=== PATIENT | female | born 1950 | race Hispanic/Latino ===

== ENCOUNTER 2018-11-06 15:00 | Emergency (ER) | payer OTHER ==
--- OUTSIDE RECORDS SUMMARY | 2018-11-06 15:03 | XMS REPORT | Clinical Summary ---
:1950 Author Organization [employer] Address [address] [place] [address] Care Team Providers Name Role Phone Rudy Ramsey MD Primary Care Provider Allergies No Known Allergies Medications Medication Sig Dispensed Refills Start Date End Date Status levothyroxine TK 1 T PO QD 3 12/16/2017 Active (SYNTHROID, LEVOXYL) 88 mcg tablet losartan (COZAAR) 50 TK 1 T PO QAM 3 11/10/2017 Active MG tablet gabapentin Take 300 mg 0 Active (NEURONTIN) 100 mg by mouth 3 capsule (three) times a day. amlodipine-atorvasta Take 1 tablet 0 Active tin (CADUET) 2.5-10 by mouth mg per tablet daily. MULTIVIT,IRON,MINERA Take by 0 Active LS/LUTEIN (CENTRUM mouth. SILVER ULTRA WOMEN'S ORAL) metFORMIN Take 500 mg 0 Active (GLUCOPHAGE) 500 mg by mouth. tablet aspirin (ECOTRIN) 81 Take 81 mg by 0 Active MG enteric coated mouth daily. tablet rosuvastatin Take 5 mg by 0 04/25/2018 Discontinued (CRESTOR) 5 MG mouth daily. tablet qcjchcms-qat-CQ-lyco Take by 0 01/17/2018 Discontinued pen-lutein (CENTRUM mouth. SILVER) 0.4-300-250 mg-mcg-mcg tablet Active Problems Problem Noted Date BLACKWELL (nonalcoholic steatohepatitis) 01/23/2018 Cirrhosis of liver without ascites 01/23/2018 Abnormal LFTs 01/23/2018 Encounters Date Type Specialty Care Team Description 08/07/2018 Office Visit Hepatology Salbador Shaffer MD BLACKWELL (nonalcoholic steatohepatitis) (Primary Dx); Bette Cerda Other cirrhosis of liver; More, VARSHA Abnormal LFTs; Screening for cancer; Cirrhosis of liver without ascites, unspecified hepatic cirrhosis type 04/25/2018 Lab Lab Cheryle Nolasco, BLACKWELL (nonalcoholic steatohepatitis); [employer] RE[employer] Cirrhosis of liver without ascites, unspecified hepatic cirrhosis type; Abnormal LFTs 04/25/2018 Office Visit Hepatology NolascoCheryle garza, BLACKWELL (nonalcoholic steatohepatitis) (Primary Dx); [employer] REPA[employer] Cirrhosis of liver without ascites, unspecified hepatic cirrhosis type; Abnormal LFTs 01/17/2018 Office Visit Gastroenterology Salbador Shaffer MD BLACKWELL ( nonalcoholic steatohepatitis) (Primary Dx); Cirrhosis of liver without ascites, unspecified hepatic cirrhosis type; Abnormal LFTs after 11/05/2017 Social History Tobacco Use Types Packs/Day Years Used Date Never Smoker Smokeless Tobacco: Never Used Alcohol Use Drinks/Week oz/Week Comments No Sex Assigned at Date Recorded Not on file Job Start Date Occupation Industry Not on file Not on file Not on file Travel History Travel Start Travel End No recent travel history available. Last Filed Vital Signs Vital Sign Reading Time Taken Blood Pressure 124/69 08/07/2018 1:23 PM CDT Pulse 77 08/07/2018 1:23 PM CDT Temperature 36.1 C (97 F) 08/07/2018 1:23 PM CDT Respiratory Rate 18 08/07/2018 1:23 PM CDT Oxygen Saturation 97% 08/07/2018 1:23 PM CDT Inhaled Oxygen Concentration - - Weight 70.8 kg (156 lb) 08/07/2018 1:23 PM CDT Height 157.5 cm (5' 2") 08/07/2018 1:23 PM CDT Body Mass Index 28.53 08/07/2018 1:23 PM CDT Plan of Treatment Date Type Specialty Care Team Description 11/07/2018 Office Visit Hepatology Salbador Shaffer MD [address] [facility] [address] [place] [phone] Health Maintenance Due Date Last Done Comments BREAST CANCER SCREENING 2001 COLON CANCER SCREENING 2001 SHINGLES VACCINES (1 of 2) 2001 PNEUMOCOCCAL POLYSACCHARIDE VACCINE AGE 65 AND OVER 2016 PNEUMOCOCCAL-13 2016 INFLUENZA VACCINE 06/12/2018 Procedures Procedure Name Priority Date/Time Associated Comments Diagnosis PROTHROMBIN TIME WITH Routine 08/07/2018 1:52 BLACKWELL (nonalcoholic Results for this INR PM CDT steatohepatitis) procedure are in Other cirrhosis of the results liver section. Abnormal LFTs Screening for cancer COMPREHENSIVE METABOLIC Routine 08/07/2018 1:52 BLACKWELL (nonalcoholic Results for this PANEL PM CDT steatohepatitis) procedure are in Other cirrhosis of the results liver section. Abnormal LFTs Screening for cancer CBC WITH PLATELET AND Routine 08/07/2018 1:52 BLACKWELL (nonalcoholic Results for this DIFFERENTIAL PM CDT steatohepatitis) procedure are in Other cirrhosis of the results liver section. Abnormal LFTs Screening for cancer ALPHA FETOPROTEIN Routine 08/07/2018 1:52 BLACKWELL (nonalcoholic Results for this PM CDT steatohepatitis) procedure are in Other cirrhosis of the results liver section. Abnormal LFTs Screening for cancer PROTHROMBIN TIME WITH Routine 04/25/2018 1:46 BLACKWELL (nonalcoholic Results for this INR PM CDT steatohepatitis) procedure are in Cirrhosis of liver the results without ascites, section. unspecified hepatic cirrhosis type Abnormal LFTs GGT Routine 04/25/2018 1:46 BLACKWELL (nonalcoholic Results for this PM CDT steatohepatitis) procedure are in Cirrhosis of liver the results without ascites, section. unspecified hepatic cirrhosis type Abnormal LFTs COMPREHENSIVE METABOLIC Routine 04/25/2018 1:46 BLACKWELL (nonalcoholic Results for this PANEL PM CDT steatohepatitis) procedure are in Cirrhosis of liver the results without ascites, section. unspecified hepatic cirrhosis type Abnormal LFTs CBC WITH PLATELET AND Routine 04/25/2018 1:46 BLACKWELL (nonalcoholic Results for this DIFFERENTIAL PM CDT steatohepatitis) procedure are in Cirrhosis of liver the results without ascites, section. unspecified hepatic cirrhosis type Abnormal LFTs ANTINUCLEAR ANTIBODIES Routine 01/17/2018 11:31 Results for this TITER AND PATTERN AM B[facility]BALL PITCHER procedure are in the results section. MITOCHONDRIAL AB TITER Routine 01/17/2018 11:31 Results for this AM [facility]ER procedure are in the results section. MITOCHONDRIAL AB SCREEN Routine 01/17/2018 11:31 Results for this AM [facility] procedure are in the results section. HEPATITIS C ANTIBODY Routine 01/17/2018 11:31 Results for this AM [facility]ER procedure are in the results section. HEPATITIS B CORE Routine 01/17/2018 11:31 Results for this ANTIBODY IGM AM [facility]ER procedure are in the results section. HEPATITIS B SURFACE Routine 01/17/2018 11:31 Results for this ANTIGEN AM [facility] procedure are in the results section. HEPATITIS A ANTIBODY Routine 01/17/2018 11:31 Results for this IGM AM [facility] procedure are in the results section. F-ACTIN (SMOOTH MUSCLE) Routine 01/17/2018 11:31 BLACKWELL (nonalcoholic Results for this ANTIBODY, IGG AM BASEBALL PITCHER steatohepatitis) procedure are in Cirrhosis of liver the results without ascites, section. unspecified hepatic cirrhosis type Abnormal LFTs KAILEE SCREEN W IFA W Routine 01/17/2018 11:31 BLACKWELL (nonalcoholic Results for this REFLEX TO TITER AM BASEBALL PITCHER steatohepatitis) procedure are in Cirrhosis of liver the results without ascites, section. unspecified hepatic cirrhosis type Abnormal LFTs PROTHROMBIN TIME WITH Routine 01/17/2018 11:31 BLACKWELL (nonalcoholic Results for this INR AM BASEBALL PITCHER steatohepatitis) procedure are in Cirrhosis of liver the results without ascites, section. unspecified hepatic cirrhosis type Abnormal LFTs IMMUNOGLOBULIN G, A, M Routine 01/17/2018 11:31 BLACKWELL (nonalcoholic Results for this AM B[facility]ITCHER steatohepatitis) procedure are in Cirrhosis of liver the results without ascites, section. unspecified hepatic cirrhosis type Abnormal LFTs HEPATITIS B CORE Routine 01/17/2018 11:31 BLACKWELL (nonalcoholic Results for this ANTIBODY TOTAL AM BASEBALL [facility]ITCHER steatohepatitis) procedure are in Cirrhosis of liver the results without ascites, section. unspecified hepatic cirrhosis type Abnormal LFTs HEPATITIS A ANTIBODY Routine 01/17/2018 11:31 BLACKWELL (nonalcoholic Results for this TOTAL AM BASEBALL PITCHER steatohepatitis) procedure are in Cirrhosis of liver the results without ascites, section. unspecified hepatic cirrhosis type Abnormal LFTs GGT Routine 01/17/2018 11:31 BLACKEWLL (nonalcoholic Results for this AM BASEBALL PITCHER steatohepatitis) procedure are in Cirrhosis of liver the results without ascites, section. unspecified hepatic cirrhosis type Abnormal LFTs FERRITIN LEVEL Routine 01/17/2018 11:31 BLACKWELL (nonalcoholic Results for this AM BASEBALL [facility]ITCHER steatohepatitis) procedure are in Cirrhosis of liver the results without ascites, section. unspecified hepatic cirrhosis type Abnormal LFTs COMPREHENSIVE METABOLIC Routine 01/17/2018 11:31 BLACKWELL (nonalcoholic Results for this PANEL AM BASEBALL PITCHER steatohepatitis) procedure are in Cirrhosis of liver the results without ascites, section. unspecified hepatic cirrhosis type Abnormal LFTs ALPHA FETOPROTEIN Routine 01/17/2018 11:31 BLACKWELL (nonalcoholic Results for this AM BASEBALL PITCHER steatohepatitis) procedure are in Cirrhosis of liver the results without ascites, section. unspecified hepatic cirrhosis type Abnormal LFTs after 11/05/2017 Results Alpha fetoprotein (08/07/2018 1:52 PM CDT)Only the most recent of2 resultswithin the time period is included. Alpha fetoprotein 17.5 (H) ng/mL [employer] Comment: II Reference Range: <6.1 The use of AFP as a tumor marker in females is not recommended. This test was performed using the [place] chemiluminescent method. Values obtained from different assay methods cannot be used interchangeably. AFP levels, regardless of value, should not be interpreted as absolute evidence of the presence or absence of disease. Specimen Blood Resulting Agency Comment Performing Organization Information: Site ID: [id number] Name: [facility] Address: [address] [place] [phone] Director: Dr. Andrea Greene Performing Organization Address City/[facility] Centercode Phone Number [employer] [address] Prothrombin time with INR (08/07/2018 1:52 PM CDT)Only the most recent of3 resultswithin the time period is included. INR 1.3 (H) [facility] [place] Comment: Reference Range 0.9-1.1 Moderate-intensity Warfarin Therapy 2.0-3.0 Higher-intensity Warfarin Therapy 3.0-4.0 Prothrombin time 13.2 (H) 9.0 - 11.5 sec [facility] [place] Comment: For more information on this test, go to: http://education.ThePresent.Co/faq/REH691 Specimen Blood Resulting Agency Comment Performing Organization Information: Site ID: [id number] Name: [facility] Address: [address] [place] [phone] Director: Elina Sanderson Performing Organization Address [facility]/Zipcode Phone Number [employer] [address] [address] CBC with platelet and differential (08/07/2018 1:52 PM CDT)Only the most recent of2 resultswithin the time period is included. WBC 5.6 3.8 - 10.8 Thousand/uL [facility] [employer] [place] RBC 4.27 3.80 - 5.10 Million/uL [facility] HGB 13.1 11.7 - 15.5 g/dL [facility] HCT 38.8 35.0 - 45.0 % [facility] [place] MCV 90.9 80.0 - 100.0 fL [facility] [place] MCH 30.7 27.0 - 33.0 pg [facility] [place] MCHC 33.8 32.0 - 36.0 g/dL [facility] [place] RDW 14.2 11.0 - 15.0 % [facility] [place] Platelet count 166 140 - 400 Thousand/uL [facility] [employer] [place] MPV 10.2 7.5 - 12.[address] [facility] Neutrophils, absolute 2,750 1,500 - 7,800 cells/uL [facility] [place] Lymphocytes, absolute 2,268 850 - 3,900 cells/uL [facility] [place] Monocytes, absolute 426 200 - 950 cells/uL [facility] [place] Eosinophils, absolute 78 15 - 500 cells/uL [facility] [place] Basophils, absolute 78 0 - 200 cells/uL [facility] [place] Neutrophils 49.1 % [facility] Lymphocytes 40.5 % [facility] [place] Monocytes 7.6 % [facility] [place] Eosinophils 1.4 % [facility] [place] Basophils + RC 1.4 % [facility] [place] Specimen Blood Resulting Agency Comment Performing Organization Information: Site ID: [id number] Name: [employer] [facility] Lab Address: [address] [place] [phone] Director: Elina Sanderson Performing Organization Address City/State/Zipcode Phone Number [facility] [employer] [place] [phone] Comprehensive metabolic panel (08/07/2018 1:52 PM CDT)Only the most recent of3 resultswithin the time period is included. Glucose 143 (H) 65 - 99 mg/dL [facility] Comment: [place] Fasting reference interval For someone without known diabetes, a glucose value >125 mg/dL indicates that they may have diabetes and this should be confirmed with a follow-up test. BUN, whole blood 7 7 - 25 mg/dL [facility] [place] Creatinine 0.52 0.50 - 0.99 [facility] Comment: mg/dL [place] For patients >49 years of age, the reference limit for Creatinine is approximately 13% higher for people identified as -Lebanese. EGFR Non-Afr. Lebanese 100 > OR=60 [facility] mL/min/1.73m2 [place] EGFR 115 > OR=60 [facility] mL/min/1.73m2 [place] BUN/creatinine ratio NOT APPLICABLE 6 - 22 (calc) [facility] [place] Sodium 138 135 - 146 mmol/L [facility] [place] Potassium 4.2 3.5 - 5.3 mmol/L [facility] [place] Chloride 102 98 - 110 mmol/L [facility] [place] CO2 26 20 - 32 mmol/L [facility] [place] Calcium 9.5 8.6 - 10.4 mg/dL [facility] [place] Protein 8.0 6.1 - 8.1 g/dL [facility] [place] Albumin, S 3.9 3.6 - 5.1 g/dL [facility] [place] Globulin, total 4.1 (H) 1.9 - 3.7 g/dL [facility] (calc) [place] Albumin/globulin ratio 1.0 1.0 - 2.5 (calc) [facility] [place] Total bilirubin 0.8 0.2 - 1.2 mg/dL [facility] [place] Alkaline phosphatase 92 33 - 130 U/L [facility] [place] AST 52 (H) 10 - 35 U/L [facility] [place] ALT 34 (H) 6 - 29 U/L [facility] [place] Specimen Blood Resulting Agency Comment Performing Organization Information: Site ID: A Name: [facility] Address: [address] [place] [phone] Director: Elina Sanderson Performing Organization Address City/[facility] Centercode Phone Number [employer] [place] [phone] GGT (04/25/2018 1:46 PM CDT)Only the most recent of2 resultswithin the time period is included. GGT 151 (H) 3 - 65 U/L [facility] [employer] [place] Specimen Blood Resulting Agency Comment Performing Organization Information: Site ID: A Name: [facility] Address: [address] [place] [phone] Director: Elina Sanderson Performing Organization Address City/State/[facility] Centercode Phone Number [employer] [place] [phone] Mitochondrial Ab Titer (01/17/2018 11:31 AM BASEBALL PITCHER) Mitochondrial Ab titer TNP titer [facility]OHN Comment: SJC Test Not Performed. Screening test Negative or Not Detected. Titer not performed. Narrative Performed At FASTING:NO [facility] FASTING: NO Resulting Agency Comment Performing Organization Information: Site ID: [id number] Name: [facility], Address: [address] [place] [phone] Director: Sherrill Simmons MD,PhD,JUANA Performing Organization Address [facility] Phone Number [facility] [address] [place] [address] [facility] Mitochondrial Ab Screen (01/17/2018 11:31 AM B[facility]BALL PITCHER) Mitochondrial Ab NEGATIVE NEGATIVE [facility] Comment: [facility] This test was developed and its analytical performance characteristics have been determined by [facility]. It has not been cleared or approved by FDA. This assay has been validated pursuant to the CLIA regulations and is used for clinical purposes. Narrative Performed At FASTING:NO [facility] FASTING: NO Resulting Agency Comment Performing Organization Information: Site ID: [id number] Name: [facility], Address: [address] [place] [phone] Director: Sherrill Simmons MD,PhD,JUANA Performing Organization Address [facility] Phone Number [facility] [employer] [address] [place] [address] [facility] KAILEE SCREEN W IFA W REFLEX TO TITER (01/17/2018 11:31 AM BASEBALL PITCHER) KAILEE screen POSITIVE (A) NEGATIVE [facility] II Comment: KAILEE IFA is a first line screen for detecting the presence of up to approximately 150 autoantibodies in various autoimmune diseases. A positive KAILEE IFA result is suggestive of autoimmune disease and reflexes to titer and pattern. Further laboratory testing may be considered if clinically indicated. Visit Physician FAQs for interpretation of all antibodies in the [place], prevalence, and association with diseases at http://education.BeHome247/ faq/FMH170 Specimen Blood Narrative Performed At FASTING:NO [facility] FASTING: NO Resulting Agency Comment Performing Organization Information: Site ID: [id number] Name: [facility] Address: [address] [place] [phone] Director: Dr. Andrea Greene Performing Organization Address [facility] Phone Number [employer] [address] ANTINUCLEAR ANTIBODIES TITER AND PATTERN (01/17/2018 11:31 AM BASEBALL PITCHER) KAILEE pattern SPECKLED (A) [facility] Comment: Speckled pattern is associated with mixed connective tissue disease (MCTD), systemic lupus erythematosus (SLE), Sjogren's syndrome, dermatomyositis, and systemic sclerosis/polymyositis overlap. KAILEE titer 1:80 (H) titer [facility] Comment: A low level KAILEE titer may be present in pre-clinical autoimmune diseases and normal individuals. Reference Range <1:40Negative 1:40-1:80Low Antibody Level >1:80Elevated Antibody Level Narrative Performed At FASTING:NO [facility] FASTING: NO Resulting Agency Comment Performing Organization Information: Site ID: [id number] Name: [facility] Address: [address] [place] [phone] Director: Dr. Andrea Greene Performing Organization Address [facility] Phone Number [employer] [address] Hepatitis C antibody (01/17/2018 11:31 AM BASEBALL PITCHER) Hepatitis C Ab NON-REACTIVE NON-REACTIVE [facility] [place] Signal/cutoff 0.14 <1.00 [facility] [place] Narrative Performed At FASTING:NO [facility] FASTING: NO Resulting Agency Comment Performing Organization Information: Site ID: RGA Name: [facility] Address: [address] [place] [phone] Director: Elina Sanderson MD Performing Organization Address [facility] Centerconh Phone Number [employer] [address] [address] F-actin (smooth muscle) antibody, IgG (01/17/2018 11:31 AM BASEBALL PITCHER) F-actin (smooth muscle) <20 U [facility], IgG Comment: DIAGNOSTICS/[facility] Reference Range: < 20 NEGATIVE > OR=20 POSITIVE Antibodies recognizing actin are the main component of smooth muscle antibodies associated with autoimmune liver disease. Actin antibodies are found in approximately 75% of patients with autoimmune hepatitis (AIH) type 1, approximately 65% of patients with autoimmune cholangitis, approximately 30% of patients with primary biliary cirrhosis, and approximately 2% of healthy people. High values are closely correlated with AIH type 1. Specimen Blood Narrative Performed At FASTING:NO [facility] FASTING: NO Resulting Agency Comment Performing Organization Information: Site ID: [id number] Name: [facility] [facility], Address: [address] [place] [phone] Director: Sherrill Simmons MD,PhD,JUANA Performing Organization Address City/State/[facility] Centercode Phone Number [employer] [address] [place] [phone] [facility] Hepatitis A antibody IgM (01/17/2018 11:31 AM B[facility]BALL PITCHER) Hepatitis A IgM NON-REACTIVE NON-REACTIVE [facility] [place] Narrative Performed At FASTING:NO [facility] FASTING: NO Resulting Agency Comment Performing Organization Information: Site ID: RGA Name: [facility] Address: [address] [place] [phone] Director: Elina Sanderson MD Performing Organization Address [facility] Centercode [place] [address] Hepatitis A antibody total (01/17/2018 11:31 AM B[facility]BALL PITCHER) Hepatitis A total Ab REACTIVE (A) NON-REACTIVE [facility] [place] Specimen Blood Narrative Performed At FASTING:NO [facility] FASTING: NO Resulting Agency Comment Performing Organization Information: Site ID: RGA Name: [facility] Address: [address] [place] [phone] Director: Elina Sanderson MD Performing Organization Address [facility] Centercode [place] [address] Hepatitis B core antibody IgM (01/17/2018 11:31 AM BASEBALL PITCHER) Hepatitis B core IgM NON-REACTIVE NON-REACTIVE [facility] [place] Narrative Performed At FASTING:NO [facility] FASTING: NO Resulting Agency Comment Performing Organization Information: Site ID: RGA Name: [facility] Address: [address] [place] [phone] Director: Elina Sanderson MD Performing Organization Address [facility] Centercode [place] [address] Hepatitis B core antibody total (01/17/2018 11:31 AM BASEBALL PITCHER) Hepatitis B core total Ab NON-REACTIVE NON-REACTIVE [facility] [place] Specimen Blood Narrative Performed At FASTING:NO [facility] FASTING: NO Resulting Agency Comment Performing Organization Information: Site ID: RGA Name: [facility] Address: [address] [place] [phone] Director: Elina Sanderson MD Performing Organization Address [facility] Centercode [place] [address] Hepatitis B surface antigen (01/17/2018 11:31 AM BASEBALL PITCHER) Hepatitis B surface Ag NON-REACTIVE NON-REACTIVE [facility] [place] Narrative Performed At FASTING:NO [facility] FASTING: NO Resulting Agency Comment Performing Organization Information: Site ID: RGA Name: [facility] Address: [address] [place] [phone] Director: Elina Sanderson MD Performing Organization Address [facility] Centerconh [place] [address] Immunoglobulin G, A, M (01/17/2018 11:31 AM BASEBALL PITCHER) IgA 796 (H) 81 - 463 mg/dL [facility] [place] IgG 2,557 (H) 694 - 1,618 mg/dL [facility] [place] IgM 136 48 - 271 mg/dL [facility] [place] Specimen Blood Narrative Performed At FASTING:NO [facility] FASTING: NO Resulting Agency Comment Performing Organization Information: Site ID: RGA Name: [facility] Address: [address] [place] [phone] Director: Elina Sanderson MD Performing Organization Address [facility] Centercode Phone Number [employer] [address] [address] Ferritin level (01/17/2018 11:31 AM BASEBALL PITCHER) Ferritin level 74 20 - 288 ng/mL [facility] [employer] [place] Specimen Blood Narrative Performed At FASTING:NO [facility] FASTING: NO Resulting Agency Comment Performing Organization Information: Site ID: [id number] Name: [facility] Address: [address] [place] [address] Director: Elina Sanderson MD Performing Organization Address City/State/Zipcode Phone Number [facility] [place] [address] [place], [place] [id number] after 11/05/2017 Insurance Payer Benefit Plan / Group Subscriber ID Type Phone Address [employer] MEDICARE AETNA MEDICARE HMO/PPO [facility] xxxxxxxx HMO (Home) [place], [place] [phone] [id number] (Work) Advance Directives Patient has advance care planning documents on file. For more information, please contact:Harshal Guadalupe[address] [address]
[2018-11-06] MEDS ORDERED: IBUPROFEN 200 MG TAB PO ONE (15:45)
[2018-11-06] MEDS ORDERED: IBUPROFEN 400 MG TAB ONE (15:45)
--- NOTE | 2018-11-06 16:04 | RAD REPORT ---
EXAM DESCRIPTION: RAD - Chest Pa And Lat (2 Views) - 11/06/2018 3:58 pm CLINICAL HISTORY: RIB PAIN - RIGHT Chest pain. COMPARISON: Chest Pa And Lat (2 Views) dated 12/19/2017; CHEST SINGLE VIEW dated 12/09/2013; CHEST SING LE VIEW dated 01/13/2011; CHEST SINGLE VIEW dated 05/10/2010 FINDINGS: The lungs appear mildly hyperexpanded but grossly clear. The heart is normal in size. No d isplaced fractures. IMPRESSION: No acute finding is demonstrated.
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
[2018-11-06 16:28] VITALS: O2SAT 98
[2018-11-06 16:29] VITALS: BP 135/78; TEMP 98.8
== END 2018-11-06 16:23 | disposition home or self-care (01) ==
LOC: ER 15:00
DX: S29.012A Strain of muscle and tendon of back wall of thorax, initial encounter (principal); V43.62XA Car passenger injured in collision with other type car in traffic accident, initial encounter
CPT/HCPCS: 71046; 99284

== ENCOUNTER 2023-08-15 17:42 | Emergency (ER) | payer OTHER ==
--- OUTSIDE RECORDS SUMMARY | 2023-08-15 17:48 | XMS REPORT | Continuity of Care Document ---
:1950 Author Organization [facility] t Address [address] [facility] [place] [place] [address] Care Team Providers Name Role Phone Rudy Ramsey MD Primary Care Physician Sherman Jama Attending Clinician Unavailable Per Luis MD Attending Clinician Alfredo Colón Attending Clinician Unavailable Rudy Ramsey Admitting Clinician Unavailable Alfredo Colón Admitting Clinician Unavailable Payers Payer Name Policy Type Policy Number Effective Date Expiration Date S ource Problems Condition Condition Condition Status Onset Resolution Last Treating Co mments Source Name Details Category Date Date Treatment Clinician Date BLACKWELL BLACKWELL Disease Active Methodi (nonalcoho (nonalcoho 01-23 lic lic 00:00: Hospita ste[place]hepa steatohepa 00 l titis) titis) Cirrhosis Cirrhosis Disease Active Met [facility]odi of liver of liver 01-23 without without 00:00: Hospita ascites ascites 00 l Abnormal Abnormal Disease Active Metho di LFTs LFTs 01-23 00:00: Hospita 00 l Allergies, Adverse Reactions, Alerts Allergy Allergy Status Severity Reaction(s) Onset Inactive Treating Comm ents Source Name Type Date Date Clinician No Known DA Active [facility] 04-25 Clear s 00:00: [facility] No Known DA Active [facility] Allergie 6-14 Clear s 00:00: Abrams 00 [facility] No Known DA Active U [facility] Allergie 5-03 Clear s 00:00: Abrams 00 [facility] No Known DA Active U [facility] Allergie 5-03 Clear s 00:00: Abrams 00 [facility] Social History Social Habit Start Date Stop Date Quantity Comments Source Sexual orientation Method [facility] Hospital History of Social 2019-07-03 2019-07-[address] function 00:00:00 00:00:00 Hospital Alcohol intake 2018-08-07 2018-08-07 Current [facility] 00:00:00 00:00:00 non-drinker of Hospital alcohol (finding) Tobacco use and 2018-04-25 2018-04-25 Smokeless [facility] exposure 00:00:00 00:00:00 tobacco non-user Hospital Sex Assigned At [birth year] [facility] 00:00:00 00:00:00 Hospital Smoking Status Start Date Stop Date Source Never smoked tobacco [facility] Medications Ordered Filled Start Stop Current Ordering Indication Dosage Frequency Signature Comments Components Source Medication Medication Date Date Medication? Clinician (SIG) Name Name metFORMIN Yes 500mg Take 500 Met hodi (GLUCOPHAGE - mg by st ) 500 mg 18:32: mouth. Hospita tablet 07 l aspirin Yes 81mg QD Take 81 mg Meth eduardo (ECOTRIN) 08-[address] 81 MG 18:32: daily. Hospita enteric 07 l coated tablet gabapentin Yes 300mg Q.[id number] Take 300 Methodi (NEURONTIN) 08-07 [id number] mg by s t 100 mg 18:31: 3D mouth 3 Hospita capsule 09 (three) l times a day. amlodipine- Yes 1{tbl} QD Take 1 Me thodi atorvastati 08-[address] n (CADUET) 18:31: mouth Hospit a 2.5-10 mg 09 daily. l per tablet MULTIVIT,IR Yes Take by Met hodi ON,MINERALS 9-[address] /LUTEIN 18:31: Hospita (CENTRUM 09 l SILVER ULTRA WOMEN'S ORAL) metFORMIN Yes 500mg Take 500 Met hodi (GLUCOPHAGE 9-[address] ) 500 mg 13:32: mouth. Hospita tablet 07 l aspirin 2018-0 Yes 81mg QD Take 81 mg Meth eduardo (ECOTRIN) 9-[address] 81 MG 13:32: daily. Hospita enteric 07 l coated tablet metFORMIN 2017-0 Yes 500mg Take 500 Met hodi (GLUCOPHAGE 9-[address] ) 500 mg 13:32: mouth. Hospita tablet 07 l aspirin 2018-0 Yes 81mg QD Take 81 mg Meth eduardo (ECOTRIN) 9-[address] 81 MG 13:32: daily. Hospita enteric 07 l coated tablet metFORMIN 2017-0 Yes 500mg Take 500 Met hodi (GLUCOPHAGE 9-[address] ) 500 mg 13:32: mouth. Hospita tablet 07 l aspirin 2018-0 Yes 81mg QD Take 81 mg Meth eduardo (ECOTRIN) 9-[address] 81 MG 13:32: daily. Hospita enteric 07 l coated tablet metFORMIN 2017-0 Yes 500mg Take 500 Met hodi (GLUCOPHAGE 9-[address] ) 500 mg 13:32: mouth. Hospita tablet 07 l aspirin 2017-0 Yes 81mg QD Take 81 mg Meth eduardo (ECOTRIN) 9- by mouth st 81 MG 13:32: daily. Hospita enteric 07 l coated tablet metFORMIN 2017-0 Yes 500mg Take 500 Met hodi (GLUCOPHAGE 9-[address] ) 500 mg 13:32: mouth. Hospita tablet 07 l aspirin 2018-0 Yes 81mg QD Take 81 mg Meth eduardo (ECOTRIN) 9-[address] 81 MG 13:32: daily. Hospita enteric 07 l coated tablet metFORMIN 2017-0 Yes 500mg Take 500 Met hodi (GLUCOPHAGE 9-[address] ) 500 mg 13:32: mouth. Hospita tablet 07 l aspirin 2018-0 Yes 81mg QD Take 81 mg Meth eduardo (ECOTRIN) 9-[address] 81 MG 13:32: daily. Hospita enteric 07 l coated tablet gabapentin 2017-0 Yes 300mg Q.[id number] Take 300 Methodi (NEURONTIN) 9-26 [id number] mg by s t 100 mg 13:31: 3D mouth 3 Hospita capsule 09 (three) l times a day. amlodipine- 2017-0 Yes 1{tbl} QD Take 1 Me thodi atorvastati 9-[address] n (CADUET) 13:31: mouth Hospit a 2.5-10 mg 09 daily. l per tablet MULTIVIT,IR 2017-0 Yes Take by Met alexandru ON,MINERALS - mouth. st /LUTEIN 13:31: Hospita (CENTRUM 09 l SILVER ULTRA WOMEN'S ORAL) gabapentin 2018-0 Yes 300mg Q.[id number] Take 300 Methodi (NEURONTIN) 9-26 [id number] mg by s t 100 mg 13:31: 3D mouth 3 Hospita capsule 09 (three) l times a day. amlodipine- 2017-0 Yes 1{tbl} QD Take 1 Me thodi atorvastati 9-[address] n (CADUET) 13:31: mouth Hospit a 2.5-10 mg 09 daily. l per tablet MULTIVIT,IR 2017-0 Yes Take by Met alexandru ON,MINERALS 08-[address] /LUTEIN 13:31: Hospita (CENTRUM 09 l SILVER ULTRA WOMEN'S ORAL) gabapentin 2017-0 Yes 300mg Q.[id number] Take 300 Methodi (NEURONTIN) 9-26 [id number] mg by s t 100 mg 13:31: 3D mouth 3 Hospita capsule 09 (three) l times a day. amlodipine- 2017-0 Yes 1{tbl} QD Take 1 Me thodi atorvastati 9-[address] n (CADUET) 13:31: mouth Hospit a 2.5-10 mg 09 daily. l per tablet MULTIVIT,IR 2017-0 Yes Take by Met alexandru ON,MINERALS 08-[address] /LUTEIN 13:31: Hospita (CENTRUM 09 l SILVER ULTRA WOMEN'S ORAL) gabapentin 2018-0 Yes 300mg Q.[id number] Take 300 Methodi (NEURONTIN) 9-26 [id number] mg by s t 100 mg 13:31: 3D mouth 3 Hospita capsule 09 (three) l times a day. amlodipine- 2017-0 Yes 1{tbl} QD Take 1 Me thodi atorvastati 9-[address] n (CADUET) 13:31: mouth Hospit a 2.5-10 mg 09 daily. l per tablet MULTIVIT,IR 2017-0 Yes Take by Met hodi ON,MINERALS [address] /LUTEIN 13:31: Hospita (CENTRUM 09 l SILVER ULTRA WOMEN'S ORAL) gabapentin 2018-0 Yes 300mg Q.[id number] Take 300 Methodi (NEURONTIN) 9- [id number] mg by s t 100 mg 13:31: 3D mouth 3 Hospita capsule 09 (three) l times a day. amlodipine- 2017-0 Yes 1{tbl} QD Take 1 Me thodi atorvastati 9- tablet by st n (CADUET) 13:31: mouth Hospit a 2.5-10 mg 09 daily. l per tablet MULTIVIT,IR 2017-0 Yes Take by Met marleeni ON,MINERALS 9- mouth. st /LUTEIN 13:31: Hospita (CENTRUM 09 l SILVER ULTRA WOMEN'S ORAL) gabapentin 2017-0 Yes 300mg Q.[id number] Take 300 Methodi (NEURONTIN) 9- [id number] mg by s t 100 mg 13:31: 3D mouth 3 Hospita capsule 09 (three) l times a day. amlodipine- 2017-0 Yes 1{tbl} QD Take 1 Me thodi atorvastati 9- tablet by st n (CADUET) 13:31: mouth Hospit a 2.5-10 mg 09 daily. l per tablet MULTIVIT,IR 2017-0 Yes Take by Met alexandru ON,MINERALS [address] /LUTEIN 13:31: Hospita (CENTRUM 09 l SILVER ULTRA WOMEN'S ORAL) levothyroxi 2017-0 Yes TK 1 T PO M ethodi ne 2-[address] (SYNTHROID, 00:00: Hospit a LEVOXYL) 88 00 l mcg tablet levothyroxi 2017-0 Yes TK 1 T PO M ethodi ne 2-[address] (SYNTHROID, 00:00: Hospit a LEVOXYL) 88 00 l mcg tablet levothyroxi 2017-0 Yes TK 1 T PO M ethodi ne 2-[address] (SYNTHROID, 00:00: Hospit a LEVOXYL) 88 00 l mcg tablet levothyroxi 2017-0 Yes TK 1 T PO M ethodi ne 2-[address] (SYNTHROID, 00:00: Hospit a LEVOXYL) 88 00 l mcg tablet levothyroxi 2018-0 Yes TK 1 T PO M ethodi ne 2-[address] (SYNTHROID, 00:00: Hospit a LEVOXYL) 88 00 l mcg tablet levothyroxi Yes TK 1 T PO M ethodi ne 2-[address] (SYNTHROID, 00:00: Hospit a LEVOXYL) 88 00 l mcg tablet levothyroxi Yes TK 1 T PO M ethodi ne 2-[address] (SYNTHROID, 00:00: Hospit a LEVOXYL) 88 00 l mcg tablet losartan 2016-11 Yes TK 1 T PO Meth eduardo (COZAAR) 50 2-[address] MG tablet 00:00: Hospita 00 l losartan 2016-11 Yes TK 1 T PO Meth eduardo (COZAAR) 50 2-[address] MG tablet 00:00: Hospita 00 l losartan 2016-11 Yes TK 1 T PO Meth eduardo (COZAAR) 50 2-[address] MG tablet 00:00: Hospita 00 l losartan 2016-11 Yes TK 1 T PO Meth eduardo (COZAAR) 50 2-[address] MG tablet 00:00: Hospita 00 l losartan 2016-11 Yes TK 1 T PO Meth eduardo (COZAAR) 50 2-[address] MG tablet 00:00: Hospita 00 l losartan 2016-11 Yes TK 1 T PO Meth eduardo (COZAAR) 50 2-[address] MG tablet 00:00: Hospita 00 l losartan 2016-11 Yes TK 1 T PO Meth eduardo (COZAAR) 50 2-[address] MG tablet 00:00: Hospita 00 l Procedures Procedure Date / Time Performed Performing Clinician Gerda tone [id number] 2021-04-26 00:00:00 CHAAB.01 [facility] [id number] 2021-04-26 00:00:00 CHAAB.01 [facility] Plan of Care Planned Activity Planned Date Details Comments Source Future Scheduled 2023-07-17 Screening for [facility] Test 17:10:43 malignant neoplasm of colon (procedure) [code = 019499796] Future Scheduled 2023-07-17 [facility]ening for [facility] Test 17:10:43 malignant neoplasm of colon (procedure) [code = 326040282] Future Scheduled 2023-07-17 Screening for [facility] Test 17:10:43 malignant neoplasm of colon (procedure) [code = 506514797] Future Scheduled 2023-07-17 COVID-19 VACCINE (#1) [facility] Test 17:10:43 [code = COVID-19 VACCINE (#1)] Future Scheduled 2023-07-17 BREAST CANCER [facility] Test 17:10:43 SCREENING [code = BREAST CANCER SCREENING] Future Scheduled 2023-07-17 [facility]ening for [facility] Test 17:10:43 malignant neoplasm of colon (procedure) [code = 303580147] Future Scheduled 2023-07-17 Screening for [facility] Test 17:10:43 malignant neoplasm of colon (procedure) [code = 620428537] Future Scheduled 2023-07-17 SHINGLES VACCINES (1 Met [facility] Test 17:10:43 of 2) [code = SHINGLES VACCINES (1 of 2)] Future Scheduled 2023-07-17 65+ [facility]OCOCCAL [facility] Test 17:10:43 VACCINE (1 - PCV) [code = 65+ PNEUMOCOCCAL VACCINE (1 - PCV)] Future Scheduled 2023-07-17 INFLUENZA VACCINE (#1) [facility] Test 17:10:43 [code = INFLUENZA VACCINE (#1)] Future Scheduled 2022-11-27 COVID-19 VACCINE (#1) [facility] Test 16:53:18 [code = COVID-19 VACCINE (#1)] Future Scheduled 2022-11-27 BREAST CANCER [facility] Test 16:53:18 SCREENING [code = BREAST CANCER SCREENING] Future Scheduled 2022-11-27 COLONOSCOPY SCREENING [facility] Test 16:53:18 [code = COLONOSCOPY SCREENING] Future Scheduled 2022-11-27 SHINGLES VACCINES (1 Met [facility] Test 16:53:18 of 2) [code = SHINGLES VACCINES (1 of 2)] Future Scheduled 2022-11-27 65+ PNEUMOCOCCAL [facility] Test 16:53:18 VACCINE (1 - PCV) [code = 65+ PNEUMOCOCCAL VACCINE (1 - PCV)] Future Scheduled 2022-11-27 INFLUENZA VACCINE [facility] Test 16:53:18 [code = INFLUENZA VACCINE] Future Scheduled 2022-11-25 COVID-19 VACCINE (#1) [facility] Test 14:49:01 [code = COVID-19 VACCINE (#1)] Future Scheduled 2022-11-25 BREAST CANCER [facility] Test 14:49:01 SCREENING [code = BREAST CANCER SCREENING] Future Scheduled 2022-11-25 COLONOSCOPY SCREENING [facility] Test 14:49:01 [code = COLONOSCOPY SCREENING] Future Scheduled 2022-11-25 SHINGLES VACCINES (1 [facility] Test 14:49:01 of 2) [code = SHINGLES VACCINES (1 of 2)] Future Scheduled 2022-11-25 65+ [facility] Test 14:49:01 VACCINE (1 - PCV) [code = 65+ PNEUMOCOCCAL VACCINE (1 - PCV)] Future Scheduled 2022-11-25 INFLUENZA VACCINE [facility] Test 14:49:01 [code = INFLUENZA VACCINE] Future Scheduled 2022-11-03 COVID-19 VACCINE (#1) [facility] Test 10:29:34 [code = COVID-19 VACCINE (#1)] Future Scheduled 2022-11-03 65+ [facility]CCAL [facility] Test 10:29:34 VACCINE (1 - PCV) [code = 65+ PNEUMOCOCCAL VACCINE (1 - PCV)] Future Scheduled 2022-11-03 BREAST CANCER [facility] Test 10:29:34 SCREENING [code = BREAST CANCER SCREENING] Future Scheduled 2022-11-03 COLONOSCOPY SCREENING [facility] Test 10:29:34 [code = COLONOSCOPY SCREENING] Future Scheduled 2022-11-03 SHINGLES VACCINES (1 [facility] Test 10:29:34 of 2) [code = SHINGLES VACCINES (1 of 2)] Future Scheduled 2022-11-03 HEPATITIS B VACCINES [facility] Test 10:29:34 (1 of 3 - Risk 3-dose series) [code = HEPATITIS B VACCINES (1 of 3 - Risk 3-dose series)] Future Scheduled 2022-11-03 INFLUENZA VACCINE [facility] Test 10:29:34 [code = INFLUENZA VACCINE] Future Scheduled 2022-11-03 COVID-19 VACCINE (#1) [facility] Test 10:29:34 [code = COVID-19 VACCINE (#1)] Future Scheduled 2022-11-03 65+ [facility]CCAL [facility] Test 10:29:34 VACCINE (1 - PCV) [code = 65+ PNEUMOCOCCAL VACCINE (1 - PCV)] Future Scheduled 2022-11-03 BREAST CANCER [facility] Test 10:29:34 SCREENING [code = BREAST CANCER SCREENING] Future Scheduled 2022-11-03 COLONOSCOPY SCREENING [facility] Test 10:29:34 [code = COLONOSCOPY SCREENING] Future Scheduled 2022-11-03 SHINGLES VACCINES (1 [facility] Test 10:29:34 of 2) [code = SHINGLES VACCINES (1 of 2)] Future Scheduled 2022-11-03 HEPATITIS B VACCINES [facility] Test 10:29:34 (1 of 3 - Risk 3-dose series) [code = HEPATITIS B VACCINES (1 of 3 - Risk 3-dose series)] Future Scheduled 2022-11-03 INFLUENZA VACCINE [facility] Test 10:29:34 [code = INFLUENZA VACCINE] Future Scheduled 2022-11-03 COVID-19 VACCINE (#1) [facility] Test 10:29:34 [code = COVID-19 VACCINE (#1)] Future Scheduled 2022-11-03 65+ [facility]OCCAL [facility] Test 10:29:34 VACCINE (1 - PCV) [code = 65+ PNEUMOCOCCAL VACCINE (1 - PCV)] Future Scheduled 2022-11-03 BREAST CANCER [facility] Test 10:29:34 SCREENING [code = BREAST CANCER SCREENING] Future Scheduled 2022-11-03 COLONOSCOPY SCREENING [facility] Test 10:29:34 [code = COLONOSCOPY SCREENING] Future Scheduled 2022-11-03 SHINGLES VACCINES (1 [facility] Test 10:29:34 of 2) [code = SHINGLES VACCINES (1 of 2)] Future Scheduled 2022-11-03 HEPATITIS B VACCINES [facility] Test 10:29:34 (1 of 3 - Risk 3-dose series) [code = HEPATITIS B VACCINES (1 of 3 - Risk 3-dose series)] Future Scheduled 2022-11-03 INFLUENZA VACCINE [facility] Test 10:29:34 [code = INFLUENZA VACCINE] Future Scheduled 65+ PNEUMOCOCCAL [facility] Test VACCINE (1 of 2 - PPSV23) [code = 65+ PNEUMOCOCCAL VACCINE (1 of 2 - PPSV23)] Future Scheduled COVID-19 VACCINE (1) [facility] Test [code = COVID-19 VACCINE (1)] Future Scheduled BREAST CANCER [facility] Test SCREENING [code = BREAST CANCER SCREENING] Future Scheduled [facility] [code = COLONOSCOPY SCREENING] Future Scheduled SHINGLES VACCINES (#1) [facility] [code = SHINGLES VACCINES (#1)] Future Scheduled INFLUENZA VACCINE [facility] Test [code = INFLUENZA VACCINE] Encounters Start End Encounter Admission Attending Care Care Encounter Source Date/Time Date/Time Type Type Clinicians Facility Department ID 2021-03-11 Inpatient LUCIANO Jama [facility] [id number] [facility] 09:45:44 Sherman 75 [facility] 2022-10-20 2022-10-20 Travel 1.2.840.1 [id number] [facility] 00:00:00 00:00:[address] 3.430.2.7 0.2.7.3.698 Ho spita .3.979728 084.8 l .8 2022-10-20 2022-10-20 Travel 1.2.840.1 1.2.051.506 [id number] [facility] 00:00:00 00:00:[address] 3.430.2.7 0.2.7.3.698 Ho spita .3.073824 084.8 l .8 2022-09-28 2022-09-28 Transcribe Galati, 1.2.840.1 [id number] [facility] 00:00:00 00:00:00 Orders Per Powell [address]647.1.[address] 3.430.2.7 Hospit a .3.589047 l .8 2022-09-28 2022-09-28 Transcribe Galati, 1.2.840.1 [id number] [facility] 00:00:00 00:00:00 Orders Per Powell 41462.1.[address] 3.430.2.7 Hospit a .3.189251 l .8 2021-08-12 2021-08-12 Inpatient EL JANELLE JamaELDER RI [id number] [facility] 10:00:00 09:09:00 Sherman 93 [facility] 2021-05-26 2021-05-26 Inpatient LUCIANO Oliva OUTD [id number] [facility] 13:00:00 13:00:00 Sherman 69 [facility] 2021-04-26 2021-04-27 Inpatient LUCIANO Hartmann INTE.02 [id number] [facility] 08:52:00 14:05:00 Hailey 82 [facility] 2021-04-12 2021-04-12 Outpatient LUCIANO Hartmann [facility] [id number] [facility] 07:46:00 07:46:00 Hailey 27 [facility] Results Test Description Test Time Test Comments Results Result Comments Source CREATININE W ESTIMATED GFR 2021-08-12 13:20:00 Test Item Value Reference Range Interpretation Comme nts BEDSIDE CREATININE (test code = CREATBED) 0.7 MG/DL 0.6-1.3 N GLOMERULAR FILTRATION RATE POC (test code = GFRBED) 88 ML/MIN ENTER BEDSIDE CREATININE RESULT: 0.65Serial Number: [id number] Name of User Performing Test: R.LEE- MRI ABDOMEN W W/O [id number] 00:00:00 [facility] : 1950 Sex: F FAX: Rudy Best MD [phone] Sherman: St: REG FAX: Sherman Lilly MD [phone] Name: PARKER MORRIS [facility] Elodia Abrams : 1950 Age/S: 70/F [address] [place] [address] Unit #: [id number] Loc: [place] [address] Phys: Sherman Jama MD Acct: [id number] Dis Date: Status: REG CLI PHONE #: [phone] Exam Da te: 08/12/2021 1147 FAX #: [phone] Reason: LIVER MASS EXAMS: CPT CODE: [id number] MRI ABDOMEN W W/O CONT [id number] PROCEDURE INFORMATION: Exam: MR Abdomen Without and With Contrast; Liver Exam date andtime: 08/12/2021 10:40 AM Age: 70 years old Clinical indication: Other specified diseases of liver; Additional info: Liver mass; Abnormal imaging. Incidental findings of cirrhosis with liver lesion on CT angiogram. TECHNIQUE: Imaging protocol: MR Abdomen with and without intravenous contrast. Exam focused on the liver. Contrast material: DOTAREM; Contrast volume: 13 ml; Contrast route: INTRAVENOUS (IV); COMPARISON: CTA ABD PEL W CONT 04/12/2021 9:18 AM FINDINGS: Limitations: Respiratory motion. Liver: M orphologic changes of cirrhosis. Reticular T2 hyperintensity without suspicious mass. Simple cyst segment 8, series 11, image 10, 10 mm. 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 There is a circumscribed mass posterior of segment 6 right lobe of liver hepatorenal space inseparable from the posterior liver measuring 3.5 x 2.5 x 1.9 cm corresponding to findings at CT. The lesion demonstrates marked diffuse decreased T2 signal intensity. The lesion is near isointense with hepatic parenchyma, hyperintense relative to skeletal muscle on pre contrast T1 weighted images without demonstrable enhancement. Although inseparable from the upper pole of the right kidney, there is a "claw sign" from the right lobe of liver compatible with exophytic hepatic cyst. There is no restricted diffusion. There are no suspicious hypervascular or hypovascular liver masses. The portal venous system is patent. Portosystemic collateral formation is evident. Gallbladder and bile ducts: Normal gallbladder. No biliary ductal dilatation. Pancreas: Pancreas is normal. Spleen: The spleen is normal, 11.3 cm in length. Adrenals: The adrenal glands are normal. Kidneys and ureters: There is a 1.7 cm simple cyst lateral cortex mid left kidney. Kidneys are otherwise normal. Intraperitoneal space: Small volume ascites.Arteries: The aorta and IVC are unremarkable. Lymph nodes: There are enlarged periportal nodes measuring up to 1.6 cm short axis. PAGE 1 Signed Report (CONTINUED) FAX: Rudy Best MD [phone] Sherman: St: REG FAX: Sherman Lilly MD [phone] Name: PARKER MORRIS [facility] : 1950 Age/S: 70/F [address] [place] [address] Unit #: [id number] Loc: [place] [address] Phys: Sherman Jama MD Acct: [id number] Dis Date: Status: REG CLI PHONE #: [phone] Exam Date: 08/12/2021 1147 FAX #: [phone] Reason: LIVER MASS EXAMS: CPT CODE: [id number] MRI ABDOMEN W W/O CONT [id number] (Continued) Other findings: The images are reviewed with a colleague and we are in agreement. IMPRESSION: 1. Cirrhosis with portal venous hypertension. Small volume ascites. 2. Exophytic proteinaceous cyst posterior right lobe of liver accounting for CT findings. Additional simple cyst segment 8. There are no suspiciousliver masses. 3. Periportal lymphadenopathy. 4. Incidental simple left renal cortical cyst. COMMENTS: Consistent with the [employer]'s Incidental Findings Committee white paper (J AmColl Radiol 2018): Any incidental renal lesion less than 1 cm or classified as too small to characterize, or any incidental cystic renal lesion characterized as simple-appearing, is likely benign. No follow-up imaging is recommended for these lesions per consensus recommendations based on imaging criteria. at 1649 Reported and signed by: Preet Granados M.D. 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 [facility] COMPREHENSIVE METABOLIC [id number] 04:21:00 Test Item Value Reference Range Interpretation Comments SODIUM (test code = NA) 140 mEq/L 134-147 N POTASSIUM (test code = 3.9 mEq/L 3.4-5.0 N K) CHLORIDE (test code = 107 mEq/L 100-108 N CL) CARBON DIOXIDE (test 26 mEq/l 21-33 N code = CO2) ANION GAP (test code = 11 0-20 N GAP) GLUCOSE (test code = 113 mg/dL 70-110 H GLU) BLOOD UREA NITROGEN 13 mg/dL 7-18 (test code = BUN) GLOMERULAR FILTRATION 122.3 80-90 H Units of measure = RATE (test code = GFR) ml/mi n/1.73 m2 CREATININE (test code = 0.5 mg/dL 0.6-1.3 L CREAT) TOTAL PROTEIN (test 6.7 g/dL 6.4-8.2 N code = PROT) ALBUMIN (test code = 2.90 g/dL 3.4-5.0 L ALB) CALCIUM (test code = 8.5 mg/dL 8.0-10.5 N CA) BILIRUBIN TOTAL (test 1.30 mg/dL 0.0-1.0 H code = BILT) SGOT/AST (test code = 68 IUnit/L 15-37 H AST) SGPT/ALT (test code = 35 IUnit/L 30-65 N ALT) ALKALINE PHOSPHATASE 84 IUnit/L 20-125 N TOTAL (test code = ALKP) CBC W/AUTO [id number] 04:07:00 Test Item Value Reference Range Interpretation Comments WHITE BLOOD CELL (test code = 6.5 x10 3/uL 4.5-11.0 WBC) RED BLOOD CELL (test code = 3.54 x10 6/uL 3.54-5.02 N RBC) HEMOGLOBIN (test code = HGB) 10.4 g/dL 11.0-15.0 L HEMATOCRIT (test code = HCT) 32.7 % 33.0-45.0 L MEAN CELL VOLUME (test code = 92.4 fL 81.0-99.0 N MCV) MEAN CELL HGB (test code = MCH) 29.4 pg 27.0-33.0 N MEAN CELL HGB CONCETRATION 31.8 g/dL 33.0-37.0 L (test code = MCHC) RED CELL DISTRIBUTION WIDTH CV 17.1 % 11.5-14.5 H (test code = RDW) RED CELL DISTRIBUTION WIDTH SD 58.0 fL 37.0-54.0 H (test code = RDW-SD) PLATELET COUNT (test code = 103 x10 3/uL 150-400 L PLT) MEAN PLATELET VOLUME (test code 9.7 fL 7.0-9.0 H = MPV) NEUTROPHIL % (test code = NT%) 58.3 % 56.0-77.0 N IMMATURE GRANULOCYTE % (test 0.3 % 0.0-2.0 N code = IG%) LYMPHOCYTE % (test code = LY%) 27.5 % 14.0-32.0 N MONOCYTE % (test code = MO%) 12.2 % 4.8-9.0 H EOSINOPHIL % (test code = EO%) 0.9 % 0.3-3.7 N BASOPHIL % (test code = BA%) 0.8 % 0.0-2.0 N NUCLEATED RBC % (test code = 0.0 % 0-0 N NRBC%) NEUTROPHIL # (test code = NT#) 3.78 x10 3/uL 2.0-7.6 N IMMATURE GRANULOCYTE # (test 0.02 x10 3/uL 0.00-0.03 N code = IG#) LYMPHOCYTE # (test code = LY#) 1.78 x10 3/uL 1.0-3.8 N MONOCYTE # (test code = MO#) 0.79 x10 3/uL 0.1-0.8 N EOSINOPHIL # (test code = EO#) 0.06 x10 3/uL 0.0-0.2 N BASOPHIL # (test code = BA#) 0.05 x10 3/uL 0.0-0.2 N NUCLEATED RBC # (test code = 0.00 x10 3/uL 0.0-0.1 N NRBC#) MANUAL DIFF REQUIRED (test code NO = MDIFF) [id number] 20:44:00 Test Item Value Reference Range Interpretation Comments GLUBED (test code = 224 MG/DL 70-110 H Performe d by certified GLUBED) 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 [facility] [id number] 17:58:00 Test Item Value Reference Range Interpretation Comments GLUBED (test code = 208 MG/DL 70-110 H Performe d by certified GLUBED) 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 [facility] [id number] 09:49:00 Test Item Value Reference Range Interpretation Comments GLUBED (test code = 108 MG/DL 70-110 N Performe d by certified GLUBED) 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 [facility] [id number] 09:01:00 Test Item Value Reference Range Interpretation Comments ACT-ISTAT (test code 318 SEC 74-137 H Perform ed by certified = ACTI) 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 [facility] BASIC METABOLIC [id number] 08:47:00 Test Item Value Reference Range Interpretation Comments SODIUM (test code = NA/ABG) MEQ/L 134-147 POTASSIUM (test code = K/ABG) MEQ/L 3.4-5.0 CHLORIDE (test code = CL/ABG) MEQ/L 100-108 CREATININE ABG (test code = CREAABG) mg/dL 0.6-1.0 POC IONIZED CALCIUM (test code = MMOL/L 1.12-1.32 POCCA) POC GLUCOSE (test code = POCGLU) MG/DL [id number] 08:47:00 Test Item Value Reference Range Interpretation Comments HEMOGLOBIN (test code = HGB/ABG) G/DL 11.0-15.0 [id number] 08:47:00 Test Item Value Reference Range Interpretation Comments HEMATOCRIT (test code = HCT/ABG) % 33.0-45.0 POC LACTIC [id number] 08:47:00 Test Item Value Reference Range Interpretation Comments POC LACTIC ACID (test code = POCLAC) mmol/l 0.9-1.7 POC VENOUS BLOOD [id number] 08:47:00 Test Item Value Reference Range Interpretation Comments POC VENOUS BLOOD GAS PH (test 7.355 7.33-7.45 N code = POCPHV) POC VENOUS BLOOD GAS PCO2 (test 45.7 mmHg 43-47 N code = LBRONJ3U) POC VENOUS BLOOD GAS PO2 (test 60.4 mmHG 10-50 H code = MTMCS6A) POC TCO2 VENOUS (test code = 26.9 VBPQPP5N) POC HCO3 VENOUS (test code = 25.5 MMOL/L 22-27 N GQVXBV4B) POC BASE EXCESS VENOUS (test code -0.3 MMOL/L -4.0-4.0 N = POCBEV) POC O2 SATURATION VENOUS (test 89.4 % 60-80 H code = KZIY4FH) BASIC METABOLIC [id number] 08:47:00 Test Item Value Reference Range Interpretation Comments SODIUM (test code = NA/ABG) MEQ/L 134-147 POTASSIUM (test code = K/ABG) MEQ/L 3.4-5.0 CHLORIDE (test code = CL/ABG) MEQ/L 100-108 CREATININE ABG (test code = CREAABG) mg/dL 0.6-1.0 POC IONIZED CALCIUM (test code = MMOL/L 1.12-1.32 POCCA) POC GLUCOSE (test code = POCGLU) MG/DL [id number] 08:47:00 Test Item Value Reference Range Interpretation Comments HEMOGLOBIN (test code = HGB/ABG) G/DL 11.0-15.0 [id number] 08:47:00 Test Item Value Reference Range Interpretation Comments HEMATOCRIT (test code = HCT/ABG) % 33.0-45.0 POC LACTIC [id number] 08:47:00 Test Item Value Reference Range Interpretation Comments POC LACTIC ACID (test code = 1.2 mmol/l 0.9-1.7 N POCLAC) POC VENOUS BLOOD [id number] 08:47:00 Test Item Value Reference Range Interpretation Comments POC VENOUS BLOOD GAS PH (test 7.355 7.33-7.45 N code = POCPHV) POC VENOUS BLOOD GAS PCO2 (test 45.7 mmHg 43-47 N code = HKEQDK7O) POC VENOUS BLOOD GAS PO2 (test 60.4 mmHG 10-50 H code = BHHKE7E) POC TCO2 VENOUS (test code = 26.9 KQSPEU0X) POC HCO3 VENOUS (test code = 25.5 MMOL/L 22-27 N KSISQW1F) POC BASE EXCESS VENOUS (test code -0.3 MMOL/L -4.0-4.0 N = POCBEV) POC O2 SATURATION VENOUS (test 89.4 % 60-80 H code = OGEN9JD) BASIC METABOLIC [id number] 08:47:00 Test Item Value Reference Range Interpretation Comments SODIUM (test code = NA/ABG) 142 MEQ/L 134-147 N POTASSIUM (test code = K/ABG) 4.0 MEQ/L 3.4-5.0 N CHLORIDE (test code = CL/ABG) 106 MEQ/L 100-108 N CREATININE ABG (test code = 0.4 mg/dL 0.6-1.0 L CREAABG) POC IONIZED CALCIUM (test code = 1.13 MMOL/L 1.12-1.32 N POCCA) POC GLUCOSE (test code = POCGLU) 149 MG/DL [id number] 08:47:00 Test Item Value Reference Range Interpretation Comments HEMOGLOBIN (test code = HGB/ABG) G/DL 11.0-15.0 [id number] 08:47:00 Test Item Value Reference Range Interpretation Comments HEMATOCRIT (test code = HCT/ABG) % 33.0-45.0 POC LACTIC [id number] 08:47:00 Test Item Value Reference Range Interpretation Comments POC LACTIC ACID (test code = 1.2 mmol/l 0.9-1.7 N POCLAC) POC VENOUS BLOOD [id number] 08:47:00 Test Item Value Reference Range Interpretation Comments POC VENOUS BLOOD GAS PH (test 7.355 7.33-7.45 N code = POCPHV) POC VENOUS BLOOD GAS PCO2 (test 45.7 mmHg 43-47 N code = EFPQYR8W) POC VENOUS BLOOD GAS PO2 (test 60.4 mmHG 10-50 H code = TKYRR7D) POC TCO2 VENOUS (test code = 26.9 INYMCU5E) POC HCO3 VENOUS (test code = 25.5 MMOL/L 22-27 N JYYDML8M) POC BASE EXCESS VENOUS (test code -0.3 MMOL/L -4.0-4.0 N = POCBEV) POC O2 SATURATION VENOUS (test 89.4 % 60-80 H code = NMBW1UJ) BASIC METABOLIC [id number] 08:47:00 Test Item Value Reference Range Interpretation Comments SODIUM (test code = NA/ABG) 142 MEQ/L 134-147 N POTASSIUM (test code = K/ABG) 4.0 MEQ/L 3.4-5.0 N CHLORIDE (test code = CL/ABG) 106 MEQ/L 100-108 N CREATININE ABG (test code = 0.4 mg/dL 0.6-1.0 L CREAABG) POC IONIZED CALCIUM (test code = 1.13 MMOL/L 1.12-1.32 N POCCA) POC GLUCOSE (test code = POCGLU) 149 MG/DL [id number] 08:47:00 Test Item Value Reference Range Interpretation Comments HEMOGLOBIN (test code = HGB/ABG) 10.7 G/DL 11.0-15.0 L [id number] 08:47:00 Test Item Value Reference Range Interpretation Comments HEMATOCRIT (test code = HCT/ABG) % 33.0-45.0 POC LACTIC [id number] 08:47:00 Test Item Value Reference Range Interpretation Comments POC LACTIC ACID (test code = 1.2 mmol/l 0.9-1.7 N POCLAC) POC VENOUS BLOOD [id number] 08:47:00 Test Item Value Reference Range Interpretation Comments POC VENOUS BLOOD GAS PH (test 7.355 7.33-7.45 N code = POCPHV) POC VENOUS BLOOD GAS PCO2 (test 45.7 mmHg 43-47 N code = PUZBFP0O) POC VENOUS BLOOD GAS PO2 (test 60.4 mmHG 10-50 H code = YKKZV8C) POC TCO2 VENOUS (test code = 26.9 KXIDEX1P) POC HCO3 VENOUS (test code = 25.5 MMOL/L 22-27 N QKREBJ1O) POC BASE EXCESS VENOUS (test code -0.3 MMOL/L -4.0-4.0 N = POCBEV) POC O2 SATURATION VENOUS (test 89.4 % 60-80 H code = UAOU1MU) BASIC METABOLIC [id number] 08:47:00 Test Item Value Reference Range Interpretation Comments SODIUM (test code = NA/ABG) 142 MEQ/L 134-147 N POTASSIUM (test code = K/ABG) 4.0 MEQ/L 3.4-5.0 N CHLORIDE (test code = CL/ABG) 106 MEQ/L 100-108 N CREATININE ABG (test code = 0.4 mg/dL 0.6-1.0 L CREAABG) POC IONIZED CALCIUM (test code = 1.13 MMOL/L 1.12-1.32 N POCCA) POC GLUCOSE (test code = POCGLU) 149 MG/DL [id number] 08:47:00 Test Item Value Reference Range Interpretation Comments HEMOGLOBIN (test code = HGB/ABG) 10.7 G/DL 11.0-15.0 L [id number] 08:47:00 Test Item Value Reference Range Interpretation Comments HEMATOCRIT (test code = HCT/ABG) 32 % 33.0-45.0 L POC LACTIC [id number] 08:47:00 Test Item Value Reference Range Interpretation Comments POC LACTIC ACID (test code = 1.2 mmol/l 0.9-1.7 N POCLAC) POC VENOUS BLOOD [id number] 08:47:00 Test Item Value Reference Range Interpretation Comments POC VENOUS BLOOD GAS PH (test 7.355 7.33-7.45 N code = POCPHV) POC VENOUS BLOOD GAS PCO2 (test 45.7 mmHg 43-47 N code = RSQJWU1C) POC VENOUS BLOOD GAS PO2 (test 60.4 mmHG 10-50 H code = EYGLH1I) POC TCO2 VENOUS (test code = 26.9 AIUEGO7Y) POC HCO3 VENOUS (test code = 25.5 MMOL/L 22-27 N YFXFVU7P) POC BASE EXCESS VENOUS (test code -0.3 MMOL/L -4.0-4.0 N = POCBEV) POC O2 SATURATION VENOUS (test 89.4 % 60-80 H code = RYEJ4VD) [id number] 06:32:00 Test Item Value Reference Range Interpretation Comments GLUBED (test code = 104 MG/DL 70-110 N Performe 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 : 1950 Age/S: 70/F [address] [place] [address] Unit #: [id number] Loc: [place] [address] Phys: Christa Chiu MD Acct: [id number] Dis Date: Status: PRE SDC PHONE #: [phone] Exam Date: 04/25/2021 1116 FAX #: [phone] Reason: PREOP EXAMS: CPT CODE: [id number] XR CHEST 2 V 59606 Clinical Indication: Aortic stenosis. Preoperative chest radiograph. Comparison: 03/14/2021. Impression: Chest, 2 views. No consolidation, pleural effusion, or pneumothorax. Cardiac silhouette is prominent without evidence of failure. No acute osseous abnormality. SL: [id number] at 1256 Reported and signed by: Ignacia Ling M.D. CC: Rudy Ramsey MD; Christa Chiu MD Technologist: RT Lorenzo(R) TrnscrdDate/Time/By: 04/25/2021 (1256) : By: [email or web address] Orig Print D/T: S: 04/25/2021 (1300) PAGE 1 SignedReportB-TYPE NATRIURETIC [id number] 11:41:00 Test Item Value Reference Range Interpretation Comments B-TYPE NATRIURETIC PEPTIDE (test 20.0 PG/ML 0-100 N code = BNP) COVID 19 Asymptomatic IH [id number] 11:38:00 Test Item Value Reference Range Interpretation Comments COVID 19 Asymptomatic Negative Negative A nega tive result is IH AG (test code = presumpti ve and should COVNONPUIAG) be confirmedwit h an FDA authorized mole cular assay, if neces sherrie forpatient garry gement.A positive result does not rule out co-inf ections withother patho gens.This test detects emerita th viable (live) and non-viable,SARS -CoV, and SARS-CoV-2. Darrel t performance dep ends on theamount of vi dorothy (antigen) in th e sample.This darrel t has not been FDA cleare d or approved; the t est hasbeen authori zed by FDA under an Em ergency Use Authorizati on(EUA) for use by labo ratories certified under the CLIA thatmeet the requirements to perform moderate, high or waivedcomplexit y tests. COMMENTS: PRE-PROCEDUREBASIC METABOLIC [id number] 11:34:00 Test Item Value Reference Range Interpretation Comments SODIUM (test code = NA) 140 mEq/L 134-147 N POTASSIUM (test code = 4.0 mEq/L 3.4-5.0 N K) CHLORIDE (test code = 106 mEq/L 100-108 N CL) CARBON DIOXIDE (test 28 mEq/l 21-33 N code = CO2) ANION GAP (test code = 10 0-20 N GAP) GLUCOSE (test code = 138 mg/dL 70-110 H GLU) BLOOD UREA NITROGEN 10 mg/dL 7-18 N (test code = BUN) GLOMERULAR FILTRATION 122.3 80-90 H Units of measure = RATE (test code = GFR) ml/mi n/1.73 m2 CREATININE (test code = 0.5 mg/dL 0.6-1.3 L CREAT) CALCIUM (test code = 9.1 mg/dL 8.0-10.5 N CA) [id number] 11:34:00 Test Item Value Reference Range Interpretation Comments ALBUMIN (test code = ALB) g/dL 3.4-5.0 BASIC METABOLIC [id number] 11:34:00 Test Item Value Reference Range Interpretation Comments SODIUM (test code = NA) 140 mEq/L 134-147 N POTASSIUM (test code = 4.0 mEq/L 3.4-5.0 N K) CHLORIDE (test code = 106 mEq/L 100-108 N CL) CARBON DIOXIDE (test 28 mEq/l 21-33 N code = CO2) ANION GAP (test code = 10 0-20 N GAP) GLUCOSE (test code = 138 mg/dL 70-110 H GLU) BLOOD UREA NITROGEN 10 mg/dL 7-18 N (test code = BUN) GLOMERULAR FILTRATION 122.3 80-90 H Units of measure = RATE (test code = GFR) ml/mi n/1.73 m2 CREATININE (test code = 0.5 mg/dL 0.6-1.3 L CREAT) CALCIUM (test code = 9.1 mg/dL 8.0-10.5 N CA) [id number] 11:34:00 Test Item Value Reference Range Interpretation Comments ALBUMIN (test code = ALB) 3.60 g/dL 3.4-5.0 N PROTHROMBIN [id number] 11:32:00 Test Item Value Reference Range Interpretation Comments PROTHROMBIN TIME 17.1 SECONDS 9.3-12.9 H PATIENT (test code = PTP) INTERNATIONAL NORMAL 1.6 0.8-1.2 H TARGET INR BY RATIO (test code = INDICATIO N Indication INR) INR1. Prophylax is of venous thrombos is 2.0 - 3.0 (orthoped ic surgery), Proph ylaxis of venous throm bosis (other than hig h-risk surgery), Treat ment of Deep Vein Thrombosis/Pulm onary Embolism, Preve ntion of systemic emb olism - Tissue heart va lves, Acute Myocardia l Infarction (to prevent systemic emboli sm), Valvular heart disease, Atrial Fibrillation, Bileaflet mecha nical valve in aortic position.2. Mec hanical prosthetic valv es (high risk), 2. 5 - 3.5 Presence of Lup us Anticoagulant o r Antiphospholipi d Antibodies, Pre vention of systemic emb olism - Acute Myocardia l Infarction (to prevent recurrent infar ct). THROMBOPLASTIN TIME [id number] 11:32:00 Test Item Value Reference Range Interpretation Comments THROMBOPLASTIN TIME 35.8 Seconds 25.0-39.5 N Therape utic Range: PARTIAL (test code = 50.4 - 88.3 Seconds PTT) Effective 02/25/2019 CBC W/AUTO [id number] 11:21:00 Test Item Value Reference Range Interpretation Comments WHITE BLOOD CELL (test code = WBC) x10 3/uL 4.5-11.0 RED BLOOD CELL (test code = RBC) x10 6/uL 3.54-5.02 HEMOGLOBIN (test code = HGB) 12.4 g/dL 11.0-15.0 N HEMATOCRIT (test code = HCT) 38.1 % 33.0-45.0 N MEAN CELL VOLUME (test code = MCV) fL 81.0-99.0 MEAN CELL HGB (test code = MCH) pg 27.0-33.0 MEAN CELL HGB CONCETRATION (test g/dL 33.0-37.0 code = MCHC) RED CELL DISTRIBUTION WIDTH CV % 11.5-14.5 (test code = RDW) PLATELET COUNT (test code = PLT) x10 3/uL 150-400 NEUTROPHIL % (test code = NT%) % 56.0-77.0 LYMPHOCYTE % (test code = LY%) % 14.0-32.0 NEUTROPHIL # (test code = NT#) x10 3/uL 2.0-7.6 LYMPHOCYTE # (test code = LY#) x10 3/uL 1.0-3.8 MANUAL DIFF REQUIRED (test code = MDIFF) CBC W/AUTO [id number] 11:21:00 Test Item Value Reference Range Interpretation Comments WHITE BLOOD CELL (test code = 3.7 x10 3/uL 4.5-11.0 L WBC) RED BLOOD CELL (test code = 4.19 x10 6/uL 3.54-5.02 N RBC) HEMOGLOBIN (test code = HGB) 12.4 g/dL 11.0-15.0 N HEMATOCRIT (test code = HCT) 38.1 % 33.0-45.0 N MEAN CELL VOLUME (test code = 90.9 fL 81.0-99.0 N MCV) MEAN CELL HGB (test code = MCH) 29.6 pg 27.0-33.0 N MEAN CELL HGB CONCETRATION 32.5 g/dL 33.0-37.0 L (test code = MCHC) RED CELL DISTRIBUTION WIDTH CV 16.8 % 11.5-14.5 H (test code = RDW) RED CELL DISTRIBUTION WIDTH SD 55.8 fL 37.0-54.0 H (test code = RDW-SD) PLATELET COUNT (test code = 124 x10 3/uL 150-400 L PLT) MEAN PLATELET VOLUME (test code 9.5 fL 7.0-9.0 H = MPV) NEUTROPHIL % (test code = NT%) 54.0 % 56.0-77.0 L IMMATURE GRANULOCYTE % (test 0.3 % 0.0-2.0 N code = IG%) LYMPHOCYTE % (test code = LY%) 31.0 % 14.0-32.0 N MONOCYTE % (test code = MO%) 12.0 % 4.8-9.0 H EOSINOPHIL % (test code = EO%) 1.6 % 0.3-3.7 N BASOPHIL % (test code = BA%) 1.1 % 0.0-2.0 N NUCLEATED RBC % (test code = 0.0 % 0-0 N NRBC%) NEUTROPHIL # (test code = NT#) 1.99 x10 3/uL 2.0-7.6 L IMMATURE GRANULOCYTE # (test 0.01 x10 3/uL 0.00-0.03 N code = IG#) LYMPHOCYTE # (test code = LY#) 1.14 x10 3/uL 1.0-3.8 N MONOCYTE # (test code = MO#) 0.44 x10 3/uL 0.1-0.8 N EOSINOPHIL # (test code = EO#) 0.06 x10 3/uL 0.0-0.2 N BASOPHIL # (test code = BA#) 0.04 x10 3/uL 0.0-0.2 N NUCLEATED RBC # (test code = 0.00 x10 3/uL 0.0-0.1 N NRBC#) MANUAL DIFF REQUIRED (test code NO = MDIFF) - CTA HEART W CN [id number] 10:26:00 [facility] : 1950 Sex: F Name: PARKER MORRIS [facility] : 1950 Age/S: 70 / F [address] [place] [address] Blvd Unit #: [id number] Loc: [place] [address] Phys: Alfredo Colón MD Acct: [id number] Dis Date: Status: REG CLI PHONE #: [phone] Exam Date: 04/12/2021926 FAX #: [phone] Reason: EXAMS: CPT CODE: [id number] CTA HEART W CN ART/GRAFTS 26212 CHEST, ABDOMEN AND PELVIS CT ANGIOGRAM WITH AND WITHOUT IV CONTRAST WITH MULTIPLANAR REFORMATS AND 3D RECONSTRUCTIONS (TAVR PROTOCOL). DATE: 04/12/2021 8:25 AM :1950; Age: 70 years y/o Female INDICATION: Aortic stenosis ADMINISTERED CONTRAST: 100 mL of Isovue 300 intravenously. DLP: 1475 mGy-cm CT imaging performed at this location utilizes radiation doseoptimization techniques which include one or more of the following: -Automated exposure control -Adjustment of the mA and/or kV according to patient size -Use of iterative reconstruction technique FINDINGS: Contiguous 0.5 mm axial images of the chest, abdomen and pelvis were obtained with IV contrastusing the CT angiogram protocol. The acquired data was used to create 5 mm axial reconstructions coronal reformatted images and 3-D reconstructions with the use of the Workstation. CHEST: Estimated aortic diameters are as follows: Aortic annulus: 2.8 cm Aortic root: 3.2 cm Sinotubular junction: 3 cm Right cusp height (to RCA takeoff): 1.6 cm Left cusp height (to Left main takeoff): 1.1 cm Mid ascending aorta: 3 cm Mid transverse arch: 2.2 cm Descending thoracic aorta at the level of the pulmonary arteries: 2.2 cm Heart is borderline in size. No pericardial effusion. Moderate aortic root calcification. Mild atherosclerotic calcification at the aortic arch. No pleural effusion. Likely reactive axillary nodes. Minimal to mild emphysema. 5 mm noncalcified nodule in the right lower lobe on image 92 of series 4. No consolidation. ABDOMEN: Estimated aortoiliac/iliofemoral arterial diameters are as follows: Abdominal aorta just below the renal arteries: 1.6 cm PAGE 1 Signed Report (CONTINUED) Name: Mo AMEZCUABOOGIEPARKER [facility] : 1950 Age/S: 70 / F [address] [place] [address] Blvd Unit #: [id number] Loc: [place] [address] Phys: Alfredo Colón MD Acct: [id number] Dis Date: Status: REG CLI PHONE #: [phone] Exam Date: 04/12/2021926 FAX #: [phone] Reason: EXAMS: CPT CODE: [id number] CTA HEART W CN ART/GRAFTS 23923 (Continued) Distal abdominal aorta at iliac bifurcation: 1.4 cm Right common iliac artery: 1 cm Left common iliac artery: 1 cm Right common femoral artery: 0.7 cm Left common femoral artery: 0.7 cm Celiac artery is patent. Mild atherosclerotic changes at the origin of the superior mesenteric artery without occlusion. Single left and 2 right renal arteries are seen,which are patent. Mild atherosclerotic changes involving the inferior right renal artery origin. Atherosclerotic changes are seen involving the aorta. No flow-limiting stenosis involving the major pelvic arteries. Liver is heterogeneous with irregular margin. Small benign simple cyst in the liver adjacent to the gallbladder fossa. Prior cholecystectomy. 2.5 cm exophytic low- attenuation lesion is noted involving the posterior right hepatic lobe. This lesion is contiguous with the right mid kidney. Adrenal glands, spleen and pancreas appears grossly unremarkable. Left mid kidney small benign simple cyst. No hydronephrosis. No bowel obstruction. Normal appendix. Moderate sigmoid colon diverticulosis.Bladder is not well distended limiting its evaluation. 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 Multiple collateral veins are seen in the anterior abdomen. Spine degenerative changes. IMPRESSION: 1. Moderate aortic root calcification. 2. Borderline cardiomegaly. 3. Hepatic cirrhosis is seen without ascites orsplenomegaly. 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 Indeterminate 2.5 cm exophytic low-attenuation lesion is noted involving the posterior right hepatic lobe. Hepatocellular carcinoma is in differential. Further evaluation with MRI abdomen with and without contrast is recommended. 4. Moderate sigmoid colon diverticulosis. 5. 5 mm noncalcified nodule in the right lower lobe. In the absence of risk factors for malignancy, no routine follow-up required. If the patient has a history of smoking or other risk factor to increase their risk of malignancy, then a follow-up chest CT at 12 months is recommended. Reference: Guidelines for Management of Incidental Pulmonary Nodules Detected on CT Images: From the Fleischner Society 2017. FOR INTERNAL CODING PURPOSES ONLY RESULT CODE: NOD PAGE 2 Signed Report (CONTINUED) Name: PARKER MORRIS [facility] : 1950 Age/S: 70 / F [address] [place] [address] Unit #: [id number] Loc: [place] [address] Phys: Alfredo Colón MD Acct: [id number] Dis Date: Status: REG CLI PHONE #: [phone] Exam Date: 04/12/2021926 FAX #: [phone] Reason: EXAMS: CPT CODE: [id number] CTA HEART W CN ART/GRAFTS 27612 (Continued) at 1026 Reported and signed by: Leeanne Schroeder D.O. CC: Rudy Ramsey MD; Alfredo Colón MD Technologist:RT Adolfo(R) CTDI: DLP: Trnscb Date/Time: 04/12/2021 (102) [email or web address] Orig Print D/T: S: 04/12/2021 (1029) PAGE 3 Signed Report- CTA ABD PEL W [id number] 10:26:00 [facility] : 1950 Sex: F Name: PARKER MORRIS [facility] : 1950 Age/S: 70 / F [address] [place] [address] Blvd Unit #: [id number] Loc: [place] [address] Phys: Alfredo Colón MD Acct: [id number] Dis Date: Status: REG CLI PHONE #: [phone] Exam Date: 04/12/2021925 FAX #: [phone] Reason: AORTIC STENOSIS EXAMS: CPT CODE: [id number] CTA ABD PEL W CONT 04176 CHEST, ABDOMEN AND PELVIS CT ANGIOGRAM WITH AND WITHOUT IV CONTRAST WITH MULTIPLANAR REFORMATS AND 3D RECONSTRUCTIONS (TAVR PROTOCOL). DATE: 04/12/2021 8:25AM : 1950; Age: 70 years y/o Female INDICATION: Aortic stenosis ADMINISTERED CONTRAST: 100 mLof Isovue 300 intravenously. DLP: 1475 mGy-cm CT imaging performed at this location utilizes radiation dose optimization techniques which include one or more of the following: -Automated exposure control -Adjustment of the mA and/or kV according to patient size -Use of iterative reconstruction technique FINDINGS: Contiguous 0.5 mm axial images of the chest, abdomen and pelvis were obtained with IV con trast using the CT angiogram protocol. The acquired data was used to create 5 mm axial reconstructions coronal reformatted images and 3-D reconstructions with the use of the Workstation. CHEST: Estimated aortic diameters are as follows: Aortic annulus: 2.8 cm Aortic root: 3.2 cm Sinotubular junction: 3 cm Right cusp height (to RCA takeoff): 1.6 cm Left cusp height (to Left main takeoff): 1.1 cm Mid ascending aorta: 3 cm Mid transverse arch: 2.2 cm Descending thoracic aorta at the level of the pulmonary arteries: 2.2 cm Heart is borderline in size. No pericardial effusion. Moderate aortic root calcification. Mild atherosclerotic calcification at the aortic arch. No pleural effusion. Likely reactiveaxillary nodes. Minimal to mild emphysema. 5 mm noncalcified nodule in the right lower lobe on image 92 of series 4. No consolidation. ABDOMEN: Estimated aortoiliac/iliofemoral arterial diameters are as follows: Abdominal aorta just below the renal arteries: 1.6 cm PAGE 1 Signed Report (CONTINUED) Name: PARKER MORRIS [facility] : 1950 Age/S: 70 / F [address] [place] [address] Blvd Unit #: [id number] Loc: Max [place]UBEN [id number] Phys: Alfredo Colón MD Acct: [id number] Dis Date: Status: REGCLI PHONE #: [phone] Exam Date: 04/12/2021925 FAX #: [phone] Reason: AORTIC STENOSIS EXAMS: CPT CODE: [id number] CTA ABD PEL W CONT 20330 (Continued) Distal abdominal aorta at iliac bifurcation: 1.4 cm Right common iliac artery: 1 cm Left common iliac artery: 1 cm Right common femoral artery: 0.7 cm Left common femoral artery: 0.7 cm Celiac artery is patent. Mild atherosclerotic changes at the origin of the superior mesenteric artery without occlusion. Single left and 2 right renal arteries are seen, which are patent. Mild atherosclerotic changes involving the inferior right renal artery origin. Atherosclerotic changes are seen involving the aorta. No flow-limiting stenosis involving the major pelvic arteries. Liver is heterogeneous with irregular margin. Small benign simple cyst in the liver adjacent to the gallbladder fossa. Prior cholecystectomy. 2.5 cm exophytic low- attenuation lesion is noted involving the posterior right hepatic lobe. This lesion is contiguous with the right mid kidney. Adrenal glands, spleen and pancreas appears grossly unremarkable. Left mid kidney small benign simple cyst. No hydronephrosis. No bowel obstruction. Normal appendix. Moderate sigmoid colon diverticulosis. Bladder is not well distended limiting its evaluation. 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 Spine degenerative changes. IMPRESSION: 1. Moderate aortic root calcification. 2. Borderline cardiomegaly. 3. Hepatic cirrhosis is seen without ascites or splenomegaly. 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 Indeterminate 2.5 cm exophytic low-attenuation lesion is noted involving the posterior right hepatic lobe. Hepatocellular carcinoma is in differential. Further evaluation with MRI abdomen with and without contrast is recommended. 4. Moderate sigmoid colon diverticulosis. 5. 5 mm noncalcified nodule in the right lower lobe. In the absence of risk factors for malignancy, no routine follow-up required. If the patient has a history of smoking orother risk factor to increase their risk of malignancy, then a follow-up chest CT at 12 months is recommended. Reference: Guidelines for Management of Incidental Pulmonary Nodules Detected on CT Images: From the Fleischner Society 2017. FOR INTERNAL CODING PURPOSES ONLY RESULT CODE: NOD PAGE 2 Signed Report (CONTINUED) Name: PARKER MORRIS [facility] : 1950 Age/S: 70 / F [address] [place] [address] Unit #: [id number] Loc: [place] [address] Phys: Alfredo Elder MD Acct: [id number] Dis Date: Status: REG CLI PHONE #: [phone] Exam Date: 04/12/2021925 FAX #: [phone] Reason: AORTIC STENOSIS EXAMS: CPT CODE: [id number] CTA ABD PEL W CONT 82001 (Continued) at 1026 Reported and signed by: Leeanne Schroeder D.O. CC: Rudy Ramsey MD; Alfredo Colón MD Technologist:RT Adolfo(R) CTDI: DLP: Trnscb Date/Time: 04/12/2021 (1026) [email or web address] Orig Print D/T: S: 04/12/2021 (1028) PAGE 3 Signed Report- CT ANGIO [id number] 10:26:00 [facility] 1950 Sex: F Name: PARKER MORRIS [facility] : 1950 Age/S: 70 / F [address] [place] [address] Blvd Unit #: [id number] Loc: [place] [address] Phys: Alfredo Colón MD Acct: [id number] Dis Date: Status: REG CLI PHONE #: [phone] Exam Date: 04/12/2021925 FAX #: [phone] Reason: AORTIC STENOSIS EXAMS: CPT CODE: [id number] CT ANGIO CHEST 39167 CHEST, ABDOMEN AND PELVIS CT ANGIOGRAM WITH AND WITHOUT IV CONTRAST WITH MULTIPLANAR REFORMATS AND 3D RECONSTRUCTIONS (TAVR PROTOCOL). DATE: 04/12/2021 8:25 AM : 1950; Age: 70 years y/o Female INDICATION: Aortic stenosis ADMINISTERED CONTRAST: 100 mL of Isovue 300 intravenously. DLP: 1475 mGy-cm CT imaging performed at this location utilizes radiation dose optimization techniques which include one or more of the following: -Automated exposure control -Adjustment of the mA and/or kV according to patient size -Use of iterative reconstruction technique FINDINGS: Contiguous 0.5 mm axial images of the chest, abdomen and pelvis were obtained with IV contrast using the CT angiogram protocol. The acquired data was used to create 5 mm axial reconstructions coronal reformatted images and 3-D reconstructions with the use of the Workstation. CHEST: Estimated aortic diameters are as follows: Aortic annulus: 2.8 cm Aortic root: 3.2 cm Sinotubular junction: 3 cm Right cusp height (to RCA takeoff): 1.6 cm Left cusp height (to Left main takeoff): 1.1 cm Mid ascending aorta: 3 cm Mid transverse arch: 2.2 cm Descending thoracic aorta at the level of the pulmonaryarteries: 2.2 cm Heart is borderline in size. No pericardial effusion. Moderate aortic root calcification. Mild atherosclerotic calcification at the aortic arch. No pleural effusion. Likely reactive axillary nodes. Minimal to mild emphysema. 5 mm noncalcified nodule in the right lower lobe on image 92of series 4. No consolidation. ABDOMEN: Estimated aortoiliac/iliofemoral arterial diameters are as follows: Abdominal aorta just below the renal arteries: 1.6 cm PAGE 1 Signed Report (CONTINUED) Name: Mo AMEZCUAPARKER [facility] : 1950 Age/S: 70 / F [address] [place] [address] Blvd Unit #: [id number] Loc: [place] [address] Phys: Alfredo Colón MD Acct: [id number] Dis Date: Status: REG CLIPHONE #: [phone] Exam Date: 04/12/2021925 FAX #: [phone] Reason: AORTIC STENOSIS EXAMS:CPT CODE: [id number] CT ANGIO CHEST 26072 (Continued) Distal abdominal aorta at iliac bifurcation: 1.4 cm Right common iliac artery: 1 cm Left common iliac artery: 1 cm Right common femoral artery: 0.7cm Left common femoral artery: 0.7 cm Celiac artery is patent. Mild atherosclerotic changes at the origin of the superior mesenteric artery without occlusion. Single left and 2 right renal arteries are seen, which are patent. Mild atherosclerotic changes involving the inferior right renal artery origin. Atherosclerotic changes are seen involving the aorta. No flow-limiting stenosis involving the major pelvic arteries. Liver is heterogeneous with irregular margin. Small benign simple cyst in the liver adjacent to the gallbladder fossa. Prior cholecystectomy. 2.5 cm exophytic low- attenuation lesion is noted involving the posterior right hepatic lobe. This lesion is contiguous with the right mid kidney. Adrenal glands, spleen and pancreas appears grossly unremarkable. Left mid kidney small benign simple cyst. No hydronephrosis. No bowel obstruction. Normal appendix. Moderate sigmoid colon diverticulosis. Bladder is not well distended limiting its evaluation. 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 Multiple collateral veins are seen in the anterior abdomen. Spine degenerative changes. IMPRESSION: 1. Moderate aortic root calcification. 2. Borderline cardiomegaly. 3. Hepatic cirrhosis is seen without ascites or splenomegaly. 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 Indeterminate 2.5 cm exophytic low-attenuation lesion is noted involving the posterior right hepatic lobe. Hepatocellular carcinoma is in differential. Further evaluation with MRI abdomen with and without contrast is recommended. 4. Moderate sigmoid colon diverticulosis. 5. 5 mm noncalcified nodule in the right lower lobe. In the absence of risk factors for malignancy, no routine follow-up required. If the patient has a history of smoking or other risk factor to increase their risk of malignancy, then a follow-up chest CT at 12 months is recommended. Reference: Guidelines for Management of Incidental Pulmonary Nodules Detected on CT Images: From the Fleischner Society 2017. FOR INTERNAL CODING PURPOSES ONLY RESULT CODE: NOD PAGE 2 Signed Report (CONTINUED) Name: PARKER MORRIS [facility] : 1950 Age/S: 70 / F [address] [place] [address] Unit #: [id number] Loc: [place] [address] Phys: Alfredo Colón MD Acct: [id number] Dis Date: Status: REG CLI PHONE #: [phone] Exam Date: 04/12/2021925 FAX #: [phone] Reason: AORTIC STENOSIS EXAMS: CPT CODE: [id number] CT ANGIO CHEST 08435(Continued) at 1026 Reported and signed by: Leeanne Schroeder D.O. CC: Rudy Ramsey MD; Alfredo Colón MD Technologist:Gurpreet Arguelles, RT(R) CTDI: DLP: Trnscb Date/Time: 04/12/2021 (102) [email or web address] Orig Print D/T: S: 04/12/2021 (1029) PAGE 3 Signed Report- DUP EXTRACRANIAL [id number] 09:39:00 [facility] : 1950 Sex: F Name: PARKER MORRIS [facility] : 1950 Age/S: 70 / F [address] [place] [address] Unit #: [id number] Loc: [place] [address] Phys: Alfredo Colón MD Acct: [id number] Dis Date: Status: REG CLI PHONE #: [phone] Exam Date: 04/12/2021925 FAX #: [phone] Reason: AORTIC STENOSIS EXAMS: CPT CODE: [id number] [facility]UP EXTRACRANIAL CARY 12350 STUDY: - DUP EXTRACRANIAL CARY 04/12/2021 8:25 AM Ordering Physician: Alfredo Colón MD Patient Name: PARKER MORRIS MR: [id number] : 1950; Age: 70 years y/o Female Clinical Indication: AORTIC STENOSIS Comparison: None TECHNIQUE: Gonzales-scale, color Doppler and spectral Doppler of the carotid arteries was performed. Any reported ICA stenoses in directly reference the distal internal carotid diameter as the denominator for the stenosis measurement, utilizing consensus panel criteria. FINDINGS: RIGHT CAROTID Grayscale images:No significant plaque ICA PSV: 56 cm/sec CCA PSV: 64 cm/sec ICA/CCA PSV RATIO:0.9 Vertebral flow: Antegrade. External carotid: Patent. LEFT CAROTID SYSTEM Grayscale images: No significant plaque ICA PSV: 45 cm/sec CCA PSV: 62 cm/sec ICA/CCA PSV RATIO:0.7 Vertebral flow: Antegrade. External carotid: Patent. IMPRESSION: RIGHT: ICA stenosis <50% by velocity criteria. LEFT: ICA stenosis <50% by velocity criteria. ___ PAGE 1 Signed Report (CONTINUED) Name: [facility] 1950 Age/S: 70 / F [address] [place] [address] Blvd Unit #: [id number] Loc: [place] [address] Phys: Alfredo Colón MD Acct: [id number] Dis Date: Status: REG CLI PHONE #: [phone] Exam Date: 04/12/2021 09 FAX #: [phone] Reason: AORTIC STENOSIS EXAMS: CPT CODE: [id number] DUP EXTRACRANIAL CARY 36842 (Continued) Consensus panel Doppler US criteria for diagnosisof ICA stenosis: Stenosis (%) ICA PSV (cm/sec) ICA/CCA ratio ------ <50 <125 <2.0 50-69 125-230 2.0- 4.0 >70 but less than >230 >4.0 near occlusion Near occlusion High, low, or Variable undetectable SL: [id number] at 0939 Reported and signed by: Leeanne Schroeder D.O. CC: Rudy Ramsey MD; Alfredo Colón MD Technologist: Kateryna Brewer Date/Time: 04/12/2021 (0939) [email or web address] Orig Print D/T: S: 04/12/2021 (0942) Probe: PAGE 2 Signed ReportCOVID 19 Asymptomatic IH [id number] 08:36:00 Test Item Value Reference Range Interpretation Comments COVID 19 Asymptomatic Negative Negative A nega tive result is IH AG (test code = presumpti ve and should COVNONPUIAG) be confirmedwit h an FDA authorized mole cular assay, if neces sherrie forpatient garry gement.A positive result does not rule out co-inf ections withother patho gens.This test detects emerita th viable (live) and non-viable,SARS -CoV, and SARS-CoV-2. Darrel t performance dep ends on theamount of vi dorothy (antigen) in th e sample.This darrel t has not been FDA cleare d or approved; the t est hasbeen authori zed by FDA under an Em ergency Use Authorizati on(EUA) for use by labo ratories certified under the CLIA thatmeet the requirements to perform moderate, high or waivedcomplexit y tests. POC ARTERIAL BLOOD [id number] 14:01:00 Test Item Value Reference Range Interpretation Comments POC ARTERIAL BLOOD GAS PH (test 7.368 7.35-7.45 N code = POCPHA) POC ARTERIAL BLOOD GAS PCO2 44.3 mmHg 35.0-45 N (test code = JALQUZ1W) POC TCO2 ARTERIAL (test code = 26.9 POCTCO2) POC ARTERIAL BLOOD GAS PO2 (test 44.7 mmHg 80-100.0 LL code = YYJWM0Q) POC HCO3 ARTERIAL (test code = 25.5 MMOL/L 22.0-26.0 N DGEATL2X) POC BASE EXCESS (test code = 0.2 MMOL/L -4.0-4.0 N POCBEA) POC O2 SATURATION (test code = 78.7 % 90-100 L POCO2S) FIO2 (test code = FIO2A) 28 % PaO2/FiO2 (test code = [id number]) 159.64 mm/Hg ABG DELIVERY (test code = WILEY) Cannula ABG SITE (test code = SITEA) Art Line Novel Coronavirus 2018 [id number] 05:11:00 Test Item Value Reference Range Interpretation Comments Novel Coronavirus Negative Negative Positive r esults are 2019 Inhouse (test indicativ e of the presence code = COVNONPUI) ofSARS-CoV -2 RNA, clinical correlation wit h patient historyand othe r diagnostic info rmation is necessary to determinepatien t infection status. Positiv e results do not rule out bacterial infection or co -infection with other viru ses. Negative result s do not preclude SARS-C oV-2 infection andsh ould not be used as the jennifer e basis for patient managementdecis ions. Negative result s must be combined with otherclinical observations, p atient history, and epidemiological information . Detection of SARS-CoV-2 RNA may be affe cted bysample collec tion methods, storag e conditions, and /or stageof infection. Kinza l RNA mutations, vacc inations, antiviraltherap eutics, antibiotics, chemotherapeuti c orimmunosuppres faisal drugs have not been e valuated for effectson d etection. Results are for the identification of SARS-CoV-2 RNA usingthe Lilly M2000 Sy stem under the FDA Emergen cy UseAuthorizatio n. The testing is perf ormed by personneltraine d in the procedures for the Photo[employer] M2000 molecular diagnostic SARS-CoV-2 assa y in vitro. PROTHROMBIN [id number] 15:55:00 Test Item Value Reference Range Interpretation Comments PROTHROMBIN TIME 16.4 SECONDS 9.3-12.9 H PATIENT (test code = PTP) INTERNATIONAL NORMAL 1.5 0.8-1.2 H TARGET INR BY RATIO (test code = INDICATIO N Indication INR) INR1. Prophylax is of venous thrombos is 2.0 - 3.0 (orthoped ic surgery), Proph ylaxis of venous throm bosis (other than hig h-risk surgery), Treat ment of Deep Vein Thrombosis/Pulm onary Embolism, Preve ntion of systemic emb olism - Tissue heart va lves, Acute Myocardia l Infarction (to prevent systemic emboli sm), Valvular heart disease, Atrial Fibrillation, Bileaflet mecha nical valve in aortic position.2. Mec hanical prosthetic valv es (high risk), 2. 5 - 3.5 Presence of Lup us Anticoagulant o r Antiphospholipi d Antibodies, Pre vention of systemic emb olism - Acute Myocardia l Infarction (to prevent recurrent infar ct). BASIC METABOLIC [id number] 15:50:00 Test Item Value Reference Range Interpretation Comments SODIUM (test code = NA) 140 mEq/L 134-147 N POTASSIUM (test code = 4.1 mEq/L 3.4-5.0 N K) CHLORIDE (test code = 106 mEq/L 100-108 N CL) CARBON DIOXIDE (test 26 mEq/l 21-33 N code = CO2) ANION GAP (test code = 12 0-20 N GAP) GLUCOSE (test code = 115 mg/dL 70-110 H GLU) BLOOD UREA NITROGEN 13 mg/dL 7-18 N (test code = BUN) GLOMERULAR FILTRATION 122.3 80-90 H Units of measure = RATE (test code = GFR) ml/mi n/1.73 m2 CREATININE (test code = 0.5 mg/dL 0.6-1.3 L CREAT) CALCIUM (test code = 9.3 mg/dL 8.0-10.5 N CA) CBC W/AUTO [id number] 15:42:00 Test Item Value Reference Range Interpretation Comments WHITE BLOOD CELL (test code = 4.9 x10 3/uL 4.5-11.0 N WBC) RED BLOOD CELL (test code = 3.94 x10 6/uL 3.54-5.02 N RBC) HEMOGLOBIN (test code = HGB) 11.4 g/dL 11.0-15.0 N HEMATOCRIT (test code = HCT) 36.9 % 33.0-45.0 N MEAN CELL VOLUME (test code = 93.7 fL 81.0-99.0 N MCV) MEAN CELL HGB (test code = MCH) 28.9 pg 27.0-33.0 N MEAN CELL HGB CONCETRATION 30.9 g/dL 33.0-37.0 L (test code = MCHC) RED CELL DISTRIBUTION WIDTH CV 15.8 % 11.5-14.5 H (test code = RDW) RED CELL DISTRIBUTION WIDTH SD 54.4 fL 37.0-54.0 H (test code = RDW-SD) PLATELET COUNT (test code = 150 x10 3/uL 150-400 N PLT) MEAN PLATELET VOLUME (test code 10.0 fL 7.0-9.0 H = MPV) NEUTROPHIL % (test code = NT%) 51.2 % 56.0-77.0 L IMMATURE GRANULOCYTE % (test 0.2 % 0.0-2.0 N code = IG%) LYMPHOCYTE % (test code = LY%) 33.8 % 14.0-32.0 H MONOCYTE % (test code = MO%) 12.2 % 4.8-9.0 H EOSINOPHIL % (test code = EO%) 1.4 % 0.3-3.7 N BASOPHIL % (test code = BA%) 1.2 % 0.0-2.0 N NUCLEATED RBC % (test code = 0.0 % 0-0 N NRBC%) NEUTROPHIL # (test code = NT#) 2.48 x10 3/uL 2.0-7.6 N IMMATURE GRANULOCYTE # (test 0.01 x10 3/uL 0.00-0.03 N code = IG#) LYMPHOCYTE # (test code = LY#) 1.64 x10 3/uL 1.0-3.8 N MONOCYTE # (test code = MO#) 0.59 x10 3/uL 0.1-0.8 N EOSINOPHIL # (test code = EO#) 0.07 x10 3/uL 0.0-0.2 N BASOPHIL # (test code = BA#) 0.06 x10 3/uL 0.0-0.2 N NUCLEATED RBC # (test code = 0.00 x10 3/uL 0.0-0.1 N NRBC#) MANUAL DIFF REQUIRED (test code NO = MDIFF) - XR CHEST 2 [id number] 15:15:00 [facility] : 1950 Sex: F FAX: Rudy Best MD [phone] Sherman: St: PRE FAX: Sherman Lilly MD [phone] Name: PARKER MORRIS [facility] : 1950 Age/S: 70/F [address] [place] [address] Unit #: [id number] Loc: [place] [address] Phys: Sherman Jama MD Acct: [id number] Dis Date: Status: [place] [facility] [place] #: [phone] Exam Date: 03/14/2021 1504 FAX #: [phone] Reason: PREOP- POS STRESS TEST EXAMS: CPT CODE: [id number] XRCHEST 2 V 18770 EXAM: PA and lateral chest. EXAM DATE: March 14, 2021 CLINICAL HISTORY: PREOP- POS STRESS TEST COMPARISON: None Cardiomediastinal silhouette is within normal limits. The lungs appear free of acute disease. Degenerative changes are identified in the shoulder girdle and thoracic spine. IMPRESSION: No evidence of acute cardiopulmonary disease. at 7555 Reported and signed by: Leni Yan M.D. CC: Rudy Jesus; Sherman Jama MD Technologist: RT Bora(R) Trnscrd Date/Time/By: 03/14/2021 (7090) : B y: Brooke Orig Print D/T: S: 03/14/2021 (6766) PAGE 1 Signed Report
--- NOTE | 2023-08-15 19:18 | RAD REPORT ---
EXAM DESCRIPTION: US - Extremity Nonvascular Limited - 08/15/2023 6:58 pm CLINICAL HISTORY: Arm pain COMPARISON: None FINDINGS: Sonographic evaluation of the left elbow was obtained. The left brachial artery is triphasic and patent. A fluid collection/mass is not seen IMPRESSION: Unremarkable ultrasound left elbow
--- NOTE | 2023-08-15 19:18 | RAD REPORT ---
EXAM DESCRIPTION: US - UPPER EXTREMITY VENOUS UNILATE - 08/15/2023 6:58 pm CLINICAL HISTORY: left arm pain and swelling. COMPARISON: None. FINDINGS: Left internal jugular vein, left subclavian vein, left axillary vein, left brachial vein, left cephalic, left basilic, left ulnar and left radial veins demonstrate phasic signal. The veins are compressible. Doppler demonstrates good flow. Grayscale, color and spectral analysis performed on all vessels IMPRESSION: No sonographic evidence of thrombus involving the left upper extremity veins.
--- NOTE | 2023-08-15 19:28 | ER ---
Nurse's Notes [facility] [place] Name: Niharika Burris Age: 72 yrs Sex: Female : 1950 Arrival Date: 08/15/2023 Time: 17:42 Bed 9 Private MD: Diagnosis: Localized swelling, mass and lump, left upper limb Presentation: 08/15 17:49 Chief complaint: Patient states: "I had a CT scan today to check my kidneys and liver, aa5 they gave me the contrast and now my left arm is swollen and hot". Coronavirus screen: At this time, the client does not indicate any symptoms associated with coronavirus-19. Ebola Screen: Patient denies travel to an Ebola-affected area in the 21 days before illness onset. Initial Sepsis Screen: Does the patient meet any 2 criteria? No. Patient's initial sepsis screen is negative. Does the patient have a suspected source of infection? No. Patient's initial sepsis screen is negative. Risk Assessment: Do you want to hurt yourself or someone else? Patient reports no desire to harm self or others. Onset of symptoms was August 2023. 17:49 Method Of Arrival: Ambulatory aa5 17:49 Acuity: LORI 4 aa5 Historical: - Allergies: 17:49 No Known Allergies; aa5 - PMHx: 17:49 Diabetes - NIDDM; fatty liver; Hypertension; Hypothyroidism; aa5 - Immunization history:: Adult Immunizations up to date. - Social history:: Smoking status: Patient denies any tobacco usage or history of. Screenin:02 [facility] ED Fall Risk Assessment (Adult) History of falling in the last 3 months, mb9 including since admission No falls in past 3 months (0 pts) Confusion or Disorientation No (0 pts) Intoxicated or Sedated No (0 pts) Impaired Gait No (0 pts) Mobility Assist Device Used No (0 pt) Altered Elimination No (0 pt) Score/Fall Risk Level 0 - 2 = Low Risk Oriented to surroundings, Maintained a safe environment, Educated pt \\T\\ family on fall prevention, incl call for assistance when getting out of bed. Abuse screen: Denies threats or abuse. Nutritional screening: No deficits noted. Tuberculosis screening: No symptoms or risk factors identified. Assessment: 18:07 General: Appears in no apparent distress. Behavior is calm, cooperative. Pain: mb9 Complains of pain in left arm Quality of pain is described as burning, throbbing, Pain began suddenly, Is continuous, Aggravated by increased activity. Neuro: Swann Agitation-Sedation Scale (RASS): 0 - Alert and Calm Level of Consciousness is awake, alert, obeys commands, Oriented to person, place, time, situation, Appropriate for age. Cardiovascular: Patient's skin is warm and dry. Respiratory: Airway is patent Respiratory effort is even, unlabored, Respiratory pattern is regular, symmetrical, Breath sounds are clear bilaterally. GI: Abdomen is round non-distended, Bowel sounds present X 4 quads. Abd is soft and non tender X 4 quads. : No signs and/or symptoms were reported regarding the genitourinary system. EENT: No signs and/or symptoms were reported regarding the EENT system. Derm: Skin is pink, warm \\T\\ dry. Musculoskeletal: Swelling present in left upper arm. 19:29 Reassessment: No changes from previously documented assessment. Patient and/or family mb9 updated on plan of care and expected duration. Pain level reassessed. Patient is alert, oriented x 3, equal unlabored respirations, skin warm/dry/pink. Vital Signs: 17:49 BP 143 / 74; Pulse 92; Resp 18 S; Temp 97.9(TE); Pulse Ox 97% on R/A; aa5 19:29 BP 138 / 82; Pulse 88; Resp 18; Pulse Ox 100% on R/A; mb9 ED Course: 17:45 Patient arrived in ED. aa5 17:48 Arm band placed on. aa5 17:50 Triage completed. aa5 17:53 Genny Luther FNP-C is [facility]. kb 17:53 Jaylen Nazario MD is Attending Physician. kb 18:02 Yeimy Aguilera RN is Primary Nurse. mb9 18:02 Placed in gown. Bed in low position. Call light in reach. Side rails up X 1. Client mb9 placed on continuous cardiac and pulse oximetry monitoring. NIBP monitoring applied. 18:07 No provider procedures requiring assistance completed. mb9 18:59 UPPER EXTREMITY VENOUS UNILATE In Process Unspecified. EDMS 19:00 US Extrmty Nonvasular Limited In Process Unspecified. EDMS 19:30 Patient did not have IV access during this emergency room visit. mb9 Administered Medications: No medications were administered Medication: 18:02 VIS not applicable for this client. mb9 Outcome: 19:27 Discharge ordered by MD. hung 19:30 Discharged to home ambulatory, mb9 19:30 Condition: stable 19:30 Discharge instructions given to patient, family, Instructed on discharge instructions, follow up and referral plans. Demonstrated understanding of instructions, follow-up care, 19:30 Patient left the ED. mb9 Signatures: Dispatcher [employer] EDMS Genny Luther, YOSELYN DESHPANDE-Dominique Kelley, RN RN aa5 Yeimy Aguilera RN RN mb9
--- NOTE | 2023-08-15 19:28 | EDPHYS ---
Physician Documentation [facility] [place] Name: Niharika Burris Age: 72 yrs Sex: Female : 1950 Arrival Date: 08/15/2023 Time: 17:42 Bed 9 Private MD: ED Physician Jaylen Nazario HPI: 08/15 20:02 This 72 yrs old Female presents to ER via Ambulatory with complaints of upper kb extremity swelling. 20:02 Pt reports she had a CT around 1430 today and has swelling to left upper extremity that kb started at 1630, just above IV site.. Historical: - Allergies: 17:49 No Known Allergies; aa5 - PMHx: 17:49 Diabetes - NIDDM; fatty liver; Hypertension; Hypothyroidism; aa5 - Immunization history:: Adult Immunizations up to date. - Social history:: Smoking status: Patient denies any tobacco usage or history of. ROS: 20:00 Constitutional: Negative for fever, chills, and weight loss, kb 20:00 MS/extremity: Positive for swelling, of the left upper arm, 20:00 All other systems are negative, Exam: 20:00 Constitutional: This is a well developed, well nourished patient who is awake, alert, kb and in no acute distress. Head/Face: Normocephalic, atraumatic. ENT: Moist Mucous membranes Cardiovascular: Regular rate Respiratory: Respirations even and unlabored. No increased work of breathing. Talking in full sentences Skin: Warm, dry with normal turgor. Normal color. Neuro: Awake and alert, GCS 15, oriented to person, place, time, and situation. Moves all extremities. Normal gait. 20:00 Musculoskeletal/extremity: Extremities: grossly normal except: noted in the left upper arm: swelling, ROM: intact in all extremities, Circulation is intact in all extremities. Sensation intact. Vital Signs: 17:49 BP 143 / 74; Pulse 92; Resp 18 S; Temp 97.9(TE); Pulse Ox 97% on R/A; aa5 19:29 BP 138 / 82; Pulse 88; Resp 18; Pulse Ox 100% on R/A; mb9 MDM: 17:53 Patient medically screened. kb 20:01 Differential diagnosis: cellulitis, extravasation of IV contrast, DVT, abscess. Data kb reviewed: vital signs, nurses notes. Counseling: I had a detailed discussion with the patient and/or guardian regarding the historical points, exam findings, and any diagnostic results supporting the discharge/admit diagnosis, radiology results, the need for outpatient follow up, a family practitioner, to return to the emergency department if symptoms worsen or persist or if there are any questions or concerns that arise at home. 08/15 17:58 Order name: US Extrmty Nonvasular Limited; Complete Time: 19:22 kb 08/15 18:59 Order name: UPPER EXTREMITY VENOUS UNILATE; Complete Time: 19:22 EDMS Administered Medications: No medications were administered Disposition Summary: 08/15/23 19:27 Discharge Ordered Notes: Location: Home kb Condition: Stable kb Diagnosis - Localized swelling, mass and lump, left upper limb kb Followup: kb - With: Emergency Department - When: As needed - Reason: Worsening of condition Followup: kb - With: Private Physician - When: 2 - 3 days - Reason: Recheck today's complaints, Continuance of care, Re-evaluation by your physician Forms: - Medication Reconciliation Form kb - Thank You Letter kb - Antibiotic Education kb - Prescription Opioid Use kb - Patient Portal Instructions kb - Leadership Thank You Letter kb Signatures: Dispatcher [employer] EDMS Genny Luther, INDUCTION COORDINATION POWER ENGINEER-C INDUCTION COORDINATION POWER ENGINEER-Edmundob Dominique Azar, RN RN aa5 Yeimy Aguilera, RN RN mb9 Corrections: (The following items were deleted from the chart) 18: 17:59 Extremity Venous Uni Ltd+US.RAD.BRZ ordered. EDAR EDMS
[2023-08-15 19:50] VITALS: TEMP 97.9
[2023-08-15 19:51] VITALS: BP 138/82; O2SAT 100
== END 2023-08-15 19:30 | disposition home or self-care (01) ==
LOC: ER 17:42
DX: R22.32 Localized swelling, mass and lump, left upper limb (principal)
CPT/HCPCS: 76882; 93971; 99283

== ENCOUNTER 2024-01-02 14:52 | Inpatient (IN) | payer OTHER ==
--- OUTSIDE RECORDS SUMMARY | 2024-01-02 14:55 | XMS REPORT | Clinical Summary ---
Author Name Unknown Organization [facility] [place] Address [address] [place] [address] Care Team Providers Care Pier Runner Name Role Phone Arian Pitt MD Primary Care Provider [phone] Encounters Date Type Department Care Team Description 09/14/2023 8:10 PM CDT Ancillary Procedure Image Library [address] [place] [address] [place] [address] Arian Pitt MD Cancer 09/14/2023 8:05 PM CDT Ancillary Procedure Image Library [address] [place] [id number] Arian Pitt MD Cancer 09/14/2023 8:00 PM CDT Ancillary Procedure Image Library [address] [place] [address] Arian Pitt MD Cancer 08/23/2023 Travel after 01/02/2023 Social History Tobacco Use Types Packs/Day Years Used Date Smoking Tobacco: Never Assessed Sex and Gender Information Value Date Recorded Sex Assigned at Not on file Gender Identity Not on file Sexual Orientation Not on file Job Start Date Occupation Industry Not on file Not on file Not on file Plan of Treatment Not on file Procedures Procedure Name Priority Date/Time Associated Diagnosis Comments OSI US VASCULAR Routine 08/15/2023 9:13 PM CDT Cancer OSI CT ABDOMEN Routine 08/15/2023 8:43 PM CDT Cancer OSI CHEST Routine 04/18/2023 8:41 PM CDT Cancer after 01/02/2023 Results * OSI US Vascular (08/15/2023 9:13 PM CDT) Narrative Systemgenerated, Documentation - 09/14/2023 9:13 PM CDT Study acquired at another institution. For comparison only. No MD Nazario originated interpretation requested or available. Arian Pitt MD IMG OUTSIDE IMAGE OR DERABLES * OSI CT Abdomen (08/15/2023 8:43 PM CDT) Narrative Systemgenerated, Documentation - 09/14/2023 8:43 PM CDT Study acquired at another institution. For comparison only. No MD Nazario originated interpretation requested or available. Arian Pitt MD IMG OUTSIDE IMAGE OR DERABLES * OSI Chest (04/18/2023 8:41 PM CDT) Narrative Systemgenerated, Documentation - 09/14/2023 8:41 PM CDT Study acquired at another institution. For comparison only. No MD Nazario originated interpretation requested or available. Arian Pitt MD IMG OUTSIDE IMAGE OR DERABLES after 01/02/2023 Care Teams Pier Runner Relationship Specialty Start Date End Date Arian Pitt MD [address] [place] [address] PCP - General Surgical Oncology 08/27/23
[2024-01-02] MEDS ORDERED: ACETAMINOPHEN 325 MG TABLET ONE (15:14)
[2024-01-02 15:46] LABS: SARS-CoV-2 Antigen Rapid Res Negative (Negative)
--- NOTE | 2024-01-02 15:47 | RAD REPORT ---
EXAM DESCRIPTION: RAD - Chest Single View - 01/02/2024 3:29 pm CLINICAL HISTORY: COUGH COMPARISON: Chest Pa And Lat (2 Views) dated 04/18/2023; Chest Pa And Lat (2 Views) dated 01/02/2019; C hest Pa And Lat (2 Views) dated 11/06/2018; Chest Pa And Lat (2 Views) dated 12/19/2017Chest Pa And Lat (2 Views) dated 04/18/2023; Chest Pa And Lat (2 Views) dated 01/02/2019; Chest Pa And Lat (2 Views) aron ed 11/06/2018; Chest Pa And Lat (2 Views) dated 12/19/2017Chest Pa And Lat (2 Views) dated 04/18/2023; Ch est Pa And Lat (2 Views) dated 01/02/2019; Chest Pa And Lat (2 Views) dated 11/06/2018; Chest Pa And L at (2 Views) dated 12/19/2017 FINDINGS: Lines: None. Lungs: Increased prominence of the pulmonary interstitium. Pleural: No significant pleural effusions or pneumothorax. Cardiac: Mild enlarged cardiopericardial silhouette. Mediastinum: Within normal limits. Bones: No acute fractures. Other: None IMPRESSION: Increased prominence of the pulmonary interstitium could reflect either mild edema or an atypical infectious/ inflammatory process. No consolidation.
[2024-01-02] MEDS ORDERED: NA CHLORIDE 0.9% 500 ML ONE (15:53)
[2024-01-02 15:58] LABS: Absolute Lymphocytes (CBC) 0.5 K/uL (0.7-4.9); Hematocrit 34.7 % (36.0-45.0); Lymphocytes % 5.7 % (15.3-44.8); MCV 82.3 fL (80-100); MPV 8.3 fL (7.6-11.3); Platelets 82 thou/uL (152-406); RBC Red Blood Cell Count 4.22 M/uL (3.86-4.86)
[2024-01-02 16:00] LABS: Blood Morphology Comment NOT SEEN (NOT SEEN); Platelet Estimate DECR; White Blood Cell Scan OK (OK)
[2024-01-02 16:02] LABS: Protime INR 2.11
[2024-01-02 16:15] LABS: Albumin 2.9 g/dL (3.4-5.0); Bilirubin Total 1.7 mg/dL (0.2-1.0); Potassium 3.8 mEq/L (3.5-5.1); Protein, Total 8.2 g/dL (6.4-8.2)
[2024-01-02] MEDS ORDERED: CEFTRIAXONE 1000 MG/VIAL ONE (16:30)
[2024-01-02] MEDS ORDERED: NA CHLORIDE 0.9% 250 ML ONE ×2 (16:31→16:32)
[2024-01-02] MEDS ORDERED: NA CHLORIDE 0.9% 50 ML ONE (16:31)
[2024-01-02] MEDS ORDERED: AZITHROMYCIN 500 MG INJ IVPB ONE (16:31)
[2024-01-02] MEDS ORDERED: NA CHLORIDE 0.9% 1,000 ML ONE (16:32)
--- NOTE | 2024-01-02 17:08 | RAD REPORT ---
EXAM DESCRIPTION: CTAbdomen Pelvis W Contrast - 01/02/2024 4:54 pm CLINICAL HISTORY: Abd pain;Nausea / vomiting COMPARISON: CT ABD PELVIS W CONTRAST dated 12/01/2013; Abdomen W Contrast dated 08/15/2023 TECHNIQUE: CT of the abdomen and pelvis was performed. All CT scans are performed using dose optimization technique as appropriate and may include automated exposure control or mA/KV adjustment according to patient size. FINDINGS: Lower chest: Aortic valve prosthesis . Liver: Cirrhotic liver morphology. Low-density lesion right hepatic lobe is unchanged measuring appro ximately 11 millimeters . Exophytic 2.4 cm lesion along the posterior aspect of the right hepatic lob e measuring 2.9 cm has modestly increased in size since 08/15/2023. Biliary: No biliary ductal dilatation. Stomach: No significant focal abnormality. Duodenum: No significant focal abnormality. Pancreas: No significant abnormality. Spleen: Splenomegaly. Adrenal: No suspicious lesions. Kidney/ureter: No hydronephrosis. No renal calculi. Retroperitoneum: No retroperitoneal adenopathy. Vascular: No aneurysm. Bowel: Diverticulosis. No evidence of acute diverticulitis.. Peritoneum: No ascites or free air. Enlarged portacaval lymph nodes likely reactive to underlying yemi er disease. Bladder: Grossly unremarkable. Reproductive: Pessary noted. Bones: No acute fracture. Scattered degenerative changes in the spine and at the hips. Other: n/a IMPRESSION: No definite acute intra-abdominal or pelvic finding. Cirrhosis with indeterminate liver lesions can be further evaluated with MRI. Diffuse colonic wall th ickening present which could indicate portal colopathy in the setting of portal hypertension, however a colitis could appear similar.
--- NOTE | 2024-01-02 17:09 | RAD REPORT ---
EXAM DESCRIPTION: CT - Head Brain Wo Cont - 01/02/2024 4:54 pm CLINICAL HISTORY: AMS COMPARISON: No comparisons TECHNIQUE: All CT scans are performed using dose optimization technique as appropriate and may inclu de automated exposure control or mA/KV adjustment according to patient size. FINDINGS: No intracranial hemorrhage, hydrocephalus or extra-axial fluid collection.No areas of brai n edema or evidence of midline shift. The paranasal sinuses and mastoids are clear. The calvarium is intact. IMPRESSION: No acute intracranial abnormality.
--- NOTE | 2024-01-02 17:31 | EDPHYS ---
Physician Documentation [facility] [place] Name: Niharika Burris Age: 73 yrs Sex: Female : 1950 Arrival Date: 01/02/2024 Time: 14:52 Bed 2 Private MD: ED Physician Seth Lindquist HPI: 01/02 15:03 This 73 yrs old Female presents to ER via Unassigned with complaints of fever. rn 15:03 The patient reports fever, that was measured at 103 degrees Fahrenheit. Onset: The rn symptoms/episode began/occurred 2 day(s) ago. Modifying factors: there are no obvious modifying factors. Associated signs and symptoms: Pertinent positives: chills, cough, nausea. 15:04 Severity of symptoms: At their worst the symptoms were moderate in the emergency rn department the symptoms are unchanged. The patient has not experienced similar symptoms in the past. Patient reports fever for 2 days. Associated with congestion, cough, abdominal pain, nausea and diarrhea. Generalized weakness that was worse today. Family called 911 because patient unable to stand due to weakness. No known sick contacts. Patient denies shortness of breath. No focal weakness, is generalized. EMS reports temperature 103. Historical: - Allergies: 15:27 No Known Allergies; ko1 - Home Meds: 15:27 Unable to obtain [Active]; ko1 - PMHx: 15:27 Diabetes - NIDDM; fatty liver; Hypertension; Hypothyroidism; ko1 - PSHx: 15:27 Unable to Obtain; ko1 - Immunization history:: Adult Immunizations up to date. - Social history:: Smoking status: Patient denies any tobacco usage or history of. - Family history:: not pertinent. - Hospitalizations: : No recent hospitalization is reported. ROS: 15:19 Constitutional: Positive for fever and chills Cardiovascular: Negative for chest pain, rn palpitations, and edema, Respiratory: Positive for cough, negative for shortness of breath Abdomen/GI: Positive for abdominal cramping/nausea/diarrhea MS/Extremity: Negative for injury and deformity, Skin: Negative for injury, rash, and discoloration, Neuro: Positive for generalized weakness and malaise Exam: 15:19 Constitutional: This is a well developed, well nourished patient who is somnolent, rn awakens to voice and falls back asleep Head/Face: Normocephalic, atraumatic. ENT: Dry mucous membranes, no stridor Cardiovascular: Tachycardic, regular. No pulse deficits. Respiratory: Mild tachypnea, no retractions Abdomen/GI: Soft, non-tender MS/ Extremity: Pulses equal, no cyanosis. Neuro: Awake and alert, GCS 15 Vital Signs: 15:20 BP 122 / 95; Pulse 108; Resp 16; Temp 102.1; Pulse Ox 98% ; ko1 16:06 BP 128 / 66; Pulse 103; Resp 16; Pulse Ox 100% ; ko1 16:24 Temp 99.5(O); Weight 61.23 kg (R); nj1 16:56 BP 122 / 69; Pulse 103; Resp 16; Pulse Ox 100% ; ko1 MDM: 14:59 Patient medically screened. rn 17:21 Differential diagnosis: viral Infection, bacterial infection, URI, bronchitis, rn pneumonia UTI, gastroenteritis, influenza, covid. 17:22 Data reviewed: vital signs, nurses notes, lab test result(s), radiologic studies, and rn as a result, I will admit patient. Consideration of Admission/Observation Patient was admitted/placed on observation. Escalation of care including admission/observation considered. Counseling: I had a detailed discussion with the patient and/or guardian regarding the historical points, exam findings, and any diagnostic results supporting the discharge/admit diagnosis, lab results, radiology results, the need for further work-up and treatment in the hospital. Response to treatment: the patient's symptoms have mildly improved after treatment, and as a result, I will admit patient. ED course: Sepsis reevaluation complete. Much improved mental status. NO episodes of hypotension. . 17:22 ED course: I personally spent 35 minutes engaged in work directly related to the rn individual patient's care. This does not include any time spent performing procedures. The patient has been deemed critically ill because of altered mental status, infection leading to severe sepsis with septic shock given lactate greater than 4, require resuscitation and multiple conversations with family members and organization of admission.. 01/02 15:00 Order name: Blood Culture Adult (2) rn 01/02 15:00 Order name: CBC with Diff; Complete Time: 16:14 rn 01/02 15:00 Order name: CMP; Complete Time: 16:22 rn 01/02 15:00 Order name: Lactate w/ 2H reflex if indic.; Complete Time: 16:15 rn 01/02 15:00 Order name: Protime (+inr); Complete Time: 16:14 rn 01/02 15:00 Order name: Ptt, Activated; Complete Time: 16:14 rn 01/02 15:00 Order name: Urinalysis w/ reflexes rn 01/02 15:00 Order name: Flu; Complete Time: 16:14 rn 01/02 15:00 Order name: SARS RAPID; Complete Time: 16:14 rn 01/02 16:01 Order name: CBC Smear Scan; Complete Time: 16:14 EDMN 01/02 18:49 Order name: Lactate Sepsis 2 HR Follow-up EDMN 01/02 21:00 Order name: Troponin High Sensitivity EDMN 01/02 15:00 Order name: Chest Single View XRAY; Complete Time: 16:14 01/02 15:04 Order name: CT Abd/Pelvis - IV Contrast Only; Complete Time: 17:15 rn 01/02 15:52 Order name: CT Head Brain wo Cont; Complete Time: 17:15 rn 01/02 15:00 Order name: EKG; Complete Time: 15:01 rn 01/02 15:00 Order name: Accucheck; Complete Time: 15:23 rn 01/02 15:00 Order name: Cardiac monitoring; Complete Time: 15:14 rn 01/02 15:00 Order name: EKG - Nurse/Tech; Complete Time: 15:56 rn 01/02 15:00 Order name: IV Saline Lock - Large Bore; Complete Time: 15:24 rn 01/02 15:00 Order name: Labs collected and sent; Complete Time: 15:56 rn 01/02 15:00 Order name: O2 Per Protocol; Complete Time: 15:14 rn 01/02 15:00 Order name: O2 Sat Monitoring; Complete Time: 15:14 rn 01/02 15:00 Order name: Vital Signs; Complete Time: 15:14 rn Administered Medications: 15:19 Drug: Acetaminophen PO 650 mg PO once Route: PO; ko1 16:44 Follow up: Response: No adverse reaction; Temperature is decreased nj1 15:56 Drug: NS 0.9% IV 500 ml IV at bolus once Route: IV; Rate: bolus; Site: right nj1 antecubital; 16:25 Follow up: Response: No adverse reaction; IV Status: Completed infusion; IV Intake: nj1 500ml 16:35 Drug: NS 0.9% IV (30 ml/kg) 30 ml/kg IV at bolus once; Sepsis Protocol; subtract first nj1 500cc bolus already given Route: IV; Rate: bolus; Site: right antecubital; 18:08 Follow up: Response: No adverse reaction; IV Status: Completed infusion; IV Intake: nj1 1336.9ml 16:40 Drug: Rocephin IV 1 grams IV at calculated rate once; Given slow IV push per pharmacy nj1 instructions Route: IV; Rate: calculated rate; Site: right antecubital; 17:00 Follow up: Response: No adverse reaction; IV Status: Completed infusion; IV Intake: [id number] 17:08 Drug: Zithromax IVPB 500 mg IVPB once over 1 hrs; mix in 250 mL NS Route: IVPB; Rate: nj1 250 ml/hr; Infused Over: 1 hrs; Site: right antecubital; Delivery: Primary tubing; 18:08 Follow up: IV Status: Completed infusion; IV Intake: 250ml nj1 Disposition Summary: 01/02/24 17:30 Hospitalization Ordered Notes: Hospitalization Status: Inpatient Admission rn Condition: Stable rn Problem: new rn Symptoms: have improved rn Bed/Room Type: Standard rn Provider: Angeles Ramsey(01/02/24 17:59) rn Location: Intensive Care Unit(01/03/24 00:04) rv1 Room Assignment: 2-(01/03/24 00:04) 1 Diagnosis - Severe sepsis with septic shock rn - Pneumonia, unspecified organism rn - Infectious gastroenteritis and colitis, unspecified rn Forms: - Medication Reconciliation Form rn - SBAR form rn - 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 Total time: 35 minutes rn Signatures: Dispatcher [employer] Edith Jacome Roman, MD MD rn Oliver, Kathy RN RN doug1 Clarissa Parson rv1 Zohreh Crane RN RN nj1 Corrections: (The following items were deleted from the chart) 17:59 17:30 Earle Najera rn rn 18:26 17:30 Telemetry/MedSurg (Inpatient) rn bd 18: 17:30 rn bd 01/03 00:04 01/02 18:26 [facility] ER [facility] bd rv1 01/03 00:01/02 18: [facility]- bd rv1
--- NOTE | 2024-01-02 17:31 | ER ---
Nurse's Notes [facility] [place] Name: Niharika Burris Age: 73 yrs Sex: Female : 1950 Arrival Date: 01/02/2024 Time: 14:52 Bed 2 Private MD: Diagnosis: Severe sepsis with septic shock;Pneumonia, unspecified organism;Infectious gastroenteritis and colitis, unspecified Presentation: 01/02 15:20 Chief complaint: EMS states: called due to patient having 103 temp off and on for 2-3 ko1 days, patient has become very weak and unable to stand. Fever, chills, cough and nausea. Coronavirus screen: chills, cough unrelated to allergies, fatigue, fever, nausea, shaking with chills, Client presents with at least one sign or symptom that may indicate coronavirus-19. Standard/surgical mask placed on the client. Ebola Screen: No symptoms or risks identified at this time. Initial Sepsis Screen: Does the patient meet any 2 criteria? No. Patient's initial sepsis screen is negative. Does the patient have a suspected source of infection? No. Patient's initial sepsis screen is negative. Risk Assessment: Do you want to hurt yourself or someone else? Patient reports no desire to harm self or others. Onset of symptoms is unknown. 15:20 Method Of Arrival: EMS: [facility] ko1 15:20 Acuity: LORI 3 ko1 Triage Assessment: 15:27 General: Appears ill, Behavior is appropriate for age. Pain: Denies pain. ko1 Historical: - Allergies: 15:27 No Known Allergies; ko1 - Home Meds: 15:27 Unable to obtain [Active]; ko1 - PMHx: 15:27 Diabetes - NIDDM; fatty liver; Hypertension; Hypothyroidism; ko1 - PSHx: 15:27 Unable to Obtain; ko1 - Immunization history:: Adult Immunizations up to date. - Social history:: Smoking status: Patient denies any tobacco usage or history of. - Family history:: not pertinent. - Hospitalizations: : No recent hospitalization is reported. Screenin:42 [facility] ED Fall Risk Assessment (Adult) Score/Fall Risk Level 3 or more points = High nj1 Risk Oriented to surroundings, Maintained a safe environment, Hourly rounding (assess needs \T\ fall precautionary measures) done, Used ambulatory aids as needed (educated on \T\ assisted with), Offered frequent toileting (1:1 observation), Remained with patient while ambulating. Abuse screen: Denies threats or abuse. Denies injuries from another. Nutritional screening: No deficits noted. Tuberculosis screening: No symptoms or risk factors identified. Assessment: 15:39 General: Appears in no apparent distress. comfortable, Behavior is calm, cooperative, nj1 appropriate for age, Reports feeling ill for. Pain: Denies pain. Neuro: Level of Consciousness is awake, alert, obeys commands, Oriented to person, place, situation. Neuro: Reports weakness malaise. Cardiovascular: Patient's skin is warm and dry. Respiratory: Airway is patent Respiratory effort is even, unlabored. 16:26 Reassessment: Patient appears in no apparent distress at this time. Patient and/or nj1 family updated on plan of care and expected duration. Pain level reassessed. Patient is alert, oriented x 3, equal unlabored respirations, skin warm/dry/pink. Patient states feeling better. Vital Signs: 15:20 BP 122 / 95; Pulse 108; Resp 16; Temp 102.1; Pulse Ox 98% ; ko1 16:06 BP 128 / 66; Pulse 103; Resp 16; Pulse Ox 100% ; ko1 16:24 Temp 99.5(O); Weight 61.23 kg (R); nj1 16:56 BP 122 / 69; Pulse 103; Resp 16; Pulse Ox 100% ; ko1 ED Course: 14:59 Patient arrived in ED. rn 14:59 Seth Lindquist MD is Attending Physician. rn 15:20 SARS RAPID Sent. ko1 15:20 Flu Sent. ko1 15:27 Triage completed. ko1 15:27 Arm band placed on right wrist. Patient placed in an exam room, on a stretcher, on ko1 pvc monitor, on pulse oximetry, Patient notified of wait time. 15:30 Chest Single View XRAY In Process Unspecified. EDMS 15:39 Zohreh Crane, JAQUELIN is Primary Nurse. nj1 15:43 Patient has correct armband on for positive identification. Bed in low position. Call nj1 light in reach. Side rails up X 1. Provided Education on: call light, fall precautions. 16:06 No provider procedures requiring assistance completed. ko1 16:55 CT Abd/Pelvis - IV Contrast Only In Process Unspecified. EDMS 16:56 CT Head Brain wo Cont In Process Unspecified. EDMS 17:27 Earle Najera MD is Hospitalizing Provider. rn 17:59 Angeles Ramsey MD is Hospitalizing Provider. rn 19:10 Report given to Luisa HAMMER. nj1 Administered Medications: 15:19 Drug: Acetaminophen PO 650 mg PO once Route: PO; ko1 16:44 Follow up: Response: No adverse reaction; Temperature is decreased nj1 15:56 Drug: NS 0.9% IV 500 ml IV at bolus once Route: IV; Rate: bolus; Site: right nj1 antecubital; 16:25 Follow up: Response: No adverse reaction; IV Status: Completed infusion; IV Intake: nj1 500ml 16:35 Drug: NS 0.9% IV (30 ml/kg) 30 ml/kg IV at bolus once; Sepsis Protocol; subtract first nj1 500cc bolus already given Route: IV; Rate: bolus; Site: right antecubital; 18:08 Follow up: Response: No adverse reaction; IV Status: Completed infusion; IV Intake: nj1 1336.9ml 16:40 Drug: Rocephin IV 1 grams IV at calculated rate once; Given slow IV push per pharmacy nj1 instructions Route: IV; Rate: calculated rate; Site: right antecubital; 17:00 Follow up: Response: No adverse reaction; IV Status: Completed infusion; IV Intake: [id number] 17:08 Drug: Zithromax IVPB 500 mg IVPB once over 1 hrs; mix in 250 mL NS Route: IVPB; Rate: nj1 250 ml/hr; Infused Over: 1 hrs; Site: right antecubital; Delivery: Primary tubing; 18:08 Follow up: IV Status: Completed infusion; IV Intake: 250ml nj1 Medication: 16:06 VIS not applicable for this client. ko1 Intake: 16:25 IV: 500ml; Total: 500ml. nj1 17:00 IV: 10ml; Total: 510ml. nj1 18:08 IV: 250ml; Total: 760ml. nj1 18:08 IV: 1337ml; Total: 2097ml. nj1 Outcome: 17:30 Decision to Hospitalize by Provider. rn 01/03 01:11 Patient left the ED. lg3 Signatures: Dispatcher [employer] EDMS Lindquist, Seth, MD MD rn Able, Claudette, RN RN lg3 Suzie Murphy RN RN ko1 Zohreh Crane RN RN nj1 Corrections: (The following items were deleted from the chart) 01/02 15:42 15:39 Neuro: Reports malaise. nj1 nj1
[2024-01-02] MEDS ORDERED: ONDANSETRON 4 MG/2 ML VIAL IV PRN (19:22)
[2024-01-02] MEDS ORDERED: IPRATROPIUM BROM 0.5MG/2.5ML NEB PRN (19:22)
[2024-01-02] MEDS ORDERED: ALBUTEROL 2.5 MG/3 ML NEB SOL NEB PRN (19:22)
[2024-01-02] MEDS ORDERED: ACETAMINOPHEN 500 MG TAB PO PRN (19:22)
[2024-01-02] MEDS: ASPIRIN EC 81 MG TAB PO ONE (22:01)
[2024-01-02] MEDS ORDERED: GLUCAGON 1 MG/VIAL IM PRN (22:05)
[2024-01-02] MEDS ORDERED: D50W 25 GM/50 ML SYRINGE IV PRN (22:05)
[2024-01-02] MEDS ORDERED: D10W 125 ML IV PRN (22:13)
[2024-01-02] MEDS ORDERED: ASPIRIN EC 81 MG TAB PO ONE ×2 (22:36→22:40)
[2024-01-02 23:08] VITALS: BMI 28.0
[2024-01-03 05:13] LABS: Absolute Lymphocytes (CBC) 1.1 K/uL (0.7-4.9); Hematocrit 29.4 % (36.0-45.0); Lymphocytes % 14.4 % (15.3-44.8); MCV 81.8 fL (80-100); MPV 8.4 fL (7.6-11.3); Platelets 67 thou/uL (152-406); RBC Red Blood Cell Count 3.59 M/uL (3.86-4.86)
[2024-01-03 05:26] LABS: Potassium 3.6 mEq/L (3.5-5.1)
[2024-01-03 05:32] LABS: Troponin High Sensitivity 162.9 pg/mL (<58.9)
[2024-01-03] MEDS: CEFTRIAXONE 1,000 MG in NA CHLORIDE 0.9% 50 ML IVPB SCH (05:56)
[2024-01-03] MEDS: INSULIN REGULAR (HUMAN) 100 UNIT/ML SQ SCH (07:30)
[2024-01-03] MEDS ORDERED: CLOPIDOGREL 75 MG TABLET ONE (08:27)
[2024-01-03] MEDS ORDERED: ASPIRIN EC 81 MG TAB PO ONE (08:27)
[2024-01-03] MEDS: POTASSIUM CL SA 10 MEQ TAB PO ONE (08:31)
[2024-01-03] MEDS: ASPIRIN EC 81 MG TAB PO SCH (08:31)
[2024-01-03] MEDS: CLOPIDOGREL 75 MG TABLET PO SCH (08:31)
[2024-01-03] MEDS: LEVOTHYROXINE SOD 0.088 MG TAB PO SCH (08:32)
[2024-01-03] MEDS: NA CHLORIDE 0.9% 1,000 ML IV SCH (08:32)
--- NOTE | 2024-01-03 12:25 | RAD REPORT ---
EXAM DESCRIPTION: MRI - Mri Abdomen W/Wo Cont - 01/03/2024 12:13 pm CLINICAL HISTORY: liver mass Abdominal pain, liver lesions. COMPARISON: Head Brain Wo Cont dated 01/03/2024; Head Brain Wo Cont dated 07/16/2023Neck Angio dated bdomen Pelvis W Contrast dated 01/02/2024 FINDINGS: There is a diffuse nodular appearance to the liver parenchyma noted compatible with cirrho sis. There is a nonenhancing T2 hyperintense lesion in the right lobe anteriorly measuring 8 mm favor ed to represent a small cyst. There is a T2 hypointense, noncontrast T1 hyperintense lesion along the periphery of the posterior right lobe which shows enhancement on arterial phase with evidence of was hout on more delayed sequences. This is a somewhat exophytic lesion projecting very close to the supe rior margin the right kidney. Overall lesion size is 28 x 21 mm. The spleen is mildly enlarged in size. The pancreas, adrenal glands are within normal limits. No merlene l mass is seen. Benign cyst is present cortex left kidney laterally measuring 18 mm. No bulky lymphadenopathy or free fluid. IMPRESSION: Moderate liver cirrhosis pattern is seen. Exophytic posteriorly located right lobe lesion measuring 28 x 21 mm. Imaging features of this lesion are concerning for hepatocellular carcinoma. Recommend correlation with alpha fetoprotein level.
--- NOTE | 2024-01-03 12:26 | RAD REPORT ---
EXAM DESCRIPTION: MRI - Pelvis W/Wo Cont - 01/03/2024 12:13 pm CLINICAL HISTORY: liver mass Pelvic pain, abdominal pain COMPARISON: No comparisons FINDINGS: There is prominent sigmoid diverticulosis coli present. The urinary bladder is incompletel y distended and demonstrates wall thickening. Trace free fluid is seen in the pelvis. No pelvic mass seen. No bulky lymphadenopathy. No marrow replacing process. IMPRESSION: Sigmoid diverticulosis coli is present.
--- NOTE | 2024-01-03 16:07 | EKG ---
Test Date: 2024-01-02 Test Time: 15:47:57 Ballet Dancer: YANA MEASUREMENT RESULTS: Intervals: Rate: 108 FL: 174 QRSD: 78 QT: 308 QTc: 412 [place]: P: 54 FL: 174 QRS: 10 T: 48 INTERPRETIVE STATEMENTS: Sinus tachycardia Possible Left atrial enlargement Borderline ECG Compared to ECG 12/19/2017 15:23:39 Sinus rhythm no longer present ST (T wave) deviation no longer present Electronically Signed On 01-03-24 16:04:46 MEDICAL DELIVERY DRIVER by Sherman Jama
[2024-01-03] MEDS ORDERED: ALBUTEROL 2.5 MG/3 ML NEB SOL NEB PRN (16:19)
[2024-01-03] MEDS ORDERED: IPRATROPIUM BROM 0.5MG/2.5ML NEB PRN (16:20)
[2024-01-03] MEDS ORDERED: AZITHROMYCIN IV 250 MG in NA CHLORIDE 0.9% 250 ML IVPB SCH (17:00)
[2024-01-03] MEDS: AZITHROMYCIN IV 250 MG in NA CHLORIDE 0.9% 250 ML IVPB SCH (17:18)
--- NOTE | 2024-01-03 19:35 | CON ---
Date of Consultation: 01/03/2024 Reason For Consultation: Elevated troponin. History Of Present Illness: This is a 73-year-old female, past medical history of diabetes, hyperten merle, coronary artery disease, fatty liver, and dyslipidemia, presented to the emergency room with fe suzan, generalized weakness and cough as well as generalized fatigue and nausea. No vomiting. Denies having any chest pain and no exertional symptoms specifically. Past Medical History: As outlined above in the HPI. Medications: Refer to reconciliation sheet for detailed list. Allergies: NO KNOWN DRUG ALLERGIES. Family History: No premature coronary artery disease or cancer. Social History: She does not smoke or drink. Does not use any drugs. Review of Systems: All systems were reviewed, they were negative except what was mentioned in HPI. Physical Examination: Vital Signs: Reviewed. Head and Neck: Pupils are equal, reactive to light. Intact eye movements. No JVD. No cervical lym phadenopathy. Neck is supple. Thyroid is not enlarged. Lungs: Clear to auscultation bilaterally. No rhonchi, wheezing, or crackles. No accessory muscle u se. Heart: Regular rate and rhythm. No extra sounds. Abdomen: Soft, nontender. Bowel sounds positive. No organomegaly. No masses or hernia. No rigidi ty or rebound. Extremities: No edema, clubbing, cyanosis. Intact pulses. Skin: No rash or nodule. Neuro: Alert, awake, oriented x3. No acute focal deficits appreciated. Investigations: BUN 25, creatinine 0.55. Troponin 162 down from 285, and hemoglobin 9.7. Assessment And Recommendations: 1.Elevated troponin, appears to be demand. She has no chest pain. My recommendation will be to laure n for outpatient stress test and an echocardiogram. 2.Aortic systolic murmur or probably has aortic valve disorder. We will plan for doing an echo as a n outpatient basis once her pneumonia is completely treated. 3.Dyslipidemia. continue Crestor 5 mg q.h.s. 4.Pneumonia, on wide-spectrum antibiotics. Thank you for the consult. /CRISTINA Voice ID: [id number] Report ID: [id number]
[2024-01-03] MEDS: ROSUVASTATIN 5 MG TAB PO SCH (20:51)
--- NOTE | 2024-01-03 23:05 | PN ---
Date of Progress Note: 01/03/2024 Subjective: The patient was seen this morning for followup. She was in ICU as an overflow patient, and her was with her at bedside. Overall, she looks a lot better actually compared to yester day and not as tired as yesterday. Not in any distress. Denies any new complaints overnight. Objective: Vital Signs: Reviewed. HEENT: Unremarkable. Lungs: Clear to auscultation. Not in any respiratory distress. No wheezing. No rales. Heart: Sounds normal. Abdomen: Soft. Bowel sounds normal. No guarding, rigidity, tenderness, distention. Extremities: No leg edema. Laboratory Data: White count this morning 7.5, hemoglobin 9.7, platelets 67. Sodium 138, potassium 3.6, chloride 110, bicarb 24, BUN 25, creatinine 0.55, glucose 192. Hemoglobin A1c 7.3. Troponin th is morning was 162.9 and yesterday, it was 285.9. Cholesterol; triglycerides 93, total cholesterol 8 6, LDL 52, and HDL 15. Impression: 1.Pneumonia. 2.Cirrhosis of liver. 3.Liver mass. 4.Diabetes mellitus, type 2. 5.Hypertension. 6.Hypothyroidism. 7.Abnormal cardiac enzymes. Plan: We will go ahead and continue IV fluids per order. Continue IV antibiotics. For DVT prophyla xis, we will use SCD because of thrombocytopenia. I do not feel comfortable using any anticoagulant medication. The patient is on aspirin and Plavix at home, and we will continue those. Monitor blood work closely. Physical Therapy to start working with the patient to help ambulate her, and MRI of t he abdomen and pelvis with contrast was ordered today. We will follow up with breast surgeon and echo with Doppler was ordered to be done today. I will see her tomorrow for sal tovar. NNIG/MODL Voice ID: [id number] Report ID: [id number]
[2024-01-04 06:45] LABS: Absolute Lymphocytes (CBC) 0.8 K/uL (0.7-4.9); Hematocrit 30.4 % (36.0-45.0); Lymphocytes % 14.1 % (15.3-44.8); MCV 81.2 fL (80-100); Platelets 81 thou/uL (152-406); RBC Red Blood Cell Count 3.74 M/uL (3.86-4.86)
[2024-01-04 07:02] LABS: Magnesium 1.3 mg/dL (1.6-2.4); Potassium 3.5 mEq/L (3.5-5.1)
--- NOTE | 2024-01-04 07:22 | ECHO ---
HEIGHT: 5 ft 2 in WEIGHT: 153 lb 0 oz DATE OF STUDY: 01/03/[address]: Rudy Ramsey MD 2-DIMENSIONAL: YES M.MODE: YES DOPPLER: YES COLOR FLOW: YES TDS: PORTABLE: YES DEFINITY: BUBBLE STUDY: DIAGNOSIS: ABNORMAL TROPONIN CARDIAC HISTORY: CATHERIZATION: SURGERY: PROSTHETIC VALVE: AORTIC VALVE PACEMAKER: MEASUREMENTS (cm) DIASTOLIC (NORMALS) SYSTOLIC (NORMALS) IVSd 1.1 (0.6-1.2) LA Diam 3.6 (1.9-4.0) LVEF 63% LVIDd 3.7 (3.5-5.7) LVIDs 2.4 (2.0-3.5) %FS 33% LVPWd 1.1 (0.6-1.2) Ao Diam 2.6 (2.0-3.7) 2 DIMENSIONAL ASSESSMENT: RIGHT ATRIUM: NORMAL LEFT ATRIUM: NORMAL RIGHT VENTRICLE: NORMAL LEFT VENTRICLE: NORMAL TRICUSPID VALVE: MODERATE TRICUSPID REGURGITATION MITRAL VALVE: MILD MITRAL REGURGITATION PULMONIC VALVE: NORMAL AORTIC VALVE: BIOPROSTHESIS IS PRESENT PERICARDIAL EFFUSION: NONE AORTIC ROOT: NORMAL LEFT VENTRICULAR WALL MOTION: NORMAL DOPPLER/COLOR FLOW: SEE BELOW COMMENTS: 1. NORMAL LEFT VENTRICULAR EJECTION FRACTION 60-65% 2. NORMAL WALL MOTION 3. MODERATE DIASTOLIC DYSFUNCTION 4. MODERATE TRICUSPID REGURGITATION 5. MILD MITRAL REGURGITATION 6. AORTIC VALVE BIOPROSTHESIS IS PRESENT AND FUNCTIONING WELL TECHNOLOGIST: GLENYS MEADOWS
[2024-01-04 08:13] LABS: Basophilic Stippling 1+; Blood Morphology Comment NOTED (NOT SEEN); Dohle Bodies PRESENT; Platelet Estimate DECR; Toxic Granulation 2+
[2024-01-04] MEDS: Magnesium Sulfate 2gm IVPB 2 G/50 ML BAG IV ONE (08:22)
[2024-01-04] MEDS: POTASSIUM CL SA 10 MEQ TAB PO ONE (08:23)
--- NOTE | 2024-01-04 10:26 | RAD REPORT ---
EXAM DESCRIPTION: RAD - Chest Pa And Lat (2 Views) - 01/04/2024 10:11 am CLINICAL HISTORY: pneumonia Chest pain. COMPARISON: Chest Single View dated 01/02/2024; Chest Pa And Lat (2 Views) dated 04/18/2023; Chest Pa A nd Lat (2 Views) dated 01/02/2019; Chest Pa And Lat (2 Views) dated 11/06/2018 FINDINGS: Mild pulmonary edema suspected. Small bilateral pleural effusions. The heart is moderately enlarged in size. No displaced fractures. IMPRESSION: Mild CHF.
[2024-01-04] MEDS: levoFLOXacin 500 MG TAB PO SCH (10:42)
--- NOTE | 2024-01-04 11:12 | PN ---
Date of Progress Note: 01/04/2024 Subjective: The patient was seen this morning for followup. No new complaints or problems reported by the patient. She was sitting at bedside. Her was in the room with her. Overall, she is doing much better, feeling much better. Her generalized weakness has improved significantly. She is ambulating well with physical therapy. Denies any nausea, vomiting, diarrhea. No shortness of khushi th. Vital signs reviewed. She has remained afebrile except maximum temperature in the last 24 hours is 99.5 degrees Fahrenheit. Objective: Vital Signs: Reviewed. HEENT: Unremarkable. Lungs: Clear to auscultation. No wheezing. No rales. Not using any accessory muscles of respirati on. Heart: Sounds normal. Abdomen: Soft. Bowel sounds normal. No guarding, rigidity, tenderness, distention. Extremities: No leg edema. Laboratory Data: White count 5.7, hemoglobin 10.1, platelets 81. Sodium 137, potassium 3.5, chlorid e 107, bicarb 24, BUN 13, creatinine 0.45, glucose 158, magnesium 1.3. Echocardiogram shows normal e jection fraction 63%, aortic valve bioprosthesis is present and functioning well, mild mitral regurgi tation, moderate tricuspid regurgitation, moderate diastolic dysfunction, normal wall motion. Her MR I of abdomen and pelvis done yesterday shows moderate liver cirrhosis pattern present and there is ab out 28 x 21 mm growth in the right lobe of the liver suspicious for hepatocellular carcinoma. MRI of the pelvis had shown sigmoid diverticulosis. Blood culture is growing some bacteria. Definite iden tification will be ready tomorrow, but it is likely streptococcus. Impression: 1.Sepsis. 2.Cirrhosis of liver. 3.Rule out hepatocellular carcinoma. 4.Diverticulosis. 5.Type 2 diabetes mellitus. 6.Hypertension. 7.Thrombocytopenia. Plan: We will go ahead and continue SCD for DVT prophylaxis. The patient is ambulating very well. Her overall weakness has improved significantly. She has a good appetite. She was encouraged to con tinue to eat her meals regularly and ambulate. We will discontinue azithromycin and instead of that start her on Levaquin 500 mg p.o. daily starting today. Continue her IV ceftriaxone. Final blood cu lture results will be ready probably tomorrow and then we will possibly discharge her to go home jarrell rrow. We will get a chest x-ray done today, and I have discussed results of echocardiogram. CAT sca n of abdomen and pelvis as well as MRI abdomen and pelvis results were reviewed with the patient and the patient's who was in room, and I have expressed my concern about spot in the liver is lik alvaro hepatocellular carcinoma, and the patient and her they both informed me today that their niece who works at [facility] has scheduled appointment for the patient to go see Dr. Luis for January 23, 2024. We will provide a copy of MRI and CAT scan on a CD along with the report to the patient to take it to Dr. Luis. I will see her tomorrow for followup. NING/MODL Voice ID: [id number] Report ID: [id number]
[2024-01-04] MEDS: MAGNESIUM SULFATE 1 gm IVPB 1 GM/100 ML BAG IV ONE (16:34)
[2024-01-05 07:36] LABS: Magnesium 1.7 mg/dL (1.6-2.4); Potassium 3.4 mEq/L (3.5-5.1)
[2024-01-05 09:09] VITALS: BP 141/63; TEMP 98.6; O2SAT 96
[2024-01-05 09:19] LABS: Urine Bacteria <20 /HPF (<20); Urine Bilirubin NEGATIVE (Negative); Urine Blood 1+ (Negative); Urine Clarity Extremely Turbid (Clear); Urine Color Yellow (Yellow); Urine Glucose NEGATIVE (Negative); Urine Mucus 2+ /HPF (None Seen); Urine Protein TRACE (Negative); Urine RBC 21-50 /HPF (None Seen); Urine Urobilinogen Normal (Normal); Urine pH 6.5 (5.0-7.0)
--- NOTE | 2024-01-05 10:39 | DS ---
Date of Discharge: 01/05/2024 Disposition: Discharged to go home. Physical Examination: HEENT: Unremarkable. Lungs: Clear to auscultation. Heart: Sounds normal. Abdomen: Soft. Bowel sounds normal. No guarding, rigidity, tenderness, distention. Extremities: No leg edema. Laboratory Data: Blood culture, 4 bottles out of 4 bottles growing Streptococcus mitis. Initial CBC on 01/02/2024, white count 9.1, hemoglobin 11.6, platelets 82. Last CBC yesterday, white count 5.7, hemoglobin 10.1, platelets 81. Hemoglobin A1c done during this hospitalization was 7.3. Her last c hemistry today, sodium 135, potassium 3.4, chloride 105, bicarb 24, BUN 9, creatinine 0.44, glucose 1 34, magnesium 1.7 today. Upon admission, sodium 132, potassium 3.8, chloride 103, bicarb 21, BUN 38, creatinine 1.04, glucose 266. Initial lactic acid level was 4.1. Initial troponin was 285.9 and se cond troponin 162.9. Final Diagnoses: 1.Severe sepsis, organism Streptococcus mitis. 2.Volume depletion. 3.Anemia, unspecified. 4.Thrombocytopenia. 5.Hypokalemia. 6.Abnormal cardiac enzymes. 7.Hypertension. 8.Hyperlipidemia. 9.Type 2 diabetes mellitus. 10.Hypothyroidism. 11.Osteoarthritis, multiple sites. 12.Diverticulosis. 13.Liver mass. 14.Cirrhosis of liver. Discharge Medications And Instructions: 1.Continue all prior home medications. 2.Take Levaquin 500 mg daily for 10 days. 3.Follow up at my office next week on 01/09 or 01/10/2024. 4.The patient will keep her appointment with Dr. Luis for January 23, 2024, which her family has anton eduled for her. 5.Follow up with Dr. Jama as per his suggestion. Hospital Course: This is a 73-year-old pleasant female patient, who was admitted to the hospital wit h severe sepsis. Please see dictated H and P for more information. After the patient was evaluated in the ER, she was admitted to the hospital. Initially, she was started on empiric antibiotic which was ceftriaxone and azithromycin. Urinalysis and urine culture were ordered, but it was never collec sabine. Blood culture was collected prior to initiation of antibiotics and finally we got the blood cul ture results back today, which is growing Streptococcus. As of yesterday, once we saw that her blood culture was growing likely Streptococcus type of organism, we discontinued azithromycin and started her on oral Levaquin. The patient has received ceftriaxone since she came into the hospital. Her ge neralized weakness improved significantly after her admission to the hospital. Initially, she was gi madhav IV fluid and subsequently we discontinued that and Physical Therapy was consulted. She ambulates very well. She is back to her normal self now. CAT scan finding was discussed with the patient and her family. Her family has scheduled her appointment for her to go back to see Dr. Luis for this liver mass. We did obtain alpha-fetoprotein level, result is pending, and we did get MRI of abdomen and pelvis and MRI of pelvis has shown diverticulosis. MRI abdomen has shown about 28 mm liver mass suspicious for hepatocellular carcinoma and these details were discussed with the patient and her hus band. For abnormal cardiac enzyme, it is likely due to demand ischemia and Cardiology consultation w as obtained from Dr. Jama, who has asked the patient to go back and see him in about couple of week s and he is planning to do outpatient stress test for her. Echocardiogram done during this hospitali zation shows normal ejection fraction, normal bioprosthetic aortic wall, and normal left ventricular wall motion. The patient will be discharged to go home in stable condition today with above-mentioned medications and instruct ions. NING/MODL Voice ID: [id number] Report ID: [id number]
--- NOTE | 2024-01-05 10:39 | HP ---
Date of Admission: 01/02/2024 Chief Complaint: Fever, poor appetite, and feeling weak. History Of Present Illness: This is a 73-year-old very pleasant female patient who lives at home with her , started to have vague complaints of not feeling good as of yesterday with a poor appetite. Today, she started to have fever and with that, she was brought into emergency room and after she was evaluated in the ER, she was diagnosed as having severe sepsis and was admitted to the hospital. In the emergency room, she received IV fluid, IV antibiotics, and I was contacted requesting admission to the hospital. Hemodynamically, she was stable. I saw her in the emergency room. Her and [id number] were present with her at bedside. She denies any abdominal pain, nausea, vomiting. Denies any cough, congestion, or any expectoration. No urinary complaints. Allergies: NO KNOWN ALLERGIES. Medications: Amlodipine 2.5 mg daily, aspirin 81 mg daily, clopidogrel 75 mg daily, levothyroxine 88 mcg daily, lisinopril 10 mg daily, Claritin 10 mg daily, metformin 500 mg takes 2 tablets 2 times a day, rosuvastatin 5 mg daily in the evening, Januvia 100 mg daily with breakfast, vitamin B12 500 mcg daily. Review of Systems: Constitutional: As mentioned above. All other systems reviewed and negative. Past Medical History: Significant for type 2 diabetes mellitus, liver mass, cirrhosis of liver, hypertension, hyperlipidemia, aortic stenosis, hypothyroidism, diverticulosis, pancytopenia, and osteoarthritis at multiple sites. Past Surgical History: Aortic valve replacement done percutaneously, April 26, 2021; cholecystectomy; hysterectomy. Family History: Father , had pneumonia. Mother , had emphysema. Brother has diabetes. Sister , had a breast cancer. Social History: Negative for smoking, alcohol use. Physical Examination: Vital Signs: Height 5 feet 2 inches, weight 153 pounds temperature 97.5, pulse 87, respiratory rate 19, blood pressure 103/63, oxygen saturation 97%. General: Patient is appearing very weak, not in any distress. Awake, alert, oriented, answering questions appropriately. HEENT: Head atraumatic, normocephalic. Conjunctivae nonerythematous. Sclerae white. Mouth, no thrush or edema noted. Ears/Nose, no mass, lesion, discharge noted. Neck: Supple. No JVD, lymph nodes, bruit, thyromegaly noted. Lungs: Bilateral good equal air entry. Clear to auscultation. No rhonchi. No rales. Heart: Normal heart sounds, no murmur or gallop. Abdomen: Soft, bowel sounds normal. No guarding, rigidity, tenderness, mass, hepatosplenomegaly, distention, or bruit noted. Extremities: No leg edema. No calf tenderness. Skin: No rash, ulcer, cellulitis. Lymphatics: No lymph node enlargement in neck, supraclavicular, infraclavicular region. Neuro: No focal neurological deficit. Chest: Unremarkable. External Genitalia: Deferred. Rectal: Deferred. Laboratory Data: Sodium 132, potassium 3.8, chloride 103, bicarb 21, BUN 38, creatinine 1.04, glucose 266. Lactic acid 4.1, total bilirubin 1.7, AST 84, ALT 56, alkaline phosphatase 117. Troponin 285.9. White count 9.1, hemoglobin 11.6, platelets 82. Chest x-ray, increased interstitial lung markings. CAT scan of the head was negative for any acute changes. CAT scan of abdomen and pelvis shows evidence of liver mass and changes of cirrhosis of liver. Impression: 1. Severe sepsis. 2. Volume depletion. 3. Cirrhosis of liver. 4. Thrombocytopenia. 5. Hypertension. 6. Hyperlipidemia. 7. Type 2 diabetes mellitus. 8. Osteoarthritis, multiple sites. 9. Hypothyroidism. 10. Diverticulosis. Plan: Admit the patient to hospital for further evaluation and management of this problem. The patient is appropriate for inpatient and is expected to spend 2 midnights in hospital. We will go ahead and continue IV fluid and empiric IV antibiotics. Urinalysis and urine culture were ordered. We will follow up on results. Blood culture was done in the emergency room before starting antibiotics. The patient takes aspirin and clopidogrel, which will be continued and in view of her cirrhosis of liver and thrombocytopenia, I will go ahead and order SCD for DVT prophylaxis and continue her anti-platelet therapy as she takes at home. Ambulation will be encouraged. We will consult Physical therapy to help ambulate. Diabetes will be managed with sliding scale insulin per order. We will not start any antihypertensive medication at this point. Other home medications will be continued as per order. I did discuss with the patient and her family regarding her CAT scan finding and last thing the patient and patient's told me she had appointment to see Dr. Luis on Sunday and today patient's has informed me that she has not seen him yet and does not have any appointment, so I am not sure what is going on with that, and the patient's vyryqc-qw-bin who was in the room with her today reassured me that tomorrow she will make sure that she will assist them with appointment and the patient has a niece who works in [facility] who will also assist her as she has offered in the past. She has seen Dr. Luis in the past. I will see her tomorrow for followup. NING/CRISTINA Voice ID: [id number]
== END 2024-01-05 11:38 | disposition home or self-care (01) | DRG 871 ==
LOC: ER 14:52 → ERHOLD 18:01 → 3RD-ICU 01-03 03:45 → 4TH 01-03 13:48
PROVIDERS: ADMIT Internal Medicine; ATTEND Internal Medicine
DX: A40.8 Other streptococcal sepsis (principal); J18.9 Pneumonia, unspecified organism; R65.21 Severe sepsis with septic shock; A09 Infectious gastroenteritis and colitis, unspecified; C22.0 Liver cell carcinoma; I24.89 Other forms of acute ischemic heart disease; K76.0 Fatty (change of) liver, not elsewhere classified; E03.9 Hypothyroidism, unspecified; I10 Essential (primary) hypertension; E11.9 Type 2 diabetes mellitus without complications; I08.1 Rheumatic disorders of both mitral and tricuspid valves; E87.6 Hypokalemia; E86.9 Volume depletion, unspecified; D64.9 Anemia, unspecified; D69.6 Thrombocytopenia, unspecified; E78.5 Hyperlipidemia, unspecified; M19.09 Primary osteoarthritis, other specified site; K74.60 Unspecified cirrhosis of liver; K57.30 Diverticulosis of large intestine without perforation or abscess without bleeding; I25.10 Atherosclerotic heart disease of native coronary artery without angina pectoris; R16.0 Hepatomegaly, not elsewhere classified; Z11.52 Encounter for screening for COVID-19
CPT/HCPCS: 36415; 70450; 71045; 71046; 72197; 74177; 74183; 80048; 80053; 80061; 81001; 82947; 83036; 83605; 83735; 83880; 84132; 84484; 85025; 85610; 85730; 87040; 87077; 87186; 87205; 87804; 87811; 93005; 93306; 94760; 96365; 96367; 97116; 97161; 99284; A9577; J0696; J1815; J3475; J7030; J7040; J7050; Q9967

== ENCOUNTER 2024-01-25 23:19 | Inpatient (IN) | payer OTHER ==
--- OUTSIDE RECORDS SUMMARY | 2024-01-25 23:21 | XMS REPORT | Clinical Summary ---
Author Name Unknown Organization [facility] Address [address] [place] [address] Care Team Providers Care X Ray Tech Name Role Phone Arian Pitt MD Primary Care Provider [phone] Encounters Date Type Department Care Team Description 09/14/2023 8:10 PM CDT Ancillary Procedure Image Library [address] [place] [address] [place] [address] Arian Pitt MD Cancer 09/14/2023 8:05 PM CDT Ancillary Procedure Image Library [address] [place] [id number] Arian Pitt MD Cancer 09/14/2023 8:00 PM CDT Ancillary Procedure Image Library [address] [place] [id number] Arian Pitt MD Cancer 08/23/2023 Travel after 01/25/2023 Social History Tobacco Use Types Packs/Day Years [...] Routine 04/18/2023 8:41 PM CDT Cancer after 01/25/2023 Results * [facility] US Vascular (08/15/2023 9:13 [...] MD IMG OUTSIDE IMAGE OR DERABLES after 01/25/2023 Care Teams X Ray Tech Relationship Specialty Start Date End Date Arian Pitt MD [address] [place] [address] PCP - General Surgical Oncology 08/27/23
[2024-01-26] MEDS ORDERED: ALBUTEROL 2.5 MG/3 ML NEB SOL ONE (00:09)
[2024-01-26] MEDS ORDERED: VANCOMYCIN 1 GM/VIAL ONE (00:09)
[2024-01-26] MEDS ORDERED: ONDANSETRON 4 MG/2 ML VIAL ONE (00:09)
[2024-01-26] MEDS ORDERED: IPRATROPIUM BROM 0.5MG/2.5ML ONE (00:09)
[2024-01-26] MEDS ORDERED: NA CHLORIDE 0.9% 0 ML ONE (00:10)
[2024-01-26] MEDS ORDERED: IBUPROFEN 400 MG TAB ONE (00:10)
[2024-01-26] MEDS ORDERED: PIPERACIL/TAZO 3.375 GM VIAL IV ONE ×2 (00:10→09:25)
[2024-01-26] MEDS ORDERED: NA CHLORIDE 0.9% 100 ML ONE ×2 (00:10→09:25)
[2024-01-26] MEDS ORDERED: NA CHLORIDE 0.9% 2,000 ML ONE (00:11)
[2024-01-26 01:05] LABS: Sqamous Epithelial <5 /HPF (None Seen); Urine Bacteria None Seen /HPF (<20); Urine Bilirubin NEGATIVE (Negative); Urine Blood 2+ (Negative); Urine Clarity Turbid (Clear); Urine Color Yellow (Yellow); Urine Culture Reflex Order NOT NEEDED; Urine Glucose NEGATIVE (Negative); Urine Ketones NEGATIVE (Negative); Urine Micro Reflex YN NO BILL MICROSCOPIC; Urine Mucus Slight /HPF (None Seen); Urine Nitrite NEGATIVE (Negative); Urine Protein 1+ (Negative); Urine RBC <5 /HPF (None Seen); Urine Urobilinogen Normal (Normal); Urine WBC <5 /HPF (<5); Urine WBC Clump Rare /HPF (None Seen); Urine pH 5.5 (5.0-7.0)
[2024-01-26 02:15] LABS: Absolute Lymphocytes (CBC) 0.4 K/uL (0.7-4.9); Absolute Monocytes 0.2 K/uL (0.1-1.3); Absolute Neutrophil 5.9 K/uL (1.8-8.0); Lymphocytes % 6.3 % (15.3-44.8); MCH 27.4 pg (27.0-35.0); MCHC 33.3 g/dL (32.0-36.0); MCV 82.4 fL (80-100); MPV 7.5 fL (7.6-11.3); Monocytes % 3.2 % (3.3-12.3); Neutrophils % 90.5 % (41.7-73.7); Nucleated Red Blood Cells % 0.1 % (0-0); Platelets 106 thou/uL (152-406); RBC Red Blood Cell Count 3.64 M/uL (3.86-4.86); Red Cell Distribution Width 19.6 % (12.1-15.2)
[2024-01-26 02:17] LABS: PTT, Activated Partial Thromb 34.9 SECONDS (24.3-36.9)
[2024-01-26 02:18] LABS: PT Prothrombin Time 21.7 SECONDS (9.5-12.5); Protime INR 2.01
[2024-01-26 02:36] LABS: Albumin 2.4 g/dL (3.4-5.0); Albumin/Globulin Ratio 0.5 (1.1-1.8); Bilirubin Direct 0.7 mg/dL (0-0.2); Bilirubin Indirect, Calculated 0.6 mg/dL (0.2-0.8); Bilirubin Total 1.3 mg/dL (0.2-1.0); Magnesium 1.1 mg/dL (1.6-2.4); Protein, Total 7.4 g/dL (6.4-8.2); Troponin High Sensitivity 20.3 pg/mL (<58.9)
[2024-01-26 02:39] LABS: SARS-CoV-2 Antigen CONTROL BLUE LINE VIS/BG OK; SARS-CoV-2 Antigen Rapid Res Negative (Negative)
[2024-01-26] MEDS ORDERED: ALBUMIN HUMAN 25% 100 ML IV ONE (04:26)
[2024-01-26] MEDS ORDERED: ACETAMINOPHEN 500 MG TAB ONE (04:28)
--- NOTE | 2024-01-26 05:39 | EDPHYS ---
Physician Documentation [facility] [place] Name: Niharika Burris Age: 73 yrs Sex: Female : 1950 Arrival Date: 01/25/2024 Time: 23:19 Bed 4 Private MD: ED Physician Omar Spring HPI: 01/24 23:33 This 73 yrs old Female presents to ER via Unassigned with complaints of fever, sp4 cough , confusion . 01/25 05:31 73-year-old female presents with EMS for acute onset of fever cough and confusion. . sp4 Historical: - Allergies: 01/24 23:40 No Known Allergies; jw7 - Home Meds: 23:40 amlodipine oral [Active]; clopidogrel oral [Active]; Januvia oral [Active]; jw7 levothyroxine oral [Active]; Lisinopril Oral [Active]; Metformin Oral [Active]; rosuvastatin oral [Active]; - PMHx: 23:40 Diabetes - NIDDM; fatty liver; Hypertension; Hypothyroidism; jw7 - PSHx: 23:40 Cardiac Stent; jw7 - Immunization history:: Adult Immunizations up to date, Client reports having NOT received the Covid vaccine. Last tetanus immunization: up to date Pneumococcal vaccine is up to date, Flu vaccine is up to date. - Social history:: Smoking status: Patient denies any tobacco usage or history of. Patient/guardian denies using alcohol, street drugs, IV drugs. - Family history:: not pertinent. ROS: 01/25 05:31 Constitutional: Positive fever, positive generalized weakness, positive chills, sp4 positive cough All other systems are negative, Exam: 05:31 Constitutional: This is a well developed, well nourished patient who is awake, alert, sp4 ill-appearing female nontoxic Head/Face: Normocephalic, atraumatic. Eyes: Pupils equal round and reactive to light, extra-ocular motions intact. Lids and lashes normal. Conjunctiva and sclera are not injected. Cornea within normal limits. Periorbital areas with no swelling, redness, or edema. ENT: Nares patent. No nasal discharge, no septal abnormalities noted. Tympanic membranes are normal and external auditory canals are clear. Oropharynx with no redness, swelling, or masses, exudates, or evidence of obstruction, uvula midline. Mucous membranes moist. Neck: Trachea midline, no thyromegaly or masses palpated, and no cervical lymphadenopathy. Supple, full range of motion without nuchal rigidity, or vertebral point tenderness. Chest/axilla: Normal chest wall appearance and motion. Nontender with no deformity. No lesions are appreciated. Cardiovascular: Regular rate and rhythm with a normal S1 and S2. No gallops, murmurs, or rubs. Normal PMI, no JVD. No pulse deficits. Respiratory: Lungs have equal breath sounds bilaterally, clear to auscultation and percussion. No rales, rhonchi or wheezes noted. No increased work of breathing, no retractions or nasal flaring. Abdomen/GI: Soft, with normal bowel sounds. No distension or tympany. No guarding or rebound. No evidence of tenderness throughout. Back: No spinal tenderness. No costovertebral tenderness. Skin: Warm, dry with normal turgor. Normal color with no rashes, no lesions, and no evidence of cellulitis. MS/ Extremity: Pulses equal, no cyanosis. Neurovascular intact. Full, normal range of motion. Neuro: Awake and alert, GCS 15, oriented to person, place, time, and situation. Cranial nerves II-XII grossly intact. Motor strength 5/5 in all extremities. Sensory grossly intact. Psych: Awake, alert, with orientation to person, place. Behavior, mood, and affect are within normal limits 05:35 ECG was reviewed by the Attending Physician. EKG at 0 322. Sinus tachycardia with sp4 first-degree AV block. Vital Signs: 01/24 23:40 BP 142 / 88; Pulse 132; Resp 37 S; Temp 103.1(O); Pulse Ox 95% on R/A; Weight 76.2 kg; jw7 Height 5 ft. 1 in. ; Pain 0/10; 01/25 00:00 BP 151 / 80; Pulse 129; Resp 34 S; Pulse Ox 96% on R/A; jw7 01:30 BP 125 / 69; Pulse 116; Resp 33 S; Pulse Ox 97% on R/A; jw7 02:30 BP 102 / 54; Pulse 114; Resp 24 S; Pulse Ox 100% on R/A; jw7 03:30 BP 87 / 49; Pulse 106; Resp 24; Pulse Ox 96% on R/A; jw7 04:30 BP 90 / 56; Pulse 99; Resp 22 S; Temp 98.2(O); Pulse Ox 97% on R/A; jw7 05:30 BP 76 / 49; Pulse 94; Resp 21 S; Pulse Ox 97% on R/A; jw7 06:30 BP 80 / 52; Pulse 93; Resp 16 S; Pulse Ox 98% on R/A; jw7 07:00 BP 79 / 57; Pulse 93; Resp 16 S; Temp 97.8(O); Pulse Ox 98% on R/A; aa5 07:15 BP 80 / 52; Pulse 92; Resp 16 S; Pulse Ox 98% on R/A; aa5 07:30 BP 82 / 58; Pulse 94; Resp 15 S; Pulse Ox 97% on R/A; aa5 07:45 BP 97 / 65; Pulse 96; Resp 18 S; Pulse Ox 100% on 2 lpm NC; aa5 07:54 BP 106 / 63; Pulse 97; Resp 17 S; Pulse Ox 100% on 2 lpm NC; aa5 01/24 23:40 Body Mass Index 31.74 (76.20 kg, 154.94 cm) jw7 01/24 23:40 Pain Scale: Adult jw7 03:30 Provider notified of low BP jw7 07:45 Placed O2 via NC per Dr. Saw MOYA. aa5 Procedures: 08:17 Central Line: the site was prepped with in sterile fashion, Chlorhexidine, a triple sp4 lumen catheter was inserted, in the right internal jugular vein, in 1 attempts. placement was verified, by CXR, by blood return, Ultrasound-guided central line, the site was dressed with 4X4s, Tegaderm, using sterile technique, the patient tolerated the procedure, well, 7 [place] CVL placed with ultrasound guidance. MDM: 01/24 23:33 Patient medically screened. sp4 01/25 05:23 ED course: IMPRESSION: Several of the images are compromised by motion artifact sp4 limiting diagnostic value. No evidence of significant pulmonary nodules and/or masses. Minimally distended proximal small bowel loops with a maximum diameter of 3 cm. No definitive transition point is identified. Findings may represent ileus and/or less likely partial bowel obstruction. Cirrhotic liver morphology. Right Bosniak II benign renal cyst measuring 2 cm. No follow-up imaging is recommended. Classification of Cystic Renal Masses, Version 2019. Status post cholecystectomy. Status post hysterectomy. Electronically signed by: Willy Portillo MD 01/26/2024 01:56 AM C. ED course: CLINICAL HISTORY: CHEST PAIN COMPARISON: 01/04/2024. TECHNIQUE: XR CHEST 1 VIEW 01/25/2024 11:31 PM CDT FINDINGS: The heart is enlarged. Aortic valve replacement was performed. Lungs are clear without consolidation, atelectasis, mass or edema. There is no pleural effusion. There is no pneumothorax. There are no acute osseous findings. IMPRESSION: Clear lungs. . 05:34 Differential Diagnosis altered mental status, sepsis, flu. Data reviewed: vital signs, sp4 nurses notes, EMS record, old medical records, lab test result(s), EKG, radiologic studies, CT scan, plain films. 05:35 Consideration of Admission/Observation Patient was admitted/placed on observation. sp4 Escalation of care including admission/observation considered. Management of patient was discussed with the following: Hospitalist: Braulio Grant MD . ED course: Patient warrants admission for persistent fever and possible sepsis. 01/24 23:31 Order name: BMP; Complete Time: 04:03 sp4 03 23:31 Order name: Blood Culture Adult (2) sp4 03 23:31 Order name: CBC with Diff; Complete Time: 04:03 sp4 01/24 23:31 Order name: CPK; Complete Time: 04:03 sp4 01/24 23:31 Order name: Hepatic Function; Complete Time: 04:03 sp4 01/24 23:31 Order name: Lipase; Complete Time: 04:03 sp4 01/24 23:31 Order name: Magnesium; Complete Time: 04:03 sp4 01/24 23:31 Order name: NT PRO-BNP; Complete Time: 04:03 sp4 01/24 23:31 Order name: PT-INR; Complete Time: 04:03 sp4 01/24 23:31 Order name: Ptt, Activated; Complete Time: 04:03 sp4 01/24 23:31 Order name: Troponin HS; Complete Time: 04:03 sp4 01/24 23:31 Order name: Lactate w/ 2H reflex if indic.; Complete Time: 04:03 sp4 01/24 23:31 Order name: Procalcitonin; Complete Time: 04:03 sp4 01/24 23:32 Order name: Urinalysis W/Microscopic; Complete Time: 04:03 sp4 01/24 23:32 Order name: Influenza Screen (a \T\ B); Complete Time: 04:03 sp4 01/24 23:32 Order name: SARS RAPID; Complete Time: 04:03 sp4 01/25 07:37 Order name: Glucose, Ancillary Testing; Complete Time: 08:12 EDMS 01/25 08:06 Order name: Lactate Sepsis 2 HR Follow-up; Complete Time: 08:12 EDMS 01/25 12:07 Order name: Glucose, Ancillary Testing EDMS 01/24 23:31 Order name: XRAY CXR (1 view) sp4 01/24 23:32 Order name: CT Chest Abdomen Pelvis W/O Contrast sp4 01/25 08:01 Order name: CXR XRAY eb 01/25 08:53 Order name: RAD EDMS 01/24 23:31 Order name: EKG; Complete Time: 23:31 sp4 01/24 23:31 Order name: Cardiac monitoring; Complete Time: 02:11 sp4 01/24 23:31 Order name: EKG - Nurse/Tech; Complete Time: 04:39 sp4 01/24 23:31 Order name: Cisse; Complete Time: 02:11 sp4 01/24 23:31 Order name: IV Saline Lock; Complete Time: 02:11 sp4 01/24 23:31 Order name: Labs collected and sent; Complete Time: 02:11 sp4 01/24 23:31 Order name: O2 Per Protocol; Complete Time: 02:11 sp4 01/24 23:31 Order name: O2 Sat Monitoring; Complete Time: 02:11 sp4 EC:35 Rate is 101 beats/min. Rhythm is regular, Sinus tachycardia. QRS [place] is Normal. ID sp4 interval is prolonged. QRS interval is normal. QT interval is normal. No Q waves. T waves are Normal. No ST changes noted. Clinical impression: No evidence of ischemia. Interpreted by me. Reviewed by me. Administered Medications: 00:55 Drug: Ibuprofen PO 800 mg PO once Route: PO; jw7 04:42 Follow up: Response: No adverse reaction; Marked relief of symptoms; Temperature is jw7 decreased 02:11 Drug: Albuterol Inhalation 1.25 mg Inhalation once Route: Inhalation; jw7 04:43 Follow up: Response: No adverse reaction; Marked relief of symptoms jw7 02:12 Drug: Ondansetron IVP 4 mg IVP once; over 2 minutes Route: IVP; Site: left forearm; jw7 04:42 Follow up: Response: No adverse reaction; Marked relief of symptoms; Nausea is decreasedjw7 02:24 Drug: Piperacillin-Tazobactam IVPB 3.375 grams IVPB once over 60 mins; (mix in NS 100 jw7 mL) Route: IVPB; Infused Over: 60 mins; Site: right forearm; 04:43 Follow up: Response: No adverse reaction; IV Status: Completed infusion; IV Intake: jw7 100ml 02:24 Drug: Ipratropium Inhalation Aerosol 0.5 mg Inhalation once Route: Inhalation; jw7 04:42 Follow up: Response: No adverse reaction; Marked relief of symptoms jw7 02:24 Not Given (Other Intervention Used): ns 0.9% 1000 ml IV at 1 bolus Per protocol; 1000 jw7 mL bolus 02:24 Drug: NS 0.9% IV 1000 ml IV at 125 ml/hr continuous Route: IV; Rate: 125 ml/hr; Site: [facility] left forearm; 08:00 Follow up: IV Status: Infusion continued upon admission aa5 04:39 Drug: vancoMYCIN IVPB 1 grams IVPB once over 2 hrs Route: IVPB; Infused Over: 2 hrs; jw7 Site: left forearm; 07:00 Follow up: IV Status: Completed infusion aa5 04:39 Drug: Acetaminophen PO 1000 mg PO once Route: PO; jw7 05:40 Follow up: Response: No adverse reaction jw7 05:40 Drug: NS 0.9% IV 1000 ml IV at 1 bolus Per protocol; 1000 mL bolus Route: IV; Rate: 1 jw7 bolus; Site: left forearm; 07:00 Follow up: IV Status: Completed infusion; IV Intake: 1000ml aa5 09:59 CANCELLED (see [employer] orderss): norepinephrine0.1 mcg/kg/min IV at calculated rate aa5 See Administration Instructions; (Standard concentration 4 mg / 250 mL D5W); Recommended max rate 3 mcg/kg/min; Titrate 0.05 mcg/kg/min as often as every 5 minutes to achieve goal (see titration policy); Goal parameter MAP greater than 65 mmHg. Disposition Summary: 01/26/24 05:38 Hospitalization Ordered Notes: Hospitalization Status: Inpatient Admission sp4 Provider: Rudy Ramsey sp4 Problem: new sp4 Symptoms: have improved sp4 Bed/Room Type: Standard sp4 Location: Intensive Care Unit(01/26/24 08:14) sp4 Condition: Serious(01/26/24 08:14) sp4 Room Assignment: 4-(01/26/24 11:50) eb Diagnosis - Fever, unspecified sp4 - Small bowel ileus, acute febrile illness, lactic acidosis, dehydration sp4 Forms: - Medication Reconciliation Form sp4 - SBAR form sp4 - Leadership Thank You Letter sp4 Critical care time excluding procedures: 08:16 Critical care time: Bedside Care: 36 minutes, Consultation: 12 minutes, Family sp4 Intervention: 12 minutes. Total time: 60 minutes Signatures: Dispatcher [employer] EDDominique Salvador RN RN aa5 Vianney Lopez RN RN Kyara Prasad Jodi, RN RN jw7 Omar Spring MD MD sp4 Corrections: (The following items were deleted from the chart) 05:56 05:38 Telemetry/MedSurg (Inpatient) sp4 cg 05:56 05:38 sp4 cg 08:14 05:38 Fair sp4 sp4 08:14 05:56 [facility] ER HOLD cg sp4 08:14 05:56 ERHOLD- cg sp4 09:59 08:12 Norepinephrine IV 0.1 mcg/kg/min IV at calculated rate See Administration aa5 Instructions; (Standard concentration 4 mg / 250 mL D5W); Recommended max rate 3 mcg/kg/min; Titrate 0.05 mcg/kg/min as often as every 5 minutes to achieve goal (see titration policy); Goal parameter MAP greater than 65 mmHg. ordered. sp4 09:59 09:59 Norepinephrine IV 0.1 mcg/kg/min IV at calculated rate See Administration aa5 Instructions; (Standard concentration 4 mg / 250 mL D5W); Recommended max rate 3 mcg/kg/min; Titrate 0.05 mcg/kg/min as often as every 5 minutes to achieve goal (see titration policy); Goal parameter MAP greater than 65 mmHg. ordered. aa5 11:50 08:14 sp4 eb
--- NOTE | 2024-01-26 05:39 | ER ---
Nurse's Notes [facility] [place] Name: Niharika Burris Age: 73 yrs Sex: Female : 1950 Arrival Date: 01/25/2024 Time: 23:19 Bed 4 Private MD: Diagnosis: Fever, unspecified;Small bowel ileus, acute febrile illness, lactic acidosis, dehydration Presentation: 01/24 23:40 Chief complaint: EMS states: Cough for the last two days that has gotten progressively jw7 worse with altered mental status, A\T\O X 1. Coronavirus screen: At this time, the client does not indicate any symptoms associated with coronavirus-19. Ebola Screen: No symptoms or risks identified at this time. Initial Sepsis Screen: Does the patient meet any 2 criteria? RR > 20 per min. Temp <36.0*C (96.8*F)) or > 38.3*C (100.9*F). Altered Mental Status. HR > 90 bpm. Yes Does the patient have a suspected source of infection? No. Patient's initial sepsis screen is negative. Risk Assessment: Do you want to hurt yourself or someone else? Patient reports no desire to harm self or others. Onset of symptoms was January 24, 2024. Care prior to arrival: Medication(s) given: Lactated [employer] 1000 mL IV initiated. 20 GA, in the left forearm, Glucose check: 231. 23:40 Method Of Arrival: EMS: [facility] jw7 23:40 Acuity: LORI 2 jw7 Triage Assessment: 23:40 General: Appears in no apparent distress. uncomfortable, Behavior is calm, cooperative. jw7 Pain: Denies pain. EENT: No deficits noted. No signs and/or symptoms were reported regarding the EENT system. Neuro: Level of Consciousness is awake, alert, obeys commands, Oriented to person, place. Cardiovascular: Heart tones S1 S2 present Capillary refill < 3 seconds Clubbing of nail beds is absent JVD is absent Patient's skin is warm and dry. Respiratory: Reports cough that is productive, Airway is patent Trachea midline Respiratory effort is even, unlabored, Respiratory pattern is regular, symmetrical, tachypnea. GI: Abdomen is round non-distended, Bowel sounds present X 4 quads. Abd is soft and non tender X 4 quads. Reports nausea. : No deficits noted. No signs and/or symptoms were reported regarding the genitourinary system. Derm: Skin is intact, is healthy with good turgor, Skin is dry, Skin is normal, Skin temperature is warm. Musculoskeletal: Circulation, motion, and sensation intact. Range of motion: intact in all extremities. Historical: - Allergies: 23:40 No Known Allergies; jw7 - Home Meds: 23:40 amlodipine oral [Active]; clopidogrel oral [Active]; Januvia oral [Active]; jw7 levothyroxine oral [Active]; Lisinopril Oral [Active]; Metformin Oral [Active]; rosuvastatin oral [Active]; - PMHx: 23:40 Diabetes - NIDDM; fatty liver; Hypertension; Hypothyroidism; jw7 - PSHx: 23:40 Cardiac Stent; jw7 - Immunization history:: Adult Immunizations up to date, Client reports having NOT received the Covid vaccine. Last tetanus immunization: up to date Pneumococcal vaccine is up to date, Flu vaccine is up to date. - Social history:: Smoking status: Patient denies any tobacco usage or history of. Patient/guardian denies using alcohol, street drugs, IV drugs. - Family history:: not pertinent. Screenin:40 Abuse screen: Denies threats or abuse. Denies injuries from another. jw7 23:40 [facility] ED Fall Risk Assessment (Adult) History of falling in the last 3 months, jw7 including since admission No falls in past 3 months (0 pts) Confusion or Disorientation Yes (5 pts) Intoxicated or Sedated No (0 pts) Impaired Gait No (0 pts) Mobility Assist Device Used No (0 pt) Altered Elimination No (0 pt) Score/Fall Risk Level 3 or more points = High Risk Oriented to surroundings, Maintained a safe environment, Educated pt \T\ family on fall prevention, incl call for assistance when getting out of bed, Assessed \T\ reinforced patient's understanding of fall precautions. Nutritional screening: No deficits noted. Tuberculosis screening: No symptoms or risk factors identified. Assessment: 23:40 General: See Triage Assessment. jw7 01/25 01:00 Reassessment: Patient appears in no apparent distress at this time. No changes from jw7 previously documented assessment. Patient and/or family updated on plan of care and expected duration. Pain level reassessed. 02:00 Reassessment: Patient appears in no apparent distress at this time. No changes from jw7 previously documented assessment. Patient and/or family updated on plan of care and expected duration. Pain level reassessed. 03:00 Reassessment: Patient appears in no apparent distress at this time. Patient and/or jw7 family updated on plan of care and expected duration. Pain level reassessed. Pt more responsive and oriented A\T\O X 3. 04:00 Reassessment: Patient appears in no apparent distress at this time. No changes from jw7 previously documented assessment. Patient and/or family updated on plan of care and expected duration. Pain level reassessed. 04:40 Reassessment: Patient appears in no apparent distress at this time. Patient and/or jw7 family updated on plan of care and expected duration. Pain level reassessed. Pt A\T\O X 4, Respirations are equal and unlabored. 06:00 Reassessment: Patient appears in no apparent distress at this time. No changes from jw7 previously documented assessment. Patient and/or family updated on plan of care and expected duration. Pain level reassessed. Patient is alert, oriented x 3, equal unlabored respirations, skin warm/dry/pink. 07:00 Reassessment: Pt resting in bed with eyes closed, easy to awaken to verbal stimuli. Pt aa5 is A\T\O x 4. . 08:15 Reassessment: BP improved, Levophed on hold per Dr. Spring, will continue to monitor aa5 BP, [facility] for further charting. . Vital Signs: 01/24 23:40 BP 142 / 88; Pulse 132; Resp 37 S; Temp 103.1(O); Pulse Ox 95% on R/A; Weight 76.2 kg; jw7 Height 5 ft. 1 in. ; Pain 0/10; 01/25 00:00 BP 151 / 80; Pulse 129; Resp 34 S; Pulse Ox 96% on R/A; jw7 01:30 BP 125 / 69; Pulse 116; Resp 33 S; Pulse Ox 97% on R/A; 7 02:30 BP 102 / 54; Pulse 114; Resp 24 S; Pulse Ox 100% on R/A; jw7 03:30 BP 87 / 49; Pulse 106; Resp 24; Pulse Ox 96% on R/A; jw7 04:30 BP 90 / 56; Pulse 99; Resp 22 S; Temp 98.2(O); Pulse Ox 97% on R/A; jw7 05:30 BP 76 / 49; Pulse 94; Resp 21 S; Pulse Ox 97% on R/A; jw7 06:30 BP 80 / 52; Pulse 93; Resp 16 S; Pulse Ox 98% on R/A; jw7 07:00 BP 79 / 57; Pulse 93; Resp 16 S; Temp 97.8(O); Pulse Ox 98% on R/A; aa5 07:15 BP 80 / 52; Pulse 92; Resp 16 S; Pulse Ox 98% on R/A; aa5 07:30 BP 82 / 58; Pulse 94; Resp 15 S; Pulse Ox 97% on R/A; aa5 07:45 BP 97 / 65; Pulse 96; Resp 18 S; Pulse Ox 100% on 2 lpm NC; aa5 07:54 BP 106 / 63; Pulse 97; Resp 17 S; Pulse Ox 100% on 2 lpm NC; aa5 01/24 23:40 Body Mass Index 31.74 (76.20 kg, 154.94 cm) jw7 01/24 23:40 Pain Scale: Adult jw7 03:30 Provider notified of low BP jw7 07:45 Placed O2 via NC per Dr. Spring VO. aa5 ED Course: 01/24 23:24 Patient arrived in ED. rv1 23:25 Omar Spring MD is Attending Physician. sp4 23:40 Arm band placed on. jw7 23:40 Patient has correct armband on for positive identification. Bed in low position. Call jw7 light in reach. Side rails up X2. Provided Education on: Use of Call Light. 01/25 00:00 Client placed on continuous cardiac and pulse oximetry monitoring. NIBP monitoring jw7 applied. clinical research monitor on. 00:08 XRAY CXR (1 view) In Process Unspecified. EDMS 00:59 Triage completed. jw7 01:25 CT Chest Abdomen Pelvis W/O Contrast In Process Unspecified. EDMS 02:38 Notified ED physician of a critical lab result(s). Lactic Acid 3.6. cm10 05:30 Notified ED physician of vital signs. jw7 05:37 Rudy Ramsey MD is Hospitalizing Provider. sp4 07:12 Report given to JAQUELIN Fox. jw7 07:15 Procedure consent explained by staff, explained by physician, signed by patient, aa5 Consent for central line placement obtained. 08:00 Assisted provider with central line placement. Set up central line tray. Triple lumen aa5 line placed in right internal jugular. Line placed by Omar Spring MD Placement verified by CXR, blood return, Dressed with Tegaderm, Patient tolerated well. Before procedure, did Practitioner(s) obtain informed consent? Yes. Patient \T\ family education about procedure, CLABSI prevention and S/S of infection? Yes. Time-out/Briefing performed prior to start of procedure? Yes. Was handwashing/sanitizing done immediately prior to procedure? Yes. Was patient positioned to in a way to prevent air embolism? Yes. Was procedure site sterilized? Yes, with chlorhexidine. Was the site allowed to dry? Yes. Was local anesthetic and/or sedation utilized? Yes. During the procedure, did the Practitioner(s) maintain a sterile field? Yes. Were unused ports clamped during insertion? Yes. Was a 2nd qualified MD obtained after 3 unsuccessful insertion attempts? Yes. Was blood aspirated from each lumen? Yes. After the procedure, did the Practitioner(s) clean the site and apply a sterile dressing? Yes. 08:00 Patient admitted, IV remains in place. aa5 08:23 Dominique Azar RN is Primary Nurse. aa5 10:02 Report received from JAQUELIN Fox. mb9 Administered Medications: 00:55 Drug: Ibuprofen PO 800 mg PO once Route: PO; jw7 04:42 Follow up: Response: No adverse reaction; Marked relief of symptoms; Temperature is jw7 decreased 02:11 Drug: Albuterol Inhalation 1.25 mg Inhalation once Route: Inhalation; jw7 04:43 Follow up: Response: No adverse reaction; Marked relief of symptoms jw7 02:12 Drug: Ondansetron IVP 4 mg IVP once; over 2 minutes Route: IVP; Site: left forearm; jw7 04:42 Follow up: Response: No adverse reaction; Marked relief of symptoms; Nausea is decreasedjw7 02:24 Drug: Piperacillin-Tazobactam IVPB 3.375 grams IVPB once over 60 mins; (mix in NS 100 jw7 mL) Route: IVPB; Infused Over: 60 mins; Site: right forearm; 04:43 Follow up: Response: No adverse reaction; IV Status: Completed infusion; IV Intake: jw7 100ml 02:24 Drug: Ipratropium Inhalation Aerosol 0.5 mg Inhalation once Route: Inhalation; jw7 04:42 Follow up: Response: No adverse reaction; Marked relief of symptoms jw7 02:24 Not Given (Other Intervention Used): ns 0.9% 1000 ml IV at 1 bolus Per protocol; 1000 jw7 mL bolus 02:24 Drug: NS 0.9% IV 1000 ml IV at 125 ml/hr continuous Route: IV; Rate: 125 ml/hr; Site: jw left forearm; 08:00 Follow up: IV Status: Infusion continued upon admission aa5 04:39 Drug: vancoMYCIN IVPB 1 grams IVPB once over 2 hrs Route: IVPB; Infused Over: 2 hrs; jw7 Site: left forearm; 07:00 Follow up: IV Status: Completed infusion aa5 04:39 Drug: Acetaminophen PO 1000 mg PO once Route: PO; jw7 05:40 Follow up: Response: No adverse reaction jw7 05:40 Drug: NS 0.9% IV 1000 ml IV at 1 bolus Per protocol; 1000 mL bolus Route: IV; Rate: 1 jw7 bolus; Site: left forearm; 07:00 Follow up: IV Status: Completed infusion; IV Intake: 1000ml aa5 09:59 CANCELLED (see [employer] orderss): norepinephrine0.1 mcg/kg/min IV at calculated rate aa5 See Administration Instructions; (Standard concentration 4 mg / 250 mL D5W); Recommended max rate 3 mcg/kg/min; Titrate 0.05 mcg/kg/min as often as every 5 minutes to achieve goal (see titration policy); Goal parameter MAP greater than 65 mmHg. Medication: 06:54 VIS not applicable for this client. jw7 Intake: 04:43 IV: 100ml; Total: 100ml. jw7 07:00 IV: 1000ml; Total: 1100ml. aa5 Outcome: 05:38 Decision to Hospitalize by Provider. sp4 08:00 Admitted to ER Hold. Please see [employer] [facility] for further documentation. aa5 08:00 Condition: stable 08:00 Instructed on the need for admit, 13:08 Patient left the ED. mb9 Signatures: Dispatcher [employer] EDMS Dominique Azar, RN RN aa5 Janel Song RN RN jw7 Willy, [place], RN RN mb9 Clarissa Parson1 Omar Spring MD MD sp4 Zulema Jones RN RN cm10 Corrections: (The following items were deleted from the chart) 05:39 01/24 23:40 Care prior to arrival: IV initiated. 20 GA, in the left forearm, Glucose jw7 check: 231 jw7 01/25 05:54 05:00 Notified ED physician of vital signs. jw7 jw7
[2024-01-26] MEDS ORDERED: ONDANSETRON 4 MG/2 ML VIAL IV PRN (07:27)
[2024-01-26] MEDS ORDERED: ALBUTEROL 2.5 MG/3 ML NEB SOL NEB PRN (07:27)
[2024-01-26] MEDS: INSULIN REGULAR (HUMAN) 100 UNIT/ML SQ SCH (07:30)
[2024-01-26] MEDS ORDERED: NOREPINEPHRINE BITARTRATE/D5W 4 MG/250 ML BAG IV ONE (08:02)
[2024-01-26] MEDS ORDERED: NA CHLORIDE 0.9% 250 ML ONE ×2 (08:02→08:47)
[2024-01-26] MEDS: NA CHLORIDE 0.9% 250 ML IV ONE (08:53)
--- NOTE | 2024-01-26 08:53 | RAD REPORT ---
EXAM DESCRIPTION: RAD - Chest Single View - 01/26/2024 8:40 am CLINICAL HISTORY: line placement Chest pain. COMPARISON: Chest Single View dated 01/26/2024; Chest Pa And Lat (2 Views) dated 01/04/2024; Chest Sin gle View dated 01/02/2024; Chest Pa And Lat (2 Views) dated 04/18/2023 FINDINGS: Portable technique limits examination quality. Right-sided central venous catheter is in place. The tip is likely in the SVC near the junction with the right atrium. No postprocedure pneumothorax seen.
[2024-01-26] MEDS: Magnesium Sulfate 2gm IVPB 2 G/50 ML BAG IV ONE (09:08)
[2024-01-26] MEDS: D5.45NS W/KCL 20MEQ 1,000 ML IV SCH (09:15)
[2024-01-26] MEDS ORDERED: D5.45NS W/KCL 20MEQ 1,000 ML IV ONE (09:15)
[2024-01-26] MEDS ORDERED: Magnesium Sulfate 2gm IVPB 2 G/50 ML BAG IV ONE (09:15)
[2024-01-26] MEDS: PIPER TAZO 3.375 GM in NA CHLORIDE 0.9% 100 ML IV SCH (09:30)
[2024-01-26] MEDS ORDERED: NOREPINEPHRINE 4 MG in D5W 250 ML IV SCH (10:00)
[2024-01-26] MEDS: VANCOMYCIN 1.25 GM in NA CHLORIDE 0.9% 250 ML IVPB SCH (10:12)
[2024-01-26] MEDS ORDERED: INSULIN REGULAR (HUMAN) 100 UNIT/ML ONE (11:58)
--- NOTE | 2024-01-26 13:12 | HP ---
Date of Admission: 01/26/2024 Chief Complaint: Fever and feeling weak. History Of Present Illness: This is a 73-year-old very pleasant female patient, who was doing fine in her normal usual state of health until all of a sudden last night she got acutely ill with fever and generalized weakness and was brought into emergency room. The patient did see her liver specialist this week and reports that he was not concerned about anything in her liver, especially the abnormality that we saw raising concerns about liver mass with possibility of hepatocellular carcinoma on basis of the studies that we had at our hospital during last hospital admission, which was last month with MRI and CAT scan result, and the patient did take all the films and report with them, and tells me that next month she will go for EGD with Dr. Luis, but at this time he tells me that he is not concerned about anything else at this point and Dr. Luis will send me some communication. In any case, she was doing fine in her normal usual state of health until last night when she started having this fever and felt weak. She was brought into emergency room. No cough, cold, congestion. No abdominal pain, nausea, vomiting. No urinary complaints. No unusual rash on any body area. The patient was evaluated in the ER. She was admitted to the hospital and she received IV fluids in the emergency room. She also received 1 dose of Zosyn and vancomycin. This morning, her blood pressure was low with systolic blood pressure in range of 80 to 90 with MAP around 62. She has received altogether between 2 to 2.5 L of IV fluid in the emergency room, and we will go ahead and change her admission status to ICU. Vasopressor medication will be started considering she remains hypotensive. The patient denies any shortness of breath. Allergies: NO KNOWN ALLERGIES. Medications: Amlodipine 2.5 mg daily, aspirin 81 mg daily, clopidogrel 75 mg daily, levothyroxine 88 mcg daily, lisinopril 10 mg daily, Claritin 10 mg daily,metformin 500 mg takes 2 tablets 2 times a day, rosuvastatin 5 mg daily in the evening, Januvia 100 mg daily with breakfast, vitamin B12 500 mcg daily. Review of Systems: Constitutional: As mentioned above. All other systems reviewed and negative. Past Medical History: Significant for type 2 diabetes mellitus, liver mass, cirrhosis of liver, hypertension, hyperlipidemia, aortic stenosis, hypothyroidism, diverticulosis, pancytopenia, and osteoarthritis at multiple sites. Past Surgical History: Aortic valve replacement done percutaneously, April 26, 2021; cholecystectomy; hysterectomy. Family History: Father , had pneumonia. Mother , had emphysema. Brother has diabetes. Sister , had a breast cancer. Social History: Negative for smoking, alcohol use Physical Examination: Vital Signs: Height 5 feet 1 inches, weight 167 pounds, temperature 98.2, pulse 93, respiratory rate 14, blood pressure 99/63, oxygen saturation 100%. General: The patient appears weaker than normal, but awake, alert, oriented, answering questions appropriately. HEENT: Head atraumatic, normocephalic. Conjunctivae nonerythematous. Sclerae white. Mouth, no thrush or edema noted. Ears/Nose, no mass, lesion, discharge noted. Neck: Supple. No JVD, lymph nodes, bruit, thyromegaly noted. Lungs: Bilateral good equal air entry. Clear to auscultation. No rhonchi. No rales. Heart: Normal heart sounds, no murmur or gallop. Abdomen: Soft, bowel sounds normal. No guarding, rigidity, tenderness, mass, hepatosplenomegaly, distention, or bruit noted. Extremities: No leg edema. No calf tenderness. Skin: No rash, ulcer, cellulitis. Lymphatics: No lymph node enlargement in neck, supraclavicular, infraclavicular region. Neuro: No focal neurological deficit. Chest: Unremarkable. External Genitalia: Deferred. Rectal: Deferred. Laboratory Data: Urinalysis was normal. COVID-19 test negative. INR 2.01. CAT scan of the abdomen and pelvis shows minimally distended proximal small bowel loops with maximum diameter of 3 cm. This is a nonspecific finding. The radiologist has reported it could be ileus or less likely to be partial bowel obstruction and clinically there is no evidence of any such problem. Liver appears to be cirrhotic in appearance. There is presence of renal cyst. White count 6.5, hemoglobin 10, platelets 106. Sodium 135, potassium 3, chloride 106, bicarb 20, BUN 12, creatinine 0.68, glucose 147. Initial lactic acid 3.6. Repeat lactic acid 3.1, magnesium 1.1, AST 51, ALT 29, alkaline phosphatase 107, CPK 77, troponin 20.3, procalcitonin 1.21, lipase 80. Chest x-ray: No acute cardiopulmonary changes. Impression: 1. Sepsis. 2. Rule out endocarditis. 3. Hypokalemia. 4. Hypomagnesemia. 5. Anemia. 6. Cirrhosis of liver. 7. Thrombocytopenia. 8. Hypertension. 9. Hyperlipidemia. 10. Type 2 diabetes mellitus. 11. Osteoarthritis, multiple sites. 12. Hypothyroidism. 13. Diverticulosis. 14. Renal cyst. 15. Liver mass. Plan: Admit the patient to hospital for further evaluation and management of this problem. The patient is appropriate for inpatient and is expected to spend 2 midnights in hospital. For her severe sepsis, she has received IV fluid and empiric IV antibiotics, Zosyn and vancomycin were started and we will continue that. The patient had 2 sets of blood culture done in the emergency room and I have ordered two more sets of blood culture after I saw her this morning and we will continue her Zosyn and vancomycin. She has a bioprosthetic aortic valve and we need to rule out endocarditis. During her last hospital stay, which is about 3 weeks ago, the patient had echocardiogram done and echocardiogram was unremarkable, but now with definitely need to consider transesophageal echocardiogram, and I have requested consultation from Dr. Jama, adjunct professor and I have called and discussed details with him as well regarding my concerns. We will continue maintenance IV fluid and antibiotic. We will also continue vasopressor with the target of keeping MAP 65 or above. DVT prophylaxis will be given using Lovenox per order. Diabetes will not require any further intervention except monitoring of fingerstick blood sugar with mild sliding scale. No need for any antihypertensive medication obviously at this time, but at appropriate time we may need to restart her blood pressure medications. Thrombocytopenia will not require any further intervention except monitoring. Cirrhosis of liver will not require any intervention except monitoring. GI prophylaxis will be given using famotidine per order. Details and plan of treatment discussed with the patient and her , who was at bedside. NING/MODL Voice ID: [id number] SARAH
[2024-01-26] MEDS: NA CHLORIDE 0.9% 1,000 ML IV SCH (14:36)
[2024-01-26] MEDS: ENOXAPARIN 40 MG/0.4 ML SQ SCH (16:31)
--- NOTE | 2024-01-26 18:17 | RAD REPORT ---
EXAM DESCRIPTION: Chest Abd Pelvis Wo Con 01/26/2024 1:50 AM CDT CLINICAL HISTORY: 73 years, Female, eval for pneumonia, cough COMPARISON: 01/02/2024 TECHNIQUE: Axial images through the chest, abdomen and pelvis were generated utilizing 2 mm slice th ickness at 2 mm interval reconstruction without the administration of IV contrast. In addition multiplanar reformats in the coronal and sagittal plane were obtained and reviewed. An individualized dose optimization technique, Automated Exposure Control, was utilized for the perfo rmed procedure. FINDINGS: Several of the images are compromised by motion artifact limiting diagnostic value. CHEST: Lower neck/chest wall: Visualized thyroid gland and soft tissues are normal. No adenopathy. Lungs and airways: The lung parenchyma demonstrate to be clear. Minimal dependent atelectatic changes . No evidence of airspace or interstitial process. No significant pulmonary nodules and/or masses deandre ntified. No focal areas of consolidation. Airways: The trachea mainstem bronchus demonstrate to be unremarkable. Pleural: There are no pleural effusion. No evidence for pneumothorax. Hemidiaphragms are normally pos itioned. Mediastinum and lymph nodes: No significant mediastinal and/or hilar lymphadenopathy. The axillary re gions demonstrate to be clear. Heart: Normal heart size. No pericardial effusion. There is status post stress aortic valvular repair Thoracic aorta: There is minimal intimal aortic arch calcification with no evidence for aneurysm. Pulmonary arteries: The pulmonary arteries were not evaluated due to lack of IV contrast. Osseous structures and chest wall: The thoracic spine demonstrate to be within normal limits. No evid ence for compression deformities and/or significant skeletal lesions. ABDOMEN AND PELVIS: Liver: The liver demonstrate nodular surface especially along the left hepatic lo be corresponding to changes of cirrhosis. Gallbladder: Surgical clips within the gallbladder fossa corresponding to previous cholecystectomy. N o significant biliary duct dilatation. Adrenal glands: The adrenal glands demonstrate to be normal. Pancreas: The pancreas demonstrate to be normal. Spleen: The spleen is in the upper normal size. Kidneys: The kidneys demonstrate normal uptake of contrast media. No evidence for nephrolithiasis a nd/or hydronephrosis. There is hyperdense upper pole right renal cyst measuring 2 cm on image 48. GI: Grossly the unopacified stomach demonstrate to be within normal limits. There are minimally distended proximal small bowel loops with a maximum diameter of 3 cm. No definiti ve transition point is identified. The large bowel demonstrate to be unremarkable. Diverticula cyst w ithin the left side colon. : The urinary bladder demonstrate the presence of a Cisse catheter. Genitalia: The uterus is absent. There are no adnexal masses round radio density structure within the vaginal canal correspond to support for bladder suspension. Abdominal aorta: The aorta demonstrate demonstrate to be within normal limits. Retroperitoneum: There is no retroperitoneal lymphadenopathy. There is no evidence for ascites and/or abnormal fluid collections. Bones: Minimal degenerative changes lower lumbar spine. Soft tissues: The rest of the soft tissue and bony structures are within normal limits. IMPRESSION: Several of the images are compromised by motion artifact limiting diagnostic value. No evidence of significant pulmonary nodules and/or masses. Minimally distended proximal small bowel loops with a maximum diameter of 3 cm. No definitive transit ion point is identified. Findings may represent ileus and/or less likely partial bowel obstruction. Cirrhotic liver morphology. Right Bosniak II benign renal cyst measuring 2 cm. No follow-up imaging is recommended. JACR 2018 Dec; 264-273, Management of the Incidental Renal Mass on CT, [employer] 2020; 814-848, B osniak Classification of Cystic Renal Masses, Version 2019. Status post cholecystectomy. Status post hysterectomy. Electronically signed by: Willy Portillo MD 01/26/2024 01:56 AM CDT Due to temporary technical issues with the PACS/Fluency reporting system, reports are being signed by the in house radiologists without review as a courtesy to insure prompt reporting. The interpreting radiologist is fully responsible for the content of the report.
--- NOTE | 2024-01-26 18:19 | RAD REPORT ---
EXAM DESCRIPTION: XR CHEST 1 VIEW CLINICAL HISTORY: CHEST PAIN COMPARISON: 01/04/2024. TECHNIQUE: XR CHEST 1 VIEW 01/25/2024 11:31 PM CDT FINDINGS: The heart is enlarged. Aortic valve replacement was performed. Lungs are clear without con solidation, atelectasis, mass or edema. There is no pleural effusion. There is no pneumothorax. There are no acute osseous findings. IMPRESSION: Clear lungs. Electronically signed by: Howard Jo MD 01/26/2024 03:53 AM CDT Due to temporary technical issues with the PACS/Fluency reporting system, reports are being signed by the in house radiologists without review as a courtesy to insure prompt reporting. The interpreting radiologist is fully responsible for the content of the report.
[2024-01-26] MEDS: FAMOTIDINE 20 MG/2 ML VIAL IV SCH (20:51)
[2024-01-27] MEDS: VANCOMYCIN 1.25 GM in NA CHLORIDE 0.9% 250 ML IVPB SCH (00:15)
[2024-01-27 06:37] LABS: Absolute Eosinophils 0.2 K/uL (0-0.5); Absolute Lymphocytes (CBC) 1.3 K/uL (0.7-4.9); Absolute Monocytes 0.8 K/uL (0.1-1.3); Absolute Neutrophil 8.1 K/uL (1.8-8.0); Basophils % 0.4 % (0-1.3); Eosinophils % 1.5 % (0-4.4); Hematocrit 27.1 % (36.0-45.0); Lymphocytes % 12.4 % (15.3-44.8); MCH 27.7 pg (27.0-35.0); MCHC 33.1 g/dL (32.0-36.0); MCV 83.5 fL (80-100); MPV 7.8 fL (7.6-11.3); Monocytes % 7.6 % (3.3-12.3); Neutrophils % 78.1 % (41.7-73.7); Platelets 88 thou/uL (152-406); RBC Red Blood Cell Count 3.24 M/uL (3.86-4.86); Red Cell Distribution Width 20.2 % (12.1-15.2)
[2024-01-27 06:47] LABS: Anion Gap 9.5 mEq/L (5.0-15.0); Magnesium 1.9 mg/dL (1.6-2.4); Phosphorus 1.6 mg/dL (2.5-4.9); Potassium 3.5 mEq/L (3.5-5.1)
[2024-01-27 08:06] LABS: Anisocytosis 2+; Atypical Lymphocytes 2 %; Band Neutrophils 9 % (0-1); Blood Morphology Comment NOTED (NOT SEEN); Differential Total Cells Count 100; Eosinophils 2 % (0-3); Lymphocytes 6 % (15-42); Monocytes 3 % (0-10); Platelet Estimate DECR; Polychromasia 1+; Segmented Neutrophils 78 % (40-80); Smudge Cells PRESENT
[2024-01-27 08:07] LABS: Teardrop Cell FEW
[2024-01-27] MEDS: POTASSIUM PHOS IN 0.9 % NACL 15 MMOL/250 ML BAG IV ONE (08:36)
[2024-01-27] MEDS: ASPIRIN 81 MG CHEWABLE TABLET PO SCH (10:54)
[2024-01-27] MEDS: FUROSEMIDE 20 MG/ 2ML VIAL IV ONE (10:55)
--- NOTE | 2024-01-27 11:32 | RAD REPORT ---
EXAM DESCRIPTION: RADChest Single View01/27/2024 10:17 am CLINICAL HISTORY: sepsis COMPARISON: Chest Single View dated 01/26/2024; Chest Single View dated 01/26/2024; Chest Pa And Lat ( 2 Views) dated 01/04/2024; Chest Single View dated 01/02/2024 TECHNIQUE: Portable AP view of the chest. FINDINGS: Right IJ CVC in place with catheter tip projecting at the upper right atrium. Prostatic ao rtic valve in place. Decreased inspiratory effort limiting evaluation. The lungs are apart from blunt ing of the left costophrenic angle which may relate to pleural thickening or trace effusion. No pneum othorax. The cardiomediastinal contours are unremarkable. IMPRESSION: Blunting of the left costophrenic angle which may relate to pleural thickening or trace effusion. Right IJ CVC in satisfactory position.
--- NOTE | 2024-01-27 11:34 | PN ---
Date of Progress Note: 01/27/2024 Subjective: The patient was seen this morning for followup. She was in ICU. She did require vasopr essor medication for short time yesterday. After that, she has not required it anymore and blood pre ssure is stable. She denies any new complaints this morning. She still has generalized weakness, bu t much better today than yesterday. She is having some upper anterior abdominal wall muscle pain wit h some dry cough that she has. No nausea, no vomiting. Physical Examination: Vital Signs: Reviewed. Last temperature this morning 98.6, pulse 75, respiratory rate 23, blood pre ssure 126/70, oxygen saturation 97% on room air. HEENT: Unremarkable. Lungs: Bilateral good equal air entry. Presence of rales noted in both lung bases. Not using any a ccessory muscles of respiration. Heart: Sounds normal. Abdomen: Soft. Bowel sounds normal. No guarding, rigidity, tenderness, distention. Extremities: No leg edema. Laboratory Data: White count 10.4, hemoglobin 9, platelets 88. Sodium 141, potassium 3.5, chloride 112, bicarb 23, BUN 11, creatinine 0.51, glucose 87, magnesium 1.6. Phosphorus 1.9. Blood cultures positive. Definite identification and sensitivities pending. Impression: 1.Sepsis. 2.Rule out endocarditis. 3.Anemia. 4.Hypokalemia. 5.Thrombocytopenia. 6.Hypomagnesemia. 7.Type 2 diabetes mellitus. 8.Hypothyroidism. 9.Hyperlipidemia. 10.Bioprosthetic aortic valve. Plan: We will go ahead and continue current antibiotic, which is Zosyn and vancomycin. We will disc ontinue IV fluid. The patient has bilateral basal rales indicating some clinical evidence of fluid c ollection in the bottom part of her lung and she also has dry cough. I will go ahead and give her 1 dose of Lasix 10 mg IV. She has a Cisse catheter, which will keep it in place today and probably rem ove it tomorrow. She does not need any ICU level of care, but we do not have any beds available on t he floor, so likely that she will remain in ICU today as overflow patient. We will start her levothy roxine and rosuvastatin for hypothyroidism and hyperlipidemia problem. Diabetes will be managed with sliding scale insulin per order. Continue current diet order. Dr. Jama from Cardiology is estelita lainez to do transesophageal echocardiogram tomorrow and all these details were discussed with the patien t and the patient's who was at bedside today. Replace electrolyte per protocol and we will r epeat blood work tomorrow. I will see her tomorrow for followup. NING/MODL Voice ID: [id number] Report ID: [id number]
[2024-01-27] MEDS ORDERED: VANCOMYCIN 1.25 GM in NA CHLORIDE 0.9% 250 ML IVPB SCH (12:00)
[2024-01-27] MEDS: GUAIFENESIN/DM 5 ML UCUP PO PRN (13:13)
--- NOTE | 2024-01-27 16:05 | CON ---
Date of Consultation: 01/27/2024 Reason For Consultation: Rule out endocarditis. History Of Present Illness: A 73-year-old female, history of aortic valve stenosis status post TAVR, diabetes, hypertension, hypothyroidism, dyslipidemia, who presented with fever and feeling weak. I discussed the case with Dr. Ramsey. There was no good source of infection, endocarditis is a concern. Saw her by bedside. Denies having any chest pain or shortness of breath. Generally just feeling we ak. Past Medical History: As outlined above in HPI. Medications: Refer to reconciliation sheet for detailed list. Allergies: NO KNOWN DRUG ALLERGIES. Family History: No premature coronary artery disease. Social History: Does not smoke or drink. Does not use any drugs. Review of Systems: All systems reviewed were negative except above mentioned in HPI. Physical Examination: Vital Signs: Reviewed. Head and Neck: Pupils are equal, reactive to light. Intact eye movements. No JVD. No cervical lym phadenopathy. Neck: Supple. Thyroid is not enlarged. Lungs: Clear to auscultation bilaterally. No rhonchi, wheezing, or crackles. No accessory muscle u se. Heart: Regular rate and rhythm. No extra sounds. Abdomen: Soft, nontender. Bowel sounds positive. No organomegaly. No masses or hernia. No rigidi ty or rebound. Extremities: No edema, clubbing, cyanosis. Intact pulses. Skin: No rash. Neurologic: Alert, awake, oriented x3. No acute focal deficits appreciated. Investigations: BUN 11, creatinine 0.51, and hemoglobin is 9. White blood cell count is 10.4. Assessment/recommendation: 1.Fever of unknown origin. Blood cultures are pending. Endocarditis is a possibility. I will plan for a transesophageal echocardiogram tomorrow and keep patient n.p.o. past midnight for that purpose and in the interim, continue broad-spectrum antibiotics, Zosyn and vancomycin. 2.Aortic stenosis, status post TAVR. We will do a DAMIEN tomorrow as outlined above. 3.Dyslipidemia, on Crestor, to be continued. SR/MODL Voice ID: [id number] Report ID: [id number]
[2024-01-27] MEDS: ROSUVASTATIN 5 MG TAB PO SCH (20:01)
[2024-01-27] MEDS ORDERED: NA CHLORIDE 0.9% 100 ML ONE (23:28)
[2024-01-27] MEDS ORDERED: PIPERACIL/TAZO 3.375 GM VIAL IV ONE (23:29)
[2024-01-28 04:50] LABS: Absolute Eosinophils 0.2 K/uL (0-0.5); Absolute Lymphocytes (CBC) 1.5 K/uL (0.7-4.9); Absolute Monocytes 0.7 K/uL (0.1-1.3); Absolute Neutrophil 6.7 K/uL (1.8-8.0); Basophils % 0.4 % (0-1.3); Eosinophils % 1.9 % (0-4.4); Hematocrit 29.9 % (36.0-45.0); Lymphocytes % 16.4 % (15.3-44.8); MCH 27.6 pg (27.0-35.0); MCHC 33.3 g/dL (32.0-36.0); MCV 82.9 fL (80-100); MPV 7.8 fL (7.6-11.3); Monocytes % 7.7 % (3.3-12.3); Neutrophils % 73.6 % (41.7-73.7); Nucleated Red Blood Cells % 0.1 % (0-0); Platelets 119 thou/uL (152-406); RBC Red Blood Cell Count 3.61 M/uL (3.86-4.86)
[2024-01-28 04:53] LABS: Red Cell Distribution Width 20.2 % (12.1-15.2)
[2024-01-28 04:59] LABS: Anion Gap 9.4 mEq/L (5.0-15.0); Magnesium 1.7 mg/dL (1.6-2.4); Phosphorus 1.8 mg/dL (2.5-4.9); Potassium 3.4 mEq/L (3.5-5.1)
[2024-01-28 05:22] VITALS: BMI 32.0
[2024-01-28] MEDS: NA CHLORIDE 0.9% 100 ML ONE (05:54)
[2024-01-28] MEDS: MAGNESIUM SULFATE 1 gm IVPB 1 GM/100 ML BAG IV ONE (05:54)
[2024-01-28] MEDS: POTASSIUM PHOS IN 0.9 % NACL 15 MMOL/250 ML BAG IV ONE (05:55)
[2024-01-28] MEDS: LEVOTHYROXINE SOD 0.088 MG TAB PO SCH (05:55)
[2024-01-28] MEDS: VANCOMYCIN 1.25 GM in NA CHLORIDE 0.9% 250 ML IVPB SCH (08:53)
--- NOTE | 2024-01-28 09:24 | P.CNS ---
Date of Consult: 01/28/24 Reason for Consult: sepsis,bacteremia Requesting Physician: Rudy Ramsey Chief Complaint: fever, generalized weakness History of Present Illness: Patient is a 73 year old female with a past medical history of liver cirrhosis, liver mass, hypothyroidism, hyperlipidemia, prosthetic aortic valve, diabetes mellitus type II, diverticulosis, osteoarthritis who presented to the ED with complaints of fever and generalized weakness. Patient admitted for sepsis secondary to strep mitis bacteremia. Infectious disease was consulted. Allergies No Known Allergies Allergy (Verified 12/09/13 19:32) Home medications list reviewed: Yes Home Medications: Amlodipine [Norvasc*] 2.5 mg PO DAILY 12/19/17 Aspirin 81 mg PO DAILY 12/19/17 Levothyroxine [Synthroid] 88 mcg PO DAILY 12/19/17 Metformin HCl [Glucophage] 1 tab PO BID 12/19/17 Multivit-Min/FA/Lycopen/Lutein [Centrum Silver Tablet] 1 each PO DAILY 12/19/17 Rosuvastatin Calcium 5 mg PO BEDTIME 12/19/17 Clopidogrel Bisulfate [Plavix*] 1 tab PO DAILY 01/04/24 Cyanocobalamin (Vitamin B-12) [Vitamin B-12] 500 mcg PO DAILY 01/04/24 Sitagliptin Phosphate [Januvia] 100 mg PO DAILY 01/04/24 lisinopriL [Lisinopril] 1 tab PO DAILY 01/04/24 - Past Medical/Surgical History Diabetic: No -: HTN -: HYPERTHYROIDISM -: HYSTERECTOMY -: BLADDER SUSPENSION - Social History Smoking Status: Never smoker Alcohol use: No CD- Drugs: No Caffeine use: Yes Place of Residence: Home Physical Examination Temp Pulse Resp BP Pulse Ox 97.8 F 74 20 149/79 H 98 01/28/24 04:00 01/28/24 04:00 01/28/24 04:00 01/28/24 04:00 01/28/24 04:00 Patient off unit for DAMIEN. Chart reviewed. Physical exam to follow. Laboratory data - reviewed Microbiology data - reviewed Imagings Data: - reviewed Conclusions/Impression: Problem List Sepsis secondary to strep mitis bacteremia liver cirrhosis hypothyroidism hyperlipidemia prosthetic aortic valve diabetes mellitus type II diverticulosis osteoarthritis Sepsis Strep Mitis Bacteremia - Blood cultures 01/25: Strep mitis in 4 of 4 bottles - Currently on Zosyn and Vancomycin (started 01/25) - Repeat blood cultures: strep mitis in 1/4 bottles - DAMIEN 01/27: Pending - 48 hour Tmax 103.1 F - fever curve downtrending - Negative influenza A&B - Negative Covid - CT abdomen pelvis 01/25: "Several of the images are compromised by motion artifact limiting diagnostic value. No evidence of significant pulmonary nodules and/or masses. Minimally distended proximal small bowel loops with a maximum diameter of 3 cm. No definitive transition point is identified. Findings may represent ileus and/or less likely partial bowel obstruction. Cirrhotic liver morphology. Right Bosniak II benign renal cyst measuring 2 cm. No follow-up imaging is recommended" - XR Chest 01/25: "The heart is enlarged. Aortic valve replacement was performed. Lungs are clear without consolidation, atelectasis, mass or edema. There is no pleural effusion. There is no pneumothorax. There are no acute osseous findings" Recommendations - Strep mitis bacteremia, resistant to penicillins. Recommend switch to Ceftriaxone 2g IV Q24H. - Concern for prosthetic valve endocarditis; DAMIEN scheduled this morning to eval for vegetation. - Monitor CBC, BMP, fever trends. - Strict blood glucose control - Continue supportive care Case discussed with Kristi Morelos
[2024-01-28] MEDS: NA CHLORIDE 0.9% 500 ML ONE (10:23)
[2024-01-28] MEDS ORDERED: ATROPINE SULF 1 MG/10 ML SYR IV ONE (10:29)
[2024-01-28] MEDS ORDERED: HYDRALAZINE HCL 20 MG/ML VIAL ONE (10:30)
[2024-01-28] MEDS ORDERED: METOPROLOL TARTRATE 5 MG/5 ML INJ IV ONE (10:30)
[2024-01-28] MEDS ORDERED: propofoL 200 MG/20 ML VIAL IV ONE (11:03)
[2024-01-28] MEDS ORDERED: LIDOCAINE 1% MPF 5 ML VIAL ONE (11:03)
[2024-01-28] MEDS: CEFTRIAXONE 1,000 MG in NA CHLORIDE 0.9% 50 ML IVPB ONE (11:35)
--- NOTE | 2024-01-28 12:15 | P.PN ---
Subjective Date of Service: 01/28/24 Chief Complaint: fever, generalized weakness Subjective: No new changes Review of Systems 10-point ROS is otherwise unremarkable Physical Examination - Vital Signs Temperature: 97.8 F Blood Pressure: 149/68 Pulse: 68 Respirations: 17 Pulse Ox (%): 95 - Physical Exam General: Alert, Oriented x3 HEENT: Atraumatic Neck: Supple Respiratory: Clear to auscultation bilaterally Cardiovascular: No edema, Normal S1 S2 Gastrointestinal: Normal bowel sounds - Studies Microbiology Data (last 24 hrs): 01/26/24 01:45 Blood - Blood Aerobic Blood Culture - Final Streptococcus Mitis Ii 01/26/24 01:45 Blood - Blood Blood Culture Gram Stain - Final 01/26/24 01:45 Blood - Blood Anaerobic Blood Culture - Final Streptococcus Mitis Ii 01/26/24 01:45 Blood - Blood Gram Stain - Final 01/26/24 02:00 Blood - Blood Aerobic Blood Culture - Final Streptococcus Mitis Ii 01/26/24 02:00 Blood - Blood Blood Culture Gram Stain - Final 01/26/24 02:00 Blood - Blood Anaerobic Blood Culture - Final Streptococcus Mitis Ii 01/26/24 02:00 Blood - Blood Gram Stain - Final Assessment And Plan - Current Problems (Diagnosis) (1) Fever, unknown origin Current Visit: Yes Status: Acute Plan: there was a concern for endocarditis as patient got a bioprosthetic valve. DAMIEN done today and did not show any signs of endocarditis. keep work up and antibiotics. (2) History of transcatheter aortic valve implantation (MAUDE) Current Visit: Yes Status: Acute Plan: Normal functioning valve on DAMIEN today. (3) Hypertension Current Visit: Yes Status: Acute Plan: resume patient outpatient medications slowly.
[2024-01-28] MEDS ORDERED: NA CHLORIDE 0.9% 100 ML ONE (12:53)
[2024-01-28] MEDS ORDERED: CEFTRIAXONE 2000 MG/VIAL ONE (12:53)
[2024-01-28] MEDS: CEFTRIAXONE 2,000 MG in NA CHLORIDE 0.9% 100 ML IV SCH (12:55)
--- NOTE | 2024-01-28 13:08 | TEE ---
TRANSESOPHAGEAL ECHOCARDIOGRAM REPORT CARDIOLOGY DEPARTMENT DATE OF STUDY: 01/28/2024 HEIGHT: 5'1" WEIGHT: 167 lbs DIAGNOSIS: ENDOCARDITIS BASE MANAGER COMMENTS: DAMIEN CARDIAC HISTORY: CATHERIZATION: SURGERY: PROSTHETIC VALVE: PACEMAKER: 2 DIMENSIONAL ASSESSMENT: RIGHT ATRIUM: NORMAL LEFT ATRIUM: MILD ENLARGED RIGHT VENTRICLE: NORMAL LEFT VENTRICLE: NORMAL TRICUSPID VALVE: NORMAL MITRAL VALVE: NORMAL PULMONIC VALVE: NORMAL AORTIC VALVE: BIOPROSTHESIS PERICARDIAL EFFUSION: NONE AORTIC ROOT: NORMAL EJECTION FRACTION: LEFT VENTRICULAR WALL MOTION: NORMAL DOPPLER/COLOR FLOW: NOT ACCESSED COMMENTS: 1. NORMAL FUNCTIONING BIOPROSTHETIC AORTIC VALVE 2. NO VEGETATION SEEN TECHNOLOGIST: SANGITA NATARAJAN
[2024-01-28] MEDS: FAMOTIDINE 20 MG TAB PO SCH (20:07)
[2024-01-28] MEDS ORDERED: CEFTRIAXONE 1,000 MG in NA CHLORIDE 0.9% 50 ML IVPB SCH (21:00)
[2024-01-28] MEDS: AMLODIPINE 5 MG TAB PO ONE (21:30)
--- NOTE | 2024-01-28 23:23 | PN ---
Date of Progress Note: 01/28/2024 Subjective: The patient was seen this morning for followup. No new complaints or problems reported by her. She was lying in bed in ICU as overflow patient. Denies any chest pain, shortness of breath , nausea, vomiting. Objective: Vital Signs: Reviewed. HEENT: Unremarkable. Lungs: Clear to auscultation. No wheezing. No rales. Heart: Sounds normal. Abdomen: Soft. Bowel sounds normal. No guarding, rigidity, tenderness, distention. Extremities: No leg edema. Laboratory Data: White count 9.1, hemoglobin 10, platelets 119. Sodium 139, potassium 3.4, chloride 108, bicarb 25, BUN 13, creatinine 0.45, glucose 115, magnesium 1.8. Blood culture came back Strept ococcus mitis and it is resistant to penicillin. Impression: 1.Sepsis. 2.Rule out endocarditis. 3.Thrombocytopenia. 4.Anemia. 5.Cirrhosis of liver. 6.Type 2 diabetes mellitus. 7.Hypokalemia. 8.Hypomagnesemia. Plan: We will replace electrolyte per protocol. Continue vancomycin and we will stop Zosyn and star t ceftriaxone per order. Follow up with Infectious Disease specialist and knot cutter. Dr. Jama from Cardiology was planning to do transesophageal echo today. We will continue DVT prophylaxis amy Zaragoza. Physical Therapy to work with the patient and I will see her tomorrow for followup. Remove Cisse catheter. NING/MODL Voice ID: [id number] Report ID: [id number]
[2024-01-29] MEDS: Mupirocin NASAL 2 APPL/1 GM TUBE NAS SCH (09:00)
--- NOTE | 2024-01-29 09:20 | P.PN ---
Date of Service: 01/29/24 Chief Complaint: fever, generalized weakness Subjective: Patient sitting in chair. No acute events overnight. Denies any new or worsening complaints at this time. Plan of care discussed with patient and at bedside with Dr. Mckinney during rounds. Physical Examination Temp Pulse Resp BP Pulse Ox 97.2 F 77 16 154/68 H 94 01/29/24 08:00 01/29/24 08:00 01/29/24 08:00 01/29/24 08:00 01/29/24 08:00 General: In no apparent distress. Alert and oriented. HEENT: normocephalic, atraumatic Respiratory: Clear to auscultation bilaterally. Unlabored respirations on room air. Cardio: regular rate and rhythm. no edema. Abdomen: soft, nontender, nondistended. normoactive bowel sounds. Skin: no rashes. warm and dry. Laboratory data - reviewed Microbiology data - reviewed Imagings Data: - reviewed Medications List: Reviewed Assessment and Plan Problem List Sepsis secondary to strep mitis bacteremia liver cirrhosis hypothyroidism hyperlipidemia prosthetic aortic valve diabetes mellitus type II diverticulosis osteoarthritis Sepsis Strep Mitis Bacteremia - Blood cultures 01/25: Strep mitis in 4 of 4 bottles - Currently on Zosyn and Vancomycin (started 01/25) - Repeat blood cultures 01/28: pending - DAMIEN 01/27: No vegetation seen - Afebrile 48 hours. - Negative influenza A&B - Negative Covid - CT abdomen pelvis 01/25: "Several of the images are compromised by motion artifact limiting diagnostic value. No evidence of significant pulmonary nodules and/or masses. Minimally distended proximal small bowel loops with a maximum diameter of 3 cm. No definitive transition point is identified. Findings may represent ileus and/or less likely partial bowel obstruction. Cirrhotic liver morphology. Right Bosniak II benign renal cyst measuring 2 cm. No follow-up imaging is recommended" - XR Chest 01/25: "The heart is enlarged. Aortic valve replacement was performed. Lungs are clear without consolidation, atelectasis, mass or edema. There is no pleural effusion. There is no pneumothorax. There are no acute osseous findings" Recommendations - Strep mitis bacteremia, resistant to penicillins. On Ceftriaxone 2g IV q12H. - DAMIEN without evidence of vegetation; however patient has had bacteremia with strep mitis earlier this year and there is concern for vegetation although not visible on DAMIEN. Recommend continuing IV antibiotic therapy for 6 weeks duration. pending PICC line placement following negative culture. - Follow up with repeat blood cultures. - Monitor CBC, BMP, fever trends. - Strict blood glucose control - Continue supportive care Case discussed with Kristi Morelos
[2024-01-29] MEDS: METFORMIN HCL 500 MG TAB PO SCH (10:00)
[2024-01-29] MEDS: lisinopriL 5 MG TAB PO SCH (10:00)
[2024-01-29] MEDS: AMLODIPINE 2.5 MG TAB PO SCH (10:00)
--- NOTE | 2024-01-29 13:29 | RAD REPORT ---
EXAM DESCRIPTION: RAD - Chest Single View - 01/29/2024 12:54 pm CLINICAL HISTORY: post PICC placement COMPARISON: Chest Single View dated 01/27/2024; Chest Single View dated 01/26/2024; Chest Single View dated 01/26/2024; Chest Pa And Lat (2 Views) dated 01/04/2024 FINDINGS: Portable chest was obtained following placement of a right upper extremity PICC line. The catheter tip projects over the SVC.
--- NOTE | 2024-01-29 14:15 | EKG ---
Test Date: 2024-01-26 Test Time: 03:22:45 Shipmaster: TROY MEASUREMENT RESULTS: Intervals: Rate: 101 [place]: 230 QRSD: 82 QT: 350 QTc: 453 [place]: P: 46 [place]: 230 QRS: -4 T: 21 INTERPRETIVE STATEMENTS: Sinus tachycardia with 1st degree AV block Otherwise normal ECG Compared to ECG 01/02/2024 15:47:57 First degree AV block now present Electronically Signed On 01-29-24 14:07:52 CDT by Sherman Jama
--- NOTE | 2024-01-29 16:36 | P.PN ---
Subjective Date of Service: 01/29/24 Chief Complaint: fever, generalized weakness Subjective: No new changes Review of Systems 10-point ROS is otherwise unremarkable Physical Examination - Vital Signs Temperature: 97.2 F Blood Pressure: 154/68 Pulse: 77 Respirations: 16 Pulse Ox (%): 94 - Physical Exam General: Alert, Oriented x3 HEENT: Atraumatic Neck: Supple Respiratory: Clear to auscultation bilaterally Cardiovascular: No edema, Normal S1 S2 Gastrointestinal: Normal bowel sounds Assessment And Plan - Current Problems (Diagnosis) (1) Fever, unknown origin Current Visit: Yes Status: Acute Plan: there was a concern for endocarditis as patient got a bioprosthetic valve. DAMIEN done today and did not show any signs of endocarditis. keep work up and antibiotics per ID team recommendations agree with 6 weeks antibiotics since this is her second bactermia admission, micro vegetations that can not be seen on DAMIEN is still a possibility. (2) History of transcatheter aortic valve implantation (MAUDE) Current Visit: Yes Status: Acute Plan: Normal functioning valve on DAMINE today. (3) Hypertension Current Visit: Yes Status: Acute Plan: resume patient outpatient medications slowly.
--- NOTE | 2024-01-29 21:07 | PN ---
Date of Progress Note: 01/29/2024 Subjective: The patient was seen this morning for followup. She was lying in bed, not in distress. Denies any complaints. She remains afebrile. Objective: Vital Signs: Reviewed. HEENT: Unremarkable. Lungs: Clear to auscultation. Heart: Sounds normal. Abdomen: Soft. Bowel sounds normal. No guarding, rigidity, tenderness, distention. Extremities: No leg edema. Impression: 1.Sepsis. 2.Probable endocarditis. 3.Hypertension. 4.Type 2 diabetes mellitus. 5.Cirrhosis of liver. 6.Thrombocytopenia. 7.Anemia. Plan: We will go ahead and continue ceftriaxone. Infectious Disease consultation from Dr. Mckinney is appreciated and I have communicated with brand designer, Dr. Caban as well as Infectious Disease spec ialist, Dr. Mckinney this morning. The patient's transesophageal echocardiogram did not show any evide nce of endocarditis, but that does not rule out with 100% certainty either. Her clinical picture is highly suspicious and indicative of endocarditis problem considering her presentation of sepsis witho ut any other obvious clinical findings for the root cause of sepsis. She is growing Streptococcus at this time, which is the same bacteria that she grew during her last hospital admission about a month ago or so. All these details were discussed with both brand designer and infectious disease specialist and they al so have a strong suspicion for endocarditis and all of them are in agreement with treating her with c eftriaxone for 4 to 6 weeks. PICC line was ordered and we will monitor blood work on outpatient basi s on a weekly basis as per my discussion with Dr. Mckinney, which will be CBC and CMP. Plan is to poss ibly discharge her to go home tomorrow with home IV antibiotic therapy. NING/MODL Voice ID: [id number] Report ID: [id number]
[2024-01-30] MEDS: ACETAMINOPHEN 325 MG TABLET PO PRN (03:32)
[2024-01-30 03:56] LABS: Hematocrit 27.2 % (36.0-45.0); Hemoglobin 9.1 g/dL (12.0-15.0); MCH 27.4 pg (27.0-35.0); MCHC 33.3 g/dL (32.0-36.0); MCV 82.2 fL (80-100); Platelets 116 thou/uL (152-406); RBC Red Blood Cell Count 3.31 M/uL (3.86-4.86)
[2024-01-30 03:57] LABS: Absolute Eosinophils 0.1 K/uL (0-0.5); Absolute Monocytes 0.5 K/uL (0.1-1.3); Absolute Neutrophil 2.4 K/uL (1.8-8.0); Lymphocytes % 25.3 % (15.3-44.8); MPV 7.4 fL (7.6-11.3); Monocytes % 11.1 % (3.3-12.3); Neutrophils % 59.6 % (41.7-73.7); Nucleated Red Blood Cells % 0.2 % (0-0); Red Cell Distribution Width 19.5 % (12.1-15.2)
[2024-01-30 04:40] LABS: Anion Gap 7.3 mEq/L (5.0-15.0); Magnesium 1.3 mg/dL (1.6-2.4); Potassium 3.3 mEq/L (3.5-5.1)
[2024-01-30] MEDS: Magnesium Sulfate 2gm IVPB 2 G/50 ML BAG IV ONE (06:21)
[2024-01-30] MEDS: POTASSIUM CL SA 10 MEQ TAB PO ONE (06:21)
--- NOTE | 2024-01-30 08:44 | P.PN ---
Date of Service: 01/30/24 Chief Complaint: fever, generalized weakness Subjective: Improving. In no apparent distress. No acute events overnight. Denies any new or worsening complaints at this time. Pending discharge home with home health to continue IV antibiotics. Physical Examination Temp Pulse Resp BP Pulse Ox 97.9 F 73 15 144/65 H 94 01/30/24 04:00 01/30/24 04:00 01/30/24 04:00 01/30/24 04:00 01/30/24 04:00 General: In no apparent distress. Alert and oriented. HEENT: normocephalic, atraumatic. Respiratory: Clear to auscultation bilaterally. Unlabored respirations on room air. Cardio: Regular rate and rhythm. No edema. Abdomen: soft, nontender, nondistended. normoactive bowel sounds. Skin: no rashes. warm and dry. PICC line. Laboratory data - reviewed Microbiology data - reviewed Imagings Data: - reviewed Medications List: - Reviewed Assessment and Plan Problem List Sepsis secondary to strep mitis bacteremia liver cirrhosis hypothyroidism hyperlipidemia prosthetic aortic valve diabetes mellitus type II diverticulosis osteoarthritis Sepsis Strep Mitis Bacteremia - Blood cultures 01/25: Strep mitis in 4 of 4 bottles - Currently on Zosyn and Vancomycin (started 01/25) - Repeat blood cultures 01/28: pending - DAMIEN 01/27: No vegetation seen - Afebrile since 01/25 - Negative influenza A&B - Negative Covid - CT abdomen pelvis 01/25: "Several of the images are compromised by motion artifact limiting diagnostic value. No evidence of significant pulmonary nodules and/or masses. Minimally distended proximal small bowel loops with a maximum diameter of 3 cm. No definitive transition point is identified. Findings may represent ileus and/or less likely partial bowel obstruction. Cirrhotic liver morphology. Right Bosniak II benign renal cyst measuring 2 cm. No follow-up imaging is recommended" - XR Chest 01/25: "The heart is enlarged. Aortic valve replacement was performed. Lungs are clear without consolidation, atelectasis, mass or edema. There is no pleural effusion. There is no pneumothorax. There are no acute osseous findings" Recommendations - Strep mitis bacteremia, resistant to penicillins. Recommend continuing with Ceftriaxone 2g IV q12H for 6 weeks duration. - DAMIEN without evidence of vegetation; however patient has had bacteremia with strep mitis earlier this year and there is still concern for vegetation although not visible on DAMIEN. - PICC line placed 01/28 - Monitor CBC, BMP, fever trends. - Strict blood glucose control - Continue supportive care Case discussed with Kristi Morelos
[2024-01-30] MEDS: Mupirocin NASAL 2 APPL/1 GM TUBE NAS SCH (09:00)
[2024-01-30 09:13] VITALS: BP 162/75; TEMP 97.6
[2024-01-30 11:47] VITALS: O2SAT 98
--- NOTE | 2024-01-30 20:13 | DS ---
Date of Discharge: 01/30/2024 Disposition: Discharged to go home. Physical Examination: HEENT: Unremarkable. Lungs: Clear to auscultation. Heart: Sounds normal. Abdomen: Soft. Bowel sounds normal. No guarding, rigidity, tenderness, distention. Extremities: No leg edema. Laboratory Data: Upon admission on 01/26/2024, white count 6.5, hemoglobin 10, platelets 106. Last blood work today, white count 4.1, hemoglobin 9.1 platelets 116. Last chemistry today, sodium 138, p otassium 3.3, chloride 106, bicarb 28, BUN 6, creatinine 0.37, glucose 88, magnesium 1.3. Upon admis merle, sodium 135, potassium 3, chloride 106, bicarb 20, BUN 12, creatinine 0.68, glucose 147. Lactic acid level 3.6. Magnesium was 1.1. Procalcitonin 1.21. Discharge Medications And Instructions: Continue all prior home medications. Take new medications as below: 1.Potassium chloride 10 mEq, take 1 tablet by mouth daily for 1 week. 2.Magnesium oxide 400 mg, take 1 tablet by mouth daily for 1 week. 3.Take ceftriaxone 2000 mg IV every 12 hours for 6 weeks. 4.Home health nurse to assist the patient with IV antibiotics, flush PICC line per protocol, change PICC line dressing per protocol, remove PICC line after 6 weeks of IV antibiotic therapy completed. 5.The patient to come to my office every Sunday starting 02/04/2024 for 6 weeks for known fasting bl ood test which will be CBC and CMP. 6.The patient to see Dr. Ramsey once a week on Sunday starting 02/05/2024 for followup visit. Hospital Course: This is a 73-year-old very pleasant female patient, who came into emergency room wi complaints of fever and generalized weakness. Please see dictated H and P for more information. The patient came into emergency room. She was evaluated and admitted to the hospital with sepsis. H er urinalysis was negative. Chest x-ray did not indicate any pneumonia. She had 2 sets of blood cul tures, so total 4 bottles of blood culture was done in the emergency room and she was started on IV Z osyn and vancomycin. After I saw her, I ordered 2 more sets of blood culture on her, which was done after she received 1 dose of Zosyn and vancomycin. Her blood culture that was done prior to receivin g antibiotics, all the 4 bottles grew Streptococcus mitis and 1 bottle of blood culture that she got after receiving antibiotic grew the same bacteria. She had similar problem with sepsis and same bact eria growing about a month ago when she was in the hospital. At that time, she received Levaquin and she felt better and now she is having recurrence of symptoms. At this time, our biggest concern was endocarditis considering the patient has a prosthetic aortic valve which was placed about 2 years ag o. Cardiology consultation was requested and the patient had transesophageal echocardiogram which wa s done during this hospitalization and that did not show any evidence of endocarditis, but that still does not rule out endocarditis with 100% certainty. We also obtained infectious disease consultatio n from Dr. Mckinney. So all of us involved in her care including myself, project management manager, and Infectious Disease specialists, we all were concerned about possibility of endocarditis with her clinical presen tation and it was recommended to the patient to get 6 weeks of IV antibiotic therapy. According to ashley giang and sensitivity result, we started her on ceftriaxone 2 g IV every 12 hours and her Zosyn and vancomycin were discontinued. PICC line was placed and Social Service was consulted and today the barbie munguia was discharged to go home in stable condition with above-mentioned medication and instruction. Her potassium and magnesium were low this morning and replacement dose was given according to electr olyte replacement protocol and I will continue to follow up on that as outpatient as well. Final Diagnoses: 1.Sepsis. 2.Probable endocarditis. 3.Hypokalemia. 4.Hypomagnesemia. 5.Thrombocytopenia. 6.Anemia. 7.Cirrhosis of liver. 8.Hypertension. 9.Hyperlipidemia. 10.Type 2 diabetes mellitus. 11.Hypothyroidism. 12.Osteoarthritis, multiple sites. 13.Diverticulosis. 14.Renal cyst. 15.Liver mass. NING/MODL Voice ID: [id number] Report ID: [id number]
== END 2024-01-30 12:00 | disposition home health service (06) | DRG 872 ==
LOC: ER 23:19 → ERHOLD 01-26 05:39 → 3RD-ICU 01-26 12:57 → 4TH 01-28 15:25
PROVIDERS: ADMIT Internal Medicine; ATTEND Internal Medicine
PROC: 02HV33Z Insertion of Infusion Device into Superior Vena Cava, Percutaneous Approach (ICD-10-PCS; principal; 2024-01-26)
PROC: 0T9B70Z Drainage of Bladder with Drainage Device, Via Natural or Artificial Opening (ICD-10-PCS; 2024-01-28)
PROC: 3E043XZ Introduction of Vasopressor into Central Vein, Percutaneous Approach (ICD-10-PCS; 2024-01-28)
DX: A40.8 Other streptococcal sepsis (principal); E87.20 Acidosis, unspecified; Z16.11 Resistance to penicillins; I38 Endocarditis, valve unspecified; R65.20 Severe sepsis without septic shock; I10 Essential (primary) hypertension; E86.0 Dehydration; E03.9 Hypothyroidism, unspecified; E78.5 Hyperlipidemia, unspecified; E11.9 Type 2 diabetes mellitus without complications; M19.09 Primary osteoarthritis, other specified site; N28.1 Cyst of kidney, acquired; E87.6 Hypokalemia; E83.42 Hypomagnesemia; D64.9 Anemia, unspecified; I35.0 Nonrheumatic aortic (valve) stenosis; D69.6 Thrombocytopenia, unspecified; K74.60 Unspecified cirrhosis of liver; K57.90 Diverticulosis of intestine, part unspecified, without perforation or abscess without bleeding; R16.0 Hepatomegaly, not elsewhere classified; Z95.5 Presence of coronary angioplasty implant and graft; Z95.2 Presence of prosthetic heart valve; Z11.52 Encounter for screening for COVID-19; Z79.02 Long term (current) use of antithrombotics/antiplatelets; Z90.49 Acquired absence of other specified parts of digestive tract; Z79.84 Long term (current) use of oral hypoglycemic drugs; Z28.310 Unvaccinated for COVID-19; Z79.890 Hormone replacement therapy; Z79.899 Other long term (current) drug therapy; Z90.710 Acquired absence of both cervix and uterus
CPT/HCPCS: 36415; 36569; 71045; 71250; 74176; 80048; 80076; 80202; 81001; 82550; 82947; 83605; 83690; 83735; 83880; 84100; 84145; 84484; 85025; 85610; 85730; 87040; 87077; 87186; 87205; 87804; 87811; 93005; 93312; 97116; 97161; 99285; J0360; J0461; J0696; J1650; J1815; J1940; J2001; J2405; J2543; J2704; J3475; J7030; J7040; J7050; J7060; J7613; J7644; P9047

== ENCOUNTER 2024-04-22 23:13 | Emergency (ER) | payer OTHER ==
--- OUTSIDE RECORDS SUMMARY | 2024-04-22 23:16 | XMS REPORT | Clinical Summary ---
Author Name Unknown Organization [facility] Address [address] [place] [address] Care Team Providers Care Benefits Administrator Name Role Phone Arian Pitt MD Primary Care Provider [phone] Encounters Date Type Department Care Team Description 09/14/2023 8:10 PM CDT Ancillary Procedure Image Library [address] [place] [address] [id number] Arian Pitt MD Cancer 09/14/2023 8:05 PM CDT Ancillary Procedure Image Library [address] [place] [address] [id number] Arian Pitt MD Cancer 09/14/2023 8:00 PM CDT Ancillary Procedure Image Library [address] [place] [address] [id number] Arian Pitt MD Cancer 08/23/2023 Travel after 04/23/2023 Social History Tobacco Use Types Packs/Day Years [...] ABDOMEN Routine 08/15/2023 8:43 PM CDT Cancer after 04/23/2023 Results * [facility] US Vascular (08/15/2023 9:13 [...] MD IMG OUTSIDE IMAGE OR DERABLES after 04/23/2023 Care Teams Benefits Administrator Relationship Specialty Start Date End Date Arian Pitt MD [facility] [place] [address] [email or web address] PCP - General Surgical Oncology 08/27/23
[2024-04-22] MEDS ORDERED: LIDOCAINE 2% W/EPI 1:200,000 MPF 20 ML VIAL IM ONE (23:18)
[2024-04-22] MEDS ORDERED: NA CHLORIDE 0.9% 1,000 ML ONE (23:23)
[2024-04-23] MEDS ORDERED: ONDANSETRON 4 MG/2 ML VIAL ONE (01:28)
[2024-04-23] MEDS ORDERED: MORPHINE 4 MG/ML SYR ONE (01:29)
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
--- NOTE | 2024-04-23 02:12 | EDPHYS ---
Physician Documentation [facility] Name: Niharika Burris Age: 73 yrs Sex: Female : 1950 Arrival Date: 04/22/2024 Time: 23:13 Bed 3 Private MD: ED Physician Omar Spring HPI: 04/23 02:06 This 73 yrs old Female presents to ER via Wheelchair with complaints of Fall sp4 Injury, Head Injury-Adult - Open wound. 02:06 73-year-old female with history of diabetes hypertension hypothyroidism also history of sp4 stents on Plavix, presents with acute fall in the garage falling forward onto a bicycle frame causing left frontoparietal laceration with acute small arterial bleed.. Historical: - Allergies: 04/22 23:25 No Known Allergies; tm6 - PMHx: 23:25 Diabetes - NIDDM; fatty liver; Hypertension; Hypothyroidism; tm6 - PSHx: 23:25 cardiac stent; tm6 - Immunization history:: Client reports receiving the 2nd dose of the Covid vaccine. - Infectious Disease History:: Denies. - Immunization history: Last tetanus immunization: - up to date. - Social history:: Smoking status: Patient denies any tobacco usage or history of. Patient/guardian denies using alcohol. - Family history:: not pertinent. ROS: 04/23 02:06 Constitutional: Negative for fever, chills, and weight loss, positive for forehead to sp4 scalp laceration and acute head injury. All other systems are negative, Exam: 02:06 Constitutional: This is a well developed, well nourished patient who is awake, alert, sp4 and in no acute distress. Head/Face: Normocephalic, positive for left frontoparietal laceration with acute small arterial bleeding. Laceration about 3 cm long horizontal orientation Eyes: Pupils equal round and reactive to light, extra-ocular motions intact. Lids and lashes normal. Conjunctiva and sclera are not injected. Cornea within normal limits. Periorbital areas with no swelling, redness, or edema. ENT: Nares patent. No nasal discharge, no septal abnormalities noted. Tympanic membranes are normal and external auditory canals are clear. Oropharynx with no redness, swelling, or masses, exudates, or evidence of obstruction, uvula midline. Mucous membranes moist. Neck: Trachea midline, no thyromegaly or masses palpated, and no cervical lymphadenopathy. Supple, full range of motion without nuchal rigidity, or vertebral point tenderness. Chest/axilla: Normal chest wall appearance and motion. Nontender with no deformity. No lesions are appreciated. Cardiovascular: Regular rate and rhythm with a normal S1 and S2. No gallops, murmurs, or rubs. Normal PMI, no JVD. No pulse deficits. Respiratory: Lungs have equal breath sounds bilaterally, clear to auscultation and percussion. No rales, rhonchi or wheezes noted. No increased work of breathing, no retractions or nasal flaring. Abdomen/GI: Soft, with normal bowel sounds. No distension or tympany. No guarding or rebound. No evidence of tenderness throughout. Back: No spinal tenderness. No costovertebral tenderness. Skin: Warm, dry with normal turgor. Normal color with no rashes, no lesions, and no evidence of cellulitis. MS/ Extremity: Pulses equal, no cyanosis. Neurovascular intact. Full, normal range of motion. Neuro: Awake and alert, GCS 15, oriented to person, place, time, and situation. Cranial nerves II-XII grossly intact. Motor strength 5/5 in all extremities. Sensory grossly intact. Psych: Awake, alert, with orientation to person, place and time. Behavior, mood, and affect are within normal limits Vital Signs: 04/22 23:20 Temp 98.2; jw7 23:20 BP 172 / 85; Pulse 102; Resp 20 S; Pulse Ox 100% on R/A; jw7 04/23 00:00 BP 169 / 81; Pulse 96; Resp 19 S; Pulse Ox 100% on R/A; jw7 01:00 BP 141 / 75; Pulse 89; Resp 18 S; Pulse Ox 96% on R/A; jw7 02:00 BP 137 / 74; Pulse 89; Resp 16 S; Pulse Ox 96% on R/A; jw7 02:42 Weight 69.4 kg; Height 5 ft. 5 in. ; vk 03:20 BP 156 / 85; Pulse 94; Resp 17 S; Temp 98.5(TE); Pulse Ox 98% on R/A; jw7 02:42 Body Mass Index 25.46 (69.40 kg, 165.1 cm) vk Peyton Coma Score: 04/22 23:20 Eye Response: spontaneous(4). Motor Response: obeys commands(6). Verbal Response: jw7 oriented(5). Total: 15. 04/23 02:06 Eye Response: spontaneous(4). Motor Response: obeys commands(6). Verbal Response: sp4 oriented(5). Total: 15. Trauma Score (Adult): 04/22 23:20 Eye Response: spontaneous(1); Verbal Response: oriented(1); Motor Response: obeys jw7 commands(2); Systolic BP: > 89 mm Hg(4); Respiratory Rate: 10 to 29 per min(4); Killeen Score: 15; Trauma Score: 12 Laceration: 04/23 02:09 Wound Repair of 3cm ( 1.2in ) subcutaneous laceration to top of head. Irregularly sp4 shaped.. Profuse bleeding noted.. Gross contamination.. Distal neuro/vascular/tendon intact. Anesthesia: Wound infiltrated with 20 mls of 1% lidocaine w/ Epi. Wound prep: Moderate cleansing by me, Copious irrigation. Skin closed with 6 2-0 Silk using vertical mattress sutures and sterile technique. Dressed with 4x4's, non-adherent dressing. Patient tolerated well. MDM: 00:46 Patient medically screened. sp4 02:06 ED course: EXAM: CT Head Without Intravenous Contrast CLINICAL HISTORY: head injury sp4 TECHNIQUE: Axial computed tomography images of the head/brain without intravenous contrast. Sagittal and coronal reformatted images were created and reviewed. This CT exam was performed using one or more of the following dose reduction techniques: automated exposure control, adjustment of the mA and/or kV according to patient size, and/or use of iterative reconstruction technique. COMPARISON: CT Head dated 01/02/2024 FINDINGS: Brain: Right parafalcine subdural hemorrhage measuring 5 mm in thickness. Mild cerebral atrophy and minimal bilateral periventricular and subcortical white matter low attenuation most compatible with chronic microvascular angiopathy without significant interval change. Ventricles: Unremarkable. No ventriculomegaly. Bones/joints: Unremarkable. No acute fracture. Soft tissues: Moderate left frontoparietal soft tissue contusion with adjacent laceration. Vasculature: There is atherosclerotic disease of the internal carotid arteries bilaterally. Sinuses: Small right sphenoid sinus air-fluid level. Mastoid air cells: Unremarkable as visualized. No mastoid effusion. IMPRESSION: 1. Right parafalcine subdural hemorrhage measuring 5 mm in thickness. 2. Other findings as above. . 02:12 Differential diagnosis: abrasion, closed head injury, contusion, fracture, laceration, sp4 multiple trauma, sprain, strain. Data reviewed: vital signs, nurses notes, lab test result(s), radiologic studies, CT scan. Consideration of Admission/Observation Escalation of care including admission/observation considered. 02:15 ED course: IMPRESSION: 1. Right parafalcine subdural hemorrhage measuring 5 mm in sp4 thickness. 2. Other findings as above. . ED course: Based on CT findings patient warrants transfer for neurosurgery evaluation and neuro ICU management.. 04/23 00:58 Order name: Basic Metabolic Panel; Complete Time: 03:34 [facility] 04/23 00:58 Order name: CBC with Diff [facility] 04/23 00:58 Order name: ETOH Level; Complete Time: 03:34 [facility] 04/23 00:58 Order name: Hepatic Function; Complete Time: 03:34 [facility] 04/23 00:58 Order name: Lipase; Complete Time: 03:34 [facility] 04/23 00:58 Order name: Type And Screen [facility] 04/23 02:43 Order name: CBC Smear Scan [facility] 04/22 23:36 Order name: CT Head Brain wo Cont [facility] 04/22 23:36 Order name: Saline Lock; Complete Time: 23:45 [facility] 04/22 23:37 Order name: Dressing - Wound; Complete Time: 23:52 [facility] 04/22 23:37 Order name: Gloves, Sterile; Complete Time: 23:52 [facility] 04/22 23:37 Order name: Setup Suture Tray; Complete Time: 23:52 [facility] 04/22 23:37 Order name: Wound Care; Complete Time: 23:52 [facility] 04/23 00:58 Order name: IV Saline Lock; Complete Time: 01:00 [facility] 04/23 00:58 Order name: Labs collected and sent; Complete Time: 01:47 [facility] 04/23 00:58 Order name: NPO; Complete Time: 01:00 [facility] 04/23 00:58 Order name: O2 Per Protocol; Complete Time: 01:00 [facility] 04/23 00:58 Order name: O2 Sat Monitoring; Complete Time: 01:00 sp4 Administered Medications: 04/22 23:26 Drug: NS 0.9% IV 1000 ml IV at 1 bolus Per protocol; 1000 mL bolus Route: IV; Rate: 1 vc1 bolus; Site: right antecubital; 04/23 03:51 Follow up: Response: No adverse reaction; IV Status: Completed infusion; IV Intake: jw7 1000ml 04/22 23:57 Drug: Lidocaine-Epinephrine Infiltration -1%: (1:100,000) 30 ml 20 ml Infiltration jw7 once; to bedside Volume: 20 ml; Route: Infiltration; 04/23 03:51 Follow up: Response: No adverse reaction; Marked relief of symptoms jw7 01:56 Drug: morphine IVP or IV 4 mg IVP once over 4 mins Route: IVP; Infused Over: 4 mins; jw7 Site: right antecubital; 03:51 Follow up: Response: No adverse reaction; Marked relief of symptoms; Pain is decreased jw7 01:56 Drug: Ondansetron IVP 4 mg IVP once; over 2 minutes Route: IVP; Site: right antecubital;jw7 03:51 Follow up: Response: No adverse reaction; Marked relief of symptoms jw7 Disposition Summary: 04/23/24 02:12 Transfer Ordered Notes: Transfer Location: [facility] sp4 Reason: Higher level of care sp4 Condition: Stable sp4 Problem: new sp4 Symptoms: have improved sp4 Accepting Physician: [facility] Prasanth garcia MD(04/23/24 03:52) jw7 Diagnosis - Traumatic subdural hemorrhage sp4 - Acute head injury, acute scalp laceration, , acute subdural hematoma sp4 Forms: - Medication Reconciliation Form sp4 - SBAR form sp4 Signatures: Dispatcher [employer] EDMS Irish Reyes RN RN vc1 Janel Song RN RN jw7 Omar Spring MD MD sp4 Sherine Cifuentes RN RN tm6 Corrections: (The following items were deleted from the chart) 03:52 02:12 [facility] Prasanth garcia MD sp4 jw7
[2024-04-23 02:36] LABS: Absolute Lymphocytes (CBC) 0.6 K/uL (0.7-4.9); Absolute Monocytes 0.4 K/uL (0.1-1.3); Absolute Neutrophil 3.1 K/uL (1.8-8.0); Basophils % 0.6 % (0-1.3); Eosinophils % 0.3 % (0-4.4); Hematocrit 31.3 % (36.0-45.0); Hemoglobin 10.5 g/dL (12.0-15.0); Lymphocytes % 15.2 % (15.3-44.8); MCH 30.3 pg (27.0-35.0); MCHC 33.6 g/dL (32.0-36.0); MCV 90.3 fL (80-100); MPV 8.1 fL (7.6-11.3); Monocytes % 9.4 % (3.3-12.3); Neutrophils % 74.5 % (41.7-73.7); Platelets 85 thou/uL (152-406); RBC Red Blood Cell Count 3.46 M/uL (3.86-4.86); Red Cell Distribution Width 17.1 % (12.1-15.2)
[2024-04-23 02:45] LABS: Albumin 2.4 g/dL (3.4-5.0); Albumin/Globulin Ratio 0.6 (1.1-1.8); Anion Gap 5.9 mEq/L (5.0-15.0); Bilirubin Direct 0.5 mg/dL (0-0.2); Bilirubin Indirect, Calculated 0.4 mg/dL (0.2-0.8); Bilirubin Total 0.9 mg/dL (0.2-1.0); Globulin 4.2 g/dL (2.3-3.5); Potassium 3.9 mEq/L (3.5-5.1); Protein, Total 6.6 g/dL (6.4-8.2)
[2024-04-23 03:53] LABS: Blood Morphology Comment NOT SEEN (NOT SEEN); Platelet Estimate DECR; White Blood Cell Scan OK (OK)
[2024-04-23 04:24] VITALS: BP 156/85; TEMP 98.5; O2SAT 98
--- NOTE | 2024-04-23 12:42 | RAD REPORT ---
EXAM DESCRIPTION: CT Head Without Intravenous Contrast CLINICAL HISTORY: Head injury TECHNIQUE: Axial computed tomography images of the head/brain without intravenous contrast. Sagitt al and coronal reformatted images were created and reviewed. This CT exam was performed using one o r more of the following dose reduction techniques: automated exposure control, adjustment of the mA and/or kV according to patient size, and/or use of iterative reconstruction technique. COMPARISON: CT Head dated 01/02/2024 FINDINGS: Brain: Right parafalcine subdural hemorrhage measuring 5 mm in thickness. Mild cerebra l atrophy and minimal bilateral periventricular and subcortical white matter low attenuation most com patible with chronic microvascular angiopathy without significant interval change. Ventricles: Unremarkable. No ventriculomegaly. Bones/joints: Unremarkable. No acute fracture. Soft tissues: Moderate left frontoparietal soft tissue contusion with adjacent laceration. Vasculature: There is atherosclerotic disease of the internal carotid arteries bilaterally. Sinuses: Small right sphenoid sinus air-fluid level. Mastoid air cells: Unremarkable as visualized. No mastoid effusion. IMPRESSION: 1. Right parafalcine subdural hemorrhage measuring 5 mm in thickness. 2. Other findings as above. THIS REPORT CONTAINS FINDINGS THAT MAY BE CRITICAL TO PATIENT CARE: The findings were verbally discus sed via telephone conference with Dr. Omar Spring on 04/23/2024 12:16 AM CDT. The results were ac knowledged and understood. Electronically signed by: Adriane Wood MD 04/23/2024 12:17 AM CDT RP Due to temporary technical issues with the PACS/Fluency reporting system, reports are being signed by the in house radiologist without review as a courtesy to ensure prompt reporting. The interpreting r adiologist is fully responsible for the content of the report.
== END 2024-04-23 03:52 | disposition short-term general hospital (02) ==
LOC: ER 23:13
PROC: 0HQ0XZZ Repair Scalp Skin, External Approach (ICD-10-PCS; principal; 2024-04-23)
DX: S06.5X0A Traumatic subdural hemorrhage without loss of consciousness, initial encounter (principal); S01.01XA Laceration without foreign body of scalp, initial encounter; Z95.818 Presence of other cardiac implants and grafts; Z79.01 Long term (current) use of anticoagulants
CPT/HCPCS: 96361; 85025; 80048; 36415; 86900; 86850; 86901; 80076; 83690; 70450; 96375; 96374; 99285; 82077; 12002; J2405; J7030

== ENCOUNTER 2024-05-12 14:10 | Emergency (ER) | payer OTHER ==
--- OUTSIDE RECORDS SUMMARY | 2024-05-12 14:19 | XMS REPORT | Clinical Summary ---
Author Name Unknown Organization [facility] Address [address] [place] [address] Care Team Providers Care Counselor Camp Name Role Phone Arian Pitt MD Primary Care Provider [phone] Encounters Date Type Department Care Team Description 09/14/2023 8:10 PM CDT Ancillary Procedure [facility] [address] [place] [id number] Arian Pitt MD Cancer 09/14/2023 8:05 PM CDT Ancillary Procedure [facility] [address] [place] [id number] Arian Pitt MD Cancer 09/14/2023 8:00 PM CDT Ancillary Procedure [facility] [address] [place] [address] [id number] Arian Pitt MD Cancer 08/23/2023 Travel after 05/13/2023 Social History Tobacco Use Types Packs/Day Years [...] Routine 08/15/2023 8:43 PM CDT Cancer after 05/13/2023 Results * [facility] US Vascular (08/15/2023 9:13 [...] MD IMG OUTSIDE IMAGE OR DERABLES after 05/13/2023 Care Teams Counselor Camp Relationship Specialty Start Date End Date Arian Pitt MD [facility] [place] [address] [email or web address] PCP - General Surgical Oncology 08/27/23
[2024-05-12] MEDS ORDERED: NA CHLORIDE 0.9% 500 ML ONE (14:39)
[2024-05-12 15:09] LABS: Absolute Lymphocytes (CBC) 0.6 K/uL (0.7-4.9); Absolute Monocytes 0.2 K/uL (0.1-1.3); Absolute Neutrophil 3.9 K/uL (1.8-8.0); Basophils % 0.4 % (0-1.3); Hematocrit 37.1 % (36.0-45.0); Hemoglobin 12.3 g/dL (12.0-15.0); Lymphocytes % 12.3 % (15.3-44.8); MCH 30.7 pg (27.0-35.0); MCHC 33.3 g/dL (32.0-36.0); MCV 92.3 fL (80-100); MPV 7.4 fL (7.6-11.3); Monocytes % 3.5 % (3.3-12.3); Neutrophils % 83.8 % (41.7-73.7); Nucleated Red Blood Cells % 0.1 % (0-0); Platelets 128 thou/uL (152-406); RBC Red Blood Cell Count 4.02 M/uL (3.86-4.86); Red Cell Distribution Width 18.4 % (12.1-15.2)
[2024-05-12 15:14] LABS: PT Prothrombin Time 16.7 SECONDS (9.4-12.5); Protime INR 1.54
[2024-05-12] MEDS ORDERED: THIAMINE HCL 100 MG, FOLIC ACID 1 MG, MULTIVITAMINS INJ 10 ML in NA CHLORIDE 0.9% 1,000 ML IV ONE (15:30)
--- NOTE | 2024-05-12 15:41 | RAD REPORT ---
EXAM DESCRIPTION: RAD - Chest Single View - 05/12/2024 3:12 pm CLINICAL HISTORY: COUGH Chest pain. COMPARISON: <Comparisons> FINDINGS: Portable technique limits examination quality. Mild pulmonary edema pattern is seen. The heart is mildly enlarged in size. No displaced fractures. IMPRESSION: Mild CHF.
[2024-05-12 15:48] LABS: Specific Gravity 1.022 (1.005-1.030); Sqamous Epithelial <5 /HPF (None Seen); Urine Bacteria None Seen /HPF (<20); Urine Bilirubin NEGATIVE (Negative); Urine Blood 2+ (Negative); Urine Clarity Clear (Clear); Urine Color Yellow (Yellow); Urine Culture Reflex Order NOT NEEDED; Urine Glucose NEGATIVE (Negative); Urine Ketones NEGATIVE (Negative); Urine Microscopic Reflex YN ORDER UMIC; Urine Mucus Slight /HPF (None Seen); Urine Nitrite NEGATIVE (Negative); Urine Protein 2+ (Negative); Urine RBC >50 /HPF (None Seen); Urine Urobilinogen Normal (Normal); Urine WBC <5 /HPF (<5); Urine Yeast (Budding) Trace /HPF (None Seen); Urine pH 6.5 (5.0-7.0)
[2024-05-12] MEDS ORDERED: CEFTRIAXONE 1000 MG/VIAL ONE (16:07)
[2024-05-12] MEDS ORDERED: LEVETIRACETAM 500 MG/5 ML VIAL IV ONE (16:07)
[2024-05-12] MEDS ORDERED: NA CHLORIDE 0.9% 100 ML ONE (16:08)
--- NOTE | 2024-05-12 16:09 | RAD REPORT ---
EXAM DESCRIPTION: CT - Head C Spine Cap Wo Con - 05/12/2024 3:53 pm CLINICAL HISTORY: Trauma, head and neck injury. Chest, abdomen and pelvis pain. MENTAL STATUS CHANGE COMPARISON: <Comparisons> TECHNIQUE: CT head without contrast. CT cervical spine without contrast with coronal and sagittal reformatted images. CT chest, abdomen and pelvis without contrast with coronal and sagittal reformatted images of the spi ne. All CT scans are performed using dose optimization technique as appropriate and may include automated exposure control or mA/KV adjustment according to patient size. FINDINGS: CT HEAD WITHOUT CONTRAST: There is a very large right-sided acute subdural hematoma present. Subdural blood is seen extending a long the falx as well. Maximum thickness of the subdural hematoma measures between 20-22 mm. There is a large amount right to left midline shift present of approximately 1.5 cm. The paranasal sinuses and mastoids are clear. A calvarial fracture is not seen. CT CERVICAL SPINE WITHOUT CONTRAST: No fracture or subluxation. Mild degenerative spondylosis is present of the cervical spine. The preve rtebral soft tissues are normal in thickness. CT CHEST, ABDOMEN, PELVIS WITHOUT CONTRAST: NOTE: Lack of contrast is a significant limitation in the assessment of trauma related findings. Spec ifically, solid organ, vascular and bowel evaluation is significantly limited. The lungs are clear.No pneumothorax. Trace left pleural effusion. No evidence of intra-abdominal visceral injury, free fluid or free air is seen within the above detai led limitations. Liver cirrhosis. Sigmoid diverticulosis coli without diverticulitis. No concerning pelvic findings. No fractures. Moderate lumbar degenerative changes. IMPRESSION: Large acute right-sided subdural hematoma with significant right to left midline shift a s detailed. Findings were discussed with doctor Nazario in the emergency room for p.m. 05/12/2024 by telephone.
--- NOTE | 2024-05-12 16:20 | EDPHYS ---
Physician Documentation [facility] [place] Name: Niharika Burris Age: 73 yrs Sex: Female : 1950 Arrival Date: 05/12/2024 Time: 14:10 Bed 6 Private MD: ED Physician Jaylen Nazario HPI: 05/12 15:36 This 73 yrs old Female presents to ER via EMS with complaints of Altered lorenzo Mental Status. 15:36 The patient presents with confusion, decreased mental status, decreased responsiveness. lorenzo Onset: The symptoms/episode began/occurred 3 day(s) ago. Possible causes: head injury, low blood sugar. Associated signs and symptoms: Pertinent positives: confusion. Current symptoms: In the emergency department the patient's symptoms are unchanged from the initial presentation, despite home interventions. Patient's baseline: Neuro: alert and fully oriented. The patient has experienced similar episodes in the past, several times. Historical: - Allergies: 14:33 No Known Allergies; ph - Home Meds: 14:33 amlodipine oral [Active]; clopidogrel oral [Active]; Januvia oral [Active]; ph levothyroxine oral [Active]; lisinopril Oral [Active]; rosuvastatin oral [Active]; Metformin Oral [Active]; - PMHx: 14:33 Diabetes - NIDDM; fatty liver; Hypertension; Hypothyroidism; ph - PSHx: 14:33 cardiac stent; ph - Immunization history:: Adult Immunizations unknown. - Infectious Disease History:: Denies. - Social history:: Smoking status: unknown. ROS: 15:37 Constitutional: Negative for fever, chills, and weight loss, Eyes: Negative for injury, lorenzo pain, redness, and discharge, ENT: Negative for injury, pain, and discharge, Neck: Negative for injury, pain, and swelling, Cardiovascular: Negative for chest pain, palpitations, and edema, Respiratory: Negative for shortness of breath, cough, wheezing, and pleuritic chest pain, Abdomen/GI: Negative for abdominal pain, nausea, vomiting, diarrhea, and constipation, Back: Negative for injury and pain, : Negative for injury, bleeding, discharge, and swelling, MS/Extremity: Negative for injury and deformity, Skin: Negative for injury, rash, and discoloration, Psych: Negative for depression, anxiety, suicide ideation, homicidal ideation, and hallucinations, Allergy/Immunology: Negative for hives, rash, and allergies, Endocrine: Negative for neck swelling, polydipsia, polyuria, polyphagia, and marked weight changes, Hematologic/Lymphatic: Negative for swollen nodes, abnormal bleeding, and unusual bruising, 15:37 Neuro: Positive for altered mental status, weakness, Exam: 15:37 Constitutional: This is a well developed, well nourished patient who is awake, alert, lorenzo and in no acute distress. Head/Face: Normocephalic, atraumatic. Eyes: Pupils equal round and reactive to light, extra-ocular motions intact. Lids and lashes normal. Conjunctiva and sclera are non-icteric and not injected. Cornea within normal limits. Periorbital areas with no swelling, redness, or edema. ENT: Nares patent. No nasal discharge, no septal abnormalities noted. Tympanic membranes are normal and external auditory canals are clear. Oropharynx with no redness, swelling, or masses, exudates, or evidence of obstruction, uvula midline. Mucous membranes moist. Neck: Trachea midline, no thyromegaly or masses palpated, and no cervical lymphadenopathy. Supple, full range of motion without nuchal rigidity, or vertebral point tenderness. No Meningismus. Chest/axilla: Normal chest wall appearance and motion. Nontender with no deformity. No lesions are appreciated. Cardiovascular: Regular rate and rhythm with a normal S1 and S2. No gallops, murmurs, or rubs. Normal PMI, no JVD. No pulse deficits. Respiratory: Lungs have equal breath sounds bilaterally, clear to auscultation and percussion. No rales, rhonchi or wheezes noted. No increased work of breathing, no retractions or nasal flaring. Abdomen/GI: Soft, non-tender, with normal bowel sounds. No distension or tympany. No guarding or rebound. No evidence of tenderness throughout. Back: No spinal tenderness. No costovertebral tenderness. Full range of motion. Female : Normal external genitalia. Skin: Warm, dry with normal turgor. Normal color with no rashes, no lesions, and no evidence of cellulitis. MS/ Extremity: Pulses equal, no cyanosis. Neurovascular intact. Full, normal range of motion. Psych: Awake, alert, with orientation to person, place and time. Behavior, mood, and affect are within normal limits. 15:37 Neuro: Orientation: unable to test, Mentation: slow to respond, Cranial nerves: grossly normal, is grossly normal based on the patient's age, no acute changes, Cerebellar function: unable to test, Motor: moves all fours, Gait: not tested. seizure activity, is not displayed by the patient, 16:19 ECG was reviewed by the Attending Physician. lorenzo 16:26 Neuro: PT FOLLOWS ALL COMMANDS, GOOD GAG, STATES NAME, MOVES ALL EXTREMITIES ON lorenzo COMMAND, Vital Signs: 14:20 BP 163 / 76; Pulse 62; Resp 18; Pulse Ox 98% on R/A; tl4 14:24 BP 180 / 84; Pulse 69; Resp 18; Temp 98.4(O); Pulse Ox 99% on R/A; Weight 70.2 kg; ph 14:40 BP 151 / 79; Pulse 65; Resp 19; Pulse Ox 99% on R/A; tl4 15:00 BP 172 / 72; Pulse 65; Resp 18; Pulse Ox 99% on R/A; tl4 16:00 BP 175 / 77; Pulse 68; Resp 18; Pulse Ox 99% on R/A; tl4 16:20 BP 184 / 89; Pulse 70; Resp 19; Pulse Ox 99% on R/A; tl4 16:40 BP 178 / 77; Pulse 70; Resp 19; Pulse Ox 99% on R/A; tl4 17:15 BP 178 / 82; Pulse 72; Resp 17; Temp 98.2(O); Pulse Ox 98% on R/A; tl4 MDM: 14:23 Patient medically screened. lorenzo 15:38 Differential Diagnosis altered mental status, sepsis, flu. Differential Diagnosis: CVA, lorenzo electrolyte abnormality, hypoglycemia, intracranial bleed, meningitis, pneumonia, seizure, sepsis, TIA, UTI, volume depletion. Data reviewed: vital signs, nurses notes, lab test result(s), EKG, radiologic studies, CT scan, plain films. Consideration of Admission/Observation Escalation of care including admission/observation considered. I considered the following discharge prescriptions or medication management in the emergency department Medications were administered in the Emergency Department. See MAR. Independent interpretation of the following test(s) in the Emergency Department EKG: See my EKG interpretation above. Test considered but Not performed: MRI: no mri brain. Care significantly affected by the following chronic conditions: Diabetes, Hypertension, fatty liver, hypothyroid. 05/12 14:33 Order name: Basic Metabolic Panel [facility] 05/12 14:33 Order name: CBC with Diff; Complete Time: 15:17 [facility] 05/12 14:33 Order name: LFT's [facility] 05/12 14:33 Order name: Magnesium [facility] 05/12 14:33 Order name: NT PRO-BNP [facility] 05/12 14:33 Order name: PT-INR; Complete Time: 15:17 [facility] 05/12 14:33 Order name: Troponin HS [facility] 05/12 14:33 Order name: Lipase [facility] 05/12 14:33 Order name: Urinalysis w/ reflexes; Complete Time: 15:52 [facility] 05/12 14:37 Order name: Blood Culture Adult (2) [facility] 05/12 14:37 Order name: Lactate w/ 2H reflex if indic. [facility] 05/12 14:33 Order name: XRAY Chest (1 view); Complete Time: 15:52 [facility] 05/12 14:37 Order name: CT Traumagram (Head C Spine CAP wo con) [facility] 05/12 15:24 Order name: Knee Left 3 View XRAY [facility] 05/12 15:24 Order name: US Extremity Venous W Compression Zheng [facility] 05/12 14:33 Order name: EKG; Complete Time: 14:34 [facility] 05/12 14:33 Order name: Cardiac monitoring; Complete Time: 14:37 [facility] 05/12 14:33 Order name: EKG - Nurse/Tech; Complete Time: 15:33 [facility] 05/12 14:33 Order name: IV Saline Lock; Complete Time: 14:37 [facility] 05/12 14:33 Order name: Labs collected and sent; Complete Time: 15:33 [facility] 05/12 14:33 Order name: O2 Per Protocol; Complete Time: 14:36 [facility] 05/12 14:33 Order name: O2 Sat Monitoring; Complete Time: 14:36 [facility] EC:19 Rate is 77 beats/min. Rhythm is regular. QRS [place] is Normal. IN interval is normal. QRS lorenzo interval is normal. QT interval is normal. No Q waves. T waves are Normal. No ST changes noted. Clinical impression: Normal ECG and No evidence of ischemia. Interpreted by me. Reviewed by me. Administered Medications: 15:33 Drug: NS 0.9% IV 500 ml IV at bolus once Route: IV; Rate: bolus; Site: left forearm; kc6 16:03 Follow up: Response: No adverse reaction; IV Status: Completed infusion; IV Intake: kc6 500ml 15:33 Drug: foLIC Acid IVPB 1 mg IVPB once Route: IVPB; Site: left forearm; kc6 17:13 Follow up: Response: No adverse reaction; IV Status: Completed infusion kc6 15:33 Drug: Banana Bag - (Multivitamin IV 1 amp, NS 0.9% IV 1000 ml, Thiamine IV 100 mg, kc6 foLIC Acid IVPB 1 mg) IV at 125 ml/hr once Route: IV; Rate: 125 ml/hr; Site: left forearm; 17:16 Follow up: Response: No adverse reaction; IV Status: Completed infusion; IV Intake: tl4 1000ml 16:12 Drug: Rocephin IV 1 grams IV at per protocol once; Given slow IV push per pharmacy kc6 instructions Route: IV; Rate: per protocol; Site: right antecubital; 17:13 Follow up: Response: No adverse reaction; IV Status: Completed infusion; IV Intake: [id number] 16:12 Drug: Keppra IV 1000 mg IV at per protocol once Route: IV; Rate: per protocol; Site: kc6 right antecubital; 17:13 Follow up: Response: No adverse reaction; IV Status: Completed infusion; IV Intake: kc6 100ml Disposition: 16:19 Critical Care:. lorenzo Disposition Summary: 05/12/24 16:18 Transfer Ordered Notes: Transfer Location: [facility] olrenzo Reason: Higher level of care lorenzo Condition: Critical lorenzo Problem: new lorenzo Symptoms: have improved lorenzo Accepting Physician: to [facility] nicu, dr rivas(05/12/24 17:16) tl4 Diagnosis - Traumatic subdural hemorrhage - acute on chronic, 20 mm thick , right, 15 mm right lorenzo to left shift - Altered mental status, unspecified lorenzo - alf (current) use of anticoagulants - aspirin, PLAVIX lorenzo Discharge Instructions: - Discharge Summary Sheet aa5 Forms: - Medication Reconciliation Form lorenzo - SBAR form lorenzo - Family Work Release aa5 Critical care time excluding procedures: 16:19 Critical care time: Bedside Care: 30 minutes, Consultation: 10 minutes, Family lorenzo Intervention: 10 minutes. Total time: 50 minutes Signatures: Dispatcher [employer] Jaylen Galvan MD MD cha Attema, Lee, FNP-C TUFT MACHINE OPERATOR-Cla1 Lee Ann Rios, RN RN ph Samara Fairchild, RN RN kc6 Sidney Parry RN RN tl4 Corrections: (The following items were deleted from the chart) 14:37 14:37 BLOOD CULTURE*+BA.LAB.BRZ ordered. EDMS EDMS 14:37 14:37 LACTATE+C.LAB.BRZ ordered. EDMS EDMS 14:37 14:37 Head C Spine Cap Wo Con+CT.RAD.BRZ ordered. EDMS EDMS 14:54 14:34 Head Brain Wo Cont+CT.RAD.BRZ ordered. EDMS EDMS 15:24 15:24 Knee Left 3 View+RAD.RAD.BRZ ordered. EDMS EDMS 15:24 15:24 Extrem Venous W Compression Zheng+US.RAD.BRZ ordered. EDMS EDMS 16:26 16:18 to [facility] nicu, dr law lorenzo ventura 17:16 16:26 to [facility] nicu, dr law ventura tl4
--- NOTE | 2024-05-12 16:20 | ER ---
Nurse's Notes [facility] [place] Name: Niharika Burris Age: 73 yrs Sex: Female : 1950 Arrival Date: 05/12/2024 Time: 14:10 Bed 6 Private MD: Diagnosis: Traumatic subdural hemorrhage-acute on chronic, 20 mm thick , right, 15 mm right to left shift;Altered mental status, unspecified;USP (current) use of anticoagulants-aspirin, PLAVIX Presentation: 05/12 14:24 Chief complaint: EMS states: EMS reports patient has had lethargy since unknown time ph yesterday. Pt fell and struck her head approx 3 weeks ago, was evaluated at [facility] and discharged to home. Pt has been able to ambulate with assistance due to left knee pain since that time until yesterday where it became it increasingly difficult. is unable to give any additional details to this event. Coronavirus screen: At this time, the client does not indicate any symptoms associated with coronavirus-19. Ebola Screen: No symptoms or risks identified at this time. Initial Sepsis Screen: Does the patient meet any 2 criteria? No. Patient's initial sepsis screen is negative. Does the patient have a suspected source of infection? No. Patient's initial sepsis screen is negative. Risk Assessment: Do you want to hurt yourself or someone else?. Onset of symptoms was May 11, 2024. Care prior to arrival: IV initiated. 20 GA, in the left forearm, Glucose check: 204. 14:24 Method Of Arrival: EMS: [facility] 14:24 Acuity: LORI 3 Triage Assessment: 14:36 General: Appears in no apparent distress. Behavior is flat. Pain: Complains of pain in ph face and left leg. EENT: No signs and/or symptoms were reported regarding the EENT system. Neuro: Level of Consciousness is awake, obeys commands, Oriented to person, place, situation, Director Asset are equal bilaterally Moves all extremities. Speech is normal, Facial symmetry appears normal, Pupils are PERRLA. Cardiovascular: Denies chest pain, shortness of breath, Capillary refill < 3 seconds Patient's skin is warm and dry. Respiratory: Airway is patent Respiratory effort is even, unlabored, Respiratory pattern is regular, symmetrical. Respiratory: Breath sounds are clear bilaterally. GI: No signs and/or symptoms were reported involving the gastrointestinal system. : No signs and/or symptoms were reported regarding the genitourinary system. Derm: No signs and/or symptoms reported regarding the dermatologic system. Musculoskeletal: No signs and/or symptoms reported regarding the musculoskeletal system. Historical: - Allergies: 14:33 No Known Allergies; ph - Home Meds: 14:33 amlodipine oral [Active]; clopidogrel oral [Active]; Januvia oral [Active]; ph levothyroxine oral [Active]; lisinopril Oral [Active]; rosuvastatin oral [Active]; Metformin Oral [Active]; - PMHx: 14:33 Diabetes - NIDDM; fatty liver; Hypertension; Hypothyroidism; ph - PSHx: :33 cardiac stent; ph - Immunization history:: Adult Immunizations unknown. - Infectious Disease History:: Denies. - Social history:: Smoking status: unknown. Screenin:39 [facility] ED Fall Risk Assessment (Adult) History of falling in the last 3 months, ph including since admission Yes- single mechanical fall (1 pt) Confusion or Disorientation Yes (5 pts) Intoxicated or Sedated No (0 pts) Impaired Gait No (0 pts) Mobility Assist Device Used No (0 pt) Altered Elimination No (0 pt) Score/Fall Risk Level 3 or more points = High Risk Oriented to surroundings, Maintained a safe environment, Educated pt \T\ family on fall prevention, incl call for assistance when getting out of bed, Assessed \T\ reinforced patient's understanding of fall precautions, Hourly rounding (assess needs \T\ fall precautionary measures) done, Used ambulatory aids as needed (educated on \T\ assisted with), Used gait belt as appropriate. Abuse screen: Denies threats or abuse. Denies injuries from another. Nutritional screening: No deficits noted. Tuberculosis screening: No symptoms or risk factors identified. Assessment: 15:47 Reassessment: Patient and/or family updated on plan of care and expected duration. Pain tl4 level reassessed. Patient is alert, oriented x 3, equal unlabored respirations, skin warm/dry/pink. Pt denies any needs at this time. Family at bedside. Will continue to monitor. 16:26 Reassessment: Report to JAQUELIN Ca at [facility], questions answered. tl4 16:47 Reassessment: Patient appears in no apparent distress at this time. No changes from kc6 previously documented assessment. Patient and/or family updated on plan of care and expected duration. Pain level reassessed. 17:13 Reassessment: Patient appears in no apparent distress at this time. No changes from kc6 previously documented assessment. Patient and/or family updated on plan of care and expected duration. Pain level reassessed. 17:13 Reassessment: report to EMS for transfer. tl4 Vital Signs: 14:20 BP 163 / 76; Pulse 62; Resp 18; Pulse Ox 98% on R/A; tl4 14:24 BP 180 / 84; Pulse 69; Resp 18; Temp 98.4(O); Pulse Ox 99% on R/A; Weight 70.2 kg; ph 14:40 BP 151 / 79; Pulse 65; Resp 19; Pulse Ox 99% on R/A; tl4 15:00 BP 172 / 72; Pulse 65; Resp 18; Pulse Ox 99% on R/A; tl4 16:00 BP 175 / 77; Pulse 68; Resp 18; Pulse Ox 99% on R/A; tl4 16:20 BP 184 / 89; Pulse 70; Resp 19; Pulse Ox 99% on R/A; tl4 16:40 BP 178 / 77; Pulse 70; Resp 19; Pulse Ox 99% on R/A; tl4 17:15 BP 178 / 82; Pulse 72; Resp 17; Temp 98.2(O); Pulse Ox 98% on R/A; tl4 ED Course: 14:21 Patient arrived in ED. em1 14:23 Jaylen Nazario MD is Attending Physician. lorenzo 14:32 Triage completed. ph 14:38 Arm band placed on right wrist. ph 14:38 Patient has correct armband on for positive identification. Placed in gown. Bed in low ph position. Call light in reach. Side rails up X2. Provided Education on: ed process, call pickard. Client placed on continuous cardiac and pulse oximetry monitoring. NIBP monitoring applied. campus monitor on. Door closed. Noise minimized. Moved to private room. Warm blanket given. Pillow given. 14:39 No provider procedures requiring assistance completed. Maintain EMS IV. Dressing ph intact. Good blood return noted. Site clean \T\ dry. Gauge \T\ site: 20g left forearm. 14:48 Initial lab(s) drawn, by me, sent to lab. First set of blood cultures drawn by me. tl4 15:01 Second set of blood cultures drawn. tl4 15:14 XRAY Chest (1 view) In Process Unspecified. EDMS 15:42 Lactate w/ 2H reflex if indic. Sent. tl4 15:42 Blood Culture Adult (2) Sent. tl4 15:44 Urine collected: straight cath specimen, marie colored, EKG done, by ED staff, reviewed tl4 by Jaylen Nazario MD. 15:55 CT Traumagram (Head C Spine CAP wo con) In Process Unspecified. EDMS 16:15 Inserted saline lock: 20 gauge in right antecubital area, using aseptic technique. tl4 16:29 US Extremity Venous W Compression Zheng In Process Unspecified. EDMS 16:46 Knee Left 3 View XRAY In Process Unspecified. EDMS 16:57 Air transportation attempted for this pt; [facility] declines at 1625; [facility] em[facility] declines at 1645; [facility] declines at 1650. [facility] will transport by ground. 17:15 Patient transferred, IV remains in place. tl4 Administered Medications: 15:33 Drug: NS 0.9% IV 500 ml IV at bolus once Route: IV; Rate: bolus; Site: left forearm; kc6 16:03 Follow up: Response: No adverse reaction; IV Status: Completed infusion; IV Intake: kc6 500ml 15:33 Drug: foLIC Acid IVPB 1 mg IVPB once Route: IVPB; Site: left forearm; kc6 17:13 Follow up: Response: No adverse reaction; IV Status: Completed infusion kc6 15:33 Drug: Banana Bag - (Multivitamin IV 1 amp, NS 0.9% IV 1000 ml, Thiamine IV 100 mg, kc6 foLIC Acid IVPB 1 mg) IV at 125 ml/hr once Route: IV; Rate: 125 ml/hr; Site: left forearm; 17:16 Follow up: Response: No adverse reaction; IV Status: Completed infusion; IV Intake: tl4 1000ml 16:12 Drug: Rocephin IV 1 grams IV at per protocol once; Given slow IV push per pharmacy kc6 instructions Route: IV; Rate: per protocol; Site: right antecubital; 17:13 Follow up: Response: No adverse reaction; IV Status: Completed infusion; IV Intake: [id number] 16:12 Drug: Keppra IV 1000 mg IV at per protocol once Route: IV; Rate: per protocol; Site: kc6 right antecubital; 17:13 Follow up: Response: No adverse reaction; IV Status: Completed infusion; IV Intake: kc6 100ml Medication: 14:39 VIS not applicable for this client. ph Intake: 16:03 IV: 500ml; Total: 500ml. kc6 17:13 IV: 100ml; Total: 600ml. kc6 17:13 IV: 10ml; Total: 610ml. kc6 17:16 IV: 1000ml; Total: 1610ml. tl4 Outcome: 16:18 ER care complete, transfer ordered by MD. [place] 17:15 Transferred by ground EMS to [facility] 17:15 Condition: stable 17:15 Instructed on the need for transfer, 17:16 Patient left the ED. tl4 Signatures: Dispatcher [employer] EDJaylen Che MD MD cha Martinez, Eric em1 Lee Ann Rios RN RN ph Campbell, Kaitlyn, RN RN kc6 Sidney Parry RN RN tl4 Corrections: (The following items were deleted from the chart) 15:44 15:42 Initial lab(s) drawn, by me, sent to lab. First set of blood cultures drawn by tl4 me, tl4
[2024-05-12 16:29] LABS: Albumin 2.9 g/dL (3.4-5.0); Albumin/Globulin Ratio 0.6 (1.1-1.8); Anion Gap 11.8 mEq/L (5.0-15.0); Bilirubin Direct 0.5 mg/dL (0-0.2); Bilirubin Indirect, Calculated 0.7 mg/dL (0.2-0.8); Bilirubin Total 1.2 mg/dL (0.2-1.0); Globulin 5.2 g/dL (2.3-3.5); Potassium 3.8 mEq/L (3.5-5.1); Protein, Total 8.1 g/dL (6.4-8.2); Troponin High Sensitivity 8.6 pg/mL (<58.9)
--- NOTE | 2024-05-12 16:35 | RAD REPORT ---
EXAM DESCRIPTION: US - Extrem Venous W Compress Zheng - 05/12/2024 4:27 pm CLINICAL HISTORY: PAIN Bilateral leg edema and swelling. COMPARISON: <Comparisons> TECHNIQUE: Real-time sonographic interrogation of the left and right lower extremity deep venous sys tems was performed. FINDINGS: Normal compressibility, flow augmentation, phasic flow and spontaneous flow is identified in both the left and right lower extremity deep venous systems. IMPRESSION: No sonographic evidence of left or right lower extremity deep venous thrombosis.
--- NOTE | 2024-05-12 16:56 | RAD REPORT ---
EXAM DESCRIPTION: RAD - Knee Left 3 View - 05/12/2024 4:44 pm CLINICAL HISTORY: PAIN COMPARISON: <Comparisons> FINDINGS: Moderate tricompartmental osteoarthritis is present, greatest medially. No fracture, dislo cation or aggressive marrow pattern. Small suprapatellar joint effusion.
[2024-05-12 18:16] VITALS: BP 178/82
[2024-05-12 18:17] VITALS: TEMP 98.2; O2SAT 98
--- NOTE | 2024-05-13 14:34 | EKG ---
Test Date: 2024-05-12 Test Time: 15:39:21 Purchaser: TL MEASUREMENT RESULTS: Intervals: Rate: 77 OR: 184 QRSD: 78 QT: 398 QTc: 450 Weed: P: 56 OR: 184 QRS: 14 T: 30 INTERPRETIVE STATEMENTS: Normal sinus rhythm Normal ECG Compared to ECG 01/26/2024 03:22:45 Sinus tachycardia no longer present First degree AV block no longer present Electronically Signed On 05-13-24 14:32:28 CDT by Sherman Jama
== END 2024-05-12 17:16 | disposition short-term general hospital (02) ==
LOC: ER 14:10
DX: S06.5X0A Traumatic subdural hemorrhage without loss of consciousness, initial encounter (principal); I10 Essential (primary) hypertension; E11.9 Type 2 diabetes mellitus without complications; E03.9 Hypothyroidism, unspecified; Z95.818 Presence of other cardiac implants and grafts; Z79.01 Long term (current) use of anticoagulants; Z79.82 Long term (current) use of aspirin
CPT/HCPCS: 93005; 87040 ×2; 85025; 81001; 80048; 36415; 83735; 85610; 80076; 83605; 84484; 83690; 83880; 70450; 71250; 72125; 71045; 73562; 93970; 99285; J3411; J1953; J7040; J7030; J0696

== ENCOUNTER 2024-09-03 23:35 | Emergency (ER) | payer OTHER ==
--- OUTSIDE RECORDS SUMMARY | 2024-09-03 23:38 | XMS REPORT | Clinical Summary ---
Author Name Unknown Organization [facility] Address [address] [place] [address] Care Team Providers Care Information Systems Security Developer Name Role Phone Arian Pitt MD Primary Care Provider [phone] Encounters Date Type Department Care Team Description 09/14/2023 8:10 PM CDT Ancillary Procedure Image Library [address] [place] [id number] Arian Pitt MD Cancer 09/14/2023 8:05 PM CDT Ancillary Procedure Image Library [address] [place] [id number] Arian Pitt MD Cancer 09/14/2023 8:00 PM CDT Ancillary Procedure Image Library [address] [place] [id number] Arian Pitt MD Cancer after 09/04/2023 Social History Tobacco Use Types Packs/Day Years Used Date Smoking Tobacco: Never Assessed Sex and Gender Information Value Date Recorded Sex Assigned at Not on file Gender Identity Not on file Sexual Orientation Not on file Job Start Date Occupation Industry Not on file Not on file Not on file Plan of Treatment Not on file Care Teams Information Systems Security Developer Relationship Specialty Start Date End Date Arian Pitt MD [address] [place] [id number] [email or web address] PCP - General Surgical Oncology 08/27/23
[2024-09-04] MEDS ORDERED: VANCOMYCIN 1 GM/VIAL ONE (00:03)
[2024-09-04] MEDS ORDERED: ACETAMINOPHEN 500 MG TAB ONE (00:04)
[2024-09-04] MEDS ORDERED: IBUPROFEN 400 MG TAB ONE (00:04)
[2024-09-04] MEDS ORDERED: ONDANSETRON 4 MG/2 ML VIAL ONE (00:04)
[2024-09-04] MEDS ORDERED: CEFEPIME 2 GM VIAL ONE (00:04)
[2024-09-04] MEDS ORDERED: NA CHLORIDE 0.9% 2,000 ML ONE (00:05)
[2024-09-04] MEDS ORDERED: NA CHLORIDE 0.9% 250 ML ONE (00:05)
[2024-09-04] MEDS ORDERED: NA CHLORIDE 0.9% 100 ML ONE (00:05)
[2024-09-04 00:19] LABS: Absolute Lymphocytes (CBC) 0.8 K/uL (0.7-4.9); Absolute Monocytes 0.4 K/uL (0.1-1.3); Absolute Neutrophil 6.1 K/uL (1.8-8.0); Basophils % 0.1 % (0-1.3); Eosinophils % 0.1 % (0-4.4); Hematocrit 39.5 % (36.0-45.0); Hemoglobin 13.2 g/dL (12.0-15.0); Lymphocytes % 10.5 % (15.3-44.8); MCH 29.7 pg (27.0-35.0); MCHC 33.6 g/dL (32.0-36.0); MCV 88.4 fL (80-100); MPV 8.3 fL (7.6-11.3); Monocytes % 5.3 % (3.3-12.3); Nucleated Red Blood Cells % 0.1 % (0-0); Platelets 60 thou/uL (152-406); RBC Red Blood Cell Count 4.47 M/uL (3.86-4.86)
[2024-09-04 00:28] LABS: Albumin 2.8 g/dL (3.4-5.0); Albumin/Globulin Ratio 0.5 (1.1-1.8); Anion Gap 10.9 mEq/L (5.0-15.0); Bilirubin Direct 0.9 mg/dL (0-0.2); Bilirubin Total 1.9 mg/dL (0.2-1.0); Globulin 5.3 g/dL (2.3-3.5); Magnesium 1.6 mg/dL (1.6-2.4); Potassium 3.9 mEq/L (3.5-5.1); Protein, Total 8.1 g/dL (6.4-8.2)
[2024-09-04 00:29] LABS: Troponin High Sensitivity 379.6 pg/mL (<58.9)
[2024-09-04 00:39] LABS: SARS-CoV-2 Antigen CONTROL BLUE LINE VIS/BG OK; SARS-CoV-2 Antigen Rapid Res Negative (Negative)
[2024-09-04 00:57] LABS: PTT, Activated Partial Thromb 33.7 SECONDS (24.3-36.9); Protime INR 1.72
[2024-09-04 01:30] LABS: Specific Gravity > 1.030 (1.005-1.030); Sqamous Epithelial <5 /HPF (None Seen); Urine Bacteria <20 /HPF (<20); Urine Bilirubin 1+ (Negative); Urine Blood 3+ (OVER) (Negative); Urine Clarity Turbid (Clear); Urine Color Yellow (Yellow); Urine Culture Reflex Order NOT NEEDED; Urine Glucose NEGATIVE (Negative); Urine Ketones TRACE (Negative); Urine Microscopic Reflex YN ORDER UMIC; Urine Mucus 2+ /HPF (None Seen); Urine Nitrite NEGATIVE (Negative); Urine Protein 3+ (Negative); Urine RBC 21-50 /HPF (None Seen); Urine Urobilinogen 2+ (Normal); Urine WBC <5 /HPF (<5); Urine Yeast (Budding) Occasional /HPF (None Seen)
[2024-09-04 01:33] LABS: Blood Morphology Comment NOT SEEN (NOT SEEN); Platelet Estimate DECR; White Blood Cell Scan OK (OK)
[2024-09-04] MEDS ORDERED: NA CHLORIDE 0.9% 1,000 ML ONE (04:19)
--- NOTE | 2024-09-04 04:20 | ER ---
Nurse's Notes [facility] [place] Name: Niharika Burris Age: 73 yrs Sex: Female : 1950 Arrival Date: 09/03/2024 Time: 23:35 Bed 4 Private MD: Diagnosis: Severe sepsis without septic shock;Other specified sepsis;Elevated Troponin Presentation: 09/03 23:40 Chief complaint: EMS states: generalized weakness that started about a day and a half cp4 ago. 23:40 Coronavirus screen: Client denies travel out of the [place] in the last 14 days. At this cp4 time, the client does not indicate any symptoms associated with coronavirus-19. Ebola Screen: Patient negative for fever greater than or equal to 101.5 degrees Fahrenheit, and additional compatible Ebola Virus Disease symptoms Patient denies exposure to infectious person. Patient denies travel to an Ebola-affected area in the 21 days before illness onset. No symptoms or risks identified at this time. Initial Sepsis Screen: Does the patient meet any 2 criteria? RR > 20 per min. Temp <36.0*C (96.8*F)) or > 38.3*C (100.9*F). HR > 90 bpm. Yes Does the patient have a suspected source of infection? No. Patient's initial sepsis screen is negative. If YES to both, name of provider notified: Omar Spring MD Risk Assessment: Do you want to hurt yourself or someone else? Patient reports no desire to harm self or others. Onset of symptoms was September 02, 2024. 23:40 Method Of Arrival: EMS: [facility] cp4 23:40 Acuity: LORI 2 cp4 Triage Assessment: 23:40 General: Appears in no apparent distress. uncomfortable, Behavior is calm, cooperative, cp4 appropriate for age. Pain: Complains of pain in right leg and left leg Pain does not radiate. Pain currently is 5 out of 10 on a pain scale. EENT: No signs and/or symptoms were reported regarding the EENT system. Neuro: Level of Consciousness is awake, alert, obeys commands, Oriented to person, place, time, situation. Cardiovascular: Patient's skin is warm and dry. Respiratory: Airway is patent Respiratory effort is even, unlabored. GI: No signs and/or symptoms were reported involving the gastrointestinal system. : No signs and/or symptoms were reported regarding the genitourinary system. Derm: No signs and/or symptoms reported regarding the dermatologic system. Musculoskeletal: No signs and/or symptoms reported regarding the musculoskeletal system. Historical: - PMHx: 23:40 Diabetes - NIDDM; fatty liver; Hypertension; Hypothyroidism; cp4 - PSHx: 23:40 cardiac stent; cp4 - Immunization history:: Adult Immunizations up to date. - Infectious Disease History:: Denies. - Social history:: Smoking status: Patient denies any tobacco usage or history of. - Family history:: not pertinent. Screenin/24 00:[address] [facility] ED Fall Risk Assessment (Adult) History of falling in the last 3 months, cp4 including since admission No falls in past 3 months (0 pts) Confusion or Disorientation No (0 pts) Intoxicated or Sedated No (0 pts) Impaired Gait No (0 pts) Mobility Assist Device Used No (0 pt) Altered Elimination No (0 pt) Score/Fall Risk Level 0 - 2 = Low Risk Oriented to surroundings, Maintained a safe environment, Assessed \T\ reinforced patient's understanding of fall precautions, Hourly rounding (assess needs \T\ fall precautionary measures) done. Abuse screen: Denies threats or abuse. Nutritional screening: No deficits noted. Tuberculosis screening: No symptoms or risk factors identified. Assessment: 00:24 Reassessment: No changes from previously documented assessment. cp4 01:30 Reassessment: Patient appears in no apparent distress at this time. Patient and/or cp4 family updated on plan of care and expected duration. Pain level reassessed. Patient is alert, oriented x 3, equal unlabored respirations, skin warm/dry/pink. 02:30 Reassessment: Patient appears in no apparent distress at this time. Patient and/or cp4 family updated on plan of care and expected duration. Pain level reassessed. Patient is alert, oriented x 3, equal unlabored respirations, skin warm/dry/pink. 03:30 Reassessment: Patient appears in no apparent distress at this time. Patient and/or cp4 family updated on plan of care and expected duration. Pain level reassessed. Patient is alert, oriented x 3, equal unlabored respirations, skin warm/dry/pink. 04:31 Reassessment: Patient appears in no apparent distress at this time. Patient and/or cp4 family updated on plan of care and expected duration. Pain level reassessed. Patient is alert, oriented x 3, equal unlabored respirations, skin warm/dry/pink. 05:30 Reassessment: Patient appears in no apparent distress at this time. Patient and/or cp4 family updated on plan of care and expected duration. Pain level reassessed. Patient is alert, oriented x 3, equal unlabored respirations, skin warm/dry/pink. 06:14 Reassessment: called and notified of patient transfer to [facility]. cp4 Vital Signs: 09/03 23:49 BP 155 / 79; Pulse 101; Resp 23; Temp 101.6; Pulse Ox 99% ; Weight 69.4 kg; Height 5 cp4 ft. 3 in. ; Pain 0/10; 09/04 00:30 BP 145 / 74; Pulse 98; Resp 23; Pulse Ox 98% ; cp4 01:30 BP 121 / 66; Pulse 88; Resp 25; Pulse Ox 98% ; cp4 01:30 Temp 98; cp4 02:30 BP 103 / 59; Pulse 75; Resp 19; Pulse Ox 97% ; cp4 03:30 BP 104 / 60; Pulse 72; Resp 19; Pulse Ox 98% ; cp4 04:30 BP 118 / 69; Pulse 68; Resp 18; Pulse Ox 97% ; cp4 05:30 BP 117 / 66; Pulse 74; Resp 18; Pulse Ox 98% ; cp4 06:50 BP 116 / 68; Pulse 70; Resp 18; Temp 98.2; Pulse Ox 100% on R/A; kj2 09/03 23:49 Body Mass Index 27.10 (69.40 kg, 160.02 cm) cp4 09/03 23:49 Pain Scale: Adult cp4 [place] Coma Score: 04:20 Eye Response: spontaneous(4). Motor Response: obeys commands(6). Verbal Response: sp4 oriented(5). Total: 15. ED Course: 09/03 23:36 Patient arrived in ED. ty 23:36 Omar Spring MD is Attending Physician. sp4 23:40 Arm band placed on right wrist. Patient placed in an exam room, on a stretcher. cp4 23:52 Initial lab(s) drawn, by me, sent to lab. First set of blood cultures drawn EKG done, cp4 by ED staff, reviewed by Omar Spring MD COVID swab sent to lab. Flu and/or RSV swab sent to lab. 23:58 Influenza Screen (a \T\ B) Sent. cp4 23:58 SARS RAPID Sent. cp4 23:59 Inserted saline lock: 20 gauge in right antecubital area, using aseptic technique. cp4 Blood collected. Flushed with 10 mL NS. 09/04 00:11 Influenza Screen (a \T\ B) Sent. rv1 00:11 SARS RAPID Sent. rv1 00:15 Second set of blood cultures drawn. cp4 00:16 CT Head Brain wo Cont In Process Unspecified. EDMS 00:16 CT Chest Abdomen Pelvis W/O Contrast In Process Unspecified. EDMS 00:22 Triage completed. cp4 00:24 No provider procedures requiring assistance completed. cp4 00:24 Bed in low position. Call light in reach. Side rails up X2. cp4 00:26 XRAY Chest (1 view) In Process Unspecified. EDMS 00:36 Zelda Chacko is Primary Nurse. cp4 01:13 Cisse cath inserted, using sterile technique, 18 Fr., by me, balloon inflated, to rv1 gravity drainage, urine specimen collected. returned marie urine. Patient tolerated well. 01:13 Urine collected: straight cath specimen, marie colored, Amount Returned: 250mL. rv1 03:50 Primary Nurse role handed off by Zelda Chacko cp4 04:00 Zelda Chacko is Primary Nurse. cp4 04:00 Zelda Chacko is Primary Nurse. cp4 04:19 Prince Bañuelos MD is Hospitalizing Provider. sp4 04:46 TC CALLED TO INITIATE PATIENT TRANSFER, SPOKE WITH SALIMA FIELDS. ty 05:52 [facility] CALLED FOR PATIENT TRANSPORT, ETA 25. ty 06:05 Patient transferred, IV remains in place. cp4 06:05 Provided Education on: transfer. cp4 Administered Medications: 00:24 Drug: Ondansetron IVP 4 mg IVP once; over 2 minutes Route: IVP; Site: right antecubital;cp4 01:06 Follow up: Response: No adverse reaction cp4 00:25 Drug: Acetaminophen PO 1000 mg PO once Route: PO; cp4 01:06 Follow up: Response: No adverse reaction cp4 00:25 Drug: NS 0.9% IV (30 ml/kg) 30 ml/kg IV at bolus once; Sepsis Protocol; to be given as cp4 a bolus over 90 minutes Route: IV; Rate: bolus; Site: right antecubital; 02:06 Follow up: Response: No adverse reaction; IV Status: Completed infusion cp4 00:25 Drug: Cefepime IVPB 2 grams IVPB at 200 ml/hr once over 30 mins; (mix in NS 100 mL) cp4 Route: IVPB; Rate: 200 ml/hr; Infused Over: 30 mins; Site: right antecubital; 01:06 Follow up: IV Status: Completed infusion cp4 00:26 Drug: Ibuprofen PO 800 mg PO once Route: PO; cp4 01:07 Follow up: Response: No adverse reaction cp4 01:06 Drug: vancoMYCIN IVPB 1 grams IVPB once over 2 hrs Route: IVPB; Infused Over: 2 hrs; cp4 Site: right antecubital; 02:06 Follow up: Response: No adverse reaction; IV Status: Completed infusion cp4 04:22 Drug: NS 0.9% IV 1000 ml IV at 125 ml/hr continuous Route: IV; Rate: 125 ml/hr; Site: cp4 right antecubital; 06:07 Follow up: IV Status: Infusion continued upon transfer cp4 06:05 Drug: Enoxaparin Sub-Q 70 mg Sub-Q once Route: Sub-Q; Site: abdomen; kj2 06:07 Follow up: Response: No adverse reaction kj2 Medication: 00:24 VIS not applicable for this client. cp4 Outcome: 04:20 Decision to Hospitalize by Provider. sp4 04:30 ER care complete, transfer ordered by . sp4 06:04 Transferred by ground EMS to [facility], Transfer form completed. cp4 X-rays sent w/ patient. 06:04 Condition: stable 06:04 Instructed on the need for transfer, 06:57 Patient left the ED. kj2 Signatures: Dispatcher [employer] EDClarissa Abreu rv1 Omar Spring MD MD sp4 Zelda Chacko cp4 Slick Nur Krystal, RN RN kj2
--- NOTE | 2024-09-04 04:20 | EDPHYS ---
Physician Documentation [facility] [place] Name: Niharika Burris Age: 73 yrs Sex: Female : 1950 Arrival Date: 09/03/2024 Time: 23:35 Bed 4 Private MD: ED Physician Omar Spring HPI: 09/04 04:18 This 73 yrs old Female presents to ER via EMS with complaints of General sp4 Weakness. 04:18 73 year old presents with fever. . sp4 04:20 73-year-old female with past medical history of diabetes, fatty liver, cirrhosis, sp4 hypertension hypothyroidism and prior intracranial traumatic hemorrhage presents with acute mental status changes associated with generalized weakness and fever. Febrile on arrival. Denied headache.. Historical: - PMHx: 09/03 23:40 Diabetes - NIDDM; fatty liver; Hypertension; Hypothyroidism; cp4 - PSHx: 23:40 cardiac stent; cp4 - Immunization history:: Adult Immunizations up to date. - Infectious Disease History:: Denies. - Social history:: Smoking status: Patient denies any tobacco usage or history of. - Family history:: not pertinent. ROS: 09/04 04:20 Constitutional: Positive fever, positive Generalized weakness sp4 All other systems are negative, Exam: 04:20 Constitutional: This is a well developed, well nourished patient who is awake, alert, sp4 frail elderly female, febrile on arrival Head/Face: Normocephalic, atraumatic. Eyes: Pupils equal round and reactive to light, extra-ocular motions intact. Lids and lashes normal. Conjunctiva and sclera are not injected. Cornea within normal limits. Periorbital areas with no swelling, redness, or edema. ENT: Nares patent. No nasal discharge, no septal abnormalities noted. Tympanic membranes are normal and external auditory canals are clear. Oropharynx with no redness, swelling, or masses, exudates, or evidence of obstruction, uvula midline. Mucous membranes moist. Neck: Trachea midline, no thyromegaly or masses palpated, and no cervical lymphadenopathy. Supple, full range of motion without nuchal rigidity, or vertebral point tenderness. Chest/axilla: Normal chest wall appearance and motion. Nontender with no deformity. No lesions are appreciated. Cardiovascular: Regular rate and rhythm with a normal S1 and S2. No gallops, murmurs, or rubs. Normal PMI, no JVD. No pulse deficits. Respiratory: Lungs have equal breath sounds bilaterally, clear to auscultation and percussion. No rales, rhonchi or wheezes noted. No increased work of breathing, no retractions or nasal flaring. Abdomen/GI: Soft, with normal bowel sounds. No distension or tympany. No guarding or rebound. No evidence of tenderness throughout. Back: No spinal tenderness. No costovertebral tenderness. Skin: Warm, dry with normal turgor. Normal color with no rashes, no lesions, and no evidence of cellulitis. MS/ Extremity: Pulses equal, no cyanosis. Neurovascular intact. Full, normal range of motion. Neuro: Awake and alert, GCS 15, oriented to person, place, time, and situation. Cranial nerves II-XII grossly intact. Motor strength 5/5 in all extremities. Sensory grossly intact. Psych: Awake, alert, with orientation to person, place and time. Behavior, mood, and affect are within normal limits 04:28 ECG was reviewed by the Attending Physician. EKG at 2350 tachycardia rate 101 sp4 positive LVH. Vital Signs: 09/03 23:49 BP 155 / 79; Pulse 101; Resp 23; Temp 101.6; Pulse Ox 99% ; Weight 69.4 kg; Height 5 cp4 ft. 3 in. ; Pain 0/10; 09/04 00:30 BP 145 / 74; Pulse 98; Resp 23; Pulse Ox 98% ; cp4 01:30 BP 121 / 66; Pulse 88; Resp 25; Pulse Ox 98% ; cp4 01:30 Temp 98; cp4 02:30 BP 103 / 59; Pulse 75; Resp 19; Pulse Ox 97% ; cp4 03:30 BP 104 / 60; Pulse 72; Resp 19; Pulse Ox 98% ; cp4 04:30 BP 118 / 69; Pulse 68; Resp 18; Pulse Ox 97% ; cp4 05:30 BP 117 / 66; Pulse 74; Resp 18; Pulse Ox 98% ; cp4 06:50 BP 116 / 68; Pulse 70; Resp 18; Temp 98.2; Pulse Ox 100% on R/A; kj2 09/03 23:49 Body Mass Index 27.10 (69.40 kg, 160.02 cm) cp4 09/03 23:49 Pain Scale: Adult cp4 [place] Coma Score: 04:20 Eye Response: spontaneous(4). Motor Response: obeys commands(6). Verbal Response: sp4 oriented(5). Total: 15. MDM: 09/03 23:38 Medical Screening Exam initiated sp4 09/04 04:23 ED course: EXAM DESCRIPTION: XR CHEST 1 VIEW 09/04/2024 12:46 AM CDT CLINICAL HISTORY: sp4 73 years, Female, Chest pain. COMPARISON: CT Head C-spine chest abdomen pelvis 05/12/2024. FINDINGS: 1 view of the chest (AP portable projection) was obtained. No prior films are available at this time for comparison. There is normal lung volume. Mediastinum: The cardiomediastinal silhouette appears normal in size and shape. Lungs: Minimal diffuse increased interstitial pulmonary markings. Heart: The heart is in the upper normal size. Thoracic aorta: The thoracic aorta demonstrate to be mildly tortuous with minimal intimal calcification. Metallic stent within the aortic valve correspond to previous transaortic valvular repair. Pulmonary vasculature: The pulmonary vasculature is normal in distribution. Pleura: The costophrenic angles demonstrate to be sharp. Osseous structures: The bony structures demonstrate minimal degenerative changes bilateral glenohumeral joints and AC joints. Other: External EKG leads within the [id number] limits diagnosis. IMPRESSION: Minimal diffuse increased interstitial pulmonary markings perhaps suggesting early interstitial lung disease. Status post TAVR. Electronically signed by: Willy Portillo MD 09/04/2024 01:24 AM. 04:25 ED course: CT chest - IMPRESSION: No evidence for acute intrathoracic process. sp4 Classification of Cystic Renal Masses, Version 2019. Status post cholecystectomy and hysterectomy. Minimal diverticulosis without evidence of acute diverticulitis. Cirrhosis of the liver and mild splenomegaly most likely related to changes of portal hypertension. Electronically signed by: Willy Portillo MD 09/04/2024 01:34 AM C. ED course: CT HEAD WITHOUT IV CONTRAST INDICATION: Weakness. COMPARISON: CT head 05/12/2024 TECHNIQUE: CT images of the head were obtained without contrast. Multiplanar reformats were provided. Dose lowering techniques such as automated exposure control, iterative reconstruction, and mA and/or kV adjustment for patient size was utilized for this examination. FINDINGS: Status post previous right craniotomy. Small oval density along the right frontal sulcus is stable. Previous seen large right subdural collection has nearly resolved. Trace extra-axial hyperdensity along the right frontal convexity is favored to represent the residual subdural hemorrhagic collection; acute hemorrhage is difficult to exclude. Several small foci of encephalomalacia in the right cerebral hemisphere, likely sequela from previous insult. No acute arterial territory infarct. No acute intracranial hemorrhage. No mass effect, midline shift or extra-axial collection. Ventricles are normal in size for patient's age. No acute calvarial fracture. Paranasal sinuses, mastoid air cells and middle ear cavities are clear. Orbits are unremarkable. IMPRESSION: Trace extra-axial hyper density along the right frontal convexity is favored to represent residual subdural hemorrhagic collection; however acute extra-axial hemorrhage is difficult to exclude.. 04:27 Differential diagnosis: generalized weakness, GI bleed, head injury, hypovolemia, sp4 idiopathic dizziness, near-syncope, sepsis, syncope. Data reviewed: vital signs, nurses notes, lab test result(s), EKG, radiologic studies, CT scan, plain films. 05:39 Consideration of Admission/Observation Escalation of care including sp4 admission/observation considered. Management of patient was discussed with the following: Guard Rail Installer: Dr. Solano Hospitalist at the [facility] . ED course: CT - revealed - The thoracic aorta demonstrate minimal intimal aortic arch calcification. No evidence for aneurysm. There is a stent within the aortic valve area corresponding to previous transaortic valvular repair. . 09/03 23:47 Order name: CBC with Diff; Complete Time: 04:07 sp4 09/03 23:47 Order name: LFT's; Complete Time: 01:08 sp4 09/03 23:47 Order name: Magnesium; Complete Time: 01:08 sp4 09/03 23:47 Order name: NT PRO-BNP; Complete Time: 01:08 sp4 09/03 23:47 Order name: PT-INR; Complete Time: 01:08 sp4 09/03 23:47 Order name: Troponin HS; Complete Time: 01:08 sp4 09/03 23:47 Order name: Blood Culture Adult (2) sp4 09/03 23:47 Order name: CMP; Complete Time: 01:08 sp4 09/03 23:47 Order name: Lactate w/ 2H reflex if indic.; Complete Time: 01:08 sp4 09/03 23:47 Order name: Ptt, Activated; Complete Time: 01:08 sp4 09/03 23:47 Order name: Urinalysis w/ reflexes; Complete Time: 04:07 sp4 09/03 23:49 Order name: SARS RAPID; Complete Time: 01:08 sp4 09/03 23:49 Order name: Influenza Screen (a \T\ B); Complete Time: 01:08 sp4 09/04 00:24 Order name: CBC Smear Scan; Complete Time: 04:07 EDMS 09/04 00:31 Order name: Glucose, Ancillary Testing; Complete Time: 01:08 EDMS 09/04 02:27 Order name: Ghost Lactate-NO COLLECT Timer; Complete Time: 04:07 EDMS 09/04 03:13 Order name: Lactate Sepsis 2 HR Follow-up; Complete Time: 04:07 EDMS 09/04 04:07 Order name: Troponin High Sensitivity; Complete Time: 05:01 sp4 09/03 23:47 Order name: XRAY Chest (1 view) 4 09/03 23:48 Order name: CT Head Brain wo Cont sp4 09/03 23:48 Order name: CT Chest Abdomen Pelvis W/O Contrast sp4 09/03 23:47 Order name: EKG; Complete Time: 23:48 sp4 09/03 23:47 Order name: Cardiac monitoring; Complete Time: 23:58 sp4 09/03 23:47 Order name: EKG - Nurse/Tech; Complete Time: 23:58 sp4 09/03 23:47 Order name: IV Saline Lock; Complete Time: 23:58 sp4 09/03 23:47 Order name: Labs collected and sent; Complete Time: 23:58 sp4 09/03 23:47 Order name: O2 Per Protocol; Complete Time: 23:58 sp4 09/03 23:47 Order name: O2 Sat Monitoring; Complete Time: 23:58 sp4 09/03 23:47 Order name: Accucheck; Complete Time: 00:19 sp4 09/03 23:47 Order name: Cath; Complete Time: 01:06 sp4 09/03 23:47 Order name: IV Saline Lock - Large Bore; Complete Time: 00:19 sp4 09/03 23:47 Order name: Vital Signs; Complete Time: 00:19 sp4 EC:28 Rate is 101 beats/min. Rhythm is regular, Sinus tachycardia. QRS Gore is Normal. AL sp4 interval is normal. QRS interval is normal. QT interval is normal. No Q waves. T waves are Normal. No ST changes noted. Clinical impression: No evidence of ischemia. Interpreted by me. Administered Medications: 00:24 Drug: Ondansetron IVP 4 mg IVP once; over 2 minutes Route: IVP; Site: right antecubital;cp4 01:06 Follow up: Response: No adverse reaction cp4 00:25 Drug: Acetaminophen PO 1000 mg PO once Route: PO; cp4 01:06 Follow up: Response: No adverse reaction cp4 00:25 Drug: NS 0.9% IV (30 ml/kg) 30 ml/kg IV at bolus once; Sepsis Protocol; to be given as cp4 a bolus over 90 minutes Route: IV; Rate: bolus; Site: right antecubital; 02:06 Follow up: Response: No adverse reaction; IV Status: Completed infusion cp4 00:25 Drug: Cefepime IVPB 2 grams IVPB at 200 ml/hr once over 30 mins; (mix in NS 100 mL) cp4 Route: IVPB; Rate: 200 ml/hr; Infused Over: 30 mins; Site: right antecubital; 01:06 Follow up: IV Status: Completed infusion cp4 00:26 Drug: Ibuprofen PO 800 mg PO once Route: PO; cp4 01:07 Follow up: Response: No adverse reaction cp4 01:06 Drug: vancoMYCIN IVPB 1 grams IVPB once over 2 hrs Route: IVPB; Infused Over: 2 hrs; cp4 Site: right antecubital; 02:06 Follow up: Response: No adverse reaction; IV Status: Completed infusion cp4 04:22 Drug: NS 0.9% IV 1000 ml IV at 125 ml/hr continuous Route: IV; Rate: 125 ml/hr; Site: cp4 right antecubital; 06:07 Follow up: IV Status: Infusion continued upon transfer cp4 06:05 Drug: Enoxaparin Sub-Q 70 mg Sub-Q once Route: Sub-Q; Site: abdomen; kj2 06:07 Follow up: Response: No adverse reaction kj2 Disposition Summary: 09/04/24 04:30 Transfer Ordered Notes: Transfer Location: [facility] sp4 Reason: Higher level of care sp4 Condition: Stable(09/04/24 04:30) sp4 Problem: new(09/04/24 04:30) sp4 Symptoms: have improved(09/04/24 04:30) sp4 Accepting Physician: [facility] attending physician, (09/04/24 06:57) kj2 Diagnosis - Severe sepsis without septic shock(09/04/24 04:30) sp4 - Other specified sepsis sp4 - Elevated Troponin sp4 Forms: - Medication Reconciliation Form sp4 - SBAR form sp4 Critical care time excluding procedures: 04:29 Critical care time: Bedside Care: 36 minutes, Consultation: 12 minutes, Family sp4 Intervention: 12 minutes. Total time: 60 minutes Signatures: Dispatcher [employer] EDMS Omar Spring MD MD sp4 Zelda Chacko Krystal, RN RN kj2 Corrections: (The following items were deleted from the chart) 09/03 23:49 23:49 SARS-COV-2 Antigen Rapid+I.LAB.BRZ ordered. EDMS EDMS 23:49 23:49 Influenza Screen (A \T\ B)+BA.LAB.BRZ ordered. EDMS EDMS 23:50 23:48 BASIC METABOLIC PANEL+C.LAB.BRZ ordered. EDMS EDMS 09/04 04:29 04:20 Inpatient Admission sp4 sp4 04:29 04:20 Prince Sarmad sp4 sp4 04:29 04:20 Telemetry/MedSurg (Inpatient) sp4 sp4 04:29 04:20 Stable sp4 sp4 04:29 04:20 new sp4 sp4 04:29 04:20 have improved sp4 sp4 04:29 04:20 Standard sp4 sp4 04:29 04:20 sp4 sp4 04:29 04:20 Severe sepsis without septic shock sp4 sp4 05:41 04:30 [facility] attending physician, sp4 sp4 06:57 05:41 [facility] attending physician, sp4 kj2
--- NOTE | 2024-09-04 04:57 | RAD REPORT ---
EXAM DESCRIPTION: XR CHEST 1 VIEW 09/04/2024 12:46 AM CDT CLINICAL HISTORY: 73 years, Female, Chest pain. COMPARISON: CT Head C-spine chest abdomen pelvis 05/12/2024. FINDINGS: 1 view of the chest (AP portable projection) was obtained. No prior films are available at this zonia e for comparison. There is normal lung volume. Mediastinum: The cardiomediastinal silhouette appears normal in size and shape. Lungs: Minimal diffuse increased interstitial pulmonary markings. Heart: The heart is in the upper normal size. Thoracic aorta: The thoracic aorta demonstrate to be mildly tortuous with minimal intimal calcificati on. Metallic stent within the aortic valve correspond to previous transaortic valvular repair. Pulmonary vasculature: The pulmonary vasculature is normal in distribution. Pleura: The costophrenic angles demonstrate to be sharp. Osseous structures: The bony structures demonstrate minimal degenerative changes bilateral glenohumer al joints and AC joints. Other: External EKG leads within the pavmj-rn-hefy limits diagnosis. IMPRESSION: Minimal diffuse increased interstitial pulmonary markings perhaps suggesting early interstitial lung disease. Status post TAVR. Electronically signed by: Willy Portillo MD 09/04/2024 01:24 AM CDT RP Due to temporary technical issues with the PACS/Ryla reporting system, reports are being saad d by the in-house radiologist without review as a courtesy to ensure prompt reporting the interpreting radiologist is fully responsible for the content of the report. Transcribed Date/Time: 09/04/2024 4:57 AM
[2024-09-04] MEDS ORDERED: ENOXAPARIN 80 MG/0.8 ML SQ ONE (06:03)
--- NOTE | 2024-09-04 07:09 | RAD REPORT ---
CT HEAD WITHOUT IV CONTRAST INDICATION: Weakness. COMPARISON: CT head 05/12/2024 TECHNIQUE: CT images of the head were obtained without contrast. Multiplanar reformats were provided. Dose lowering techniques such as automated exposure control, iterative reconstruction, and mA and/or kV adjustment for patient size was utilized for this examination. FINDINGS: Status post previous right craniotomy. Small oval density along the right frontal sulcus is stable. P revious seen large right subdural collection has nearly resolved. Trace extra-axial hyperdensity along the right frontal convexity is favored to represent the residual subdural hemorrhagic collectio n; acute hemorrhage is difficult to exclude. Several small foci of encephalomalacia in the right cerebral hemisphere, likely sequela from previous insult. No acute arterial territory infarct. No acute intracranial hemorrhage. No mass effect, midline shift or extra-axial collection. Ventricles are normal in size for patient's age. No acute calvarial fracture. Paranasal sinuses, mastoid air cells and middle ear cavities are clear. Orbits are unremarkable. IMPRESSION: Trace extra-axial hyperdensity along the right frontal convexity is favored to represent residual sub dural hemorrhagic collection; however acute extra-axial hemorrhage is difficult to exclude. Electronically signed by: Starr Barroso MD 09/04/2024 12:48 AM CDT Due to temporary technical issues with the PACS/Colingo reporting system, reports are being saad d by the in-house radiologist without review as a courtesy to ensure prompt reporting the interpreting radiologist is fully responsible for the content of the report. Transcribed Date/Time: 09/04/2024 7:09 AM
--- NOTE | 2024-09-04 07:10 | RAD REPORT ---
EXAM DESCRIPTION: CT CHEST ABDOMEN PELVIS WITHOUT IV CONTRAST 09/04/2024 12:48 AM CDT CLINICAL HISTORY: 73 years, Female, Fever. COMPARISON: CT Head C-spine chest abdomen pelvis 05/12/2024. PROCEDURE: Axial images through the chest, abdomen and pelvis were generated utilizing 2 mm slice thickness at 2 mm interval reconstruction without the administration of IV contrast. In addition multiplanar reformats in the coronal and sagittal plane were obtained and reviewed. An individualized dose optimization technique, Automated Exposure Control, was utilized for the perfo rmed procedure. FINDINGS: CHEST: Lower neck: Visualized thyroid gland and soft tissues are normal. No adenopathy. Lungs: The lung parenchyma demonstrate to be clear. No evidence of airspace or interstitial process. No significant pulmonary nodules and/or masses identified. No focal areas of consolidation. Airways: The trachea mainstem bronchus demonstrate to be unremarkable. Pleural: There are no pleural effusion. No evidence for pneumothorax. Hemidiaphragms are normally pos itioned. Mediastinum and lymph nodes: No significant mediastinal and/or hilar lymphadenopathy. The axillary re gions demonstrate to be clear. Heart: Normal size. No pericardial thickening or effusion. Coronary: No significant coronary artery calcifications. Aorta: The thoracic aorta demonstrate minimal intimal aortic arch calcification. No evidence for aneu rysm. There is a stent within the aortic valve area corresponding to previous transaortic valvular repair. Pulmonary arteries: The pulmonary arteries were not evaluated due to lack of IV contrast. Osseous structures and chest wall: There is anterior spondylosis within the mid/lower thoracic spine. ABDOMEN AND PELVIS: Liver: Grossly the unopacified liver demonstrates nodular surface corresponding t o changes of cirrhosis. Gallbladder: Surgical clips within the gallbladder fossa corresponding to previous cholecystectomy. N o significant biliary duct dilatation. Adrenal glands: The adrenal glands demonstrate to be normal. Pancreas: Grossly the unopacified pancreas demonstrate to be unremarkable. Spleen: The spleen is prominent. Kidneys: The kidneys demonstrate normal uptake of contrast media. Grossly the unopacified kidneys d emonstrate to be within normal limits. There is no evidence for nephrolithiasis and/or hydronephrosis. Hyperdense cyst upper pole right kidney measuring 2.6 cm on image 53 GI: Grossly the unopacified stomach, small bowel and large bowel demonstrate to be within normal limi ts. No evidence for bowel dilatation and/or free air. The appendix is normal. The left-sided colon/sigmoid colon demonstrates presence of minimal diverticulosis. : The urinary bladder demonstrate to be unremarkable. Genitalia: The uterus is absent. There are no adnexal masses. Radiodense material within the vaginal cuff correspond to pessary. Abdominal aorta: The aorta demonstrated presence of minimal peripheral atheromatous plaque at the aor tic bifurcation. Retroperitoneum: There is no retroperitoneal lymphadenopathy. There is no evidence for ascites and/or abnormal fluid collections. Bones: The bones demonstrate to be demineralized. The lumbar spine demonstrate minimal degenerative c hanges and anterior spondylosis throughout the lumbar spine. Fzcz-rd-[id number] degenerative changes bilateral hip joints. Soft tissues: The soft tissues demonstrate to be unremarkable. IMPRESSION: No evidence for acute intrathoracic process. Cirrhosis of the liver and mild splenomegaly most likely related to changes of portal hypertension. Right Bosniak II benign renal cyst measuring 2.6 cm. No follow-up imaging is recommended. JACR 2018 Dec; 264-273, Management of the Incidental Renal Mass on CT, [employer] 2020; 814-848, B osniak Classification of Cystic Renal Masses, Version 2019. Status post cholecystectomy and hysterectomy. Minimal diverticulosis without evidence of acute diverticulitis. Electronically signed by: Willy Portillo MD 09/04/2024 01:34 AM CDT RP Due to temporary technical issues with the PACS/TYMR reporting system, reports are being saad d by the in-house radiologist without review as a courtesy to ensure prompt reporting the interpreting radiologist is fully responsible for the content of the report. Transcribed Date/Time: 09/04/2024 7:10 AM
--- NOTE | 2024-09-04 12:13 | EKG ---
Test Date: 2024-09-03 Test Time: 23:50:04 [employer]: RV MEASUREMENT RESULTS: Intervals: Rate: 101 OK: 180 QRSD: 76 QT: 324 QTc: 420 [place]: P: 53 OK: 180 QRS: -2 T: 45 INTERPRETIVE STATEMENTS: Sinus tachycardia Minimal voltage criteria for LVH, may be normal variant Borderline ECG Compared to ECG 05/12/2024 15:39:21 Left ventricular hypertrophy now present Sinus rhythm no longer present Electronically Signed On 09-04-24 12:12:14 CDT by Duarte Caban
[2024-09-04 14:20] VITALS: TEMP 98
[2024-09-04 14:25] VITALS: BP 117/66; O2SAT 98
== END 2024-09-04 06:57 | disposition short-term general hospital (02) ==
LOC: ER 23:35
DX: R50.9 Fever, unspecified (principal); A41.89 Other specified sepsis; R65.21 Severe sepsis with septic shock; R79.89 Other specified abnormal findings of blood chemistry; E11.9 Type 2 diabetes mellitus without complications; I10 Essential (primary) hypertension; Z95.818 Presence of other cardiac implants and grafts; Z11.52 Encounter for screening for COVID-19
CPT/HCPCS: 96365; 96367; 96361; 96368; 93005; 87040 ×2; 85025; 81001; 36415 ×2; 83735; 87205 ×4; 85610; 82947; 80076; 83605 ×2; 85730; 87077 ×2; 87186 ×2; 84484 ×2; 80053; 83880; 87804 ×2; 70450; 71250; 74176; 71045; 51702; 96375; 96372; 99285; 87811; J0692; J2405; J7050; J7030 ×2

== ENCOUNTER 2024-09-12 10:55 | Day surgery (SDC) | payer OTHER ==
[2024-09-12] MEDS ORDERED: NA CHLORIDE 0.9% 500 ML ONE (11:04)
[2024-09-12] MEDS ORDERED: LIDOCAINE 1% MPF 5 ML VIAL ONE (11:44)
[2024-09-12] MEDS ORDERED: propofoL 200 MG/20 ML VIAL IV ONE (11:44)
[2024-09-12 13:03] VITALS: TEMP 97
[2024-09-12 14:01] VITALS: BP 124/60; O2SAT 96
--- NOTE | 2024-09-12 14:54 | TEE ---
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 TRANSESOPHAGEAL ECHOCARDIOGRAM PROBE WAS INSERTED, NO DIFFICULTY 2. NORMAL LEFT VENTRICULAR EJECTION FRACTION 55-60% WITH NORMAL WALL MOTION 3. TRACE TRICUSPID REGURGITATION 4. MILD MITRAL REGURGITATION 5. NO VEGETATION IS SEEN TECHNOLOGIST: SANGITA NATARAJAN, RCS
== END 2024-09-12 14:15 | disposition home or self-care (01) ==
LOC: CCL 10:55 → MERGE 10:55 → CCL 14:15
PROVIDERS: ATTEND Internal Medicine
DX: I38 Endocarditis, valve unspecified (principal); I35.0 Nonrheumatic aortic (valve) stenosis; I10 Essential (primary) hypertension; Z95.2 Presence of prosthetic heart valve; Z79.899 Other long term (current) drug therapy
CPT/HCPCS: 93312; 82947; J2704; J2003; J7040; 01922

== ENCOUNTER 2024-09-16 17:43 | Inpatient (IN) | payer OTHER ==
--- NOTE | 2024-09-16 19:37 | RAD REPORT ---
EXAMINATION: ONE VIEW CHEST XR CLINICAL INDICATION: fever TECHNIQUE: Frontal chest projection is submitted. Examination is limited by patient positioning and t echnique. COMPARISON: 09/04/2024 FINDINGS: Mild interstitial pulmonary edema suspected. The heart is upper limit of normal in size. No displaced fractures identified. IMPRESSION: Mild CHF.
[2024-09-16] MEDS ORDERED: Meropenem 1,000 MG in NA CHLORIDE 0.9% 100 ML IV ONE (20:00)
[2024-09-16] MEDS: VANCOMYCIN 1 GM in NA CHLORIDE 0.9% 250 ML IVPB SCH (20:00)
[2024-09-16 20:44] VITALS: BMI 26.0
[2024-09-16] MEDS: NA CHLORIDE 0.9% 1,000 ML IV SCH (20:44)
[2024-09-16] MEDS: Meropenem 1,000 MG in NA CHLORIDE 0.9% 100 ML IV ONE (20:44)
[2024-09-16 20:49] LABS: Absolute Lymphocytes (CBC) 0.8 K/uL (0.7-4.9); Absolute Monocytes 0.5 K/uL (0.1-1.3); Absolute Neutrophil 8.7 K/uL (1.8-8.0); Basophils % 0.2 % (0-1.3); Hematocrit 37.1 % (36.0-45.0); Hemoglobin 12.4 g/dL (12.0-15.0); Lymphocytes % 7.5 % (15.3-44.8); MCH 29.8 pg (27.0-35.0); MCHC 33.5 g/dL (32.0-36.0); MCV 88.9 fL (80-100); MPV 7.1 fL (7.6-11.3); Monocytes % 5.2 % (3.3-12.3); Neutrophils % 87.1 % (41.7-73.7); Platelets 137 thou/uL (152-406); RBC Red Blood Cell Count 4.17 M/uL (3.86-4.86); Red Cell Distribution Width 17.9 % (12.1-15.2)
[2024-09-16] MEDS: INSULIN REGULAR (HUMAN) 100 UNIT/ML SQ SCH (21:00)
[2024-09-16 21:11] LABS: Albumin 2.5 g/dL (3.4-5.0); Albumin/Globulin Ratio 0.4 (1.1-1.8); Anion Gap 9.7 mEq/L (5.0-15.0); Bilirubin Total 1.3 mg/dL (0.2-1.0); Globulin 5.7 g/dL (2.3-3.5); Magnesium 1.5 mg/dL (1.6-2.4); Potassium 3.7 mEq/L (3.5-5.1); Protein, Total 8.2 g/dL (6.4-8.2)
[2024-09-16] MEDS: VANCOMYCIN 1 GM in NA CHLORIDE 0.9% 250 ML IVPB ONE (21:22)
[2024-09-17] MEDS: Meropenem 1,000 MG in NA CHLORIDE 0.9% 100 ML IV SCH (03:11)
[2024-09-17 03:30] LABS: Specific Gravity 1.021 (1.005-1.030); Sqamous Epithelial <5 /HPF (None Seen); Urine Bacteria 20-50 /HPF (<20); Urine Bilirubin NEGATIVE (Negative); Urine Blood 2+ (Negative); Urine Clarity Extremely Turbid (Clear); Urine Color Yellow (Yellow); Urine Culture Reflex Order REFLEXED; Urine Glucose NEGATIVE (Negative); Urine Ketones TRACE (Negative); Urine Micro Reflex YN NO BILL MICROSCOPIC; Urine Mucus 1+ /HPF (None Seen); Urine Nitrite NEGATIVE (Negative); Urine Protein 1+ (Negative); Urine Urobilinogen Normal (Normal); Urine WBC 20-50 /HPF (<5)
[2024-09-17] MEDS: Magnesium Sulfate 2gm IVPB 2 G/50 ML BAG IV ONE (08:26)
[2024-09-17] MEDS: CLOPIDOGREL 75 MG TABLET PO SCH (08:27)
[2024-09-17] MEDS: METFORMIN HCL 500 MG TAB PO SCH (08:27)
[2024-09-17] MEDS: POTASSIUM CL SA 10 MEQ TAB PO ONE (08:27)
[2024-09-17] MEDS: AMLODIPINE 2.5 MG TAB PO SCH (08:27)
[2024-09-17] MEDS: ASPIRIN EC 81 MG TAB PO SCH (08:27)
[2024-09-17] MEDS: lisinopriL 10 MG TAB PO SCH (08:28)
[2024-09-17] MEDS: ACETAMINOPHEN 500 MG TAB PO PRN (08:31)
[2024-09-17] MEDS ORDERED: lisinopriL 10 MG TAB PO SCH (09:00)
[2024-09-17] MEDS: TRAMADOL HCL 50 MG TAB PO PRN (14:53)
[2024-09-17] MEDS: VANCOMYCIN 1.25 GM in NA CHLORIDE 0.9% 250 ML IVPB SCH (14:53)
[2024-09-17] MEDS: ROSUVASTATIN 5 MG TAB PO SCH (20:58)
--- NOTE | 2024-09-18 01:56 | HP ---
Date of Admission: 09/16/2024 Chief Complaint: Fever and feeling very weak. History Of Present Illness: This is a 73-year-old very pleasant female patient, who was recently admitted to hospital in [place] because of fever and first she was brought into our emergency room because of weakness and fever. Her cardiac enzymes were abnormal and she was sent to [place]. The patient spent few days in hospital in [place] and after further cardiac testing, she was told that she did not have any heart attack or any other cardiac problem, but she was diagnosed and treated for sepsis of unknown origin and she was sent home with probably 4 to 5 days of Cipro and metronidazole upon discharge which she finished it. I saw her for followup after she came home and this was last week and she was feeling fine, had no complaints. I was concerned about this last hospital admission, so I did communicate with dye weigher helper, Dr. Jama, and the patient actually had appointment to see him day after I saw him last week and he arranged for transesophageal echocardiogram to rule out possibility of endocarditis as the patient had 2 more admissions at our hospital this year for sepsis and 1 time, we empirically treated her for 6 weeks with IV antibiotic as we were concerned about possibility of endocarditis. Her last week transesophageal echocardiogram done by Dr. Jama came back normal as he informed me. Today, the patient was brought into office by her and [id number] with complaints of fever and her temperature was 103 degrees Fahrenheit as of last night and she has been feeling extremely weak. No other specific complaints reported by her. The patient did not go to emergency room last night or today and decided to come see me with family and she was in the wheelchair at the office because of her profound weakness and after I evaluated her, decision was made to admit her to hospital. She denies any sore throat, cough, cold, congestion. No urinary complaints. No abdominal pain, nausea, vomiting, or diarrhea. No unusual rash on the skin either. Allergies: NO KNOWN ALLERGIES. Medications: Amlodipine 2.5 mg daily, aspirin 81 mgdaily, clopidogrel 75 mg daily, levothyroxine 88 mcg daily, lisinopril 10 mg daily, Claritin 10 mg daily,metformin 500 mg takes 2 tablets 2 times a day, rosuvastatin 5 mg daily in the evening, Januvia 100 mg daily with breakfast, vitamin B12 500 mcg daily. Review of Systems: Constitutional: As mentioned above. All other systems reviewed and negative. 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 She was treated with 2 weeks of Levaquin for sepsis due to Streptococcus Mitis in December 2023 and in January 2024 she had sepsis with same organism and was treated with six weeks of IV Ceftriaxone as we were concerned about possibility of endocarditis. Past Surgical History: Aortic valve replacement done percutaneously, April 26, 2021; cholecystectomy; hysterectomy. Family History: Father , had pneumonia. Mother , had emphysema. Brother has diabetes. Sister , had a breast cancer. Social History: Negative for smoking, alcohol use. Physical Examination: Vital Signs: Height 5 feet 3 inches, weight 147 pounds. Temperature 99.9 upon admission with pulse 97, respiratory rate 15, blood pressure 160/72, oxygen saturation 95% on room air. General: The patient appears weaker than normal, not in any respiratory distress. HEENT: Head atraumatic, normocephalic. Conjunctivae nonerythematous. Sclerae white. Mouth, no thrush or edema noted. Ears/Nose, no mass, lesion, discharge noted. Neck: Supple. No JVD, lymph nodes, bruit, thyromegaly noted. Lungs: Bilateral good equal air entry. Clear to auscultation. No rhonchi. No rales. Heart: Presence of systolic murmur unchanged. Abdomen: Soft, bowel sounds normal. No guarding, rigidity, tenderness, mass, hepatosplenomegaly, distention, or bruit noted. Extremities: No leg edema. No calf tenderness. Skin: No rash, ulcer, cellulitis. Lymphatics: No lymph node enlargement in neck, supraclavicular, infraclavicular region. Neuro: No focal neurological deficit. Chest: Unremarkable. External Genitalia: Deferred. Rectal: Deferred. Laboratory Data: WBC 10, hemoglobin 12.4, platelets 137. Sodium 130, potassium 3.7, chloride 99, bicarb 25, BUN 6, creatinine 0.56, glucose 195, magnesium 1.5, total bilirubin 1.3, AST 37, ALT 22, alkaline phosphatase 125. Urinalysis, leukocyte esterase 250, wbc 20 to 50, bacteria 20 to 50, 2+ blood. Chest x-ray shows mild CHF pattern. Clinically, the patient does not have any congestive heart failure problem. Impression: 1. Urinary tract infection. 2. Rule out sepsis. 3. Thrombocytopenia. 4. Anemia. 5. Cirrhosis of liver. 6. Hypertension. 7. Hyperlipidemia. 8. Type 2 diabetes mellitus. 9. Osteoarthritis, multiple sites. 10. Hypothyroidism. 11. Diverticulosis. 12. Renal cyst. 13. Liver mass. Plan: We will admit the patient to hospital for further evaluation and management of this problem. The patient is appropriate for inpatient and is expected to spend 2 midnights in hospital. We will start her on empiric antibiotic which is meropenem and vancomycin and urine was sent for culture and 4 sets of blood cultures were done prior to starting antibiotic. Once we have final culture result back, we will make further decision regarding culture specific antibiotic. For thrombocytopenia, no need for further intervention except monitoring. For cirrhosis of liver, no need for any intervention except monitoring. For liver mass, the patient has seen Dr. Luis, liver specialist in [place], in the past and the patient's [id number] has scheduled another followup appointment for this month. I believe that appointment is for September 25, 2024, and she was encouraged to keep that appointment. For hypertension, we will continue her antihypertensive medication with monitoring of blood pressure and if necessary, adjust medication. For hyperlipidemia, we will continue her statin therapy and no need for further intervention. For diabetes, we will manage it with sliding scale insulin and continue diabetes medication per order. We will consult Physical Therapy starting tomorrow. Details and plan of treatment discussed with the patient and her as well as [id number]. Total time spent was 90 minutes that includes review of last hospital visit record from 06/05/2024 and review of last emergency room visit record from last month, making arrangements for hospital admission and performing today's evaluation and management. NING/CRISTINA Voice ID: [id number] SARAH
[2024-09-18 05:52] LABS: Absolute Lymphocytes (CBC) 0.9 K/uL (0.7-4.9); Absolute Monocytes 0.7 K/uL (0.1-1.3); Absolute Neutrophil 3.8 K/uL (1.8-8.0); Basophils % 0.8 % (0-1.3); Eosinophils % 0.8 % (0-4.4); Hematocrit 31.3 % (36.0-45.0); Hemoglobin 10.5 g/dL (12.0-15.0); Lymphocytes % 16.9 % (15.3-44.8); MCHC 33.5 g/dL (32.0-36.0); MCV 89.6 fL (80-100); MPV 7.1 fL (7.6-11.3); Monocytes % 12.2 % (3.3-12.3); Neutrophils % 69.3 % (41.7-73.7); Platelets 132 thou/uL (152-406); Red Cell Distribution Width 17.5 % (12.1-15.2)
[2024-09-18 06:04] LABS: Magnesium 1.6 mg/dL (1.6-2.4)
[2024-09-18] MEDS: LEVOTHYROXINE SOD 0.088 MG TAB PO SCH (06:25)
--- NOTE | 2024-09-18 06:38 | PN ---
Date of Progress Note: 09/17/2024 Subjective: The patient was seen this morning for followup. She was lying in bed, appears weaker th an normal, not in any respiratory distress. Denies any new complaints. Her was with her at bedside. Objective: Vital signs: Reviewed. HEENT: Unremarkable. Lungs: Clear to auscultation. Heart: Sounds normal. Abdomen: Soft. Bowel sounds normal. No guarding, rigidity, tenderness, distention. Extremities: No leg edema. Laboratory Data: There were no new labs this morning. Blood culture and urine culture results pendi ng. Impression: 1.Urinary tract infection. 2.Rule out sepsis. 3.Hypertension. 4.Type 2 diabetes mellitus. Plan: We will go ahead and continue current empiric antibiotic and follow up on culture results. On ce we have culture results available, then we will decide about culture specific antibiotics. Physic al Therapy to be consulted to help ambulate the patient. During the course of day today, the patient was having some neck pain and Tylenol was not helping, so tramadol 25 mg p.o. q.6 hours was ordered and subsequently, heating pad was ordered as tramadol did not help her well enough to control pain. I wi ll see her tomorrow for followup. NING/MODL Voice ID: [id number] Report ID: [id number]
[2024-09-18] MEDS: MAGNESIUM SULFATE 1 gm IVPB 1 GM/100 ML BAG IV ONE (09:25)
--- NOTE | 2024-09-18 20:32 | RAD REPORT ---
EXAMINATION: MRI Mri Abdomen W/Wo Cont CLINICAL INDICATION: Female, 73 years old. Liver mass, sepsis [facility] liver mass, sepsis TECHNIQUE: Multiplanar multi sequence MRI imaging of the abdomen was performed before and after admin istration of 14 mL MultiHance intravenously. Unless otherwise specified, incidental findings do not require dedicated imaging follow-up. Unless otherwise specified, incidental findings do not require d edicated imaging follow-up. COMPARISON: Abdomen CT 09/04/2024. MRI abdomen 01/03/2024 FINDINGS: LIVER: Stable nodular contour, with relative left lobe and caudate lobe hypertrophy, and diffusely he terogeneous enhancement. Evidence of fatty infiltration or iron deposition. Redemonstration of ovoid 2.7 cm well-circumscribed lesion, appears to be along the right Morison pouch, possibly arising from the posterior right liver lobe capsule. This again demonstrates markedly hypointense T2 signal, hyperintense T1 signal, and no intrinsic postcontrast enhancement. On CT, this demonstrated hyperdense signal relative to the liver parenchyma on noncontrast CT. This s uggests hemorrhagic or proteinaceous content of a cyst. Near the gallbladder fossa, and 8 mm nonenhancing fluid signal intensity cyst is demonstrated. No other suspicious focal hepatic lesions.. GALLBLADDER: Surgically absent. BILE DUCTS: No intrahepatic or extrahepatic biliary ductal dilatation. Stable mild prominence of the common bile duct, may relate to reservoir effect. PANCREAS: Normal T1 hyperintense signal. No mass, ductal dilation, or bao-pancreatic fluid. SPLEEN: Stable bulky appearance of the spleen measuring 14 cm in AP dimensions. No focal lesions. ADRENALS: Normal; no mass. KIDNEYS AND URETERS: Normal size and contour. No hydronephrosis. Lobulated left interpolar cortical 2 .2 cm benign-appearing cyst, stable. VISUALIZED GASTROINTESTINAL TRACT: Normal course and caliber. LYMPH NODES: Mildly prominent mesenteric root and cele hepatis lymph nodes, stable compared to the m ost recent abdominal CT. ABDOMINAL AORTA AND OTHER VESSELS: Normal caliber aorta. IVC patent. MUSCULOSKELETAL: No marrow signal abnormality. ADDITIONAL FINDINGS: There is free perihepatic fluid. IMPRESSION: No acute abnormalities seen in the abdomen, or significant interval change. Redemonstration of stigmata of cirrhosis and mild splenomegaly. Stable exophytic 2.7 cm lesion along the Morison pouch, appears to be arising from the subcapsular po sterior right liver lobe, with features suggestive of a proteinaceous or hemorrhagic cyst. Other stable findings as above..
--- NOTE | 2024-09-18 23:39 | RAD REPORT ---
EXAMINATION: MRI CERVICAL SPINE WITHOUT CONTRAST CLINICAL INDICATION: Female, 73 years old. neck pain, sepsis TECHNIQUE: Multiplanar multisequence MR images were obtained of the cervical spine without intravenou s contrast. Unless otherwise specified, incidental findings do not require dedicated imaging follow-up. COMPARISON: No prior exam. FINDINGS: ALIGNMENT: The cervical spine has normal alignment. BONE: Vertebral bodies are normal in height. There is a normal marrow signal pattern. Uncovertebral j oint and facet arthropathy contribute to the findings below. Scattered degenerative changes of the facet and uncovertebral joints, attributed findings below CORD: The cervical spinal cord is normal in size, contour and signal intensity. BRAIN: The included intracranial structures are grossly normal. The craniocervical junction is normal . Noted cysts scalloping the occipital calvarium. SOFT TISSUE: Mild nonspecific prevertebral edema. No abnormal fluid collections. EVALUATION OF THE INDIVIDUAL LEVELS: C2-3: Unremarkable. C3-4: Mild posterior disc bulge. No significant central canal stenosis. Mild bilateral neural foramin al narrowing. C4-5: Broad-based posterior disc bulge with superimposed left central disc extrusion, mildly indentin g the ventral surface of the cord. Canal is otherwise patent. Asymmetric left uncovertebral joint and facet spurring contribute to moderate left and mild right neural foraminal narrowing. C5-6: Mild posterior disc bulge. Left worse than right facet and uncovertebral joint arthropathy cont ribute to moderate left and mild right neural foraminal narrowing.. C6-7: Mild broad-based disc bulge. Mild left neural foraminal narrowing. Central canal and right neur al foramen are patent. C7-T1: Unremarkable. IMPRESSION: No acute osseous findings. Nonspecific mild prevertebral edema, with no suspicious abnormalities of the disc spaces. Moderate multilevel degenerative changes, contributing to mild indentation ventral aspect of the cord at C4-5, and up to moderate degrees of neural foraminal narrowing on the left at C4-5 and C5-6
--- NOTE | 2024-09-18 23:46 | RAD REPORT ---
EXAMINATION: MRI PELVIS WITHOUT/WITH CONTRAST CLINICAL INDICATION: Female 73 years liver mass, sepsis TECHNIQUE: Multiplanar, multi sequence MRI imaging of the pelvis was performed before and after admin istration of IV MultiHance, 14 mL. Unless otherwise specified, incidental findings do not require dedicated imaging follow-up. COMPARISON: Pelvic MRI 01/03/2024. FINDINGS: UTERUS: Surgically removed. Vaginal diaphragm place, which exerts some mass effect upon the posterior lower bladder wall. Ovaries are not visualized, may have been surgically removed as well BLADDER AND URETHRA: Normal contour. VISUALIZED GASTROINTESTINAL TRACT: Sigmoid diverticulosis. LYMPH NODES: No lymphadenopathy. ADDITIONAL FINDINGS: Small volume ascites in the pelvis, stable. IMPRESSION: Mild free pelvic ascites again seen. Status post hysterectomy, with pelvic diaphragm in place. Stable sigmoid diverticulosis.
[2024-09-19 07:11] LABS: Anion Gap 7.9 mEq/L (5.0-15.0); Magnesium 1.6 mg/dL (1.6-2.4); Potassium 3.9 mEq/L (3.5-5.1)
[2024-09-19] MEDS: MAGNESIUM SULFATE 1 gm IVPB 1 GM/100 ML BAG IV ONE (09:41)
[2024-09-19] MEDS: MELOXICAM 7.5 MG TAB PO SCH (12:00)
[2024-09-19] MEDS: methocarbamoL 500 MG TAB PO SCH (12:00)
[2024-09-19] MEDS: VANCOMYCIN 1.25 GM in NA CHLORIDE 0.9% 250 ML IVPB SCH (14:03)
[2024-09-20 07:39] LABS: Absolute Eosinophils 0.1 K/uL (0-0.5); Absolute Lymphocytes (CBC) 0.7 K/uL (0.7-4.9); Absolute Monocytes 0.5 K/uL (0.1-1.3); Absolute Neutrophil 2.7 K/uL (1.8-8.0); Basophils % 0.8 % (0-1.3); Eosinophils % 1.7 % (0-4.4); Hematocrit 29.2 % (36.0-45.0); Lymphocytes % 18.6 % (15.3-44.8); MCH 30.1 pg (27.0-35.0); MCHC 34.1 g/dL (32.0-36.0); MCV 88.3 fL (80-100); Monocytes % 12.5 % (3.3-12.3); Neutrophils % 66.4 % (41.7-73.7); Nucleated Red Blood Cells % 0.1 % (0-0); Platelets 149 thou/uL (152-406); RBC Red Blood Cell Count 3.31 M/uL (3.86-4.86); Red Cell Distribution Width 17.5 % (12.1-15.2)
[2024-09-20 07:55] LABS: Anion Gap 7.7 mEq/L (5.0-15.0); Magnesium 1.5 mg/dL (1.6-2.4); Potassium 3.7 mEq/L (3.5-5.1)
[2024-09-20] MEDS ORDERED: GLUCAGON 1 MG/VIAL IM PRN (10:44)
[2024-09-20] MEDS ORDERED: D10W 125 ML IV PRN (10:44)
--- NOTE | 2024-09-20 12:44 | PN ---
Date of Progress Note: 09/20/2024 Subjective: The patient was seen this morning for followup. No new complaints, problems reported by the patient. She was lying down in bed, not in distress. Reported that her neck pain was slightly better today than yesterday. Yesterday, she reported her pain level to be at 5/10. Today, she repor ts pain level at 4/10. Objective: Vital Signs: Reviewed. HEENT: Unremarkable. Lungs: Clear to auscultation. Heart: Sounds normal. Abdomen: Soft. Bowel sounds normal. No guarding, rigidity, tenderness, distention. Extremities: No leg edema. Laboratory Data: White count 4, hemoglobin 10, platelets 149. Sodium 133, potassium 3.7, chloride 1 02, bicarb 27, BUN 7, creatinine 0.32, glucose 134, magnesium 1.5. Her urine culture and all 4 sets of blood culture growing Enterococcus faecalis. Impression: 1.Sepsis. 2.Urinary tract infection. 3.Cirrhosis of liver. 4.Liver mass. 5.Thrombocytopenia. 6.Anemia. 7.Hypertension. 8.Type 2 diabetes mellitus. 9.Status post TAVR. Plan: The patient is currently on meropenem and vancomycin since her admission and after looking at culture and sensitivity result today, we will discontinue meropenem and start the patient on ampicill in 2 g IV every 6 hours and continue vancomycin. Consult Infectious Disease specialist, Dr. Mckinney, and I did reach out to him and I have discussed details with him regarding this hospital admission an d details regarding all the test results including MRI of C-spine, MRI of abdomen, pelvis and culture results, and I have also informed him about the patient's transesophageal echocardiogram which was j ust done a little over a week ago and it was negative for any evidence of endocarditis. I also infor med him about the patient's prior 2 hospital admissions in December and January with sepsis and at that time the bacteria was Streptococcus and first time she got treated with 10 days of Levaquin and seco nd time she got treated with 6 weeks of IV antibiotics, which were ceftriaxone and vancomycin, thinki ng about possibility of endocarditis considering her prosthetic heart valve and recurrent sepsis with the same organism, but once again, her transesophageal echocardiogram is negative for any evidence o f endocarditis. So all these details were discussed with infectious disease specialist and he will e valuate the patient and his consultation and recommendation will be appreciated. Meanwhile, we will continue antibiotic therapy now which will be ampicillin and vancomycin and Dr. Mckinney agrees at this point to continue these 2 antibiotics and the patient will need to go home with IV antibiotics and t he choice of antibiotic will depend on what Dr. Mckinney finally decides, so we will wait on that, but meanwhile I have ordered PICC line. The patient to continue to ambulate. Continue meloxicam and met hocarbamol and current blood pressure medication as well as diabetes management. Replace magnesium p er protocol and we will see her tomorrow for followup. NING/MODL Voice ID: [id number] Report ID: [id number]
[2024-09-20] MEDS: AMPICILLIN SODIUM 2 GM in NA CHLORIDE 0.9% 100 ML IVPB SCH (12:53)
[2024-09-20] MEDS: VANCOMYCIN 1.5 GM in NA CHLORIDE 0.9% 500 ML IVPB SCH (15:20)
--- NOTE | 2024-09-20 17:07 | RAD REPORT ---
Procedure: Chest Single View HISTORY: PICC line placement FINDINGS: PICC line has been inserted with its tip in the SVC.
[2024-09-20] MEDS: Mupirocin NASAL 2 APPL/1 GM TUBE NAS SCH (20:32)
[2024-09-21 05:03] LABS: Anion Gap 7.5 mEq/L (5.0-15.0); Magnesium 1.4 mg/dL (1.6-2.4); Potassium 3.5 mEq/L (3.5-5.1)
[2024-09-21] MEDS: POTASSIUM CL SA 10 MEQ TAB PO ONE (05:26)
[2024-09-21] MEDS: Magnesium Sulfate 2gm IVPB 2 G/50 ML BAG IV ONE (05:26)
[2024-09-21] MEDS: MAGNESIUM SULFATE 1 gm IVPB 1 GM/100 ML BAG IV ONE (12:26)
[2024-09-22 05:25] LABS: Absolute Eosinophils 0.1 K/uL (0-0.5); Absolute Lymphocytes (CBC) 0.7 K/uL (0.7-4.9); Absolute Monocytes 0.4 K/uL (0.1-1.3); Absolute Neutrophil 2.3 K/uL (1.8-8.0); Basophils % 0.9 % (0-1.3); Eosinophils % 2.4 % (0-4.4); Hematocrit 27.1 % (36.0-45.0); Hemoglobin 8.9 g/dL (12.0-15.0); MCH 29.2 pg (27.0-35.0); MCV 88.6 fL (80-100); MPV 7.1 fL (7.6-11.3); Monocytes % 11.4 % (3.3-12.3); Neutrophils % 65.3 % (41.7-73.7); Platelets 121 thou/uL (152-406); RBC Red Blood Cell Count 3.06 M/uL (3.86-4.86); Red Cell Distribution Width 17.3 % (12.1-15.2)
[2024-09-22 05:30] LABS: Anion Gap 7.6 mEq/L (5.0-15.0); Magnesium 1.5 mg/dL (1.6-2.4); Potassium 3.6 mEq/L (3.5-5.1)
--- NOTE | 2024-09-22 08:51 | RAD REPORT ---
EXAMINATION: MRI CERVICAL SPINE WITHOUT CONTRAST CLINICAL INDICATION: Female, 73 years old. followup on edema in prevertebral space TECHNIQUE: Multiplanar multisequence MR images were obtained of the cervical spine without intravenou s contrast. Unless otherwise specified, incidental findings do not require dedicated imaging follow-up. [id number]. COMPARISON: 09/18/2024. FINDINGS: Reference MRI from 09/18/2024 for more detailed description of degenerative findings. Increased or pre vertebral edema is present. Edema present at C2 centered in the region of the dens with low T1 signal intensity traversing mid as pect of the dens. This is concerning for a nondisplaced dens fracture. No significant malalignment is identified. The edema is more conspicuous on this exam. There is likely a small posterior epidural hematoma at this level as evidenced by some intermediate T2 signal posteriorly measuring approximately 1 to 2 mm in maximal thickness but no significant central spinal stenosis. IMPRESSION: 1. Increased conspicuity of marrow edema at C2 with suspected nondisplaced dens fracture, statistical ly type II. Prevertebral edema has increased modestly. Small posterior epidural hematoma without significant central spinal stenosis at this time. 2. Cervical spondylosis described in better detail on the MRI from 09/18/2024.
[2024-09-22] MEDS ORDERED: Levofloxacin500mg IV 500 MG/100 ML BAG IV SCH (13:00)
[2024-09-22 22:43] VITALS: O2SAT 94
[2024-09-23 06:22] LABS: Anion Gap 7.7 mEq/L (5.0-15.0); Magnesium 1.6 mg/dL (1.6-2.4); Potassium 3.7 mEq/L (3.5-5.1)
[2024-09-23] MEDS: MAGNESIUM SULFATE 1 gm IVPB 1 GM/100 ML BAG IV ONE (06:35)
[2024-09-23] MEDS: POTASSIUM CL SA 10 MEQ TAB PO ONE (08:33)
[2024-09-23 08:37] VITALS: BP 129/66
[2024-09-23 10:42] VITALS: TEMP 98
--- NOTE | 2024-09-23 16:44 | PN ---
Subjective: The patient lying in bed. Denies any headache, nausea, vomiting, chest pain, abdominal pain, constipation, or diarrhea. Objective: Vital Signs: Temperature 98, pulse 85, respirations 16, blood pressure 130/70. Lungs: Basal crackles. Heart: S1, S2. Regular. Abdomen: Soft, nontender. Bowel sounds present. Extremities: No edema. Laboratory Data: Reviewed. Assessment And Plan: Bacteremia secondary to Enterococcus faecalis. Urosepsis secondary to Enteroco ccus faecalis. Patient is currently on ampicillin 2 g q.6 hours. We will continue to monitor kidney function and the patient is pancytopenic most likely drugs versus sepsis. Continue to monitor CBC a nd BMP every other day. We will follow the patient as needed. NF/MODL Voice ID: [id number] Report ID: [id number]
--- NOTE | 2024-09-25 11:24 | PN ---
Date of Progress Note: 09/22/2024 Subjective: The patient was seen this morning for followup. She was lying in bed, not in distress. Denies any new complaints. Her neck pain continues to remain unchanged from yesterday. Objective: Vital Signs: Reviewed. HEENT: Unremarkable. Lungs: Clear to auscultation. Heart: Sounds normal. Abdomen: Soft. Bowel sounds normal. No guarding, rigidity, tenderness, distention. Extremities: No leg edema. Neuro: No focal neurological deficits. Laboratory Data: WBC 3.6, hemoglobin 8.9, platelets 121. Sodium 134, potassium 3.6, chloride 103, b icarb 27, BUN 5, creatinine 0.26, glucose 110. Magnesium 1.5. MRI of cervical spine without contras t was repeated today, and I did discuss results with the radiologist regarding findings and today's M RI was reported as presence of fracture of dens process of second cervical spine and prevertebral yelena ma is present, maybe slightly more today than before. No evidence of any abscess. Impression: 1.Sepsis, organism Enterococcus faecalis. 2.Urinary tract infection, organism Enterococcus faecalis. 3.Hypertension. 4.Type 2 diabetes mellitus. 5.Cirrhosis of liver. 6.Liver mass. 7.Fracture of C2 dens. 8.Cervical spondylosis. Plan: 1.Soon after I communicated with radiologist regarding today's MRI result, hard cervical collar was applied to the patient and we initiated the transfer process for the patient to go to [facility] in [place] for higher level of care. We did communicate with the patient 's . I also communicated with the transfer center and talked to neurologist as well as hospit alist, and the patient was accepted and now we are waiting on bed availability. Meanwhile, we will c ontinue current antibiotics for her sepsis and urinary tract infection. Antibiotics currently she is on are ampicillin and vancomycin. Dr. Mckinney from Infectious Disease Specialty was going to see the patient today. As of this evening, the patient is still at our hospital, but once bed becomes avail able, we will be able to transfer her via ground ambulance and the patient is medically stable for celestina lloyd. NING/MODL Voice ID: [id number] Report ID: [id number]
--- NOTE | 2024-09-25 11:24 | DS ---
Date of Discharge: 09/23/2024 Disposition: The patient was transferred via ground ambulance to [facility], and [facility]. Physical Examination: HEENT: Unremarkable and significant for presence of hard cervical collar in neck region. Lungs: Clear to auscultation. Heart: Sounds normal. Abdomen: Soft. Bowel sounds normal. No guarding, rigidity, tenderness, distention. Extremities: No leg edema. Neurological: No focal neurological deficits. Laboratory Data: Upon admission; WBC count 10, hemoglobin 12.4, and platelets 137. Last CBC from ; WBC 3.6, hemoglobin 8.9, platelets 121. Last chemistry from today; sodium 136, potassium 3. 7, chloride 103, bicarb 29, BUN 5, creatinine 0.33, glucose 97, magnesium 1.6. Upon admission; sodiu m was 130, potassium 3.7, chloride 99, bicarb 25, BUN 6, creatinine 0.56, glucose 195, magnesium 1.5, total bilirubin 1.3, AST 37, ALT 22, alkaline phosphatase 125. Hospital Course: This is a 73-year-old pleasant female patient, who came into my office with her fam collins members with complaints of generalized weakness and fever. Please see dictated H and P for more information. The patient was admitted to the hospital with concerns about sepsis and urinary tract i nfection and she was started on empiric antibiotic, which was meropenem and vancomycin. Urine cultur e and blood culture were done before starting antibiotics. Physical Therapy was consulted. The chava ent started to ambulate with Physical Therapy and we did 4 sets of blood culture and all 4 sets of bl ood culture as well as urine culture grew Enterococcus faecalis. Once we received sensitivity result , I did contact Infectious Disease specialist, Dr. Mckinney and consultation was requested and at that time, we decided to stop meropenem and start her on ampicillin 2 g IV every 6 hours. During this hos pitalization, the patient was complaining of significant amount of neck pain with painful limitation of range of motion from [id number] or flexion and extension movement. MRI of the cervical spine wa s done about 5 to 6 days ago, which showed significant at least moderate level of cervical spondylosi s with some bulging disk, foraminal stenosis and also showed slight prevertebral edema without any ev idence of abscess. The patient was given meloxicam and methocarbamol, heating pad, and some pain med ications, tramadol and her pain level was 5/10 on the pain scale and it improved somewhat and reporte d that it was 4/10 with all these measures. She still continued to have painful restriction of range of motion and we decided to repeat MRI about 5 days later, which was done on Sunday that is yesterda y and MRI has shown evidence of fracture of dens involving second cervical spine and slight increase in prevertebral edema compared to before. Once this MRI result became available, we immediately plac ed the patient on a hard cervical collar and initiated transfer process [facility] in [facility] and I did communicate yesterday with neurologist and hospitalist and discussed details and the patient was accepted and almost for next 24 hours after the patient was accepted, they still did not have any bed available, so today we initiated transfer to [facility] in [facility] and communicated with neurosurgeon who accepted the patient, and [facility]. The patient was transferred via ground ambulance. Final Diagnoses: 1.Sepsis, organism Enterococcus faecalis. 2.Cervical spine fracture, C2, dens. 3.Cervical spondylosis. 4.Anemia, unspecified. 5.Thrombocytopenia, unspecified. 6.Hypomagnesemia. 7.Cirrhosis of liver, without alcohol use. 8.Hypertension. 9.Hyperlipidemia. 10.Type 2 diabetes mellitus. 11.Osteoarthritis, multiple sites. 12.Hypothyroidism. 13.Diverticulosis. 14.Renal cyst. 15.Liver mass. Total time spent was 55 minutes. NING/MODL Voice ID: [id number] Report ID: [id number]
--- NOTE | 2024-09-25 11:36 | PN ---
Date of Progress Note: 09/21/2024 Subjective: The patient was seen this morning for followup. No new complaints or problems reported by her. She was sitting in the chair and still continues to have her neck pain, which is same as yes terday as she reports. Objective: Vital Signs: Reviewed. HEENT: Unremarkable. Lungs: Clear to auscultation. Heart: Sounds normal. Abdomen: Soft. Bowel sounds normal. No guarding, rigidity, tenderness, distention. Extremities: No leg edema. Musculoskeletal: The patient has restricted movements of neck from [id number] and flexion and exte nsion due to pain and this has remained unchanged in last few days. Laboratory Data: Sodium 133, potassium 3.5, chloride 103, bicarb 26, BUN 7, creatinine 0.35, glucose 123, magnesium 1.4. Impression: 1.Sepsis, organism Enterococcus faecalis. 2.Urinary tract infection, organism Enterococcus faecalis. 3.Cervical spondylosis. 4.Hyponatremia, unspecified. 5.Hypomagnesemia. 6.Anemia. 7.Thrombocytopenia. 8.Cirrhosis of liver. 9.Hypertension. 10.Diabetes mellitus. Plan: We will go ahead and continue current medications. Continue current antibiotic which is ampic illin and vancomycin. We will continue meloxicam and methocarbamol as she is taking and tomorrow, I will repeat her MRI of the cervical spine to follow up on slight edema noted in the prevertebral spac e for followup reason. I have given her copy of her MRI abdomen and pelvis results and nursing staff to get copy of MRI and the CT and for the patient to take it with her as she has appointment coming up to see liver specialist this coming week on Sunday and I have instructed her to take report as wel l as CD with her to the liver specialist. We will follow up with Dr. Mckinney from infectious disease specialist after he has chance to visit with the patient. I will see her tomorrow for followup. NING/MODL Voice ID: [id number] Report ID: [id number]
--- NOTE | 2024-09-25 11:51 | PN ---
Date of Progress Note: 09/19/2024 Subjective: The patient was seen this morning for followup. No new complaints or problems reported by patient. She was sitting in the chair. She still has her neck pain in the back of the neck. It does not radiate anywhere. The patient reports that this pain started about 2 weeks ago and this sta rted while she was in the hospital in [place] for her last hospital admission. Her pain she describe s at level 5/10, and any range of motion causes pain to get worse. Denies any fall or injury. Objective: Vital Signs: Reviewed. HEENT: Unremarkable. Lungs: Clear to auscultation. Heart: Sounds normal. Presence of systolic murmur unchanged. No gallop. Abdomen: Soft. Bowel sounds normal. No guarding, rigidity, tenderness, distention. Extremities: No leg edema. Laboratory Data: Sodium 132, potassium 3.9, chloride 101, bicarb 27, BUN 9, creatinine 0.35, glucose 152. Her MRI of cervical spine and MRI of abdomen and pelvis done yesterday, results reviewed. MRI of cervical spine has shown some spondylosis with bulging disc and foraminal stenosis and the small amount of fluid in the space. No evidence of abscess. I have reviewed these images with radiologist today. Impression: 1.Sepsis. 2.Urinary tract infection. 3.Cervical spondylosis. 4.Liver mass. 5.Cirrhosis of liver. 6.Hypertension. 7.Type 2 diabetes mellitus. Plan: We will go ahead and continue current antibiotic which is meropenem and vancomycin. Continue current antihypertensive medication and diabetes management. For her neck pain, I will go ahead and start her on meloxicam and methocarbamol per order. The patient is using heating pad and I will see her tomorrow for followup. NING/MODL Voice ID: [id number] Report ID: [id number]
== END 2024-09-23 11:13 | disposition short-term general hospital (02) | DRG 872 ==
LOC: 2ND 17:43
PROVIDERS: ADMIT Internal Medicine; ATTEND Internal Medicine
PROC: 02HV33Z Insertion of Infusion Device into Superior Vena Cava, Percutaneous Approach (ICD-10-PCS; principal; 2024-09-20)
DX: A41.81 Sepsis due to Enterococcus (principal); S12.110A Anterior displaced Type II dens fracture, initial encounter for closed fracture; E87.1 Hypo-osmolality and hyponatremia; N39.0 Urinary tract infection, site not specified; D61.818 Other pancytopenia; I10 Essential (primary) hypertension; E11.9 Type 2 diabetes mellitus without complications; E78.5 Hyperlipidemia, unspecified; E03.9 Hypothyroidism, unspecified; E83.42 Hypomagnesemia; M47.892 Other spondylosis, cervical region; M19.09 Primary osteoarthritis, other specified site; K74.60 Unspecified cirrhosis of liver; N28.1 Cyst of kidney, acquired; K57.90 Diverticulosis of intestine, part unspecified, without perforation or abscess without bleeding; T50.905A Adverse effect of unspecified drugs, medicaments and biological substances, initial encounter; R16.0 Hepatomegaly, not elsewhere classified; Z95.2 Presence of prosthetic heart valve; Z90.49 Acquired absence of other specified parts of digestive tract; Z90.710 Acquired absence of both cervix and uterus
CPT/HCPCS: 36415; 36569; 71045; 72141; 72197; 74183; 80048; 80053; 80202; 81001; 82947; 83036; 83735; 85025; 87040; 87077; 87086; 87088; 87186; 87205; 97116; 97161; 97530; 97760; A9577; J0290; J2185; J3475; J7030; J7040; J7050

== ENCOUNTER 2024-10-14 19:44 | Inpatient (IN) | payer OTHER ==
--- OUTSIDE RECORDS SUMMARY | 2024-10-14 19:47 | XMS REPORT | Clinical Summary ---
Author Name Unknown Organization [facility] Address [address] [place] [address] Care Team Providers Care Superintendent Transmission Name Role Phone Arian Pitt MD Primary Care Provider [phone] Social History Tobacco Use Types Packs/Day Years Used Date Smoking Tobacco: Never Assessed Comments Unknown Sex and Gender Information Value Date Recorded Sex Assigned at Not on file Legal Sex Female 3:26 PM CDT Gender Identity Not on file Sexual Orientation Not on file Plan of Treatment Not on file Insurance [employer] MED[employer]ARE PPO [employer] PPO Care Teams Superintendent Transmission Relationship Specialty Start Date End Date Arian Pitt MD [address] [place] [address] [id number] [email or web address] PCP - General Surgical Oncology 08/27/23
[2024-10-14] MEDS ORDERED: NA CHLORIDE 0.9% 1,000 ML ONE (20:36)
[2024-10-14 20:41] LABS: Absolute Eosinophils 0.1 K/uL (0-0.5); Absolute Lymphocytes (CBC) 0.7 K/uL (0.7-4.9); Absolute Neutrophil 8.5 K/uL (1.8-8.0); Basophils % 0.4 % (0-1.3); Eosinophils % 0.6 % (0-4.4); Hematocrit 31.6 % (36.0-45.0); Hemoglobin 10.4 g/dL (12.0-15.0); Lymphocytes % 6.8 % (15.3-44.8); MCH 29.3 pg (27.0-35.0); MCV 88.7 fL (80-100); MPV 8.4 fL (7.6-11.3); Monocytes % 9.4 % (3.3-12.3); Neutrophils % 82.8 % (41.7-73.7); Platelets 96 thou/uL (152-406); RBC Red Blood Cell Count 3.56 M/uL (3.86-4.86); Red Cell Distribution Width 16.8 % (12.1-15.2)
[2024-10-14 20:43] LABS: PT Prothrombin Time 22.8 SECONDS (9.4-12.5); Protime INR 2.08
[2024-10-14 21:00] LABS: Albumin 2.1 g/dL (3.4-5.0); Albumin/Globulin Ratio 0.4 (1.1-1.8); Anion Gap 10.7 mEq/L (5.0-15.0); Bilirubin Direct 1.3 mg/dL (0-0.2); Bilirubin Indirect, Calculated 0.8 mg/dL (0.2-0.8); Bilirubin Total 2.1 mg/dL (0.2-1.0); Magnesium 1.6 mg/dL (1.6-2.4); Potassium 3.7 mEq/L (3.5-5.1); Protein, Total 8.1 g/dL (6.4-8.2)
--- NOTE | 2024-10-14 21:18 | RAD REPORT ---
EXAMINATION: ONE VIEW CHEST XR CLINICAL INDICATION: CHEST PAIN TECHNIQUE: Frontal chest projection is submitted. Examination is limited by patient positioning and t echnique. COMPARISON: 09/20/2024 FINDINGS: The lungs are well inflated and clear. The heart is upper limit of normal in size. No displaced fract ures identified. IMPRESSION: No acute intrathoracic abnormalities.
--- NOTE | 2024-10-14 22:05 | RAD REPORT ---
EXAM: CT brain without contrast HISTORY: left weakness for 21 weeks COMPARISON: 09/04/2024 TECHNIQUE: Multiple contiguous axial images were obtained and a CT of the brain without contrast. Sag ittal and coronal reformats were performed. One or more of the following dose reduction techniques were used: Automated exposure control, adjust ment of the mA and/or kV according to patient size, and/or iterative reconstruction. FINDINGS: No evidence of hydrocephalus, intracranial hemorrhage, or extra-axial fluid collection. Mild brain atrophy with mild periventricular and deep white matter chronic microvascular ischemic ch anges present. Small area of gliosis is seen posterior right frontoparietal region. No evidence of midline shift or areas of brain edema. Large right-sided craniotomy. The visualized paranasal sinuses and mastoid air cells are essentially clear. IMPRESSION: No evidence of acute intracranial abnormality.
--- NOTE | 2024-10-14 22:06 | RAD REPORT ---
EXAMINATION: CTA HEAD CLINICAL INDICATION: left weakness TECHNIQUE: Axial CT images were obtained through the head after intravenous contrast utilizing angiog raphic protocol with 3D post-processing (maximum intensity projection images, volume rendered images and/or shaded surface rendered images). One or more of the following dose reduction technique s were used: Automated exposure control, adjustment of the mA and/or kV according to patient size, and/or iterative reconstruction. Unless otherwise specified, incidental findings do not require dedic ated imaging follow-up. COMPARISON: No prior exam. FINDINGS: ICA: The petrous, cavernous, and supraclinoid segments of the bilateral internal carotid arteries are normal. The ophthalmic artery origins are visualized and normal. The posterior communicating arteries are patent. NING: Anterior cerebral arteries are normal bilaterally. The anterior communicating artery is patent. MCA: Middle cerebral arteries are normal bilaterally. LEAF BLENDER: Posterior cerebral arteries are normal bilaterally. Vertebrobasilar: The vertebral arteries are patent. The basilar artery is normal in appearance. 3D images confirm these findings. IMPRESSION: No significant flow abnormality is identified.
[2024-10-15] MEDS ORDERED: ASPIRIN 81 MG CHEWABLE TABLET ONE (01:08)
--- NOTE | 2024-10-15 01:10 | EDPHYS ---
Physician Documentation [facility] [place] Name: Niharika Burris Age: 73 yrs Sex: Female : 1950 Arrival Date: 10/14/2024 Time: 19:44 Bed 19 Private MD: ED Physician Omar Spring HPI: 10/14 20:01 This 73 yrs old Female presents to ER via Unassigned with complaints of LEFT sp4 SIDED WEAKNESS. 10/15 01:05 73-year-old female presents with 2 weeks of persistent left-sided weakness. Patient's sp4 reports that patient is not able to ambulate at home without support.. 01:05 Patient's past medical history includes prior intracranial hemorrhage, recent admission sp4 on 09/30/2024 for cervical spinal fracture, sepsis secondary to Enterococcus faecalis, UTI, pancytopenia, liver cirrhosis, hypertension, hyperlipidemia, type 2 diabetes, osteoarthritis, hypothyroidism, severe malnutrition, diverticulosis, liver mass, renal cyst.. Historical: - Allergies: 10/14 21:05 No Known Allergies; ay - Home Meds: 10/15 02:49 Unable to obtain [Active]; bm8 - PMHx: 10/14 21:05 Diabetes - NIDDM; Hypertension; ay 21:06 fatty liver; Hypothyroidism; ay - PSHx: 21:05 cardiac stent; ay - Immunization history:: Client reports receiving the 2nd dose of the Covid vaccine, Flu vaccine is up to date. - Infectious Disease History:: UTI. - Social history:: Smoking status: Patient denies any tobacco usage or history of. - Family history:: not pertinent. ROS: 10/15 01:05 Constitutional: Negative for fever, chills, and weight loss, positive for left-sided sp4 weakness All other systems are negative, Exam: 01:01 Constitutional: This is a well developed, well nourished patient who is awake, alert, sp4 and in no acute distress. Head/Face: Normocephalic, atraumatic. Eyes: Pupils equal round and reactive to light, extra-ocular motions intact. Lids and lashes normal. Conjunctiva and sclera are not injected. Cornea within normal limits. Periorbital areas with no swelling, redness, or edema. ENT: Nares patent. No nasal discharge, no septal abnormalities noted. Tympanic membranes are normal and external auditory canals are clear. Oropharynx with no redness, swelling, or masses, exudates, or evidence of obstruction, uvula midline. Mucous membranes moist. Neck: Trachea midline, no thyromegaly or masses palpated, and no cervical lymphadenopathy. Supple, full range of motion without nuchal rigidity, or vertebral point tenderness. Chest/axilla: Normal chest wall appearance and motion. Nontender with no deformity. No lesions are appreciated. Cardiovascular: Regular rate and rhythm with a normal S1 and S2. No gallops, murmurs, or rubs. Normal PMI, no JVD. No pulse deficits. Respiratory: Lungs have equal breath sounds bilaterally, clear to auscultation and percussion. No rales, rhonchi or wheezes noted. No increased work of breathing, no retractions or nasal flaring. Abdomen/GI: Soft, with normal bowel sounds. No distension or tympany. No guarding or rebound. No evidence of tenderness throughout. Back: No spinal tenderness. No costovertebral tenderness. Skin: Warm, dry with normal turgor. Normal color with no rashes, no lesions, and no evidence of cellulitis. MS/ Extremity: Pulses equal, no cyanosis. Neurovascular intact. Full, normal range of motion. Neuro: Awake and alert, GCS 15, oriented to person, place, time, and situation. Cranial nerves II-XII grossly intact. Left arm and left leg strength 4 out of 5 Psych: Awake, alert, with orientation to person, place and time. Behavior, mood, and affect are within normal limits 01: ECG was reviewed by the Attending Physician. EKG at 2024 sinus tachycardia 110 , sp4 LVH otherwise normal Vital Signs: 10/14 19:40 BP 149 / 71; Pulse 118; Resp 28; Temp 100.2; Pulse Ox 99% on R/A; ay 19:45 BP 149 / 71; Pulse 111; Resp 28; Temp 100.2; Pulse Ox 99% on R/A; ay 22:05 BP 142 / 72; Pulse 105; Resp 21; Pulse Ox 99% on R/A; ay 22:53 BP 139 / 68; Pulse 99; Resp 24; Pulse Ox 99% on R/A; ay 10/15 01:49 BP 131 / 65; Pulse 101; Resp 29; Pulse Ox 99% on R/A; ay 02:26 BP 109 / 56; Pulse 94; Resp 23; Temp 99.4; Pulse Ox 96% ; Pain 0/10; bm8 05:27 Weight 58.97 kg; Height 5 ft. 3 in. ; vc1 06:32 BP 114 / 62; Pulse 93; Resp 26; Temp 98.8; Pulse Ox 100% ; Pain 0/10; bm8 07:00 BP 125 / 68; Pulse 91; Resp 24; Pulse Ox 100% ; db 08:00 BP 123 / 68; Pulse 94; Resp 16; Pulse Ox 99% ; db 05:27 Body Mass Index 23.03 (58.97 kg, 160.02 cm) vc1 02:26 Pain Scale: Adult bm8 06:32 Pain Scale: Adult bm8 NIH Stroke Scale Scores: 01:01 NIHSS Score: 2 sp4 Peyton Coma Score: 10/14 21:28 Eye Response: spontaneous(4). Motor Response: obeys commands(6). Verbal Response: ay confused(4). Total: 14. 1204 01:03 Eye Response: spontaneous(4). Motor Response: obeys commands(6). Verbal Response: sp4 oriented(5). Total: 15. 02:26 Eye Response: spontaneous(4). Motor Response: obeys commands(6). Verbal Response: bm8 oriented(5). Total: 15. 06:32 Eye Response: spontaneous(4). Motor Response: obeys commands(6). Verbal Response: bm8 oriented(5). Total: 15. MDM: 10/14 20:02 Medical Screening Exam initiated sp4 10/15 00:59 ED course: Reason for Exam: left weakness Report Status: Signed EXAMINATION: CTA HEAD sp4 CLINICAL INDICATION: left weakness TECHNIQUE: Axial CT images were obtained through the head after intravenous contrast utilizing angiographic protocol with 3D post-processing (maximum intensity projection images, volume rendered images and/or shaded surface rendered images). One or more of the following dose reduction techniques were used: Automated exposure control, adjustment of the mA and/or kV according to patient size, and/or iterative reconstruction. Unless otherwise specified, incidental findings do not require dedicated imaging follow-up. COMPARISON: No prior exam. FINDINGS: ICA: The petrous, cavernous, and supraclinoid segments of the bilateral internal carotid arteries are normal. The ophthalmic artery origins are visualized and normal. The posterior communicating arteries are patent. NING: Anterior cerebral arteries are normal bilaterally. The anterior communicating artery is patent. MCA: Middle cerebral arteries are normal bilaterally. CORE STACKER: Posterior cerebral arteries are normal bilaterally. Vertebrobasilar: The vertebral arteries are patent. The basilar artery is normal in appearance. 3D images confirm these findings. IMPRESSION: No significant flow abnormality is identified. . ED course: HISTORY: left weakness for 21 weeks COMPARISON: 09/04/2024 TECHNIQUE: Multiple contiguous axial images were obtained and a CT of the brain without contrast. Sagittal and coronal reformats were performed. One or more of the following dose reduction techniques were used: Automated exposure control, adjustment of the mA and/or kV according to patient size, and/or iterative reconstruction. FINDINGS: No evidence of hydrocephalus, intracranial hemorrhage, or extra-axial fluid collection. Mild brain atrophy with mild periventricular and deep white matter chronic microvascular ischemic changes present. Small area of gliosis is seen posterior right frontoparietal region. No evidence of midline shift or areas of brain edema. Large right-sided craniotomy. The visualized paranasal sinuses and mastoid air cells are essentially clear. IMPRESSION: No evidence of acute intracranial abnormality.. ED course: EXAMINATION: ONE VIEW CHEST XR CLINICAL INDICATION: CHEST PAIN TECHNIQUE: Frontal chest projection is submitted. Examination is limited by patient positioning and technique. COMPARISON: 09/20/2024 FINDINGS: The lungs are well inflated and clear. The heart is upper limit of normal in size. No displaced fractures identified. IMPRESSION: No acute intrathoracic abnormalities.. 01:05 Differential Diagnosis altered mental status, sepsis, flu, Subacute CVA.. Data sp4 reviewed: vital signs, nurses notes, lab test result(s), EKG, radiologic studies, CT scan, plain films. Consideration of Admission/Observation Patient was admitted/placed on observation. Escalation of care including admission/observation considered. Management of patient was discussed with the following: Hospitalist: Braulio Reynoso MD . Commodity Analyst: Rocco WHEELER . ED course: Patient is stroke onset was 2 weeks ago. Patient has moderate left-sided weakness indicative of subacute stroke. TNK not indicated secondary to prior intracranial hemorrhage. Patient warrants admission for further evaluation. MRI of the head is warranted. I will request neurology consult with Dr. Valiente. Dr. Ramsey has agreed to admit the patient. . 06:13 ED course: COMPARISON: 09/18/2024. FINDINGS: Reference MRI from 09/18/2024 for more sp4 detailed description of degenerative findings. Increased or prevertebral edema is present. Edema present at C2 centered in the region of the dens with low T1 signal intensity traversing mid aspect of the dens. This is concerning for a nondisplaced dens fracture. No significant malalignment is identified. The edema is more conspicuous on this exam. There is likely a small posterior epidural hematoma at this level as evidenced by some intermediate T2 signal posteriorly measuring approximately 1 to 2 mm in maximal thickness but no significant central spinal stenosis. IMPRESSION: 1. Increased complicity of marrow edema at C2 with suspected nondisplaced dens fracture, statistically type II. Prevertebral edema has increased modestly. Small posterior epidural hematoma without significant central spinal stenosis at this time. 2. Cervical spondylosis described in better detail on the MRI from 09/18/2024. . 06:21 ED course: CLINICAL HISTORY: Pain. COMPARISON: None. TECHNIQUE: CT CERVICAL SPINE sp4 WITHOUT IV CONTRAST on 10/15/2024 4:43 AM COMPUTER SERVICE TECHNICIAN This exam was performed according to our departmental dose-optimization program, which includes automated exposure control, adjustment of the mA and/or kV according to patient size and/or use of iterative reconstruction technique. FINDINGS: There is no acute fracture. Vertebral body heights are preserved. Alignment is anatomic. Disc spaces are maintained. Soft tissues are unremarkable. IMPRESSION: No acute fracture or subluxation. . 10/14 20:02 Order name: Basic Metabolic Panel; Complete Time: 22: sp4 10/14 20:02 Order name: CBC with Diff; Complete Time: 22: sp4 10/14 20:02 Order name: LFT's; Complete Time: 22: sp4 10/14 20:02 Order name: Magnesium; Complete Time: 22: sp4 10/14 20:02 Order name: NT PRO-BNP; Complete Time: 22: sp4 10/14 20:02 Order name: PT-INR; Complete Time: 22: sp4 10/14 20:02 Order name: Troponin HS; Complete Time: 22: 4 10/14 20:12 Order name: Glucose, Ancillary Testing; Complete Time: 20:30 EDMS 12/03 20:14 Order name: Glucose, Ancillary Testing EDTX 10/15 01:17 Order name: Urinalysis W/Microscopic; Complete Time: 02:14 sp4 10/15 01:18 Order name: Troponin High Sensitivity; Complete Time: 04:30 sp4 10/15 02:11 Order name: Urine Culture EDTX 10/14 20:02 Order name: XRAY Chest (1 view); Complete Time: 22:09 4 10/14 20:30 Order name: CT Head Brain wo Cont; Complete Time: 22:09 sp4 10/14 20:31 Order name: CT Head Angio; Complete Time: 22:09 sp4 10/15 06:22 Order name: CT EDTX 10/15 01:16 Order name: CONS Physician Consult EDTX 10/14 20:02 Order name: Cardiac monitoring; Complete Time: 20:33 sp4 10/14 20:02 Order name: EKG - Nurse/Tech; Complete Time: 20:33 sp4 10/14 20:02 Order name: IV Saline Lock; Complete Time: 20:33 sp4 10/14 20:02 Order name: Labs collected and sent; Complete Time: 20:33 sp4 10/14 20:02 Order name: O2 Per Protocol; Complete Time: 20:33 sp4 10/14 20:02 Order name: O2 Sat Monitoring; Complete Time: 20:33 sp4 EC:03 Rate is 110 beats/min. Rhythm is regular, Sinus tachycardia. QRS [place] is Normal. [place] sp4 interval is normal. QRS interval is normal. QT interval is normal. No Q waves. T waves are Normal. No ST changes noted. Clinical impression: No evidence of ischemia. Interpreted by me. Reviewed by me. Administered Medications: 10/14 20:43 Drug: NS 0.9% IV 1000 ml IV at 125 ml/hr once; to be given as a bolus over 60 minutes ay Route: IV; Rate: 125 ml/hr; Site: right antecubital; 10/15 01:27 Follow up: Response: No adverse reaction ay 02:16 Follow up: IV Status: Infusion continued upon admission ay 01:27 Drug: Aspirin PO Chewable Tablet 324 mg PO once; 81 mg tablets x 4 Route: PO; ay 01:36 Follow up: Response: No adverse reaction ay 02:27 Drug: Rocephin - Rocephin (cefTRIAXone) IVPB 1 grams IVPB once over 30 mins; (mix in 50 ay mL NS) Route: IVPB; Infused Over: 30 mins; Site: right antecubital; 03:03 Follow up: Response: No adverse reaction; IV Status: Completed infusion; IV Intake: [id number] Disposition Summary: 10/15/24 04:51 Transfer Ordered Notes: Transfer Location: [facility] sp4 Reason: Higher level of care sp4 Condition: Stable(10/15/24 04:51) sp4 Problem: new(10/15/24 04:51) sp4 Symptoms: have improved(10/15/24 04:51) sp4 Accepting Physician: Attending MD(10/15/24 08:57) db Diagnosis - Subacute left-sided weakness, left hemiparesis, generalized weakness, NSTEMI, sp4 - Hyponatremia sp4 Forms: - Medication Reconciliation Form sp4 - SBAR form sp4 NIH Stroke Scale - NIH Stroke Score Date: 10/15/2024 Time: 01:01 Total Score = 2 10. Dysarthria (speech clarity - read or repeat words) - 0(Normal) 11. Extinction and Inattention (visual/tactile/auditory/spatial/personal) - 0(No abnormality) 1a. Level of Consciousness (LOC) - 0(Alert) 1b. Level of Consciousness (LOC) (Month \T\ Age) - 0(Both) 1c. LOC Commands (Open \T\ Closes Eyes/Journeyman Patternmaker) - 0(Both) 2. Best Gaze (Lateral Gaze Paresis) - 0(Normal) 3. Visual Field Loss - 0(No visual loss) 4. Facial Palsy - 0(Normal) 5a. Left Arm: Motor (10-second hold) - 1(Drift) 5b. Right Arm: Motor (10-second hold) - 0(No drift) 6a. Left Leg: Motor (5-second hold - always test supine) - 1(Drift) 6b. Right Leg: Motor (5-second hold - always test supine) - 0(No drift) 7. Limb Ataxia (finger/nose \T\ heel/ruiz - test with eyes open) - 0(Absent) 8. Sensory Loss (pinprick arms/legs/face) - 0(Normal) 9. Best Language: Aphasia (description/naming/reading) - 0(No aphasia) Initials: sp4 Signatures: Dispatcher [employer] EDMS Irish Reyes, RN RN vc1 Sobia Alva, RN RN Omar Esquivel MD MD sp4 Jim Bernal, RN RN bm8 Silvino Qureshi, RN RN ay Corrections: (The following items were deleted from the chart) 10/14 20:03 20:03 BASIC METABOLIC PANEL+C.LAB.BRZ ordered. EDMS EDMS 20:03 20:03 CBC+H.LAB.BRZ ordered. EDMS EDMS 20:03 20:03 HEPATIC FUNCTION+C.LAB.BRZ ordered. EDMS EDMS 20:03 20:03 MAGNESIUM+C.LAB.BRZ ordered. EDMS EDMS 20:03 20:03 PROBNP+C.LAB.BRZ ordered. EDMS EDMS 20:03 20:03 PROTIME (+INR)+COAG.LAB.BRZ ordered. EDMS EDMS 20:03 20:03 Troponin High Sensitivity+C.LAB.BRZ ordered. EDMS EDMS 20:03 20:03 Chest Single View+RAD.RAD.BRZ ordered. EDMS EDMS 20:31 20:31 Head Angio+CT.RAD.BRZ ordered. EDMS EDMS 10/15 01:04 01:01 Constitutional: This is a well developed, well nourished patient who is sp4 awake, alert, and in no acute distress. Head/Face: Normocephalic, atraumatic. Eyes: Pupils equal round and reactive to light, extra-ocular motions intact. Lids and lashes normal. Conjunctiva and sclera are not injected. Cornea within normal limits. Periorbital areas with no swelling, redness, or edema. ENT: Nares patent. No nasal discharge, no septal abnormalities noted. Tympanic membranes are normal and external auditory canals are clear. Oropharynx with no redness, swelling, or masses, exudates, or evidence of obstruction, uvula midline. Mucous membranes moist. Neck: Trachea midline, no thyromegaly or masses palpated, and no cervical lymphadenopathy. Supple, full range of motion without nuchal rigidity, or vertebral point tenderness. Chest/axilla: Normal chest wall appearance and motion. Nontender with no deformity. No lesions are appreciated. Cardiovascular: Regular rate and rhythm with a normal S1 and S2. No gallops, murmurs, or rubs. Normal PMI, no JVD. No pulse deficits. Respiratory: Lungs have equal breath sounds bilaterally, clear to auscultation and percussion. No rales, rhonchi or wheezes noted. No increased work of breathing, no retractions or nasal flaring. Abdomen/GI: Soft, with normal bowel sounds. No distension or tympany. No guarding or rebound. No evidence of tenderness throughout. Back: No spinal tenderness. No costovertebral tenderness. Skin: Warm, dry with normal turgor. Normal color with no rashes, no lesions, and no evidence of cellulitis. MS/ Extremity: Pulses equal, no cyanosis. Neurovascular intact. Full, normal range of motion. Neuro: Awake and alert, GCS 15, oriented to person, place, time, and situation. Cranial nerves II-XII grossly intact. Motor strength 5/5 in all extremities. Sensory grossly intact. Psych: Awake, alert, with orientation to person, place and time. Behavior, mood, and affect are within normal limits sp4 01:21 01:10 Telemetry/MedSurg (Inpatient) sp4 vc1 01:21 01:10 sp4 vc1 04:43 04:43 C Spine Wo Con+CT.RAD.BRZ ordered. EDMS EDMS 04:47 01:10 Inpatient Admission sp4 vc1 04:47 01:10 Ramsey, Rudy sp4 vc1 04:47 01:10 Fair sp4 vc1 04:47 01:10 new sp4 vc1 04:47 01:10 have improved sp4 vc1 04:47 01:10 Standard sp4 vc1 04:47 01:10 Subacute cerebrovascular accident, left arm and left leg weakness, left vc1 hemiparesis, Elevated Troponin sp4 04:47 01:21 [facility] ER HOLD vc1 vc1 04:47 01:21 ERHOLD- vc1 vc1 04:52 04:51 Attending MD hall sp4 08:57 04:52 Attending MD [email or web address] db
--- NOTE | 2024-10-15 01:10 | ER ---
Nurse's Notes [facility] Name: Niharika Burris Age: 73 yrs Sex: Female : 1950 Arrival Date: 10/14/2024 Time: 19:44 Bed 19 Private MD: Diagnosis: Subacute left-sided weakness, left hemiparesis, generalized weakness, NSTEMI,;Hyponatremia Presentation: 10/14 19:45 Note Pt BIBA with a c/o left sided weakness x 2 weeks. Pt oriented to self only, no ay distress noted, VSS. 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 Onset of symptoms is unknown. 20:00 Chief complaint: EMS states: Spouse noted left sided weakness x2 weeks. Coronavirus ay screen: Vaccine status: Patient reports receiving the 2nd dose of the covid vaccine. Client denies travel out of the [place] in the last 14 days. Ebola Screen: No symptoms or risks identified at this time. Initial Sepsis Screen: Does the patient meet any 2 criteria? RR > 20 per min. Altered Mental Status. HR > 90 bpm. Yes Does the patient have a suspected source of infection? No. Patient's initial sepsis screen is negative. Risk Assessment: Do you want to hurt yourself or someone else? Patient reports no desire to harm self or others. 20:00 Method Of Arrival: EMS: [facility] ay 20:00 Acuity: LORI 3 ay Triage Assessment: 21:06 General: Appears in no apparent distress. comfortable, Behavior is calm, cooperative, ay appropriate for age. Pain: Denies pain. EENT: No signs and/or symptoms were reported regarding the EENT system. Neuro: Level of Consciousness is awake, alert, obeys commands, Oriented to person, Olap Developer are weak on left Speech is normal. Cardiovascular: Heart tones S1 S2 Capillary refill < 3 seconds. Respiratory: Airway is patent Respiratory effort is even, unlabored. GI: Bowel sounds present X 4 quads. Abd is soft and non tender X 4 quads. : No signs and/or symptoms were reported regarding the genitourinary system. Derm: No signs and/or symptoms reported regarding the dermatologic system. Musculoskeletal: Reports Parent/caregiver report the patient having weakness in left arm and left leg. Historical: - Allergies: 21:05 No Known Allergies; ay - Home Meds: 10/15 02:49 Unable to obtain [Active]; bm8 - PMHx: 10/14 21:05 Diabetes - NIDDM; Hypertension; ay 21:06 fatty liver; Hypothyroidism; ay - PSHx: 21:05 cardiac stent; ay - Immunization history:: Client reports receiving the 2nd dose of the Covid vaccine, Flu vaccine is up to date. - Infectious Disease History:: UTI. - Social history:: Smoking status: Patient denies any tobacco usage or history of. - Family history:: not pertinent. Screenin:28 [facility] ED Fall Risk Assessment (Adult) History of falling in the last 3 months, ay including since admission Yes- single mechanical fall (1 pt) Confusion or Disorientation Yes (5 pts) Intoxicated or Sedated No (0 pts) Impaired Gait Yes (1 pt) Mobility Assist Device Used Yes (1 pt) Altered Elimination No (0 pt) Score/Fall Risk Level 3 or more points = High Risk Oriented to surroundings, Maintained a safe environment, Educated pt \T\ family on fall prevention, incl call for assistance when getting out of bed, Assessed \T\ reinforced patient's understanding of fall precautions, Provided non-skid footwear, Hourly rounding (assess needs \T\ fall precautionary measures) done, Utilized family, sitter, or virtual healthcare prof as indicated. Abuse screen: Denies threats or abuse. Nutritional screening: No deficits noted. Tuberculosis screening: No symptoms or risk factors identified. Assessment: 21:28 General: See Triage assessment. ay 22:43 Reassessment: No changes from previously documented assessment. Patient denies pain at ay this time. 23:34 Reassessment: Patient appears in no apparent distress at this time. ay 10/15 01:51 Reassessment: Patient appears in no apparent distress at this time. ay 02:11 Pain: Denies pain. Cardiovascular: Reports Denies Capillary refill < 3 seconds. ay Respiratory: Airway is patent Respiratory effort is even, unlabored. 02:26 Reassessment: Patient appears in no apparent distress at this time. Patient and/or bm8 family updated on plan of care and expected duration. Pain level reassessed. Patient denies pain at this time. Patient states feeling better. Neuro: Level of Consciousness is awake, alert, obeys commands, Oriented to person, place, situation, Appropriate for age. Musculoskeletal: Circulation, motion, and sensation intact. Capillary refill < 3 seconds, in bilateral fingers. Reports weakness in left arm and left leg. 06:32 Reassessment: pt was un admitted and is in process for transfer. denies pain. is bm8 resting with eyes closed breathing is even unlabored with symmetrical rise and fall of chest. C-collar placed on neck for non displaced fracture of C2. 07:17 Reassessment: Patient appears in no apparent distress at this time. Patient and/or db family updated on plan of care and expected duration. Pain level reassessed. 07:33 Reassessment: REPORT CALLED TO FEDERICO AT [facility]. db 07:37 Reassessment: TRANSFER FORM SIGNED AND ON CHART. db 08:50 Reassessment: Patient appears in no apparent distress at this time. Patient and/or db family updated on plan of care and expected duration. Pain level reassessed. EMS ARRIVAL FOR PATIENT TRANSPORT TO [facility] ER. PT ORIENTED TO SELF, KNOWS SHE IS AT THE HOSPITAL IS CONFUSED. Respiratory: Airway is patent Respiratory effort is even, unlabored, Respiratory pattern is regular, symmetrical. Vital Signs: 10/14 19:40 BP 149 / 71; Pulse 118; Resp 28; Temp 100.2; Pulse Ox 99% on R/A; ay 19:45 BP 149 / 71; Pulse 111; Resp 28; Temp 100.2; Pulse Ox 99% on R/A; ay 22:05 BP 142 / 72; Pulse 105; Resp 21; Pulse Ox 99% on R/A; ay 22:53 BP 139 / 68; Pulse 99; Resp 24; Pulse Ox 99% on R/A; ay 10/15 01:49 BP 131 / 65; Pulse 101; Resp 29; Pulse Ox 99% on R/A; ay 02:26 BP 109 / 56; Pulse 94; Resp 23; Temp 99.4; Pulse Ox 96% ; Pain 0/10; bm8 05:27 Weight 58.97 kg; Height 5 ft. 3 in. ; vc1 06:32 BP 114 / 62; Pulse 93; Resp 26; Temp 98.8; Pulse Ox 100% ; Pain 0/10; bm8 07:00 BP 125 / 68; Pulse 91; Resp 24; Pulse Ox 100% ; db 08:00 BP 123 / 68; Pulse 94; Resp 16; Pulse Ox 99% ; db 05:27 Body Mass Index 23.03 (58.97 kg, 160.02 cm) vc1 02:26 Pain Scale: Adult bm8 06:32 Pain Scale: Adult bm8 Vitals: 12 21:28 Cardiac Rhythm Assessment Regular. ay Peyton Coma Score: 21:28 Eye Response: spontaneous(4). Motor Response: obeys commands(6). Verbal Response: ay confused(4). Total: 14. 1204 01:03 Eye Response: spontaneous(4). Motor Response: obeys commands(6). Verbal Response: sp4 oriented(5). Total: 15. 02:26 Eye Response: spontaneous(4). Motor Response: obeys commands(6). Verbal Response: bm8 oriented(5). Total: 15. 06:32 Eye Response: spontaneous(4). Motor Response: obeys commands(6). Verbal Response: bm8 oriented(5). Total: 15. NIH Stroke Scale Scores: 01:01 NIHSS Score: 2 sp4 ED Course: 10/14 19:45 Patient arrived in ED. jj6 20:01 Omar Spring MD is Attending Physician. sp4 20:06 Silvino Qureshi RN is Primary Nurse. ay 21:05 Triage completed. ay 21:06 Arm band placed on right wrist. EKG completed in triage. Results shown to MD. ay 21:13 XRAY Chest (1 view) In Process Unspecified. EDMS 21:28 Patient has correct armband on for positive identification. Fall risk band placed. ay Placed in gown. Bed in low position. Call light in reach. Side rails up X2. Adult w/ patient. Provided Education on: Procedure Consent. 21:28 No provider procedures requiring assistance completed. EKG done, by ED staff. Inserted ay saline lock: 20 gauge in right antecubital area, using aseptic technique. Patient maintains SpO2 saturation greater than 95% on room air. 21:59 CT Head Brain wo Cont In Process Unspecified. EDMS 22:01 CT Head Angio In Process Unspecified. EDMS 22:39 Client placed on continuous cardiac and pulse oximetry monitoring. NIBP monitoring bm8 applied. brass cleaner on. Pulse ox on. NIBP on. Door closed. Noise minimized. Warm blanket given. Pillow given. Verbal reassurance given. Head of bed elevated. 10/15 01:09 Rudy Ramsey MD is Hospitalizing Provider. sp4 02:13 Patient admitted, IV remains in place. Patient maintains SpO2 saturation greater than ay 95% on room air. 08:27 pt accepted in transfer to [facility] ER by dr Jacobs, admin approval given by Corey Meza. 08:33 pt will be transported by ems. bd Administered Medications: 10/14 20:43 Drug: NS 0.9% IV 1000 ml IV at 125 ml/hr once; to be given as a bolus over 60 minutes ay Route: IV; Rate: 125 ml/hr; Site: right antecubital; 10/15 01:27 Follow up: Response: No adverse reaction ay 02:16 Follow up: IV Status: Infusion continued upon admission ay 01:27 Drug: Aspirin PO Chewable Tablet 324 mg PO once; 81 mg tablets x 4 Route: PO; ay 01:36 Follow up: Response: No adverse reaction ay 02:27 Drug: Rocephin - Rocephin (cefTRIAXone) IVPB 1 grams IVPB once over 30 mins; (mix in 50 ay mL NS) Route: IVPB; Infused Over: 30 mins; Site: right antecubital; 03:03 Follow up: Response: No adverse reaction; IV Status: Completed infusion; IV Intake: [id number] Medication: 10/14 21:28 VIS not applicable for this client. ay Intake: 10/15 03:03 IV: 50ml; Total: 50ml. bm8 Outcome: 01:10 Decision to Hospitalize by Provider. sp4 02:14 Admitted to ER Hold. Please see [facility] for further documentation. ay 02:14 Condition: stable 02:14 Discharge instructions given to patient, family, Instructed on the need for admit, 04:51 ER care complete, transfer ordered by . sp4 08:50 Transferred by ground EMS to [facility], Transfer form completed. X-rays sent db w/ patient. 08:50 Condition: stable 08:50 Instructed on the need for transfer, 08:57 Patient left the ED. db NIH Stroke Scale - NIH Stroke Score Date: 10/15/2024 Time: 01:01 Total Score = 2 10. Dysarthria (speech clarity - read or repeat words) - 0(Normal) 11. Extinction and Inattention (visual/tactile/auditory/spatial/personal) - 0(No abnormality) 1a. Level of Consciousness (LOC) - 0(Alert) 1b. Level of Consciousness (LOC) (Month \T\ Age) - 0(Both) 1c. LOC Commands (Open \T\ Closes Eyes/Bellman Driver) - 0(Both) 2. Best Gaze (Lateral Gaze Paresis) - 0(Normal) 3. Visual Field Loss - 0(No visual loss) 4. Facial Palsy - 0(Normal) 5a. Left Arm: Motor (10-second hold) - 1(Drift) 5b. Right Arm: Motor (10-second hold) - 0(No drift) 6a. Left Leg: Motor (5-second hold - always test supine) - 1(Drift) 6b. Right Leg: Motor (5-second hold - always test supine) - 0(No drift) 7. Limb Ataxia (finger/nose \T\ heel/ruiz - test with eyes open) - 0(Absent) 8. Sensory Loss (pinprick arms/legs/face) - 0(Normal) 9. Best Language: Aphasia (description/naming/reading) - 0(No aphasia) Initials: sp4 Signatures: Dispatcher [employer] EDMS Edith Samuels Jennifer jj6 Irish Reyes, RN RN vc1 Sobia Alva, RN RN Omar Esquivel MD MD sp4 Jim Bernal RN RN bm8 Silvino Qureshi, RN JAQUELIN ay
[2024-10-15 02:08] LABS: Specific Gravity > 1.030 (1.005-1.030); Sqamous Epithelial <5 /HPF (None Seen); Urine Bacteria None Seen /HPF (<20); Urine Bilirubin 1+ (Negative); Urine Blood 3+ (OVER) (Negative); Urine Clarity Clear (Clear); Urine Color Yellow (Yellow); Urine Culture Reflex Order REFLEXED; Urine Glucose NEGATIVE (Negative); Urine Ketones NEGATIVE (Negative); Urine Micro Reflex YN NO BILL MICROSCOPIC; Urine Mucus Slight /HPF (None Seen); Urine Nitrite NEGATIVE (Negative); Urine Protein 2+ (Negative); Urine RBC 21-50 /HPF (None Seen); Urine Urobilinogen 3+ (Normal); Urine pH 6.5 (5.0-7.0)
[2024-10-15] MEDS ORDERED: CEFTRIAXONE 1000 MG/VIAL ONE (02:20)
[2024-10-15] MEDS ORDERED: NA CHLORIDE 0.9% 50 ML ONE (02:21)
[2024-10-15 03:23] VITALS: BMI 23.0
[2024-10-15 04:24] VITALS: TEMP 98.8
--- NOTE | 2024-10-15 06:22 | RAD REPORT ---
CLINICAL HISTORY: Pain. COMPARISON: None. TECHNIQUE: CT CERVICAL SPINE WITHOUT IV CONTRAST on 10/15/2024 4:43 AM APPLICATION DEVELOPMENT PROJECT MANAGER This exam was performed according to our departmental dose-optimization program, which includes autom ated exposure control, adjustment of the mA and/or kV according to patient size and/or use of iterative reconstruction technique. FINDINGS: There is no acute fracture. Vertebral body heights are preserved. Alignment is anatomic. Disc spaces are maintained. Soft tissues are unremarkable. IMPRESSION: No acute fracture or subluxation. Electronically signed by: Howard Jo MD 10/15/2024 06:17 AM APPLICATION DEVELOPMENT PROJECT MANAGER RP Due to temporary technical issues with the PACS/[employer] reporting system, reports are being saad d by the in-house radiologist without review as a courtesy to ensure prompt reporting the interpreting radiologist is fully responsible for the content of the report. Transcribed Date/Time: 10/15/2024 6:22 AM
[2024-10-15] MEDS ORDERED: FLU (Fluarix Triv) TS24-25(6MOS UP)/PF 45 MCG/0.5 ML Syringe IM ONE (07:45)
[2024-10-15] MEDS ORDERED: PNEUMOCOCCAL VACCINE 0.5 ML IMVAC ONE (08:00)
[2024-10-15 13:19] VITALS: BP 123/68; O2SAT 99
--- NOTE | 2024-10-15 21:27 | HP ---
Date of Admission: 10/15/2024 Chief Complaint: Left-sided weakness. History Of Present Illness: This is a 73-year-old female patient, who was in hospital about 2 weeks ago or so and during her last hospital stay, she was diagnosed as having fracture of the dens process of second cervical spine. The patient had MRI done at our hospital and after this diagnosis, hard cervical collar was placed and she was transferred to [facility] in [place] for higher level of care, where she was evaluated by neurosurgeon and no surgical intervention was recommended with instruction for the patient to continue to use cervical collar. She was sent back to our hospital and after few days' stay at our hospital, she was discharged to go home. The patient was asked to come and see me for followup within a week after her discharge, but she never returned to office for followup visit. Last night, she was brought into emergency room with complaints of left-sided weakness and emergency room physician contacted me with this information. When I saw the patient this morning, she was in the emergency room with her cervical collar in place and she did inform me that she was using it at home as advised all the time. The patient has not gone back to see neurosurgeon for followup yet, but she informed me that she has 1 visit tomorrow and another visit next week and so 1 visit is with neurosurgeon and other visit is with liver specialist. She denies any tingling or numbness in hands or legs. Denies any headache. Allergies: NO KNOWN ALLERGIES. Medications: Current medication list reviewed. Medications prior to this admission on outpatient basis includes: Amlodipine 2.5 mg daily, aspirin 81 mgdaily, clopidogrel 75 mg daily, levothyroxine 88 mcg daily, lisinopril 10 mg daily, Claritin 10 mg daily,metformin 500 mg takes 2 tablets 2 times a day, rosuvastatin 5 mg daily in the evening, Januvia 100 mg daily with breakfast, vitamin B12 500 mcg daily. Review of Systems: FLANGING ROLL OPERATOR: As mentioned above. All other systems reviewed and negative. 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 She was treated with 2 weeks of Levaquin for sepsis due to Streptococcus Mitis in December 2023 and in January 2024 she had sepsis with same organism and was treated with six weeks of IV Ceftriaxone as we were concerned about possibility of endocarditis. Past Surgical History: Aortic valve replacement done percutaneously, April 26, 2021; cholecystectomy; hysterectomy. Family History: Father , had pneumonia. Mother , had emphysema. Brother has diabetes. Sister , had a breast cancer. Social History: Negative for smoking, alcohol use Physical Examination: Vital Signs: Temperature 99.4, pulse 95, respiratory rate 23, blood pressure 109/56, oxygen saturation 95%. Height 5 feet 3 inches, weight 130 pounds. General: Awake, alert, oriented, not in distress. HEENT: Head atraumatic, normocephalic. Conjunctivae nonerythematous. Sclerae white. Mouth, no thrush or edema noted. Ears/Nose, no mass, lesion, discharge noted. Neck: The patient has a hard cervical collar in place. Lungs: Bilateral good equal air entry. Clear to auscultation. No rhonchi. No rales. Heart: Normal heart sounds, no murmur or gallop. Abdomen: Soft, bowel sounds normal. No guarding, rigidity, tenderness, mass, hepatosplenomegaly, distention, or bruit noted. Extremities: No leg edema. No calf tenderness. Skin: No rash, ulcer, cellulitis. Lymphatics: No lymph node enlargement in neck, supraclavicular, infraclavicular region. Neuro: No focal neurological deficit. The patient's power is normal in right upper and right lower extremity, but left upper and left lower extremity power is minimally weaker than right side. I would grade power in right upper and right lower extremity as 4+/5 and left upper and left lower extremity as 4/5. Chest: Unremarkable. External Genitalia: Deferred. Rectal: Deferred. Laboratory Data: WBC 10.3, hemoglobin 10.4, platelets 96. Sodium 126, potassium 3.7, chloride 96, bicarb 23, BUN 10, creatinine 0.76, glucose 214, total bilirubin 2.1, AST 105, ALT 36, alkaline phosphatase 162. Troponin 227 on the first set, second set 180. It is important to note that the patient does not have any chest pain complaints at all. Urinalysis was abnormal with leukocyte esterase 75, rbc 20 to 50, wbc 10 to 20. Chest x-ray, no acute cardiopulmonary changes. CT scan of the head was negative for any acute intracranial changes. CT angiogram of head was negative also for any acute changes. CT scan of cervical spine showed evidence of spondylosis, but did not show any definite fracture. Hospital Course: After the patient was evaluated in the emergency room, emergency room physician contacted me during nighttime requesting admission to hospital and I agreed to that, but subsequently I realized about the patient's recent C2 cervical spine fracture, so during nighttime, I contacted ER physician that we need to transfer this patient to [place] instead of keeping her at our hospital as we need higher level of care and we do not have any neurosurgical backup at our hospital. With that, transfer process was initiated and during the course of day today, the patient was sent to [facility]. Details were discussed with the patient this morning when I saw her. The patient did receive 1 dose of ceftriaxone in the emergency room for her urinary tract infection problem. Final Diagnoses: 1. Left-sided hemiparesis. 2. Fracture, second cervical spine, dens process. 3. Urinary tract infection. 4. Pancytopenia. 5. Cirrhosis of liver, not related to alcohol. 6. Hypertension. 7. Hyperlipidemia. 8. Type 2 diabetes mellitus. 9. Osteoarthritis, multiple sites. 10. Hypothyroidism. 11. Diverticulosis. 12. Liver mass. 13. Renal cyst. 14. Hyponatremia. Total time spent today 90 minutes that includes communication with emergency room physician on multiple occasions during nighttime, performing today's evaluation and management, and review of last hospital visit record from 09/25/2024. NING/CRISTINA Voice ID: [id number]
== END 2024-10-15 08:57 | disposition short-term general hospital (02) | DRG 56 ==
LOC: ER 19:44 → ERHOLD 10-15 01:12
PROVIDERS: ADMIT Internal Medicine; ATTEND Internal Medicine
DX: G81.94 Hemiplegia, unspecified affecting left nondominant side (principal); I21.4 Non-ST elevation (NSTEMI) myocardial infarction; E87.1 Hypo-osmolality and hyponatremia; N39.0 Urinary tract infection, site not specified; D61.818 Other pancytopenia; I10 Essential (primary) hypertension; E78.5 Hyperlipidemia, unspecified; E11.9 Type 2 diabetes mellitus without complications; E03.9 Hypothyroidism, unspecified; K74.60 Unspecified cirrhosis of liver; M19.09 Primary osteoarthritis, other specified site; N28.1 Cyst of kidney, acquired; K57.90 Diverticulosis of intestine, part unspecified, without perforation or abscess without bleeding; S12.110D Anterior displaced Type II dens fracture, subsequent encounter for fracture with routine healing; R16.0 Hepatomegaly, not elsewhere classified; Z95.2 Presence of prosthetic heart valve; Z95.5 Presence of coronary angioplasty implant and graft; Z79.82 Long term (current) use of aspirin; Z79.02 Long term (current) use of antithrombotics/antiplatelets; Z90.49 Acquired absence of other specified parts of digestive tract; Z79.890 Hormone replacement therapy; Z79.899 Other long term (current) drug therapy; Z90.710 Acquired absence of both cervix and uterus
CPT/HCPCS: 36415; 70450; 70496; 71045; 72125; 80048; 80076; 81001; 82947; 83735; 83880; 84484; 85025; 85610; 87077; 87086; 87088; 87186; 96361; 96365; 99285; J0696; J7030; Q9967